=== PATIENT | female | born 1965 | race Caucasian/White ===

== ENCOUNTER 2020-03-15 14:08 | Outpatient (REF) | payer OTHER, SELFPAY ==
--- NOTE | 2020-03-15 14:15 | XR_ITS ---
EXAMINATION: XR CERVICAL SPINE CLINICAL INFORMATION: Neck pain COMPARISON: Previous exam November 2012 TECHNIQUE: 4 views of the cervical spine including swimmer's view were obtained. FINDINGS: Bone alignment is normal. No fracture or dislocation is seen. The C7 vertebral body is not well visualized. Disc spaces are normal. There is a small right cervical rib. Prevertebral soft tissues are normal. XR/XR cervical spine 2V IMPRESSION: Limited visualization of the C7 vertebral body. Small right cervical rib.
== END 2020-03-15 14:09 | disposition home or self-care (01) ==
LOC: HO.XRAY 14:08
PROVIDERS: PCP Internal Medicine; Visit Provider Internal Medicine
DX: M54.2 Cervicalgia (principal)
CPT/HCPCS: 72040

== ENCOUNTER 2020-03-28 13:00 | Outpatient (RCR) | payer OTHER, SELFPAY ==
--- NOTE | 2020-04-07 09:07 | MHC.PT.DC ---
[facility] Office [place] Office [place] Office [address] [phone] F: [phone] F: [phone] F: [phone] F: [phone] Physical Therapy Discharge Report Diagnosis: Vertigo Date of Surgery: Date of Evaluation: 03/27/20 Date of Discharge: 04/07/20 Treatments to Date: 2 Cancellations to Date: 0 No Shows to Date: 0 Discharge Status: Independent with HEP Discharge Summary: Since pt was negative for bppv at [facility], and felt no improvement despite doing CRM as a precaution I moved onto treatment of cervicogenic dizziness due to tightness in cervical rotation, retraction, and extension and provocation of lightheadedness with cervical movements. Pt tolerated tx well reporting. It feels good to stretch and move. Pt was given yellow theraband to do exercises performed today at home. Pt called and said she was independent with HEP Electronically signed by: Alix Chu PT, DPT Please sign and return to therapist. Thank you for your referral.
== END 2020-04-07 13:25 | disposition other institution (70) ==
LOC: HO.PT 13:00
PROVIDERS: Visit Provider Internal Medicine
DX: M54.2 Cervicalgia (principal); R42 Dizziness and giddiness
CPT/HCPCS: 95992; 97110; 97112; 97163

== ENCOUNTER → 2020-07-06 14:55 | Outpatient (BNVA) | payer OTHER, SELFPAY | PROVIDERS: PCP Internal Medicine; Visit Provider Internal Medicine | DX: I48.0 Paroxysmal atrial fibrillation (principal); I47.2 Ventricular tachycardia; R00.1 Bradycardia, unspecified; G47.33 Obstructive sleep apnea (adult) (pediatric); Z79.899 Other long term (current) drug therapy | CPT/HCPCS: 99212 ==

== ENCOUNTER 2020-07-13 10:08 | Outpatient (REF) | payer OTHER, SELFPAY ==
[2020-07-13 13:38] LABS: MANUAL DIFF FLAG NO
[2020-07-13 13:44] LABS: Basophils Percent Auto 0.2 % (0-2); Eosinophils Absolute Auto 0.2 X10*3/uL (0.0-0.4); Eosinophils Percent Auto 2.3 % (0-4); Hematocrit 34.6 % (37-47); Imm Gran Abs Auto 0.02 X10*3/uL (0.00-0.03); Imm Gran Pct Auto 0.2 % (0.0-0.4); Lymphocytes Absolute Auto 1.6 X10*3/uL (1.2-4.9); Lymphocytes Percent Auto 19.1 % (20-40); Mean Corpuscular HGB Conc 28.9 g/dl (31.0-35.0); Mean Corpuscular Hemoglobin 21.3 pg (27.0-33.0); Mean Corpuscular Volume 73.8 fL (80-98); Mean Platelet Volume 10.8 fL (9.4-12.3); Monocytes Absolute Auto 0.6 X10*3/uL (0.1-1.2); Monocytes Percent Auto 6.5 % (2-11); Neutrophils Absolute Auto 6.1 X10*3/uL (2.0-8.3); Neutrophils Percent Auto 71.7 % (45-73); Platelet Count 367 X10*3/uL (160-400); Red Blood Count 4.69 X10*6/uL (4.20-5.50); Red Cell Distribution Width 19.4 % (11.0-16.0); White Blood Count 8.6 X10*3/uL (4.8-10.8)
[2020-07-13 13:44] LABS: Immature Retic Fraction 30.6 % (3.0-15.9); Retic HGB Equivalent 24.5 pg (30.0-35.0); Reticulocyte Percent 1.9 % (0.5-1.8); Reticulocytes Absolute 0.088 X10*6/uL (0.026-0.095)
[2020-07-13 14:02] LABS: Glucose Urine UA NEG (NEG); Leukocyte Esterase Urine NEG (NEG); Nitrite Urine NEG (NEG); PH 6.5 (5.0-8.0); Urine Blood NEG (NEG); Urine Ketones NEG (NEG); Urine Protein NEG (NEG-TRACE)
[2020-07-13 14:04] LABS: Appearance Urine HAZY; Color Urine YELLOW
[2020-07-13 14:27] LABS: Iron 48 mcg/dL (30-160); Percent Iron Saturation 11 % (15-50); Total Iron Binding Capacity 421 mcg/dL (228-428); Unsaturated Iron Binding 373 ug/dL
[2020-07-13 14:28] LABS: Alanine Aminotransferase 19 U/L (0-31); Albumin Level 4.1 g/dL (3.5-5.0); Alkaline Phosphatase 101 U/L (39-117); Anion Gap 13 (12-20); Aspartate Amino Transferase 14 U/L (5-31); Bilirubin Total 0.6 mg/dL (0.0-1.0); Blood Urea Nitrogen 15 mg/dL (9-16); Carbon Dioxide 26 mmol/L (22-29); Chloride 104 mmol/L (96-108); Cholesterol 198 mg/dL; Estimated Glomerular Filt Rate > 60; Glucose Random 108 mg/dL (60-115); HDL Cholesterol 49 mg/dL; LDL Cholesterol Calculated 118 mg/dl; Potassium 4.7 mmol/L (3.3-5.1); Sodium 138 mmol/L (135-145); Triglycerides 155 mg/dL
[2020-07-13 14:40] LABS: Free T4 (Free Thyroxine) 0.94 ng/dL (0.71-1.85); Thyroid Stimulating Hormone 1.22 uIU/mL (0.32-4.0)
[2020-07-13 14:41] LABS: Ferritin 6 ng/mL (10-250); Vitamin D 25-OH Total 31.3 ng/mL (>30)
[2020-07-13 14:56] LABS: Bacteria Urine 1+ /LPF; RBC Urine 0-2 /HPF (0); Squamous Epithelial Cell Urine 3+ /LPF; WBC Urine 0-2 /HPF (0-4)
[2020-07-13 15:07] LABS: Folate 6.8 ng/mL (> or = 4.0); Vitamin B12 495 pg/mL (200-900)
[2020-07-13 15:12] LABS: T4 Thyroxine 7.7 ug/dL (4.5-12.0)
== END 2020-07-13 10:09 | disposition home or self-care (01) ==
LOC: HO.10HDL 10:08
PROVIDERS: Visit Provider Internal Medicine
DX: Z00.00 Encounter for general adult medical examination without abnormal findings (principal); I10 Essential (primary) hypertension; F32.9 Major depressive disorder, single episode, unspecified; R42 Dizziness and giddiness; E66.01 Morbid (severe) obesity due to excess calories; Z68.41 Body mass index [BMI] 40.0-44.9, adult; F41.9 Anxiety disorder, unspecified; E78.00 Pure hypercholesterolemia, unspecified; G47.33 Obstructive sleep apnea (adult) (pediatric); M51.36 Other intervertebral disc degeneration, lumbar region; K21.9 Gastro-esophageal reflux disease without esophagitis; I48.91 Unspecified atrial fibrillation
CPT/HCPCS: 36415; 80053; 80061; 81001; 82306; 82607; 82728; 82746; 83540; 84436; 84439; 84443; 85025; 85045

== ENCOUNTER → 2020-08-15 13:30 | Outpatient (BNVA) | payer OTHER, SELFPAY | PROVIDERS: PCP Internal Medicine; Visit Provider Physician Assistant | DX: E66.01 Morbid (severe) obesity due to excess calories (principal); I48.0 Paroxysmal atrial fibrillation; G47.33 Obstructive sleep apnea (adult) (pediatric); K21.9 Gastro-esophageal reflux disease without esophagitis | CPT/HCPCS: 99202 ==

== ENCOUNTER → 2020-08-30 08:09 | Outpatient (BNVA) | payer OTHER, SELFPAY | PROVIDERS: PCP Internal Medicine; Visit Provider Physician Assistant ==

== ENCOUNTER → 2020-09-26 08:11 | Outpatient (BNVA) | payer OTHER, SELFPAY | PROVIDERS: PCP Internal Medicine; Visit Provider Dietitian, Registered | DX: E66.01 Morbid (severe) obesity due to excess calories (principal); Z68.41 Body mass index [BMI] 40.0-44.9, adult | CPT/HCPCS: 97802 ==

== ENCOUNTER 2020-10-10 12:08 | Outpatient (REF) | payer OTHER, SELFPAY ==
[2020-10-10 13:54] LABS: MANUAL DIFF FLAG NO
[2020-10-10 14:17] LABS: Basophils Percent Auto 0.5 % (0-2); Eosinophils Absolute Auto 0.2 X10*3/uL (0.0-0.4); Eosinophils Percent Auto 2.3 % (0-4); Hematocrit 40.5 % (37-47); Hemoglobin 12.7 g/dl (12.0-16.0); Imm Gran Abs Auto 0.02 X10*3/uL (0.00-0.03); Imm Gran Pct Auto 0.3 % (0.0-0.4); Immature Retic Fraction 11.1 % (3.0-15.9); Lymphocytes Absolute Auto 1.9 X10*3/uL (1.2-4.9); Lymphocytes Percent Auto 28.4 % (20-40); Mean Corpuscular HGB Conc 31.4 g/dl (31.0-35.0); Mean Corpuscular Hemoglobin 25.1 pg (27.0-33.0); Mean Platelet Volume 10.7 fL (9.4-12.3); Monocytes Absolute Auto 0.5 X10*3/uL (0.1-1.2); Monocytes Percent Auto 7.2 % (2-11); Neutrophils Percent Auto 61.3 % (45-73); Platelet Count 284 X10*3/uL (160-400); Red Blood Count 5.06 X10*6/uL (4.20-5.50); Red Cell Distribution Width 21.2 % (11.0-16.0); Retic HGB Equivalent 31.7 pg (30.0-35.0); Reticulocyte Percent 1.2 % (0.5-1.8); Reticulocytes Absolute 0.061 X10*6/uL (0.026-0.095); White Blood Count 6.6 X10*3/uL (4.8-10.8)
[2020-10-10 14:25] LABS: Estimated Average Glucose 134 mg/dL; Hemoglobin A1c % 6.3 %
[2020-10-10 14:33] LABS: Alanine Aminotransferase 21 U/L (0-31); Albumin Level 4.4 g/dL (3.5-5.0); Alkaline Phosphatase 103 U/L (39-117); Anion Gap 14 (12-20); Aspartate Amino Transferase 16 U/L (5-31); Bilirubin Total 0.5 mg/dL (0.0-1.0); Blood Urea Nitrogen 20 mg/dL (9-16); Calcium 9.9 mg/dL (8.4-10.2); Carbon Dioxide 27 mmol/L (22-29); Chloride 107 mmol/L (96-108); Estimated Glomerular Filt Rate > 60; Glucose Random 90 mg/dL (60-115); Iron 66 mcg/dL (30-160); Percent Iron Saturation 19 % (15-50); Potassium 4.5 mmol/L (3.3-5.1); Sodium 143 mmol/L (135-145); Total Iron Binding Capacity 356 mcg/dL (228-428); Total Protein 7.2 g/dL (6.5-8.0); Unsaturated Iron Binding 290 ug/dL
[2020-10-10 14:43] LABS: Ferritin 44 ng/mL (10-250)
[2020-10-10 14:53] LABS: Folate 9.2 ng/mL (> or = 4.0); Vitamin B12 588 pg/mL (200-900)
== END 2020-10-10 12:09 | disposition home or self-care (01) ==
LOC: HO.10HDL 12:08
PROVIDERS: Visit Provider Internal Medicine
DX: D50.9 Iron deficiency anemia, unspecified (principal); I48.0 Paroxysmal atrial fibrillation; R73.02 Impaired glucose tolerance (oral)
CPT/HCPCS: 36415; 80053; 82607; 82728; 82746; 83036; 83540; 85025; 85045

== ENCOUNTER → 2020-10-25 08:13 | Outpatient (BNVA) | payer OTHER, SELFPAY | PROVIDERS: PCP Internal Medicine; Visit Provider Physician Assistant ==

== ENCOUNTER → 2020-11-24 07:47 | Outpatient (BNVA) | payer OTHER, SELFPAY | PROVIDERS: PCP Internal Medicine; Visit Provider Physician Assistant ==

== ENCOUNTER 2020-12-25 13:26 | Outpatient (REF) | payer OTHER, SELFPAY ==
--- NOTE | ~2020-12-25 | MM_ITS ---
EXAMINATION: MM SCREENING DIGITAL BREAST TOMOSYNTHESIS, BILATERAL CLINICAL INFORMATION: Screening. Asymptomatic. The lifetime risk of breast cancer based on the Tyrer-Cuzick Model is 6%. COMPARISON: Mammography: 12/20/2019, 12/14/2018, 12/09/2016, 11/17/2015; ultrasound left breast 06/21/2019 TECHNIQUE: Digital breast tomosynthesis is performed in both the craniocaudal and mediolateral oblique views along with computer-aided detection (CAD). Synthesized 2D images are generated from the tomosynthesis. Additional right CC x2 and additional left CC views are provided. FINDINGS: There are scattered areas of fibroglandular density (ACR BI-RADS breast composition Category b). There are small scattered parenchymal asymmetries similar to prior studies. There is no developing density. Minor nodularity left breast is similar to prior studies. There is no developing density. No architectural abnormality. No abnormal calcifications. The axilla and skin contours are unremarkable. MM/MM tomosynthesis screening BI IMPRESSION: No significant changes from prior exams. ASSESSMENT: BI-RADS 2: Benign RECOMMENDATION: Routine annual mammography screening. This patient's information was entered into a reminder system with a target due date for their next mammogram.
== END 2020-12-25 13:27 | disposition home or self-care (01) ==
LOC: HO.MAMMO 13:26
PROVIDERS: Visit Provider Internal Medicine
DX: Z12.31 Encounter for screening mammogram for malignant neoplasm of breast (principal)
CPT/HCPCS: 77063; 77067

== ENCOUNTER → 2021-01-03 08:09 | Outpatient (BNVA) | payer OTHER, SELFPAY | PROVIDERS: PCP Internal Medicine; Visit Provider Physician Assistant ==

== ENCOUNTER 2022-01-04 14:16 | Outpatient (REF) | payer OTHER, SELFPAY ==
--- NOTE | ~2022-01-04 | MM_ITS ---
EXAMINATION: MM SCREENING DIGITAL BREAST TOMOSYNTHESIS, BILATERAL CLINICAL INFORMATION: Screening. Asymptomatic. The lifetime risk of breast cancer based on the Tyrer-Cuzick Model is 7%. COMPARISON: Mammography: 12/25/2020, 12/20/2019, 12/14/2018 TECHNIQUE: Digital breast tomosynthesis is performed in both the craniocaudal and mediolateral oblique views along with computer-aided detection (CAD). Synthesized 2D images are generated from the tomosynthesis. Additional right cleavage view is provided. FINDINGS: There are scattered areas of fibroglandular density (ACR BI-RADS breast composition Category b). There are no significant masses, abnormal calcifications, or other abnormalities. Parenchymal pattern is similar to prior studies. There is no developing density or architectural abnormality. Fibronodular densities central and outer left breast are decreased from prior exams. The axilla and skin contours are unremarkable. No significant changes. MM/MM tomosynthesis screening BI IMPRESSION: No mammographic evidence of malignancy. ASSESSMENT: BI-RADS 2: Benign RECOMMENDATION: Routine annual mammography screening. This patient's information was entered into a reminder system with a target due date for their next mammogram.
== END 2022-01-04 14:17 | disposition home or self-care (01) ==
LOC: HO.MAMMO 14:16
PROVIDERS: PCP Internal Medicine; Visit Provider Internal Medicine
DX: Z12.31 Encounter for screening mammogram for malignant neoplasm of breast (principal)
CPT/HCPCS: 77063; 77067

== ENCOUNTER → 2022-02-27 13:10 | Outpatient (BNVA) | payer OTHER, SELFPAY | PROVIDERS: PCP Internal Medicine; Visit Provider Internal Medicine | DX: I48.0 Paroxysmal atrial fibrillation (principal); I47.20 Ventricular tachycardia, unspecified; R00.1 Bradycardia, unspecified; E66.01 Morbid (severe) obesity due to excess calories; G47.33 Obstructive sleep apnea (adult) (pediatric); Z68.42 Body mass index [BMI] 45.0-49.9, adult | CPT/HCPCS: 93005; 99212 ==

== ENCOUNTER 2022-05-22 13:56 | Outpatient (REF) | payer OTHER, SELFPAY ==
--- NOTE | ~2022-05-22 | XR_ITS ---
EXAMINATION: XR KNEE AP STANDING, BILATERAL XR KNEE, RIGHT CLINICAL INFORMATION: Pain in right knee. COMPARISON: None TECHNIQUE: AP bilateral knee standing. Right knee 2 views. FINDINGS: AP BILATERAL KNEE: There is loss of medial compartment joint space with periarticular spurring. The lateral compartment joint space is maintained. No visible acute fracture, dislocation or bony erosive changes seen. The soft tissues are normal. RIGHT KNEE: The patellofemoral compartment joint space is preserved. No visible acute fracture or dislocation seen. No bony erosive changes. No abnormal joint effusion. XR/XR knee RT 2V IMPRESSION: Mild degenerative changes medial compartment bilateral knees on AP standing view. Mild degenerative changes patellofemoral compartment right knee. No joint effusion or loose body seen.
--- NOTE | ~2022-05-22 | XR_ITS ---
EXAMINATION: XR KNEE AP STANDING, BILATERAL XR KNEE, RIGHT CLINICAL INFORMATION: Pain in right knee. COMPARISON: None TECHNIQUE: AP bilateral knee standing. Right knee 2 views. FINDINGS: AP BILATERAL KNEE: There is loss of medial compartment joint space with periarticular spurring. The lateral compartment joint space is maintained. No visible acute fracture, dislocation or bony erosive changes seen. The soft tissues are normal. RIGHT KNEE: The patellofemoral compartment joint space is preserved. No visible acute fracture or dislocation seen. No bony erosive changes. No abnormal joint effusion. XR/XR knee standing BI IMPRESSION: Mild degenerative changes medial compartment bilateral knees on AP standing view. Mild degenerative changes patellofemoral compartment right knee. No joint effusion or loose body seen.
== END 2022-05-22 13:57 | disposition home or self-care (01) ==
LOC: HO.HOSX 13:56
PROVIDERS: Visit Provider Physician Assistant
DX: M17.11 Unilateral primary osteoarthritis, right knee (principal)
CPT/HCPCS: 20610; 73560; 73565; 99202; J1020

== ENCOUNTER 2022-09-21 20:55 | Observation (INO) | payer OTHER, SELFPAY ==
--- NOTE | 2022-09-21 | ECG_ITS ---
Test Reason : SYNCOPEE Blood Pressure : / mmHG Vent. Rate : 077 BPM Atrial Rate : 077 BPM P-R Int : 196 ms QRS Dur : 154 ms QT Int : 400 ms P-R-T Axes : 051 -63 091 degrees QTc Int : 452 ms Normal sinus rhythm Left axis deviation Left bundle branch block Abnormal ECG No previous ECGs available Referred By: Generic ED Physician Electronically Signed By:NEFTALY HORNE
--- NOTE | ~2022-09-21 | CT_ITS ---
EXAMINATION: NONCONTRAST CT HEAD CT ANGIOGRAM HEAD AND NECK CLINICAL INFORMATION: Syncope COMPARISON: 10/06/2017 10/02/2015 TECHNIQUE: Noncontrast CT examination of the head was performed initially. Test bolus sequences followed by intravenous administration 80 mL of Omnipaque 350 intravenous contrast. Helical imaging was performed in the axial plane from the mediastinum to the skull vertex. Delayed postcontrast imaging of the head was also performed. The data was processed at the 3d technologist's workstation for generation of MIP sequences. Three-dimensional volume rendered reformatted images were also generated at an offline 3-D workstation. This CT examination was performed using dose optimization techniques as appropriate, variously including the following: *Automated exposure control *Adjustment of mA and/or kV according to patient size (this includes techniques or standardized protocols for targeted exams where dose is matched to indication/reason for exam; i.e. extremities or head) *Use of iterative reconstruction technique The degree of stenosis determined by NASCET criteria. DLP: 2180 mGy-cm FINDINGS: BONES, SOFT TISSUES AND LUNG APICES: No overt abnormality is appreciated. CTA NECK: The aortic arch has a classic configuration and the major arch vessel origins are non-stenotic. The vertebral arteries are co-dominant and both vertebral origins are widely patent. Both common carotid arteries are normal in course and caliber. Both internal carotid arteries demonstrate mild atherosclerotic plaque without significant stenosis. CTA HEAD: There is normal opacification of the major intracranial vessels. No acute proximal large vessel occlusion, focal flow-limiting stenosis, or saccular intracranial aneurysm is identified. No abnormal parenchymal enhancement or regional oligemia is visualized. The right P2 is predominantly supplied by the right posterior communicating artery with hypoplastic right P1 segment i.e. forme fruste persistent circulation. HEAD (noncontrast and delayed): No intracranial mass, intercerebral edema, hemorrhage, or midline shift is evident. The ventricles and sulci are stable in size and configuration. No extra-axial collections are appreciated. No pathologic intracranial enhancement. Dural sinuses are patent. The paranasal sinuses are well-aerated and clear. 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 CT/CT angio head neck IMPRESSION: * No acute intracranial pathology. * No large vessel occlusion or hemodynamically significant stenosis within the intracranial or extracranial arterial vasculature.
[2022-09-21 21:01] VITALS: BP 173/72; PULSE 79; RESP 16; TEMP 36.5; O2SAT 94; BMI 43.6
[2022-09-21 21:24] LABS: MANUAL DIFF FLAG NO
[2022-09-21 21:31] LABS: Glucose, Whole Blood 154 mg/dL (60-115)
[2022-09-21 21:34] LABS: Basophils Absolute Auto 0.1 X10*3/uL (0.0-0.2); Basophils Percent Auto 0.5 % (0-2); Eosinophils Absolute Auto 0.2 X10*3/uL (0.0-0.4); Eosinophils Percent Auto 1.9 % (0-4); Hematocrit 35.2 % (37.0-47.0); Hemoglobin 11.4 g/dl (12.0-16.0); Imm Gran Abs Auto 0.04 X10*3/uL (0.00-0.03); Imm Gran Pct Auto 0.4 % (0.0-0.4); Lymphocytes Absolute Auto 3.2 X10*3/uL (1.2-4.9); Lymphocytes Percent Auto 29.7 % (20-40); Mean Corpuscular HGB Conc 32.4 g/dl (31.0-35.0); Mean Corpuscular Hemoglobin 27.1 pg (27.0-33.0); Mean Corpuscular Volume 83.6 fL (80.0-98.0); Mean Platelet Volume 10.1 fL (9.4-12.3); Monocytes Absolute Auto 0.7 X10*3/uL (0.1-1.2); Monocytes Percent Auto 6.9 % (2-11); Neutrophils Absolute Auto 6.5 x10*3/uL (2.0-8.3); Neutrophils Percent Auto 60.6 % (45-73); Platelet Count 334 X10*3/uL (160-400); Red Blood Count 4.21 X10*6/uL (4.20-5.50); Red Cell Distribution Width 15.2 % (11.0-16.0); White Blood Count 10.8 X10*3/uL (4.8-10.8)
--- NOTE | 2022-09-21 21:42 | ED.SYNCOPE ---
HPI - Syncope General Chief Complaint: Syncope Stated Complaint: neck pain then passed out h/o of afib Time Seen by Provider: 09/21/22 21:26 Source: patient and family ( and daughter) Mode of arrival: ambulatory History of Present Illness HPI narrative: 57-year-old female with history JESSICA, diabetes, paroxysmal atrial fibrillation, SVT currently taking an aspirin a day and Lopressor presents with syncopal episode while sitting in the car, witnessed by her . Patient had exerted herself just prior to the event as she was pulling herself up into the truck and sat down and states that she felt some fuzziness crawling up the back of her neck and into the back of her head in states that she felt like she was going to pass out she felt very flushed but denies any cool/sweatiness/nausea/tingling/shortness of breath around this event. She denies any recent medication changes, denies feeling unwell. The states that he witnessed her head fall forward and she was going to fall into the dashboard but he caught her before that happened and proceeded to rouse her by a saying her name repeatedly he denies noting any twitching or tremors that may suggest a seizure. He states that she then woke up in the decision was made to seek medical attention. BACKGROUND: Patient states that a couple of times throughout this month she has noted between 04:00 and 06:00 that she will feel as though she is having palpitations and will check her heart rate which she states is sometimes as high is 130, she states that does not last long and is not associated with chest pain. She reports that she sees her registered route associate regularly. She acknowledges that she supposed to be using a CPAP machine at night but does not like the sensation. Family provides additional information stating that she will suddenly fall asleep while sitting up at the table. Related Data Home Medications Medication Instructions Recorded Confirmed ascorbate calcium (vitamin C) 500 500 mg PO DAILY 03/13/20 04/05/22 mg tablet aspirin 81 mg tablet,delayed 81 mg PO DAILY 03/13/20 04/05/22 release (Adult Aspirin Regimen) cholecalciferol (vitamin D3) 25 25 mcg PO DAILY 03/13/20 04/05/22 mcg (1,000 unit) capsule cranberry 400 mg capsule 400 mg PO DAILY 03/13/20 04/05/22 whit root 325 mg-pyridoxine HCl cap PO 03/13/20 04/05/22 (vitamin B6) 25 mg capsule omega-3 fatty acids 1,000 mg 1,000 mg PO DAILY 03/13/20 04/05/22 capsule (Fish Oil Concentrate) simethicone 125 mg capsule (Gas 125 mg PO BID-QID PRN 03/13/20 04/05/22 Relief (simethicone)) elderberry fruit 460 mg-elderberry cap PO 08/15/20 04/05/22 flower 115 mg capsule Previous Rx's Medication Instructions Recorded diazepam 5 mg tablet 5 mg PO DAILY PRN anxiety #30 tabs 07/14/20 ibuprofen 800 mg tablet 800 mg PO Q12H #60 tabs 09/10/21 lancets 28 gauge (FreeStyle #100 ea 10/15/21 Lancets) metoprolol tartrate 25 mg tablet 25 mg PO BID #180 tabs 02/05/22 metformin 500 mg tablet 500 mg PO BID #180 tabs 03/05/22 benzonatate 200 mg capsule 200 mg PO TID PRN cough #30 caps 04/05/22 pantoprazole 40 mg tablet,delayed 40 mg PO DAILY #90 tabs 08/05/22 release Allergies Allergy/AdvReac Type Severity Reaction Status Date / Time meperidine [From DEMEROL] Allergy Intermediate MIGRAINE Verified 05/22/22 09:10 codeine [CODEINE] Allergy Unknown UNKNOWN Verified 05/22/22 09:10 Pt states she's allergic to Allergy Unknown f Uncoded 04/05/22 15:00 gl Review of Systems Review of Systems: Pertinent positives and negatives as stated in HPI [facility] Past Medical History Source: nursing notes reviewed Medical History Anemia Anxiety and depression Bradycardia COVID-19 virus infection GERD (gastroesophageal reflux disease) Hypercholesterolemia Hypertension Lumbar degenerative disc disease Neck pain NSVT (nonsustained ventricular tachycardia) Obesity Obstructive sleep apnea Paroxysmal atrial fibrillation Spinal stenosis Vertigo Surgical History History of cholecystectomy S/P arteriovenous (AV) fistula repair S/P diskectomy Family History Family History Father Lung cancer Mother Medical history unknown Sister Myocardial infarction Brother Hepatitis C Paternal Grandmother Ovarian cancer Paternal Uncle Brain cancer Sister No problems noted. Sister No problems noted. Brother No problems noted. Brother No problems noted. Brother No problems noted. Daughter No problems noted. Daughter No problems noted. 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 GENERAL: Elevated BMI, Well developed, well nourished, in no acute distress. HEAD: Normocephalic/atraumatic EYES: PERRLA, EOMI EARS: Ext canals without abnormality NOSE: Nares patent bilateral OROPHARYNX: no oral lesions noted, posterior pharynx clear NECK: Supple, no adenopathy LUNGS: Normal breath sounds. No adventitious sounds or accessory muscle use. SpO2<99> CARDIOVASCULAR: Regular rate and rhythm without noted murmurs, no JVD or lower extremity edema. ABDOMEN: Soft, non-tender, non-distended with bowel sounds. MUSCULOSKELETAL: No tenderness, deformities, or effusions noted on gross inspection. EXTREMITIES: No cyanosis, clubbing or edema. SKIN: Inspection of the skin reveals no rashes NEUROLOGIC: Alert and oriented x 4. Strength and sensation to light touch were grossly intact x 4. Medications Administered Discontinued Medications Generic Name Dose Route Start Last Admin Trade Name Freq PRN Reason Stop Dose Admin Iohexol 70 ml 09/22/22 00:40 09/22/22 00:40 Iohexol 350 Mg/Ml 100 Ml Infus..Btl IV 09/22/22 00:41 70 ml ONCE ONE Administration Medical Decision Making Medical Decision Making [facility] Narrative: 57-year-old female with history of paroxysmal atrial fibrillation presents with concerning symptoms of syncopal episode that do not appear consistent with vasovagal syncope, patient has a new left bundle-branch block when compared to prior Holter monitor strips, she is also diabetic, suffers from obstructive sleep apnea for which she does not wear CPAP. She is not on anticoagulation for the paroxysmal atrial fibrillation and her symptoms and history do not sound consistent with seizure or stroke-like symptoms. Specifically, patient is nonfocal. - Labs, EKG, coags, CT head, d-dimer Reviewed all investigations my interpretation is that patient has had a syncopal episode concerning for cardiac in etiology. I discussed case with the inpatient hospitalist who accepts admission. Differential Diagnosis Please see the discussion above Consult Healthcare Provider Management of the patient was discussed with: Hospitalist Please see the discussion above Lab Data Please see the discussion above 09/21/22 21:18 09/21/22 21:18 Labs: Lab Results 09/21/22 09/21/22 09/21/22 Range/Units 21:14 21:18 21:18 WBC 10.8 (4.8-10.8) X10*3/uL RBC 4.21 (4.20-5.50) X10*6/uL Hgb 11.4 L (12.0-16.0) g/dl Hct 35.2 L (37.0-47.0) % MCV 83.6 (80.0-98.0) fL MCH 27.1 (27.0-33.0) pg MCHC 32.4 (31.0-35.0) g/dl RDW 15.2 (11.0-16.0) % Plt Count 334 (160-400) X10*3/uL MPV 10.1 (9.4-12.3) fL Immature Gran % (Auto) 0.4 (0.0-0.4) % Neut % (Auto) 60.6 (45-73) % Lymph % (Auto) 29.7 (20-40) % Williamson % (Auto) 6.9 (2-11) % Eos % (Auto) 1.9 (0-4) % Baso % (Auto) 0.5 (0-2) % Lymph # (Auto) 3.2 (1.2-4.9) X10*3/uL Williamson # (Auto) 0.7 (0.1-1.2) X10*3/uL Eos # (Auto) 0.2 (0.0-0.4) X10*3/uL Baso # (Auto) 0.1 (0.0-0.2) X10*3/uL Abs Immat Gran (auto) 0.04 H (0.00-0.03) X10*3/uL Absolute Neuts (auto) 6.5 (2.0-8.3) x10*3/uL Absolute Nucleated RBC 0.000 (0.0-0.012) X10*3/uL Nucleated RBC % (auto) 0.0 (0.0-0.2) /100WBC PT (10.0-13.1) SEC INR (0.9-1.1) APTT (26.0-36.4) SEC D-Dimer High Sensitivty NG/ML Sodium 141 (135-145) mmol/L Potassium 3.9 (3.3-5.1) mmol/L Chloride 108 (96-108) mmol/L Carbon Dioxide 24 (22-29) mmol/L Anion Gap 13 (12-20) BUN 18 H (9-16) mg/dL Creatinine 0.90 (0.5-1.4) mg/dL Estim Creat Clear Calc 78.6 Estimated GFR > 60 POC Glucose 154 H (60-115) mg/dL Random Glucose 147 H (60-115) mg/dL Calcium 9.6 (8.4-10.2) mg/dL Total Bilirubin 0.5 (0.0-1.0) mg/dL AST 16 (5-31) U/L ALT 27 (0-31) U/L Alkaline Phosphatase 107 (39-117) U/L Troponin I High Sens (<3.5-17.0) ng/L Total Protein 7.2 (6.5-8.0) g/dL Albumin 4.1 (3.5-5.0) g/dL Urine Color Urine Appearance Urine pH (5.0-9.0) Ur Specific Entiat (1.005-1.025) Urine Protein (Neg-Trace) mg/dL Urine Glucose (UA) (Negative) mg/dL Urine Ketones (Negative) mg/dL Urine Blood (Negative) Urine Nitrite (Negative) Ur Leukocyte Esterase (Negative) Urine RBC (0-2) /HPF Urine WBC (0-5) /HPF Ur Squamous Epith Cells (0-2) /HPF Urine Bacteria (None Seen) Hyaline Casts (0-2) /LPF 09/21/22 09/21/22 09/21/22 Range/Units 21:18 21:51 22:10 WBC (4.8-10.8) X10*3/uL RBC (4.20-5.50) X10*6/uL Hgb (12.0-16.0) g/dl Hct (37.0-47.0) % MCV (80.0-98.0) fL MCH (27.0-33.0) pg MCHC (31.0-35.0) g/dl RDW (11.0-16.0) % Plt Count (160-400) X10*3/uL MPV (9.4-12.3) fL Immature Gran % (Auto) (0.0-0.4) % Neut % (Auto) (45-73) % Lymph % (Auto) (20-40) % Williamson % (Auto) (2-11) % Eos % (Auto) (0-4) % Baso % (Auto) (0-2) % Lymph # (Auto) (1.2-4.9) X10*3/uL Williamson # (Auto) (0.1-1.2) X10*3/uL Eos # (Auto) (0.0-0.4) X10*3/uL Baso # (Auto) (0.0-0.2) X10*3/uL Abs Immat Gran (auto) (0.00-0.03) X10*3/uL Absolute Neuts (auto) (2.0-8.3) x10*3/uL Absolute Nucleated RBC (0.0-0.012) X10*3/uL Nucleated RBC % (auto) (0.0-0.2) /100WBC PT 11.3 (10.0-13.1) SEC INR 1.0 (0.9-1.1) APTT 31.0 (26.0-36.4) SEC D-Dimer High Sensitivty < 150 NG/ML Sodium (135-145) mmol/L Potassium (3.3-5.1) mmol/L Chloride (96-108) mmol/L Carbon Dioxide (22-29) mmol/L Anion Gap (12-20) BUN (9-16) mg/dL Creatinine (0.5-1.4) mg/dL Estim Creat Clear Calc Estimated GFR POC Glucose (60-115) mg/dL Random Glucose (60-115) mg/dL Calcium (8.4-10.2) mg/dL Total Bilirubin (0.0-1.0) mg/dL AST (5-31) U/L ALT (0-31) U/L Alkaline Phosphatase (39-117) U/L Troponin I High Sens < 2.7 (<3.5-17.0) ng/L Total Protein (6.5-8.0) g/dL Albumin (3.5-5.0) g/dL Urine Color Yellow Urine Appearance Clear Urine pH 6.0 (5.0-9.0) Ur Specific Entiat 1.025 (1.005-1.025) Urine Protein Trace (Neg-Trace) mg/dL Urine Glucose (UA) Negative (Negative) mg/dL Urine Ketones Negative (Negative) mg/dL Urine Blood Small (1+) H (Negative) Urine Nitrite Negative (Negative) Ur Leukocyte Esterase Negative (Negative) Urine RBC >20 H (0-2) /HPF Urine WBC 0-5 (0-5) /HPF Ur Squamous Epith Cells 0-2 (0-2) /HPF Urine Bacteria None Seen (None Seen) Hyaline Casts 0-2 (0-2) /LPF 09/22/22 Range/Units 00:36 WBC (4.8-10.8) X10*3/uL RBC (4.20-5.50) X10*6/uL Hgb (12.0-16.0) g/dl Hct (37.0-47.0) % MCV (80.0-98.0) fL MCH (27.0-33.0) pg MCHC (31.0-35.0) g/dl RDW (11.0-16.0) % Plt Count (160-400) X10*3/uL MPV (9.4-12.3) fL Immature Gran % (Auto) (0.0-0.4) % Neut % (Auto) (45-73) % Lymph % (Auto) (20-40) % Williamson % (Auto) (2-11) % Eos % (Auto) (0-4) % Baso % (Auto) (0-2) % Lymph # (Auto) (1.2-4.9) X10*3/uL Williamson # (Auto) (0.1-1.2) X10*3/uL Eos # (Auto) (0.0-0.4) X10*3/uL Baso # (Auto) (0.0-0.2) X10*3/uL Abs Immat Gran (auto) (0.00-0.03) X10*3/uL Absolute Neuts (auto) (2.0-8.3) x10*3/uL Absolute Nucleated RBC (0.0-0.012) X10*3/uL Nucleated RBC % (auto) (0.0-0.2) /100WBC PT (10.0-13.1) SEC INR (0.9-1.1) APTT (26.0-36.4) SEC D-Dimer High Sensitivty NG/ML Sodium (135-145) mmol/L Potassium (3.3-5.1) mmol/L Chloride (96-108) mmol/L Carbon Dioxide (22-29) mmol/L Anion Gap (12-20) BUN (9-16) mg/dL Creatinine (0.5-1.4) mg/dL Estim Creat Clear Calc Estimated GFR POC Glucose (60-115) mg/dL Random Glucose (60-115) mg/dL Calcium (8.4-10.2) mg/dL Total Bilirubin (0.0-1.0) mg/dL AST (5-31) U/L ALT (0-31) U/L Alkaline Phosphatase (39-117) U/L Troponin I High Sens 2.8 (<3.5-17.0) ng/L Total Protein (6.5-8.0) g/dL Albumin (3.5-5.0) g/dL Urine Color Urine Appearance Urine pH (5.0-9.0) Ur Specific Entiat (1.005-1.025) Urine Protein (Neg-Trace) mg/dL Urine Glucose (UA) (Negative) mg/dL Urine Ketones (Negative) mg/dL Urine Blood (Negative) Urine Nitrite (Negative) Ur Leukocyte Esterase (Negative) Urine RBC (0-2) /HPF Urine WBC (0-5) /HPF Ur Squamous Epith Cells (0-2) /HPF Urine Bacteria (None Seen) Hyaline Casts (0-2) /LPF Independent Interpretation I performed an independent interpretation of an: EKG Interpretation: Normal sinus rhythm, HR-77, LBBB unknown onset, no STEMI, NH/QTC are within normal limits. Radiology Impression Radiologist Impression: My interpretation is in agreement with radiology's impression External Record Review External record reviewed: Prior outpatient labs Chronic Conditions Patient?s care impacted by: Diabetes and Hypertension Discharge Plan Discharge Clinical Impression: Syncope Patient Disposition: Admitted As Inpatient
[2022-09-21 21:43] LABS: Alanine Aminotransferase 27 U/L (0-31); Albumin Level 4.1 g/dL (3.5-5.0); Alkaline Phosphatase 107 U/L (39-117); Anion Gap 13 (12-20); Aspartate Amino Transferase 16 U/L (5-31); Bilirubin Total 0.5 mg/dL (0.0-1.0); Blood Urea Nitrogen 18 mg/dL (9-16); Calcium 9.6 mg/dL (8.4-10.2); Carbon Dioxide 24 mmol/L (22-29); Chloride 108 mmol/L (96-108); Creatinine Clr Calc Pharmacy 78.6; Estimated Glomerular Filt Rate > 60; Glucose Random 147 mg/dL (60-115); Potassium 3.9 mmol/L (3.3-5.1); Sodium 141 mmol/L (135-145); Total Protein 7.2 g/dL (6.5-8.0)
[2022-09-21 21:50] LABS: Troponin-I High Sensitivity < 2.7 ng/L (<3.5-17.0)
[2022-09-21 21:56] VITALS: BP 170/83; PULSE 77; PULSE 88; O2SAT 99
[2022-09-21 21:59] VITALS: BP 179/99; PULSE 83
[2022-09-21 22:00] VITALS: BP 184/95; PULSE 77
--- NOTE | 2022-09-21 22:04 | PC.NURSE ---
Assumed care of pt. pt sitting on edge o bed, daughter and sig other present. Pt endorsing syncopal episode as charted in full assessment, ith complete resolution of sx at this time. Pt also sts was prescribed CPAP but has not obtained nor used. Pt appears to have new LBBB per EKG, MD aware. Pt requested to call for assistance with ambulating for safety, walks with steady gait. IV established, labs drawn. WCTM.
[2022-09-21 22:16] VITALS: BP 156/61; PULSE 78; RESP 26; TEMP 37.1; O2SAT 96
[2022-09-21 22:19] LABS: Appearance Urine Clear; Color Urine Yellow; Glucose Urine UA Negative (Negative); Leukocyte Esterase Urine Negative (Negative); Nitrite Urine Negative (Negative); Specific Gravity - Urine 1.025 (1.005-1.025); UMIC TRIGGER UACC YES; Urine Blood Small (1+) (Negative); Urine Ketones Negative (Negative); Urine Protein Trace mg/dL (Neg-Trace)
[2022-09-21 22:21] LABS: Bacteria Urine None Seen (None Seen); Hyaline Casts Urine 0-2 /LPF (0-2); RBC Urine >20 /HPF (0-2); Squamous Epithelial Cell Urine 0-2 /HPF (0-2); WBC Urine 0-5 /HPF (0-5)
[2022-09-21 22:43] LABS: Prothrombin Time 11.3 SEC (10.0-13.1)
--- NOTE | 2022-09-21 23:03 | PC.NURSE ---
Pt remains lkying on stretcher, AxO x4, no acute distress. Pt sts had small episode of bubble in my chest just prio to RN reentering room, no noted dysrhythmias on monitor, asymptomatic at this time. ISABELLETM
[2022-09-21 23:21] LABS: D Dimer High Sensitivity < 150 NG/ML
[2022-09-22] VITALS (9 sets, daily range): BP systolic 137–185; BP diastolic 62–88; PULSE 62–73; RESP 14–20; TEMP 35.7–37.2; O2SAT 94–97
--- NOTE | 2022-09-22 | ECG_ITS ---
Test Reason : elevated troponin Blood Pressure : / mmHG Vent. Rate : 067 BPM Atrial Rate : 067 BPM P-R Int : 210 ms QRS Dur : 154 ms QT Int : 420 ms P-R-T Axes : 055 -57 087 degrees QTc Int : 443 ms Sinus rhythm with 1st degree A-V block Left axis deviation Left bundle branch block Abnormal ECG When compared with ECG of 21-SEP-2022 21:19, No significant change was found Referred By: Laura Gentile Electronically Signed By:NEFTALY HORNE
[2022-09-22] MEDS: iohexoL 350 MG/ML 100 ML INFUS..BTL 70 ML IV (00:40)
[2022-09-22 01:07] LABS: Troponin-I High Sensitivity 2.8 ng/L (<3.5-17.0)
--- NOTE | 2022-09-22 02:20 | PM.IMHP ---
History of Present Illness Date of Service: 09/22/22 Chief Complaint: Syncope This is a 57-year-old female with pertinent history of paroxysmal atrial fibrillation not on anticoagulation, mood disorder, adn-yfvsgag-bxiblhdte diabetes mellitus, JESSICA not on CPAP presents to the emergency department for evaluation of syncope. [facility] and sat back in the car. Soon after, patient passed out for about 3-4 minutes, witnessed by the . Unclear if she had palpitations prior to the episode. No chest discomfort or shortness of breath. States she was flushed but no nausea, sweating or feeling of warmth. No rhythmic jerking movement of extremities, tongue bite, urinary or bowel incontinence. No confusion after she regained consciousness. Patient states she is supposed to be on a CPAP but does not use it. About 2-3 times per week patient has a sensation of palpitations which last about 5 minutes. She denies fever, chills, chest discomfort, vomiting, diarrhea, shortness of breath, abdominal pain, changes in urinary or bowel habits In the emergency department, CTA without any acute abnormality Review of Systems Constitutional: Constitutional: Reports no additional constitutional complaints Cardiovascular: Cardiovascular: Reports no additional cardiovascular complaints and Reports syncope Respiratory: Respiratory: Reports no additional respiratory complaints Gastrointestinal: Gastrointestinal: Reports no additional gastrointestinal complaints Genitourinary: Genitourinary: Reports no additional female genitourinary complaints Neurologic: Reports [facility] Medical History Anemia Anxiety and depression Bradycardia COVID-19 virus infection GERD (gastroesophageal reflux disease) Hypercholesterolemia Hypertension Lumbar degenerative disc disease Neck pain NSVT (nonsustained ventricular tachycardia) Obesity Obstructive sleep apnea Paroxysmal atrial fibrillation Spinal stenosis Vertigo Family History Father Lung cancer Mother Medical history unknown Sister Myocardial infarction Brother Hepatitis C Paternal Grandmother Ovarian cancer Paternal Uncle Brain cancer Sister No problems noted. Sister No problems noted. Brother No problems noted. Brother No problems noted. Brother No problems noted. Daughter No problems noted. Daughter No problems noted. 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 Current occupational exposures/hazards: No Cognitive needs: No Hearing needs: No Vision needs: No Meds Allergies Allergy/AdvReac Type Severity Reaction Status Date / Time meperidine [From DEMEROL] Allergy Intermediate MIGRAINE Verified 05/22/22 09:10 codeine [CODEINE] Allergy Unknown UNKNOWN Verified 05/22/22 09:10 Pt states she's allergic to Allergy Unknown f Uncoded 04/05/22 15:00 gl Home Medications Medication Instructions Recorded Confirmed Last Taken Type ascorbate calcium (vitamin C) 500 500 mg PO DAILY 03/13/20 04/05/22 Unknown History mg tablet aspirin 81 mg tablet,delayed 81 mg PO DAILY 03/13/20 04/05/22 Unknown History release (Adult Aspirin Regimen) cholecalciferol (vitamin D3) 25 25 mcg PO DAILY 03/13/20 04/05/22 Unknown History mcg (1,000 unit) capsule cranberry 400 mg capsule 400 mg PO DAILY 03/13/20 04/05/22 Unknown History whit root 325 mg-pyridoxine HCl cap PO 03/13/20 04/05/22 Unknown History (vitamin B6) 25 mg capsule omega-3 fatty acids 1,000 mg 1,000 mg PO DAILY 03/13/20 04/05/22 Unknown History capsule (Fish Oil Concentrate) simethicone 125 mg capsule (Gas 125 mg PO BID-QID PRN 03/13/20 04/05/22 Unknown History Relief (simethicone)) elderberry fruit 460 mg-elderberry cap PO 08/15/20 04/05/22 Unknown History flower 115 mg capsule Physical Exam Vital Signs and Narrative: Vital Signs: Last Vital Signs Temp 98.5 F 09/22/22 00:39 Pulse 73 09/22/22 00:39 Resp 14 09/22/22 00:39 BP 149/65 H 09/22/22 00:39 Pulse Ox 95 09/22/22 00:39 O2 Del Method Room Air 09/22/22 00:39 BMI result Body Mass Index 43.6 Middle-aged female lying in bed in no distress Neck supple, no JVD Regular rate and rhythm, S1-S2 heard Regular breath sounds bilaterally, no wheezing or crackles appreciated Abdomen soft nontender, no guarding, no rigidity Patient is awake, alert and oriented to self, place, time and person ; no focal motor deficit Psych: Normal mood No pedal edema Results Labs 09/21/22 21:18 09/21/22 21:18 Labs: Laboratory Results - last 24 hr 09/21/22 09/21/22 09/21/22 21:14 21:18 21:18 MCV 83.6 MCH 27.1 MCHC 32.4 RDW 15.2 Plt Count 334 MPV 10.1 Immature Gran % (Auto) 0.4 Neut % (Auto) 60.6 Lymph % (Auto) 29.7 [place] % (Auto) 6.9 Eos % (Auto) 1.9 Baso % (Auto) 0.5 Lymph # (Auto) 3.2 [place] # (Auto) 0.7 Eos # (Auto) 0.2 Baso # (Auto) 0.1 Abs Immat Gran (auto) 0.04 H Absolute Neuts (auto) 6.5 Absolute Nucleated RBC 0.000 Nucleated RBC % (auto) 0.0 PT INR APTT D-Dimer High Sensitivty Anion Gap 13 Estim Creat Clear Calc 78.6 Estimated GFR > 60 POC Glucose 154 H Random Glucose 147 H Calcium 9.6 Total Bilirubin 0.5 AST 16 ALT 27 Alkaline Phosphatase 107 Troponin I High Sens Total Protein 7.2 Albumin 4.1 Urine Color Urine Appearance Urine pH Ur Specific [place] Urine Protein Urine Glucose (UA) Urine Ketones Urine Blood Urine Nitrite Ur Leukocyte Esterase Urine RBC Urine WBC Ur Squamous Epith Cells Urine Bacteria Hyaline Casts 09/21/22 09/21/22 09/21/22 21:18 21:51 22:10 MCV MCH MCHC RDW Plt Count MPV Immature Gran % (Auto) Neut % (Auto) Lymph % (Auto) [place] % (Auto) Eos % (Auto) Baso % (Auto) Lymph # (Auto) [place] # (Auto) Eos # (Auto) Baso # (Auto) Abs Immat Gran (auto) Absolute Neuts (auto) Absolute Nucleated RBC Nucleated RBC % (auto) PT 11.3 INR 1.0 APTT 31.0 D-Dimer High Sensitivty < 150 Anion Gap Estim Creat Clear Calc Estimated GFR POC Glucose Random Glucose Calcium Total Bilirubin AST ALT Alkaline Phosphatase Troponin I High Sens < 2.7 Total Protein Albumin Urine Color Yellow Urine Appearance Clear Urine pH 6.0 Ur Specific [place] 1.025 Urine Protein Trace Urine Glucose (UA) Negative Urine Ketones Negative Urine Blood Small (1+) H Urine Nitrite Negative Ur Leukocyte Esterase Negative Urine RBC >20 H Urine WBC 0-5 Ur Squamous Epith Cells 0-2 Urine Bacteria None Seen Hyaline Casts 0-2 09/22/22 00:36 MCV MCH MCHC RDW Plt Count MPV Immature Gran % (Auto) Neut % (Auto) Lymph % (Auto) [place] % (Auto) Eos % (Auto) Baso % (Auto) Lymph # (Auto) [place] # (Auto) Eos # (Auto) Baso # (Auto) Abs Immat Gran (auto) Absolute Neuts (auto) Absolute Nucleated RBC Nucleated RBC % (auto) PT INR APTT D-Dimer High Sensitivty Anion Gap Estim Creat Clear Calc Estimated GFR POC Glucose Random Glucose Calcium Total Bilirubin AST ALT Alkaline Phosphatase Troponin I High Sens 2.8 Total Protein Albumin Urine Color Urine Appearance Urine pH Ur Specific [place] Urine Protein Urine Glucose (UA) Urine Ketones Urine Blood Urine Nitrite Ur Leukocyte Esterase Urine RBC Urine WBC Ur Squamous Epith Cells Urine Bacteria Hyaline Casts Imaging Radiologist's Impressions: Impressions Head/Neck CTA 09/22/22 00:30 IMPRESSION: * No acute intracranial pathology. * No large vessel occlusion or hemodynamically significant stenosis within the intracranial or extracranial arterial vasculature. Assessment and Plan (1) Syncope: Status: Acute Plan This is a 57-year-old female with pertinent history of paroxysmal atrial fibrillation not on anticoagulation, mood disorder, ycu-kqvnvbp-gkmdzkzug diabetes mellitus, JESSICA not on CPAP presents to the emergency department for evaluation of syncope. #. Syncope. Will admit for observation with residential monitor to rule out a cardiogenic etiology. Consulting Cardiology, appreciate assistance. Obtain orthostatics #. Paroxysmal atrial fibrillation. On metoprolol. Chads Vasc score 2, not on anticoagulation #. Mood disorder. Continue home mood stabilizers #. Qbt-wvkyfvo-xpfhksesf diabetes mellitus. On metformin #. JESSICA not on CPAP #. Obesity. Counseled regarding diet and exercise Med rec pending DVT prophylaxis: Lovenox Full code Diabetic diet Time Spent With Patient Time: Total time managing care of this patient today ____ minutes. Quality Stroke Does the patient have a stroke diagnosis?: No VTE Prior VTE?: No VTE Risk Level:: Medical - moderate - high VTE Device Contraindication: Treatment Not Indicated VTE Drug Contraindication: N/A - Med Ordered
[2022-09-22] MEDS: Enoxaparin Sodium 40 MG/0.4 ML SYRINGE SUBCUT (03:23)
[2022-09-22 06:17] LABS: MANUAL DIFF FLAG NO
[2022-09-22 06:20] LABS: Basophils Percent Auto 0.5 % (0-2); Eosinophils Absolute Auto 0.2 X10*3/uL (0.0-0.4); Eosinophils Percent Auto 2.5 % (0-4); Hemoglobin 11.2 g/dl (12.0-16.0); Imm Gran Abs Auto 0.02 X10*3/uL (0.00-0.03); Imm Gran Pct Auto 0.2 % (0.0-0.4); Lymphocytes Absolute Auto 2.6 X10*3/uL (1.2-4.9); Lymphocytes Percent Auto 30.9 % (20-40); Mean Corpuscular Hemoglobin 27.1 pg (27.0-33.0); Mean Corpuscular Volume 84.7 fL (80.0-98.0); Monocytes Absolute Auto 0.6 X10*3/uL (0.1-1.2); Monocytes Percent Auto 7.5 % (2-11); Neutrophils Absolute Auto 4.8 x10*3/uL (2.0-8.3); Neutrophils Percent Auto 58.4 % (45-73); Platelet Count 314 X10*3/uL (160-400); Red Blood Count 4.13 X10*6/uL (4.20-5.50); Red Cell Distribution Width 15.3 % (11.0-16.0); White Blood Count 8.3 X10*3/uL (4.8-10.8)
[2022-09-22 06:34] LABS: Anion Gap 14 (12-20); Blood Urea Nitrogen 17 mg/dL (9-16); Calcium 9.6 mg/dL (8.4-10.2); Carbon Dioxide 24 mmol/L (22-29); Chloride 109 mmol/L (96-108); Creatinine Clr Calc Pharmacy 88.5; Estimated Glomerular Filt Rate > 60; Glucose Random 102 mg/dL (60-115); Potassium 4.3 mmol/L (3.3-5.1); Sodium 143 mmol/L (135-145)
[2022-09-22 06:39] LABS: Troponin-I High Sensitivity 3.4 ng/L (<3.5-17.0)
--- NOTE | 2022-09-22 06:54 | PC.NURSE ---
Assumed care at 0430. Patient alert and oriented x4. Pleasant, reports not having slept for about 20 hours. Has a phobia of elevators reportedly, so used the stairs to ambulate to her room, then was feeling what she described as a hot flash. She was given cool ice packs to cool down with good effect. Upon arrival, Lead II and Lead III on telemetry had ST elevation and lead avl had ST depression. She denied any chest pain. She reports being aware of her heartbeat in her chest, but denies palpitations . She felt fine except for feeling very warm. The telemetry looked different from her recent EKG and trops were negative already twice. MD notified, and new order for EKG, taken and reviewed by MD, and repeated troponins. ALso patient reports she is not diabetic, but has diabetic diet. She uses metformin for weight loss per report. She does think her A1C last year was elevated.
--- NOTE | 2022-09-22 07:25 | PM.EVENT ---
Event Note Date of Service: 09/22/22 Event Note: Pt admitted this morning, assessed personally, for syncope w/u, completed med rec, added cardiology consulation o/w A/P per H and of this morning. Time Spent With Patient Time: Total time managing care of this patient today ____ minutes.
--- NOTE | 2022-09-22 08:44 | PHA.MEDREC ---
Pharmacy Consult ? Medication Reconciliation Pharmacy has completed the medication reconciliation. Spoke with patient. Made a few changes from the confirmed medications put in earlier. She reports that her benzonatate was prescribed a while back for TID however she did not adhere to those directions and only took it as needed which she still does. She did take her AM and PM medications yesterday but not the ibuprofen or benzonatate.
--- NOTE | 2022-09-22 09:25 | MHC.CM.PN ---
[facility] DELIVERED LIVES WITH S/O IN A [facility]. 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 WOULD LIKE TO COMPLETE A HCP. + COVID VAX X3 PCP DR. JAY DP: HOME, NO SERVICES ANTICIPATED. FAMILY WILL TRANSPORT . CM WILL CONTINUE TO FOLLOW FOR DC NEEDS
[2022-09-22] MEDS: Ibuprofen 800 MG TABLET PO ×2 (09:45→20:24)
[2022-09-22] MEDS: Metoprolol Tartrate 25 MG TABLET PO ×2 (09:46→20:23)
[2022-09-22] MEDS: Simethicone 80 MG TAB.CHEW 125 MG PO ×2 (09:46→20:22)
[2022-09-22] MEDS: Loratadine 10 MG TABLET PO (09:46)
[2022-09-22] MEDS: Aspirin Enteric Coated 81 MG TABLET.DR PO (09:46)
[2022-09-22] MEDS: Cholecalciferol (Vitamin D3) 25 MCG TABLET PO (09:46)
[2022-09-22] MEDS: 0.9 % Sodium Chloride Flush 3 ML SYRINGE IVFLUSH ×3 (09:50→20:24)
--- NOTE | 2022-09-22 10:54 | P.CONCA_ITS ---
History of Present Illness History of Present Illness Date of Service: 09/22/22 Chief complaint: Syncope Narrative: This is a cardiology consultation regarding syncope. It seems that she went to [employer] and then came back and statin her truck and all of a sudden, she felt some heart sensation in her face and then had a syncope episode. No previous episodes of similar nature. Just prior to the event, she thinks she may have had atrial fibrillation like sensation but not definitive. No chest pain or shortness of breath or any other cardiac complaints. Today, she feels fine. Otherwise, she is followed up in the clinic periodically. Last appointment was in 2021. She has had 30 day monitors in the past and that had shown paroxysmal atrial fibrillation, NSVT at different times. For that reason, maintained on beta-blockers. She also has severe sleep apnea but does not have any CPAP. With regard to her weight, she is certainly obese. She states she has been on a keto diet for the last few months and lost some weight from that. Not documented to be a diabetic hypertensive but blood pressure is now on the higher side. Review of Systems Review of Systems: Yes all other systems are reviewed and are negative Constitutional: Constitutional: Reports as per HPI and Reports no additional constitutional complaints Eyes: Eyes: Reports as per HPI and Denies no additional eye complaints ENT: Denies system reviewed and no additional complaints, except as documented and Reports as per HPI Cardiovascular: Cardiovascular: Reports as per HPI, Reports no additional cardiovascular complaints, Denies acrocyanosis, Denies cool extremities, Denies chest pain, Denies leg edema, Reports lightheadedness, Denies palpitations and Denies dyspnea Respiratory: Respiratory: Reports as per HPI, Denies no additional respiratory complaints and Denies dyspnea Gastrointestinal: Gastrointestinal: Reports as per HPI and Denies no additional gastrointestinal complaints Genitourinary: Genitourinary: Reports as per HPI Musculoskeletal: Musculoskeletal: Reports no additional musculoskeletal complaints and Reports as per HPI Integumentary/Breasts: Skin/Breast: Reports system reviewed and no additional complaints, except as docu Neurologic: Reports system reviewed and no additional complaints, except as documented and Reports as per HPI Psychiatric: Psychiatric: Reports no additional psychiatric complaints and Reports as per HPI Endocrine: Endocrine: Reports no additional endocrine complaints, Reports as per HPI and Denies palpitations Hematologic/Lymphatic: Hematologic/Lymphatic: Reports no additional hematologic/lymphatic complaints and Reports as per HPI Allergic/Immunologic: Allergic/Immunologic: Reports no additional allergic/immunologic complaints and Reports as per HPI [facility] [place] Past Medical History Medical History Anemia Anxiety and depression Bradycardia COVID-19 virus infection GERD (gastroesophageal reflux disease) Hypercholesterolemia Hypertension Lumbar degenerative disc disease Neck pain NSVT (nonsustained ventricular tachycardia) Obesity Obstructive sleep apnea Paroxysmal atrial fibrillation Spinal stenosis Vertigo Family History Family History Father Lung cancer Mother Medical history unknown Sister Myocardial infarction Brother Hepatitis C Paternal Grandmother Ovarian cancer Paternal Uncle Brain cancer Sister No problems noted. Sister No problems noted. Brother No problems noted. Brother No problems noted. Brother No problems noted. Daughter No problems noted. Daughter No problems noted. 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 Current occupational exposures/hazards: No Cognitive needs: No Hearing needs: No Vision needs: No Meds Allergies Allergy/AdvReac Type Severity Reaction Status Date / Time meperidine [From DEMEROL] Allergy Intermediate MIGRAINE Verified 05/22/22 09:10 codeine [CODEINE] Allergy Unknown UNKNOWN Verified 05/22/22 09:10 Pt states she's allergic to Allergy Unknown f Uncoded 04/05/22 15:00 gl Active Medications: Current Medications Acetaminophen (Acetaminophen 325 Mg Tablet) 650 mg PO Q6H PRN PRN Reason: Pain, Mild (Pain Scale 1-3) Aspirin (Aspirin Enteric Coated 81 Mg Tablet.) 81 mg PO DAILY CHARLY Last Admin: 09/22/22 09:46 Dose: 81 mg Benzonatate (Benzonatate 100 Mg Capsule) 200 mg PO DAILY PRN PRN Reason: cough Enoxaparin Sodium (Enoxaparin Sodium 40 Mg/0.4 Ml Syringe) 40 mg SUBCUT Q24H [facility] Last Admin: 09/22/22 03:23 Dose: 40 mg Ibuprofen (Ibuprofen 800 Mg Tablet) 800 mg PO Q12H [facility] Last Admin: 09/22/22 09:45 Dose: 800 mg Loratadine (Loratadine 10 Mg Tablet) 10 mg PO DAILY [facility] Last Admin: 09/22/22 09:46 Dose: 10 mg Melatonin (Melatonin 3 Mg Tablet) 6 mg PO BEDTIME PRN PRN Reason: Insomnia Metformin HCl (Metformin Hcl 500 Mg Tablet) 500 mg PO BID [facility] Metoprolol Tartrate (Metoprolol Tartrate 25 Mg Tablet) 25 mg PO BID [facility]; Protocol Last Admin: 09/22/22 09:46 Dose: 25 mg Omeprazole (Omeprazole 20 Mg Capsule.Dr) 20 mg PO DAILY@0630 [facility] Ondansetron HCl (Ondansetron Hcl 4 Mg/2 Ml Vial) 4 mg IVPUSH Q8H PRN PRN Reason: Nausea and Vomiting Pharmacy Consult (Consult Rx Perform Med Rec) 1 each MISCELLANE ONCE PRN PRN Reason: Consult order Simethicone (Simethicone 80 Mg Tab.Chew) 125 mg PO BID [facility] Last Admin: 09/22/22 09:46 Dose: 125 mg Sodium Chloride (0.9 % Sodium Chloride Flush 3 Ml Syringe) 3 ml IVFLUSH QSHIFT [facility] Last Admin: 09/22/22 09:50 Dose: 3 ml Vitamin D (Cholecalciferol (Vitamin D3) 25 Mcg Tablet) 25 mcg PO DAILY [facility] Last Admin: 09/22/22 09:46 Dose: 25 mcg Home Medications Medication Instructions Recorded Confirmed Last Taken Type ascorbate calcium (vitamin C) 500 1,000 mg PO DAILY 03/13/20 09/22/22 09/21/22 History mg tablet aspirin 81 mg tablet,delayed 81 mg PO DAILY 03/13/20 09/22/22 09/21/22 History release (Adult Aspirin Regimen) cholecalciferol (vitamin D3) 25 25 mcg PO DAILY 03/13/20 09/22/22 09/21/22 History mcg (1,000 unit) capsule cranberry 400 mg capsule 400 mg PO DAILY 03/13/20 09/22/2223 History omega-3 fatty acids 1,000 mg 1,000 mg PO DAILY 03/13/20 09/22/22 09/21/22 History capsule (Fish Oil Concentrate) benzonatate 200 mg capsule 200 mg PO DAILY PRN cough 09/22/22 09/22/22 Unknown History whit root extract 50 mg tablet 50 mg PO DAILY 09/22/22 09/22/22 09/21/22 History ibuprofen 800 mg tablet 800 mg PO Q12H PRN Pain 09/22/22 09/22/22 Unknown History loratadine 10 mg tablet (Claritin) 10 mg PO DAILY 09/22/22 09/22/22 09/21/22 History simethicone 80 mg chewable tablet 80 mg PO BID 09/22/22 09/22/22 09/21/22 History Physical Exam Vital Signs: Vital Signs: Last Vital Signs Temp 96.2 F L 09/22/22 08:00 Pulse 67 09/22/22 08:00 Resp 20 09/22/22 08:00 BP 153/62 H 09/22/22 08:00 Pulse Ox 94 09/22/22 08:00 O2 Del Method Room Air 09/22/22 08:00 BMI result Body Mass Index 43.6 Const: General: comfortable and no acute distress Orientation/cons ciousness: patient oriented x3 HEENT: Other: Unremarkable Head: Yes normal to inspection Neck: Neck: Yes normal visual inspection Chest: Chest palpation & inspection: normal inspection of the chest Resp: Auscultation: clear to auscultation bilaterally Cardio: Palpation: normal PMI Heart sounds: S1 normal heart sound present, S2 normal heart sound present, no gallops, no murmurs and no rubs GI: Palpation (GI): Soft to palpation Back/Spine/Pelvis: Other: unremarkable Skin: General skin exam: no rashes or lesions noted Neuro: General: patient oriented x3 Extrem: General: Yes normal to inspection Psych: Mental Status: mental status grossly normal Objective Labs and Meds 09/22/22 06:08 09/22/22 06:08 Lab results: Laboratory Results - last 24 hr 09/21/22 09/21/22 09/21/22 21:14 21:18 21:18 WBC 10.8 RBC 4.21 Hgb 11.4 L Hct 35.2 L MCV 83.6 MCH 27.1 MCHC 32.4 RDW 15.2 Plt Count 334 MPV 10.1 Immature Gran % (Auto) 0.4 Neut % (Auto) 60.6 Lymph % (Auto) 29.7 [place]ven % (Auto) 6.9 Eos % (Auto) 1.9 Baso % (Auto) 0.5 Lymph # (Auto) 3.2 Craven # (Auto) 0.7 Eos # (Auto) 0.2 Baso # (Auto) 0.1 Abs Immat Gran (auto) 0.04 H Absolute Neuts (auto) 6.5 Absolute Nucleated RBC 0.000 Nucleated RBC % (auto) 0.0 PT INR APTT D-Dimer High Sensitivty Sodium 141 Potassium 3.9 Chloride 108 Carbon Dioxide 24 Anion Gap 13 BUN 18 H Creatinine 0.90 Estim Creat Clear Calc 78.6 Estimated GFR > 60 POC Glucose 154 H Random Glucose 147 H Calcium 9.6 Total Bilirubin 0.5 AST 16 ALT 27 Alkaline Phosphatase 107 Troponin I High Sens Total Protein 7.2 Albumin 4.1 Urine Color Urine Appearance Urine pH Ur Specific [place] Urine Protein Urine Glucose (UA) Urine Ketones Urine Blood Urine Nitrite Ur Leukocyte Esterase Urine RBC Urine WBC Ur Squamous Epith Cells Urine Bacteria Hyaline Casts 09/21/22 09/21/22 09/21/22 21:18 21:51 22:10 WBC RBC Hgb Hct MCV MCH MCHC RDW Plt Count MPV Immature Gran % (Auto) Neut % (Auto) Lymph % (Auto) [place] % (Auto) Eos % (Auto) Baso % (Auto) Lymph # (Auto) [place] # (Auto) Eos # (Auto) Baso # (Auto) Abs Immat Gran (auto) Absolute Neuts (auto) Absolute Nucleated RBC Nucleated RBC % (auto) PT 11.3 INR 1.0 APTT 31.0 D-Dimer High Sensitivty < 150 Sodium Potassium Chloride Carbon Dioxide Anion Gap BUN Creatinine Estim Creat Clear Calc Estimated GFR POC Glucose Random Glucose Calcium Total Bilirubin AST ALT Alkaline Phosphatase Troponin I High Sens < 2.7 Total Protein Albumin Urine Color Yellow Urine Appearance Clear Urine pH 6.0 Ur Specific [place] 1.025 Urine Protein Trace Urine Glucose (UA) Negative Urine Ketones Negative Urine Blood Small (1+) H Urine Nitrite Negative Ur Leukocyte Esterase Negative Urine RBC >20 H Urine WBC 0-5 Ur Squamous Epith Cells 0-2 Urine Bacteria None Seen Hyaline Casts 0-2 09/22/22 09/22/22 09/22/22 00:36 06:08 06:08 WBC 8.3 RBC 4.13 L Hgb 11.2 L Hct 35.0 L MCV 84.7 MCH 27.1 MCHC 32.0 RDW 15.3 Plt Count 314 MPV 10.0 Immature Gran % (Auto) 0.2 Neut % (Auto) 58.4 Lymph % (Auto) 30.9 Craven % (Auto) 7.5 Eos % (Auto) 2.5 Baso % (Auto) 0.5 Lymph # (Auto) 2.6 [place]ven # (Auto) 0.6 Eos # (Auto) 0.2 Baso # (Auto) 0.0 Abs Immat Gran (auto) 0.02 Absolute Neuts (auto) 4.8 Absolute Nucleated RBC 0.000 Nucleated RBC % (auto) 0.0 PT INR APTT D-Dimer High Sensitivty Sodium 143 Potassium 4.3 Chloride 109 H Carbon Dioxide 24 Anion Gap 14 BUN 17 H Creatinine 0.80 Estim Creat Clear Calc 88.5 Estimated GFR > 60 POC Glucose Random Glucose 102 Calcium 9.6 Total Bilirubin AST ALT Alkaline Phosphatase Troponin I High Sens 2.8 Total Protein Albumin Urine Color Urine Appearance Urine pH Ur Specific [place] Urine Protein Urine Glucose (UA) Urine Ketones Urine Blood Urine Nitrite Ur Leukocyte Esterase Urine RBC Urine WBC Ur Squamous Epith Cells Urine Bacteria Hyaline Casts 09/22/22 06:08 WBC RBC Hgb Hct MCV MCH MCHC RDW Plt Count MPV Immature Gran % (Auto) Neut % (Auto) Lymph % (Auto) [place] % (Auto) Eos % (Auto) Baso % (Auto) Lymph # (Auto) [place] # (Auto) Eos # (Auto) Baso # (Auto) Abs Immat Gran (auto) Absolute Neuts (auto) Absolute Nucleated RBC Nucleated RBC % (auto) PT INR APTT D-Dimer High Sensitivty Sodium Potassium Chloride Carbon Dioxide Anion Gap BUN Creatinine Estim Creat Clear Calc Estimated GFR POC Glucose Random Glucose Calcium Total Bilirubin AST ALT Alkaline Phosphatase Troponin I High Sens 3.4 Total Protein Albumin Urine Color Urine Appearance Urine pH Ur Specific [place] Urine Protein Urine Glucose (UA) Urine Ketones Urine Blood Urine Nitrite Ur Leukocyte Esterase Urine RBC Urine WBC Ur Squamous Epith Cells Urine Bacteria Hyaline Casts ECG Interpretation: EKG with sinus rhythm at 67/Min; borderline W[place] prolongation; left bundle-branch block pattern. The left bundle-branch block is a new finding compared to the last EKG from February. Imaging Radiologist's impression: Impressions Head/Neck CTA 09/22/22 00:30 IMPRESSION: * No acute intracranial pathology. * No large vessel occlusion or hemodynamically significant stenosis within the intracranial or extracranial arterial vasculature. Assessment and Plan (1) Syncope: Status: Acute (2) LBBB (left bundle branch block): Status: Acute (3) Paroxysmal atrial fibrillation: Status: Acute (4) Obstructive sleep apnea: Status: Acute Plan Telemetry reviewed. 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 Otherwise unremarkable. Etiology for syncope isn't clear. She has a new left bundle-branch block which is of concern. Bradyarrhythmia certainly possible. Heart block as possible. Tachyarrhythmias like atrial fibrillation can also be etiology but less likely causing syncope. Would like to monitor for another 24 hours on telemetry. Echocardiogram tomorrow. High sensitive troponins are unremarkable. She is not documented to be hypertensive diabetic in the past but slightly high blood sugars and blood pressure is on the higher side. Hence if she actually has evidence of recurrent atrial fibrillation then will need anticoagulation. In the past, episodes were brief, sporadic and she also had no risk factors and hence not put on anticoagulation. Her untreated JESSICA likely contributes to a lot of her issues but she has not been able to tolerate CPAP in the past. Plan discussed with patient. Time Spent With Patient Time: Total time managing care of this patient today ____ minutes. Procedures Date of Service Date of Service: 09/22/22
[2022-09-22] MEDS: Acetaminophen 325 MG TABLET 650 MG PO (14:08)
[2022-09-22] MEDS: diazePAM 5 MG TABLET PO (20:41)
[2022-09-23] MEDS: Enoxaparin Sodium 40 MG/0.4 ML SYRINGE SUBCUT (02:35)
[2022-09-23] MEDS: Acetaminophen 325 MG TABLET 650 MG PO (02:37)
[2022-09-23 03:43] VITALS: BP 184/78; PULSE 67; RESP 20; TEMP 36.2; O2SAT 99
[2022-09-23] MEDS: Omeprazole 20 MG CAPSULE.DR PO (06:06)
--- NOTE | 2022-09-23 07:00 | CA_ITS ---
Transthoracic Echocardiogram Patient (Last, First, Middle): Tahira Monroe M Gender: Female Date of : 1965 Age: 57 Procedure Date: 09/23/2022 Procedure Type: [place]ansthoracic [place] [facility] [place]: 154.94 cm Weight: 104.78 kg BSA: 2.01 m2 Heart Rate: bpm BP: 184 / 78 mmHg Harness Repairer: TO Referring MD: Levy Pennington MD Casino Operations Supervisor: Earl Galarza MD Symptoms: syncope, LBBB Study Quality: Technically Difficult/Contrast ECG Rhythm: Sinus Conclusions: - 1. Normal LV systolic function with mild LVH with impaired relaxation filling pattern 2. Normal cardiac valvular Doppler 3. Normal RV systolic pressure 4. Upper limits of normal ascending aortic size 5. No pericardial effusion Findings Procedure Information Contrast agent, definity, is being given per protocol without apparent complications. Left Ventricle Normal left ventricular size and systolic function. There is mildly increased left ventricular wall thickness. The visually estimated ejection fraction is between 60-65%. There is paradoxical septal motion consistent with a left bundle branch block. Spectral Doppler is indicative of an impaired relaxation filling pattern. E/E prime ratio is <8, consistent with normal filling pressures. Evidence suggests grade I (mild) diastolic dysfunction. Right Ventricle Normal right ventricular cavity size and systolic function. Atria The left atrium is likely dilated. Interatrial shunt cannot be excluded. The right atrium was not well visualized. Aortic Valve The aortic valve structure and function is likely normal. There is no aortic valve stenosis. There is no aortic valve regurgitation. Mitral Valve There is mild anterior and posterior mitral leaflet thickening. There is trace mitral valve regurgitation. There is no mitral valve stenosis. Pulmonic Valve The pulmonic valve was not well visualized. Tricuspid Valve Likely normal tricuspid valve structure and function. There is trace tricuspid valve regurgitation. The right ventricular systolic pressure is normal. The right ventricular systolic pressure is 27 mmHg. Normal right atrial pressure. There is no evidence of pulmonary hypertension. Great Vessels The pulmonary artery was not well visualized. Venous The inferior vena cava is normal in size and collapses greater than 50% with inspiration. Pericardium/Pleural There is no evidence of pericardial effusion. Prior Study Comparison No significant change compared to prior study dated: 11/12/2018. Measurements 2D Linear Measurements IVSd: 1.20 0.6-0.9/0.6-1.0 cm LVIDd: 4.56 3.9-5.3/4.2-5.9 cm LVIDd Index: 2.27 2.4-3.2/2.2-3.1 cm/m2 LVIDs: 2.41 2.0-3.6 cm LVPWd: 1.23 0.7-1.1 cm LA Diam: 3.70 2.7-3.8/3.0-4.0 cm LAIDs Index: 1.84 1.5-2.3 cm/m2 LV Mass: 252.63 67-162/88-224 g LV Mass Index: 125.69 43-95/49-115 g/m2 LVOT Diam: 2.10 3.0+(-)1.3 cm Mitral Valve MV Pk E: 0.79 MV PK A: 0.94 MV Decel Time: 312.00 E/A: 0.80 E'Lateral: 6.53 E'Medial: 6.42 E/E' Med: 12.30 E/E' Lat: 12.10 PHT: 91.00 MVA PHT: 2.42 Decel [place]: 2.53 Aortic Valve AoV Pk Brendon: 1.86 AoV Mn Brendon: 1.25 AoV VTI: 0.38 AoV Pk Grad: 14.00 Aov Mn Grad: 7.00 JEAN-PIERRE Cont.VTI: 3.01 LVOT LVOT Pk Brendon: 1.63 LVOT Mn Brendon: 1.08 LVOT VTI: 0.33 LVOT Pk Grad: 11.00 LVOT Mn Grad: 6.00 LVOT Diam: 2.10 LVOT Area: 3.46 Diastolic Function MV Pk E: 0.79 MV Pk A: 0.94 E/A: 0.80 E'Medial: 6.42 E/E' Med: 12.30 E' Laterial: 6.53 E/E' Lat: 12.10 Right Ventricle TAPSE (mm): 26.40 TVS' Brendon: 19.10 Tricuspid Valve TR Pk Brendon: 2.47 TR Pk Grad: 24.00 RA Press: 3.00 RVSP: 27.00 Great Vessels Aorta Sinus of Valsalva: 3.77 2.0-3.[address] [place]: 2.99 1.7-3.4 cm Ao Asc: 3.60 2.1-3.4 cm Updated in Other Vendor System with Status of Final Earl Galarza MD electronically signed on 09/24/2022 8:46:04 AM with status of Final
[2022-09-23 08:00] VITALS: BP 164/63; PULSE 64; RESP 20; TEMP 35.1; O2SAT 95
[2022-09-23] MEDS: Simethicone 80 MG TAB.CHEW 125 MG PO ×2 (08:38→21:02)
[2022-09-23] MEDS: Ibuprofen 800 MG TABLET PO ×2 (08:38→21:02)
[2022-09-23] MEDS: 0.9 % Sodium Chloride Flush 3 ML SYRINGE IVFLUSH ×2 (08:39→19:42)
[2022-09-23] MEDS: Cholecalciferol (Vitamin D3) 25 MCG TABLET PO (08:39)
[2022-09-23] MEDS: Loratadine 10 MG TABLET PO (08:39)
[2022-09-23] MEDS: Aspirin Enteric Coated 81 MG TABLET.DR PO (08:39)
--- NOTE | 2022-09-23 09:28 | PM.PNCARD ---
Subjective Subjective Date of Service: 09/23/22 Principal diagnosis: Syncope Interval history: patient noted to have pauses up to 4.5 seconds while she was sleeping. She has prior diagnosis of sleep apnea. However she is currently not on CPAP machine at home as she could not tolerated. This was never ordered for her. During waking hours she has no pauses. She is awaiting echocardiogram. Review of Systems Review of Systems Yes all other systems are reviewed and are negative Physical Exam Vital Signs: Last Vital Signs Temp 95.2 F L 09/23/22 08:00 Pulse 64 09/23/22 08:00 Resp 20 09/23/22 08:00 BP 164/63 H 09/23/22 08:00 Pulse Ox 95 09/23/22 08:00 O2 Del Method Room Air 09/23/22 08:00 BMI result Body Mass Index 43.6 Const General: cooperative, comfortable, alert and awake Nutritional Appearance: obese Orientation/consciousness: patient oriented x3 Neck Neck: Yes trachea midline, Yes supple and Yes no JVD Cardio Jugular venous distension: no JVD Palpation: normal PMI Rate: regular rate Rhythm: regular rhythm Heart sounds: S1 normal heart sound present, S2 normal heart sound present, no click, no gallops, no murmurs and no rubs GI Auscultation: normal bowel sounds Neuro General: patient oriented x3 and no focal motor deficits Objective Labs and Meds 09/22/22 06:08 09/22/22 06:08 Progress Note: A&P Assessment and plan (1) Syncope: Status: Acute Assessment and Plan: Patient prior history of paroxysmal atrial fibrillation came with syncope while sitting down. The episode is somewhat atypical. However she has noted significant pauses only when she is sleeping. Doing daytime when she is awake there are no pauses. This is most suggestive of obstructive sleep apnea which she carries a diagnosis of in the past. She requires a CPAP machine ordered as soon as possible. echocardiogram is pending. I do not think she is indicated for pacemaker therapy as she is not having significant pauses or bradycardia during daytime. However this is not entirely ruled out. I think she would benefit from a implantable loop recorder. Plan for tomorrow. Observe for 24 more hours for any significant bradycardia during daily time hours which may then need a pacemaker therapy. CHADSVASc score of 3. Will probably start on oral anticoagulation therapy starting tomorrow after placement of implantable loop recorder. Will continue to follow the patient Time Spent With Patient Time: Total time managing care of this patient today ____ minutes. Progress Note: Quality Stroke Does the patient have a stroke diagnosis?: No Procedures Date of Service Date of Service: 09/23/22
--- NOTE | 2022-09-23 09:37 | MHC.CM.PN ---
[facility] PT WILL BE MEDICALLY CLEARED FOR D/C HOME SELF CARE W/FAMILY FOR TRANSPORT.
--- NOTE | 2022-09-23 10:08 | P.PNIM_ITS ---
Subjective Subjective Date of Service: 09/23/22 Interval History: f/u on scyope noted to have episode of bradycardia and pauses of up to 4.5 sec while assleep Physical Exam Vital Signs: Vital Signs: Last Vital Signs Temp 95.2 F L 09/23/22 08:00 Pulse 64 09/23/22 08:00 Resp 20 09/23/22 08:00 BP 164/63 H 09/23/22 08:00 Pulse Ox 95 09/23/22 08:00 O2 Del Method Room Air 09/23/22 08:00 BMI result Body Mass Index 43.6 Const: Other: General: AO X 3, no acute distress Resp: CTA bilateral CVS: S1,S2,RRR GI: +BS, NT, no distention Skin: No rash Neuro: motor grossly intact Psych: appropriate affect Objective Data Active Medications Acetaminophen (Acetaminophen 325 Mg Tablet) 650 mg PO Q6H PRN PRN Reason: Pain, Mild (Pain Scale 1-3) Last Admin: 09/23/22 02:37 Dose: 650 mg Documented By: YONI Aspirin (Aspirin Enteric Coated 81 Mg Tablet.) 81 mg PO DAILY [facility] Last Admin: 09/23/22 08:39 Dose: 81 mg Documented By: MARIBEL Benzonatate (Benzonatate 100 Mg Capsule) 200 mg PO DAILY PRN PRN Reason: cough Enoxaparin Sodium (Enoxaparin Sodium 40 Mg/0.4 Ml Syringe) 40 mg SUBCUT Q24H [facility] Last Admin: 09/23/22 02:35 Dose: 40 mg Documented By: YONI Ibuprofen (Ibuprofen 800 Mg Tablet) 800 mg PO Q12H [facility] Last Admin: 09/23/22 08:38 Dose: 800 mg Documented By: MARIBEL Loratadine (Loratadine 10 Mg Tablet) 10 mg PO DAILY [facility] Last Admin: 09/23/22 08:39 Dose: 10 mg Documented By: MARIBEL Melatonin (Melatonin 3 Mg Tablet) 6 mg PO BEDTIME PRN PRN Reason: Insomnia Metformin HCl (Metformin Hcl 500 Mg Tablet) 500 mg PO BID [facility] Metoprolol Tartrate (Metoprolol Tartrate 25 Mg Tablet) 25 mg PO BID [facility]; Protocol Last Admin: 09/23/22 07:56 Dose: Not Given Documented By: MARIBEL Non-Admin Reason: Physician Held Med Omeprazole (Omeprazole 20 Mg Capsule.) 20 mg PO DAILY@0630 [facility] Last Admin: 09/23/22 06:06 Dose: 20 mg Documented By: YONI Ondansetron HCl (Ondansetron Hcl 4 Mg/2 Ml Vial) 4 mg IVPUSH Q8H PRN PRN Reason: Nausea and Vomiting Pharmacy Consult (Consult Rx Perform Med Rec) 1 each MISCELLANE ONCE PRN PRN Reason: Consult order Simethicone (Simethicone 80 Mg Tab.Chew) 125 mg PO BID [facility] Last Admin: 09/23/22 08:38 Dose: 125 mg Documented By: MARIBEL Sodium Chloride (0.9 % Sodium Chloride Flush 3 Ml Syringe) 3 ml IVFLUSH QSHIFT [facility] Last Admin: 09/23/22 08:39 Dose: 3 ml Documented By: MARIBEL Vitamin D (Cholecalciferol (Vitamin D3) 25 Mcg Tablet) 25 mcg PO DAILY [facility] Last Admin: 09/23/22 08:39 Dose: 25 mcg Documented By: MARIBEL Labs 09/22/22 06:08 09/22/22 06:08 Assessment and Plan (1) Syncope: Status: Acute (2) LBBB (left bundle branch block): Status: Acute Plan This is a 57-year-old female with pertinent history of paroxysmal atrial fibrillation not on anticoagulation, mood disorder, xlc-ssqrwvm-rjfwncjlh diabetes mellitus, JESSICA not on CPAP presents to the emergency department for evaluation of syncope. #.? Syncope, etillogy not clear but noted to have epsisodes of bradycardia, sinues pauses of up to 4.5 sec while sleep, for now no indication for pace maker but will have implantable loop recorder (ILR) tomorrow 09/24, echo today 09/23 #.? Paroxysmal atrial fibrillation. On metoprolol.? Chads Vasc score 2, previously not on OAC but will start Eliquis tomorrow after ILR #.? Mood disorder.? Continue home mood stabilizers #.? Hcw-vgspima-zwuoebzfo diabetes mellitus.? On metformin #.? JESSICA not on CPAP, if doesn't have it will need sleep study on outpatient basis #.? Obesity.? Counseled regarding diet and exercise DVT prophylaxis--lovenox Observation status till tomorrow Time Spent With Patient Time: Total time managing care of this patient today ____ minutes. Quality Stroke Does the patient have a stroke diagnosis?: No VTE Prior VTE?: No VTE Risk Level:: Medical - moderate - high VTE Device Contraindication: Treatment Not Indicated VTE Drug Contraindication: N/A - Med Ordered
[2022-09-23 12:00] VITALS: BP 190/79; PULSE 74; RESP 20; TEMP 36.3; O2SAT 96
[2022-09-23 16:00] VITALS: BP 176/89; PULSE 66; RESP 18; TEMP 36.8; O2SAT 95
[2022-09-23 19:42] VITALS: BP 183/87; PULSE 69; RESP 16; TEMP 36.4; O2SAT 96
[2022-09-23] MEDS: Metoprolol Tartrate 25 MG TABLET PO (21:01)
[2022-09-24] VITALS: BP 152/70; PULSE 76; RESP 16; TEMP 36.2; O2SAT 96
--- NOTE | 2022-09-24 02:43 | PC.NURSE ---
Pt having continuos pauses 3.5 sec 3.3 sec 3.8 sec 2.9 sec 3.4 sec pt sleeping. notified.
[2022-09-24 03:34] VITALS: BP 141/65; PULSE 64; RESP 16; TEMP 36.1; O2SAT 95
[2022-09-24 07:33] VITALS: BP 152/69; PULSE 62; RESP 20; TEMP 36.1; O2SAT 95
--- NOTE | 2022-09-24 10:22 | P.BOP_ITS ---
Brief Operative Note Date of Service: 09/24/22 Pre-op diagnosis: syncope Post-op diagnosis: same Procedure: placement of implantable loop recorder Implants: after obtaining full informed consent patient was in the minor surgery suite in supine position. Patient's precordial area was then prepped and draped in a sterile fashion. Patient was then given 2% lidocaine with epinephrine intr adermally and subcutaneously. A [employer] implantable loop recorder with serial number [id number] was implanted in the subcutaneous space using Seldinger technique. The wound was then closed with Steri-Strips. Pressure dressing was then applied. Surgeon: Earl Galarza MD Anesthesia: local Was an Pack Train Driver used for this Procedure?: No Estimated blood loss (mL): 2 Pathology: none sent Condition: stable Disposition: floor
--- NOTE | 2022-09-24 10:30 | PM.PNCARD ---
Subjective Subjective Date of Service: 09/24/22 Principal diagnosis: Syncope Interval history: Overnight again had pauses greater than 3 seconds while sleeping. No pauses while she is awake. Hemodynamically stable. No recurrent syncopal episode. No atrial fibrillation. Review of Systems Review of Systems Yes all other systems are reviewed and are negative Physical Exam Vital Signs: Last Vital Signs Temp 96.9 F 09/24/22 07:33 Pulse 62 09/24/22 07:33 Resp 20 09/24/22 07:33 BP 152/69 H 09/24/22 07:33 Pulse Ox 95 09/24/22 07:33 O2 Del Method Room Air 09/24/22 07:33 BMI result Body Mass Index 43.6 Const General: cooperative, comfortable, alert and awake Nutritional Appearance: obese Orientation/consciousness: patient oriented x3 Neck Neck: Yes trachea midline, Yes supple and Yes no JVD Cardio Jugular venous distension: no JVD Palpation: normal PMI Rate: regular rate Rhythm: regular rhythm Heart sounds: S1 normal heart sound present, S2 normal heart sound present, no click, no gallops, no murmurs and no rubs GI Auscultation: normal bowel sounds Neuro General: patient oriented x3 and no focal motor deficits Objective Labs and Meds 09/22/22 06:08 09/22/22 06:08 Progress Note: A&P Assessment and plan (1) Syncope: Status: Acute Assessment and Plan: Syncope of unclear origin. Echocardiogram shows normal LV systolic function. New left bundle-branch block. Will need outpatient myocardial perfusion imaging. Implantable loop recorder was placed with good recording of P-waves and QRS complexes. Noted significant pauses during sleep, suggestive of obstructive sleep apnea. Would request sleep medicine to arrange for outpatient CPAP as soon as possible and see her in outpatient follow-up. (2) Paroxysmal atrial fibrillation: Status: Acute Assessment and Plan: Paroxysmal atrial fibrillation without any obvious clinical recurrence. Will hold off on metoprolol therapy for now given her pauses. Will continue monitor her implantable loop recorder for recurrent episodes. She was started on oral anticoagulation, Eliquis 5 mg b.i.d. starting tomorrow. Will follow up in the clinic in 10 days for wound check Time Spent With Patient Time: Total time managing care of this patient today ____ minutes. Progress Note: Quality Stroke Does the patient have a stroke diagnosis?: No Procedures Date of Service Date of Service: 09/24/22
[2022-09-24] MEDS: metFORMIN HCl 500 MG TABLET PO (10:38)
[2022-09-24] MEDS: Simethicone 80 MG TAB.CHEW 125 MG PO (10:39)
[2022-09-24] MEDS: Loratadine 10 MG TABLET PO (10:39)
[2022-09-24] MEDS: Cholecalciferol (Vitamin D3) 25 MCG TABLET PO (10:39)
[2022-09-24] MEDS: Aspirin Enteric Coated 81 MG TABLET.DR PO (10:39)
[2022-09-24] MEDS: LORazepam 2 MG/ML VIAL 1 MG IVPUSH (10:40)
[2022-09-24] MEDS: 0.9 % Sodium Chloride Flush 3 ML SYRINGE IVFLUSH (10:43)
[2022-09-24 11:09] VITALS: BP 163/79; PULSE 67; RESP 20; TEMP 36.4; O2SAT 93
--- NOTE | 2022-09-24 11:28 | P.DS_ITS ---
DS: Providers Provider Date of Service: 09/24/22 Date of admission: 09/22/22 02:17 Date of discharge: 09/24/22 Primary care physician: Matias Sullivan MD Consults: 09/22/22 07:25 Consult to Cardiology Routine Consulting Provider: [facility] [place] [place] Cardiovascular Services Reason for consultation: syncope Has provider been notified: Yes Attending physician on discharge: Nissa Moreno DS: Diagnosis Discharge Diagnosis (1) Syncope: Status: Acute (2) Paroxysmal atrial fibrillation: Status: Acute DS: Summary Hospital Course Hospital Course: 57-year-old female with pertinent history of paroxysmal atrial fibrillation not on anticoagulation, mood disorder, whz-elvtnif-lgdemrfdb diabetes mellitus, JESSICA not on CPAP presents to the emergency department for evaluation of syncope.? Patient states she went to [employer] with her and sat back in the car.? Soon after, patient passed out for about 3-4 minutes, witnessed by the .? Unclear if she had palpitations prior to the episode.? No chest discomfort or shortness of breath.? States she was flushed but no nausea, sweating or feeling of warmth.? No rhythmic jerking movement of extremities, tongue bite, urinary or bowel incontinence.? No confusion after she regained consciousness.? Patient states she is supposed to be on a CPAP but does not use it.? About 2-3 times per week patient has a sensation of palpitations which last about 5 minutes.? She denies fever, chills, chest discomfort, vomiting, diarrhea, shortness of breath, abdominal pain, changes in urinary or bowel habits In the emergency department, CTA without any acute abnormality Patient was admitted for syncope: Patient has history of PAF on metoprolol- during hospital stay patient was found to have episode bradycardia and sinus pauses while sleep-seen by Cardiology: Echo was done which seems fine, patient is status post implantable loop recorder (ILR), currently no indication for pacemaker. Patient also has new LBBB: Echo seems fine, further testing will be arranged outpatient as per Cardiology. In addition patient was thought to may component of sleep apnea,cardiology may help arranging sleep medicine to arrange for outpatient CPAP as soon as possible and see her in outpatient follow-up. PAF:Paroxysmal atrial fibrillation without any obvious clinical recurrence.? Will hold off on metoprolol therapy for now given her pauses.? Will continue monitor her implantable loop recorder for recurrent episodes.? She was started on oral anticoagulation, Eliquis 5 mg b.i.d. starting tomorrow. htn : added amlodipine follow up with pcp outpatient. Above management discussed with the patient in detail length she understand and in agreement with the above plan, time spent 50 minutes and 50% time spent on counseling. Significant findings: As above. Procedures performed: None. Treatment and response: As above. Time Spent with Patient Time attestation: Total time managing care of this patient today ____ minutes. Discharge coordination time: Greater than 30 minutes Quality: Safe Use of Opioids Does Pt have an Active Cancer Diagnosis on the Problem List?: No Quality: Stroke Does the patient have a stroke diagnosis?: No Physical Exam Vital Signs: Vital Signs: Last Vital Signs Temp 97.5 F 09/24/22 11:09 Pulse 67 09/24/22 11:09 Resp 20 09/24/22 11:09 BP 163/79 H 09/24/22 11:09 Pulse Ox 93 09/24/22 11:09 O2 Del Method Room Air 09/24/22 11:09 BMI result Body Mass Index 43.6 Appearance: Alert.? Oriented X3.? not in distress.? Eyes: Pupils equal, round and reactive to light.? Sclera nonicteric.? ENT: Pharynx normal.? Moist mucous membranes. cvs: rrr, [id number] , no murmur res: clear to auscultation ,no rhonchii or wheezing abd: no rebound or guarding ,nt, bs present. ext pulses present , no cyanosis . neuro: axo3 , nonfocal. DS: Data Imaging Chest x-ray: Radiologist's impression: ITS Impressions Head/Neck CTA 09/22/22 00:30 IMPRESSION: * No acute intracranial pathology. * No large vessel occlusion or hemodynamically significant stenosis within the intracranial or extracranial arterial vasculature. Discharge Plan Discharge Anticipated Discharge Date/Time: 09/24/22 11:15 Patient Disposition: Home, Self-Care Discharge Diagnosis: paf ,syncope Referrals: Po,Matias Mishra MD [Primary Care Provider] - 1 Week Discharge Medications: New amlodipine 2.5 mg tablet 2.5 mg PO DAILY Qty: 30 0RF Eliquis 5 mg tablet 5 mg PO BID Qty: 60 0RF Continued metformin 500 mg tablet 500 mg PO BID Qty: 180 1RF pantoprazole 40 mg tablet,delayed release (DR/EC) 40 mg PO DAILY Qty: 90 2RF loratadine [Claritin] 10 mg Tablet 10 mg PO DAILY benzonatate 200 mg capsule 200 mg PO DAILY PRN (Reason: cough) simethicone 80 mg Tablet,Chewable 80 mg PO BID whit root extract 50 mg Tablet 50 mg PO DAILY aspirin [Adult Aspirin Regimen] 81 mg tablet,delayed release (DR/EC) 81 mg PO DAILY cholecalciferol (vitamin D3) 25 mcg (1,000 unit) capsule 25 mcg PO DAILY omega-3 fatty acids [Fish Oil Concentrate] 1,000 mg capsule 1,000 mg PO DAILY ascorbate calcium (vitamin C) 500 mg tablet 1,000 mg PO DAILY cranberry 400 mg capsule 400 mg PO DAILY Rx Instructions: administer with a meal (DME) lancets [FreeStyle Lancets] 28 gauge misc See Rx Instructions .ROUTE .MEDSUPPLY Qty: 100 3RF Rx Instructions: As directed check BS QD Discontinued metoprolol tartrate 25 mg tablet 25 mg PO BID Qty: 180 3RF ibuprofen 800 mg tablet 800 mg PO Q12H PRN (Reason: Pain) Discharge Orders: Discharge Order (Routine); Ordered 09/24/22 Ordered By: Nissa Moreno Diet: Advance to usual diet Activity on Discharge: As tolerated Stand Alone Forms: Patient Portal Discharge page Care Plan Goals: Patient was admitted for syncope: Patient has history of PAF on metoprolol- during hospital stay patient was found to have episode bradycardia and sinus pauses while sleep-seen by Cardiology: Echo was done which seems fine, patient is status post implantable loop recorder (ILR), currently no indication for pacemaker. Patient also has new LBBB: Echo seems fine, further testing will be arranged outpatient as per Cardiology. In addition patient was thought to may component of sleep apnea,cardiology may help arranging sleep medicine to arrange for outpatient CPAP as soon as possible and see her in outpatient follow-up. PAF:Paroxysmal atrial fibrillation without any obvious clinical recurrence.? Will hold off on metoprolol therapy for now given her pauses.? Will continue monitor her implantable loop recorder for recurrent episodes.? She was started on oral anticoagulation, Eliquis 5 mg b.i.d. starting tomorrow. htn : added amlodipine follow up with pcp outpatient. Health Concerns: as above. Plan of Treatment: as above. Assessment: as above.
[2022-09-24] MEDS: amLODIPine Besylate 2.5 MG TABLET PO (11:34)
--- NOTE | 2022-09-24 13:36 | MHC.CM.PN ---
Pt medically cleared for D/C home self care, pt family to transport.
== END 2022-09-24 15:10 | disposition home or self-care (01) ==
LOC: HO.ED 09-22 00:58 → HO.EDOVER 09-22 02:31 → HO.IMC 09-22 03:39
PROVIDERS: Internal Medicine Cardiovascular Disease; Admitting Provider Student in an Organized Health Care Education/Training Program; Emergency Provider Student in an Organized Health Care Education/Training Program; PCP Internal Medicine; Visit Provider Internal Medicine
PROC: (CPT 33285; principal; 2022-09-24 10:00)
DX: R55 Syncope and collapse (principal); I48.0 Paroxysmal atrial fibrillation; I44.7 Left bundle-branch block, unspecified; G47.33 Obstructive sleep apnea (adult) (pediatric); E11.9 Type 2 diabetes mellitus without complications; I10 Essential (primary) hypertension; E78.00 Pure hypercholesterolemia, unspecified; Z79.82 Long term (current) use of aspirin; Z79.899 Other long term (current) drug therapy; Z79.84 Long term (current) use of oral hypoglycemic drugs
CPT/HCPCS: 33285; 36415; 70496; 70498; 80048; 80053; 81001; 82947; 84484; 85025; 85379; 85610; 85730; 93005; 93306; 96372; 96374; 99222; 99285; C1764; J1650; J2060; Q9957; Q9967

== ENCOUNTER → 2022-09-24 19:30 | Outpatient (REF) | payer OTHER, SELFPAY | LOC: HO.SL 19:30 | PROVIDERS: PCP Internal Medicine; Visit Provider Internal Medicine Cardiovascular Disease | DX: G47.33 Obstructive sleep apnea (adult) (pediatric) (principal) | CPT/HCPCS: 95811 ==

== ENCOUNTER → 2022-10-01 13:54 | Outpatient (BNVA) | payer OTHER, SELFPAY | PROVIDERS: PCP Internal Medicine; Visit Provider Nurse Practitioner Family | DX: G47.33 Obstructive sleep apnea (adult) (pediatric) (principal) | CPT/HCPCS: 99202 ==

== ENCOUNTER → 2022-10-07 15:47 | Outpatient (BNVA) | payer OTHER, SELFPAY | PROVIDERS: PCP Internal Medicine; Visit Provider Nurse Practitioner Family | DX: Z51.89 Encounter for other specified aftercare (principal); R55 Syncope and collapse; I45.5 Other specified heart block; I44.7 Left bundle-branch block, unspecified; I47.20 Ventricular tachycardia, unspecified; I48.0 Paroxysmal atrial fibrillation; G47.33 Obstructive sleep apnea (adult) (pediatric); E66.01 Morbid (severe) obesity due to excess calories; Z68.41 Body mass index [BMI] 40.0-44.9, adult; Z95.818 Presence of other cardiac implants and grafts | CPT/HCPCS: 99212 ==

== ENCOUNTER → 2022-10-10 09:26 | Outpatient (REF) | payer OTHER, SELFPAY ==
--- NOTE | ~2022-10-10 | NM_ITS ---
Myocardial perfusion study Indication: Proximal and atrial fibrillation with LBBB to evaluate for myocardial ischemia Technique: The patient was brought in for a Lexiscan perfusion study on 10/10/2022. Patient performed low-level exercise and was injected 0.4 mg of Lexiscan intravenously. Within a minute of injection, 35 mCi of sestamibi was given intravenously. Images were obtained using the SPECT gamma camera interlaced with the gating device. Images were obtained in supine position. Resting perfusion study was performed on 10/11/2022. Patient was administered 35 mCi of sestamibi intravenously at rest. Images were then obtained in supine position. Images obtained with and without CT attenuation. Total DLP 174 mGy-cm. Images were processed with the software and compared side to side in short axis, horizontal long axis and vertical long axis views. Findings: The stress perfusion study showed non attenuated images show minimally reduced uptake in the apex of the LV myocardium. Attenuation corrected images show mildly reduced uptake in the apex of the LV myocardium. There is suggestion of left ventricle hypertrophy.. The gated study shows normal LV systolic function with calculated LVEF of 62%. LV cavity is normal in size. The gated study shows normal systolic wall thickening and contraction of segments. Resting study shows nontender images show minimally reduced uptake in the apex of the LV myocardium. Attenuation corrected images show moderately reduced uptake in the distal septum and apex of the LV myocardium.. Gating at rest reveals normal systolic wall motion with ejection fraction at 58%. The findings are consistent with likely normal myocardial perfusion. NM/NM marcelle perf SPECT rest & str Impression: 1. Myocardial perfusion imaging study shows [normal myocardial perfusion 2. Gated LVEF is 62% 3. Transient ischemic dilatation not present EKG is nondiagnostic for ischemia
--- NOTE | 2022-10-10 09:28 | CA_ITS ---
Acquisition Time: 2022-10-10 09:57:46 Total Exercise Time: 00:02:00 Test Indications: AFIB, SYNCOPE, Medications: Protocol: LEXISCAN Max HR: 103 BPM 62% of Pred: 165 BPM Max BP: 144/074 mmHG Max Work Load: 1.0 METS Pharmacolgoical stress test with Lexiscan injection while sitting, without anginal symptoms, without arrhythmias, with normotensive response to injection, without EKG changes. Aminophylline 75mg IVP given to reverse Lexiscan. Nuclear images pending. Test reviewed with Dr. Galarza. Referred By: Earl Galarza Overread By: MIRACLE GAYTAN
== END ==
LOC: HO.CARD 09:26
PROVIDERS: PCP Internal Medicine; Visit Provider Internal Medicine Cardiovascular Disease
DX: I44.7 Left bundle-branch block, unspecified (principal); I48.0 Paroxysmal atrial fibrillation; R55 Syncope and collapse
CPT/HCPCS: 78452; 93017; A9500; J0280; J2785

== ENCOUNTER → 2022-10-25 23:59 | Outpatient (BNV) | payer OTHER, SELFPAY ==
--- NOTE | 2022-11-06 14:37 | A.OFFVIS_ITS ---
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 Check- [employer] Allergies amlodipine Allergy (Severe, Verified 11/05/22 13:36) Anxiety meperidine [From DEMEROL] Allergy (Intermediate, Verified 11/05/22 13:36) MIGRAINE codeine [CODEINE] Allergy (Unknown, Verified 11/05/22 13:36) UNKNOWN Pt states she's allergic to gl Allergy (Unknown, Uncoded 10/17/22 08:58) f [facility] Medical History (Updated 10/17/22 @ 09:42 by Matias Sullivan MD) Anemia Anxiety and depression Bradycardia COVID-19 virus infection GERD (gastroesophageal reflux disease) Hypercholesterolemia Hypertension Impaired glucose tolerance Lumbar degenerative disc disease Neck pain NSVT (nonsustained ventricular tachycardia) Obesity Obstructive sleep apnea Paroxysmal atrial fibrillation Spinal stenosis Vertigo Surgical History History of cholecystectomy History of loop recorder S/P arteriovenous (AV) fistula repair S/P diskectomy Family History Father Lung cancer Mother Medical history unknown Sister Myocardial infarction Brother Hepatitis C Paternal Grandmother Ovarian cancer Paternal Uncle Brain cancer Sister No problems noted. Sister No problems noted. Brother No problems noted. Brother No problems noted. Brother No problems noted. Daughter No problems noted. Daughter No problems noted. 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 Several pauses noted. Generally nighttime. [id number] Cardiac Interrogation, subcut cardiac rhythm monitor Procedure code (CPT) selection complete Assessment & Plan Assessment & Plan (1) Syncope: Code(s): R55 - Syncope and collapse (2) LBBB (left bundle branch block): Code(s): I44.7 - Left bundle-branch block, unspecified Medications: Discontinued benzonatate 200 mg PO TID PRN 30 caps 0RF cough Coding Level of Care Code Procedure Only Diagnoses Syncope R55 LBBB (left bundle branch block) I44.7 CPT Codes Cardiac Device Check - Cardiac Device 16: [id number] Cardiac Interrogation, subcut cardiac rhythm monitor ([id number])
== END ==
PROVIDERS: PCP Internal Medicine; Visit Provider Internal Medicine
DX: I44.7 Left bundle-branch block, unspecified (principal); R55 Syncope and collapse
CPT/HCPCS: 93298

== ENCOUNTER → 2022-11-05 13:26 | Outpatient (BNVA) | payer OTHER, SELFPAY | PROVIDERS: PCP Internal Medicine; Visit Provider Physician Assistant ==

== ENCOUNTER 2022-11-29 08:56 | Outpatient (AMB) | payer OTHER, SELFPAY ==
--- NOTE | 2022-11-29 09:02 | MHC.OFFVISWM ---
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: No Allergies amlodipine Allergy (Severe, Verified 11/05/22 13:36) Anxiety meperidine [From DEMEROL] Allergy (Intermediate, Verified 11/05/22 13:36) MIGRAINE codeine [CODEINE] Allergy (Unknown, Verified 11/05/22 13:36) UNKNOWN Pt states she's allergic to gl Allergy (Unknown, Uncoded 10/17/22 08:58) f Medication List - Last Reconciled 11/29/22 by CHRISTOPHE Vargas apixaban (Eliquis) 5 mg PO BID ascorbate calcium (vitamin C) 1,000 mg PO DAILY cholecalciferol (vitamin D3) 25 mcg PO DAILY cranberry 400 mg PO DAILY diazepam 2 mg PO BEDTIME PRN whit root extract 50 mg PO DAILY lisinopril 10 mg PO DAILY loratadine (Claritin) 10 mg PO DAILY metformin 500 mg PO BID metoprolol tartrate 12.5 mg PO BID omega-3 fatty acids (Fish Oil Concentrate) 1,000 mg PO DAILY pantoprazole 40 mg PO DAILY simethicone 80 mg PO BID HPI HPI Comments History of Present Illness Details Pt is here to re-start the [facility] [place] Weight Management surgical weight loss program. She was in the MWL program in 2020 (July-September) with a weight loss of 12.2 pounds. She left the program in 2020 as she was frustrated and gave up on her self. Her goal is to lose weight and achieve a healthy lifestyle as well as to improve, if not resolve, obesity related medical conditions, including new JESSICA, HTN, DM. She reports first being concerned about her weight 10 years ago, highest weight to date was 257. Current weight is 242.8 pounds with a BMI of 44.4. She has tried multiple methods of weight loss including MWL program, diets, exercise without permanent results. She lives with her boyfriend. 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 She wakes at:?630 am, and goes to bed at?9 pm. Dinner is at 6 pm. Breakfast: coffee w hazelnut creamer AM snack: skip or bagel w butter or cream cheese Lunch: sandwich or leftovers PM snack: rolled up deli meat, chips Dinner: chicken, beef and veg w potato and rice After dinner: ice cream, SF jello Other snacks: as above Liquids: 32 oz water, rare soda, no juice Alcohol/marijuana/tobacco intake: none Exercise: none, could join a gym [facility] Medical History (Updated 10/17/22 @ 09:42 by Matias Sullivan MD) Anemia Anxiety and depression Bradycardia COVID-19 virus infection GERD (gastroesophageal reflux disease) Hypercholesterolemia Hypertension Impaired glucose tolerance Lumbar degenerative disc disease Neck pain NSVT (nonsustained ventricular tachycardia) Obesity Obstructive sleep apnea Paroxysmal atrial fibrillation Spinal stenosis Vertigo Surgical History (Updated 11/29/22 @ 09:27 by CHRISTOPHE Vargas) History of cholecystectomy History of loop recorder S/P arteriovenous (AV) fistula repair S/P diskectomy Family History Father Lung cancer Mother Medical history unknown Sister Myocardial infarction Brother Hepatitis C Paternal Grandmother Ovarian cancer Paternal Uncle Brain cancer Sister No problems noted. Sister No problems noted. Brother No problems noted. Brother No problems noted. Brother No problems noted. Daughter No problems noted. Daughter No problems noted. 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 Blood work, h pylori , CXR, ECG, Abd US and UGI have been ordered. She is being scheduled for RD and BH initial consultations. She will start SWL classes and watch the first three videos before her next appointment. ? Adequate sleep of 7-8 hours per night discussed, awakening at 630 am and going to bed at 9 pm. Try to get up at 630 daily even if you are not going to work to create a regular schedule. ? You have already purchased a body compositionscale and be sure to check weight weekly. The best time to do this is first thing in the morning after going to the bathroom. 1. Nutritional counseling: Be sure to careful read the number of scoops per shake Start with 3 Aldi Elevation Protein Powder shakes (Aldi), (1 scoop in 8 oz low fat unsweetened almond milk or water each) First shake at 730am-930am, Second shake at 1130am-130pm 1 protein bar (Fulfil bars at [employer], [employer], or [employer]) at 230pm-430pm. Dinner at 6pm (8 forks of protein and 8 forks of salad/vegetables). Meal to include lean meat (beef, fish, pork, turkey, chicken), cooked vegetables or a salad with olive oil and/or fruits (berries, pears, apples, kiwi). Avoid salt, breads, potatoes, rice, pasta, desserts. Another shake with 1 scoop in 8 oz unsweetened almond milk at 7pm-9pm. Try to drink 64 oz of water daily and avoid soda and juices. ?2. Each shake would be drunk slowly, like coffee in a period of 2 hours. ?3. Cut each bar in 4 pieces and eat each piece in 30 min ?to make each bar last 2 hours. ?4. I emphasized the importance of measuring accurately the food portion and measure it carefully when serving the food on the plate ?5. The meal portions include 8 full-size forks of meat and 8 full-size forks of salad. You always eat the meat portion but you can replace up to half of the forks of salad/vegetables with rice, potatoes or pasta, or a fruit ?if you like. The less you do it the better weight loss will be. ?6. One full-size fork is what can be scooped on the fork without falling aside and not what can be bit with the fork. Use regular forks like those you find in a typical restaurant. ?7.? Please send me weight measurements as soon as possible and then once a week. Always include your diet and exercise plan. Alternatively come weekly at the office for weight checks and send me the measurements. ?8. Exercise counseling: Begin by watching a stretching for beginners video. Start slowly and begin to stretch your muscles. You should do this before and after each exercise session to prevent injury. Please join [facility] gym near your home. Ask the auditing manager or one of the trainers how to use the machines if you are unfamiliar with them. Start elliptical with a resistance of 2. Increase resistance by 1 every 3 min to your most comfortable resistance with a max resistance of 8. Reduce the resistance by 1 every 3 minutes back down to 2 and repeat cycles for 300 calories. Alternatively, start treadmill with a speed of 3.0 and incline of 0, increasing incline by 1 every 3 minutes to the highest comfortable level (max 6 for now) then decrease in the same fashion. Repeat process to a goal of 300 calories. Goal of 2000 calories burned or more weekly. You may also consider use of the stationary bike. The easiest would be to chose the fat-burn or interval training program on the machine and do this until you reach the 300 calorie goal. Alternatively, you can manually adjust the resistance in a similar fashion as mentioned above, (resistance of 2-8 with a goal speed of 12 mph). Tracking calories is essential. 9. Alternatively start walking outside daily, tracking calories with a goal of 300 calories per day, daily. You can download the tala [email or web address] which can track your time, distance and calories while walking outside. You press start in the tala when you start and then stop when you are finished. 10.? It is important to communicate with me weekly by text, your weight and if you are having any problems with the plans. 11. Please get labs, EKG and chest X-Ray within 1 week. 12. Please follow the diet plan exactly, without any change. If you do not like something about the plan or you feel hungry, you need to communicate with me so I can help you revise the plan. You should not change the plan yourself. Text me at [phone] 13. Goal is to lose at least 12 pounds in the first month 14. Goal is to lose 10% of your weight before surgery, which is about 24 lbs. Ultimate weight goal: 218 lbs before surgery Patient is morbidly obese and is not considered stable at this time.?I spent a total of 70 minutes reviewing/updating records, examining the patient and counseling the patient on weight management as detailed above. Orders: Orders C Reactive Protein Today E11.65 - Type 2 diabetes mellitus with hyperglycemia, E66.01 - Morbid (severe) obesity due to excess calories, E78.00 - Pure hypercholesterolemia, unspecified, I10 - Essential (primary) hypertension Ferritin Today E11.65 - Type 2 diabetes mellitus with hyperglycemia, E66.01 - Morbid (severe) obesity due to excess calories, E78.00 - Pure hypercholesterolemia, unspecified, I10 - Essential (primary) hypertension Insulin Today E11.65 - Type 2 diabetes mellitus with hyperglycemia, E66.01 - Morbid (severe) obesity due to excess calories, E78.00 - Pure hypercholesterolemia, unspecified, I10 - Essential (primary) hypertension PTHI Today E11.65 - Type 2 diabetes mellitus with hyperglycemia, E66.01 - Morbid (severe) obesity due to excess calories, E78.00 - Pure hypercholesterolemia, unspecified, I10 - Essential (primary) hypertension TSH reflex Free T4 Today E11.65 - Type 2 diabetes mellitus with hyperglycemia, E66.01 - Morbid (severe) obesity due to excess calories, E78.00 - Pure hypercholesterolemia, unspecified, I10 - Essential (primary) hypertension Vitamin A Today E11.65 - Type 2 diabetes mellitus with hyperglycemia, E66.01 - Morbid (severe) obesity due to excess calories, E78.00 - Pure hypercholesterolemia, unspecified, I10 - Essential (primary) hypertension Vitamin B1 Today E11.65 - Type 2 diabetes mellitus with hyperglycemia, E66.01 - Morbid (severe) obesity due to excess calories, E78.00 - Pure hypercholesterolemia, unspecified, I10 - Essential (primary) hypertension Zinc Today E11.65 - Type 2 diabetes mellitus with hyperglycemia, E66.01 - Morbid (severe) obesity due to excess calories, E78.00 - Pure hypercholesterolemia, unspecified, I10 - Essential (primary) hypertension ECG 12 lead EKG Today E11.65 - Type 2 diabetes mellitus with hyperglycemia, E66.01 - Morbid (severe) obesity due to excess calories, E78.00 - Pure hypercholesterolemia, unspecified, I10 - Essential (primary) hypertension FL upper GI w air Today E11.65 - Type 2 diabetes mellitus with hyperglycemia, E66.01 - Morbid (severe) obesity due to excess calories, E78.00 - Pure hypercholesterolemia, unspecified, I10 - Essential (primary) hypertension H Pylori Breath Test Today E11.65 - Type 2 diabetes mellitus with hyperglycemia, E66.01 - Morbid (severe) obesity due to excess calories, E78.00 - Pure hypercholesterolemia, unspecified, I10 - Essential (primary) hypertension US abdomen comp w elastography Today E11.65 - Type 2 diabetes mellitus with hyperglycemia, E66.01 - Morbid (severe) obesity due to excess calories, E78.00 - Pure hypercholesterolemia, unspecified, I10 - Essential (primary) hypertension XR chest 2V Today E11.65 - Type 2 diabetes mellitus with hyperglycemia, E66.01 - Morbid (severe) obesity due to excess calories, E78.00 - Pure hypercholesterolemia, unspecified, I10 - Essential (primary) hypertension Referrals Behavioral Health Referral E11.65 - Type 2 diabetes mellitus with hyperglycemia, E66.01 - Morbid (severe) obesity due to excess calories, E78.00 - Pure hypercholesterolemia, unspecified, I10 - Essential (primary) hypertension Nutrition/Dietitian Referral E11.65 - Type 2 diabetes mellitus with hyperglycemia, E66.01 - Morbid (severe) obesity due to excess calories, E78.00 - Pure hypercholesterolemia, unspecified, I10 - Essential (primary) hypertension Medications: Discontinued benzonatate 200 mg PO TID PRN 30 caps 0RF cough Coding Level of Care Code Est Pt Level 5 (24610) Diagnoses Morbid obesity E66.01 Time Spent (min) 70
[2022-11-29 09:10] VITALS: BP 134/63; PULSE 71; TEMP 36.4; O2SAT 95; BMI 44.4
== END 2022-11-29 10:07 | disposition home or self-care (01) ==
PROVIDERS: PCP Internal Medicine; Visit Provider Physician Assistant Surgical
DX: E66.01 Morbid (severe) obesity due to excess calories (principal); Z68.41 Body mass index [BMI] 40.0-44.9, adult
CPT/HCPCS: 99215

== ENCOUNTER → 2022-11-29 08:56 | Outpatient (BNVA) | payer OTHER, SELFPAY | PROVIDERS: PCP Internal Medicine; Visit Provider Physician Assistant Surgical | DX: E66.01 Morbid (severe) obesity due to excess calories (principal); Z68.41 Body mass index [BMI] 40.0-44.9, adult; E11.65 Type 2 diabetes mellitus with hyperglycemia | CPT/HCPCS: 99212 ==

== ENCOUNTER → 2022-11-29 23:59 | Outpatient (BNV) | payer OTHER, SELFPAY ==
--- NOTE | 2022-12-01 14:43 | MHC.OFFVIS ---
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 Check- [employer] Allergies amlodipine Allergy (Severe, Verified 11/05/22 13:36) Anxiety meperidine [From DEMEROL] Allergy (Intermediate, Verified 11/05/22 13:36) MIGRAINE codeine [CODEINE] Allergy (Unknown, Verified 11/05/22 13:36) UNKNOWN Pt states she's allergic to gl Allergy (Unknown, Uncoded 10/17/22 08:58) f [facility] Medical History (Updated 10/17/22 @ 09:42 by Matias Sullivan MD) Anemia Anxiety and depression Bradycardia COVID-19 virus infection GERD (gastroesophageal reflux disease) Hypercholesterolemia Hypertension Impaired glucose tolerance Lumbar degenerative disc disease Neck pain NSVT (nonsustained ventricular tachycardia) Obesity Obstructive sleep apnea Paroxysmal atrial fibrillation Spinal stenosis Vertigo Surgical History (Updated 11/29/22 @ 09:27 by CHRISTOPHE Vargas) History of cholecystectomy History of loop recorder S/P arteriovenous (AV) fistula repair S/P diskectomy Family History Father Lung cancer Mother Medical history unknown Sister Myocardial infarction Brother Hepatitis C Paternal Grandmother Ovarian cancer Paternal Uncle Brain cancer Sister No problems noted. Sister No problems noted. Brother No problems noted. Brother No problems noted. Brother No problems noted. Daughter No problems noted. Daughter No problems noted. 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 No atrial fibrilllation during lifetime. Pauses noted, but no strips in the summary report. [id number] Cardiac Interrogation, subcut cardiac rhythm monitor Procedure code (CPT) selection complete Assessment & Plan Assessment & Plan Medications: Discontinued benzonatate 200 mg PO TID PRN 30 caps 0RF cough Coding Level of Care Code Procedure Only Diagnoses CPT Codes Cardiac Device Check - Cardiac Device 16: [id number] Cardiac Interrogation, subcut cardiac rhythm monitor ([id number])
== END ==
PROVIDERS: PCP Internal Medicine; Visit Provider Internal Medicine
DX: I48.0 Paroxysmal atrial fibrillation (principal)
CPT/HCPCS: 93298

== ENCOUNTER → 2022-12-16 15:00 | Outpatient (BNVA) | payer OTHER, SELFPAY | PROVIDERS: PCP Internal Medicine; Referring Provider Physician Assistant Surgical; Visit Provider Dietitian, Registered | DX: E66.01 Morbid (severe) obesity due to excess calories (principal); Z90.49 Acquired absence of other specified parts of digestive tract; Z71.3 Dietary counseling and surveillance | CPT/HCPCS: 97802 ==

== ENCOUNTER 2022-12-17 10:21 | Outpatient (REF) | payer OTHER, SELFPAY ==
--- NOTE | ~2022-12-17 | XR_ITS ---
EXAMINATION: XR CHEST CLINICAL INFORMATION: Morbid obesity COMPARISON: 07/23/2018 TECHNIQUE: 2 views of the chest were obtained. FINDINGS: Lungs are clear cardiomediastinal silhouette is normal. No evidence of pleural effusion. There is a loop recorder seen on the left. XR/XR chest 2V IMPRESSION: No active cardiopulmonary disease
--- NOTE | 2022-12-17 10:30 | ECG_ITS ---
Test Reason : LBBB Blood Pressure : / mmHG Vent. Rate : 069 BPM Atrial Rate : 069 BPM P-R Int : 182 ms QRS Dur : 084 ms QT Int : 370 ms P-R-T Axes : 058 024 004 degrees QTc Int : 396 ms Normal sinus rhythm Normal ECG When compared with ECG of 22-SEP-2022 05:35, Left bundle branch block is no longer Present Referred By: Zan Talley Electronically Signed By:FRANKY NICK
[2022-12-17 11:21] LABS: C Reactive Protein 1.84 mg/dL (< or = 0.50)
[2022-12-17 11:37] LABS: Ferritin 51 ng/mL (10-250); Insulin 16 uU/mL (2-29); TSH reflex Free T4 0.71 uIU/mL (0.32-4.0)
[2022-12-19 10:48] LABS: Calcium (PTHI) 10.3 mg/dL (8.6-10.4); PTHI 28 pg/mL (16-77)
[2022-12-20 17:33] LABS: Zinc 96 mcg/dL (60-130)
[2022-12-20 18:48] LABS: Vitamin A 45 mcg/dL (38-98)
[2022-12-23 11:52] LABS: Vitamin B1 <6 nmol/L (8-30)
== END 2022-12-17 10:22 | disposition home or self-care (01) ==
LOC: HO.LAB 10:21
PROVIDERS: Absent Provider Nurse Practitioner Family; PCP Internal Medicine; Referring Provider Internal Medicine; Visit Provider Physician Assistant Surgical
DX: E11.65 Type 2 diabetes mellitus with hyperglycemia (principal); E66.01 Morbid (severe) obesity due to excess calories; E78.00 Pure hypercholesterolemia, unspecified; I10 Essential (primary) hypertension
CPT/HCPCS: 36415; 71046; 82728; 83525; 83970; 84425; 84443; 84590; 84630; 86140; 93005

== ENCOUNTER 2022-12-27 10:31 | Outpatient (REF) | payer OTHER, SELFPAY ==
[2022-12-27 11:32] LABS: MANUAL DIFF FLAG NO
[2022-12-27 12:19] LABS: Basophils Percent Auto 0.4 % (0-2); Eosinophils Absolute Auto 0.1 X10*3/uL (0.0-0.4); Eosinophils Percent Auto 1.9 % (0-4); Hematocrit 38.7 % (37.0-47.0); Hemoglobin 12.4 g/dl (12.0-16.0); Imm Gran Abs Auto 0.02 X10*3/uL (0.00-0.03); Imm Gran Pct Auto 0.3 % (0.0-0.4); Immature Retic Fraction 12.2 % (3.0-15.9); Lymphocytes Percent Auto 27.2 % (20-40); Mean Corpuscular Hemoglobin 25.7 pg (27.0-33.0); Mean Corpuscular Volume 80.3 fL (80.0-98.0); Mean Platelet Volume 10.4 fL (9.4-12.3); Monocytes Absolute Auto 0.6 X10*3/uL (0.1-1.2); Monocytes Percent Auto 7.8 % (2-11); Neutrophils Absolute Auto 4.6 x10*3/uL (2.0-8.3); Neutrophils Percent Auto 62.4 % (45-73); Platelet Count 280 X10*3/uL (160-400); Red Blood Count 4.82 X10*6/uL (4.20-5.50); Red Cell Distribution Width 17.2 % (11.0-16.0); Retic HGB Equivalent 30.7 pg (30.0-35.0); White Blood Count 7.3 X10*3/uL (4.8-10.8)
[2022-12-27 13:07] LABS: Alanine Aminotransferase 32 U/L (0-31); Albumin Level 4.3 g/dL (3.5-5.0); Alkaline Phosphatase 106 U/L (39-117); Anion Gap 16 (12-20); Aspartate Amino Transferase 23 U/L (5-31); Bilirubin Total 0.6 mg/dL (0.0-1.0); Blood Urea Nitrogen 13 mg/dL (9-16); Calcium 10.1 mg/dL (8.4-10.2); Carbon Dioxide 23 mmol/L (22-29); Chloride 105 mmol/L (96-108); Cholesterol 210 mg/dL (<200); Estimated Glomerular Filt Rate > 60; Glucose Random 93 mg/dL (60-115); HDL Cholesterol 43 mg/dL (>40); Iron 59 mcg/dL (30-160); LDL Cholesterol Calculated 136 mg/dL (<100); Percent Iron Saturation 20 % (15-50); Potassium 4.2 mmol/L (3.3-5.1); Sodium 140 mmol/L (135-145); Total Iron Binding Capacity 296 mcg/dL (228-428); Total Protein 7.5 g/dL (6.5-8.0); Triglycerides 156 mg/dL (<150); Unsaturated Iron Binding 237 ug/dL
[2022-12-27 13:24] LABS: Ferritin 39 ng/mL (10-250)
[2022-12-27 13:37] LABS: Vitamin B12 757 pg/mL (200-900)
[2022-12-27 14:03] LABS: Creatinine Urine 158.83 mg/dL; Microalbum/Creatinine Ratio Ur 26.4 ug/mg cr (<30)
[2022-12-27 14:05] LABS: Estimated Average Glucose 128 mg/dL; Hemoglobin A1c % 6.1 % (<6.0)
[2022-12-30 10:54] LABS: H Pylori Breath Test Negative (Negative)
== END 2022-12-27 10:32 | disposition home or self-care (01) ==
LOC: HO.LAB 10:31
PROVIDERS: Nurse Practitioner Family; PCP Internal Medicine; Visit Provider Physician Assistant Surgical
DX: E11.65 Type 2 diabetes mellitus with hyperglycemia (principal); E78.00 Pure hypercholesterolemia, unspecified; I10 Essential (primary) hypertension; E66.01 Morbid (severe) obesity due to excess calories
CPT/HCPCS: 36415; 80053; 80061; 82043; 82306; 82570; 82607; 82728; 82746; 83013; 83036; 83540; 85025; 85045; 99211; 99212

== ENCOUNTER 2022-12-27 10:31 | Outpatient (AMB) | payer OTHER, SELFPAY ==
--- NOTE | 2022-12-27 10:35 | MHC.OFFVISWM ---
Intake VS Expanded 12/27/22 10:40 Height 5 ft 1 in Weight 228 lb 9.6 oz BMI 43.2 BP 130/60 Blood Pressure Location Lt brachial Blood Pressure Position Sitting Pulse 76 Temp 97.6 F Body Fat 102.2 Body Fat Percentage 44.8 Free Fat Mass 126.2 Muscle Mass 119.8 Visceral Mass 14.0 Water Mass 89.6 Intake Visit Reasons: (OV) F/U SWL + H.Pylori Intake Note: Patient follow up follow up SWL + H Pylori test. Home Service Technician Required: No Accompanied by: Self / Same As Patient Allergies amlodipine Allergy (Severe, Verified 12/27/22 10:58) Anxiety meperidine [From DEMEROL] Allergy (Intermediate, Verified 12/27/22 10:58) MIGRAINE codeine [CODEINE] Allergy (Unknown, Verified 12/27/22 10:58) UNKNOWN Pt states she's allergic to gl Allergy (Unknown, Uncoded 10/17/22 08:58) f Medication List - Last Reconciled 12/27/22 by CHRISTOPHE Vargas apixaban (Eliquis) 5 mg PO BID ascorbate calcium (vitamin C) 1,000 mg PO DAILY cholecalciferol (vitamin D3) 25 mcg PO DAILY cranberry 400 mg PO DAILY diazepam 2 mg PO BEDTIME PRN whit root extract 50 mg PO DAILY lisinopril 10 mg PO DAILY loratadine (Claritin) 10 mg PO DAILY metformin 500 mg PO BID metoprolol tartrate 12.5 mg PO BID omega-3 fatty acids (Fish Oil Concentrate) 1,000 mg PO DAILY pantoprazole 40 mg PO DAILY simethicone 80 mg PO BID thiamine HCl (vitamin B1) 100 mg PO DAILY 90 days HPI HPI Comments History of Present Illness Details The patient is a pleasant 57 year old female who returns to the clinic for pre-operative surgical weight loss management. They were last seen in the office on 11/29/22, recorded weight at that time was 242.8 pounds, with a BMI of 44.4. Today's weight is 228.6 pounds and BMI is 41.8. There has been a weight loss of 14.2 pounds since initiating the surgical weight loss program on 11/29/22 with a total body weight loss of 5.8 %. Pre op work up completed as follows: SWL classes:? 08/03 appts: 12/26/22, cancelled due to provider being sick. ? ? RD appts: f/u 01/20/23 Labs: 12/17/22, low B1 H. pylori: 12/27/22 CXR: 12/17/22-nad EK12/17/22-LBBB no longer present, sees [facility] cardiology 01/14/23 ABD U/S: 01/14/23 UGI: 01/14/23 The patient reports she is doing well but changed to celebrate rebuild although this has caused some GI intolerance and she would like to try Premier protein. Reports feeling better but not as much energy as she had thought. Current meal plan includes: 3 celebrate rebuild Protein Powder shakes (Aldi), (1 scoop in 8 oz low fat unsweetened almond milk or water 2nd and third and 2 scoops in first) First shake at 730am-930am, Second shake at? 1130am-130pm 1 protein bar (Fulfil bars) at 230pm-430pm. Dinner at 6pm (8 forks of protein and 8 forks of salad/vegetables). Another shake with 1 scoop in 8 oz unsweetened almond milk at 7pm-9pm. Drinking 64 oz of water Current exercise plan includes: home exercises youtube videos. Has paper for [facility] Medical History Anemia Anxiety and depression Bradycardia COVID-19 virus infection GERD (gastroesophageal reflux disease) Hypercholesterolemia Hypertension Impaired glucose tolerance Lumbar degenerative disc disease Neck pain NSVT (nonsustained ventricular tachycardia) Obesity Obstructive sleep apnea Paroxysmal atrial fibrillation Spinal stenosis Vertigo Surgical History History of cholecystectomy History of loop recorder S/P arteriovenous (AV) fistula repair S/P diskectomy Family History Father Lung cancer Mother Medical history unknown Sister Myocardial infarction Brother Hepatitis C Paternal Grandmother Ovarian cancer Paternal Uncle Brain cancer Sister No problems noted. Sister No problems noted. Brother No problems noted. Brother No problems noted. Brother No problems noted. Daughter No problems noted. Daughter No problems noted. 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 Current occupational exposures/hazards: No Cognitive needs: No Hearing needs: No Vision needs: Yes (Glasses) Physical Exam Const General: healthy appearing and no acute distress Resp Effort & Inspection: normal respiratory effort Auscultation: clear to auscultation bilaterally Cardio Rate: regular rate Rhythm: regular rhythm GI Auscultation: normal bowel sounds Extrem General: Yes normal to inspection Assessment & Plan Assessment & Plan (1) Morbid obesity: Code(s): E66.01 - Morbid (severe) obesity due to excess calories Plan: change meal plan to : 3 celebrate rebuild Protein Powder shakes (Aldi), (1 scoop in 8 oz low fat unsweetened almond milk or water 2nd and third and 1.5 scoops in first) First shake at 730am-930am, Second shake at? 1130am-130pm 1 protein bar (Fulfil bars) at 230pm-430pm. Dinner at 6pm (8 forks of protein and 8 forks of salad/vegetables). Another shake with 1 scoop in 8 oz unsweetened almond milk at 7pm-9pm. Join [facility] F/U cardiology and get risk stratification H Pylori today rtc 1 month re-schedule appt reminded of upcoming appts Medications: Discontinued benzonatate 200 mg PO TID PRN 30 caps 0RF cough Coding Level of Care Code Est Pt Level 3 (98270) Diagnoses Morbid obesity E66.01
[2022-12-27 10:40] VITALS: BP 130/60; PULSE 76; TEMP 36.4; BMI 43.2
== END 2022-12-27 11:11 | disposition home or self-care (01) ==
PROVIDERS: PCP Internal Medicine; Visit Provider Physician Assistant Surgical
DX: E66.01 Morbid (severe) obesity due to excess calories (principal); Z68.41 Body mass index [BMI] 40.0-44.9, adult
CPT/HCPCS: 99213

== ENCOUNTER → 2022-12-30 23:59 | Outpatient (BNV) | payer OTHER, SELFPAY ==
--- NOTE | 2023-01-05 17:17 | MHC.OFFVIS ---
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 Check- [employer] Allergies amlodipine Allergy (Severe, Verified 12/31/22 11:06) Anxiety meperidine [From DEMEROL] Allergy (Intermediate, Verified 12/31/22 11:06) MIGRAINE codeine [CODEINE] Allergy (Unknown, Verified 12/31/22 11:06) UNKNOWN Pt states she's allergic to gl Allergy (Unknown, Uncoded 12/31/22 11:06) f [facility] Medical History (Updated 12/31/22 @ 14:58 by Sky Hardwick CNP) COVID-19 virus infection Anemia Impaired glucose tolerance Bradycardia NSVT (nonsustained ventricular tachycardia) Neck pain Vertigo Paroxysmal atrial fibrillation Spinal stenosis Lumbar degenerative disc disease Anxiety and depression Hypertension Obesity Obstructive sleep apnea GERD (gastroesophageal reflux disease) Hypercholesterolemia Surgical History History of loop recorder S/P arteriovenous (AV) fistula repair History of cholecystectomy S/P diskectomy Family History Father Lung cancer Mother Medical history unknown Sister Myocardial infarction Brother Hepatitis C Paternal Grandmother Ovarian cancer Paternal Uncle Brain cancer Sister No problems noted. Sister No problems noted. Brother No problems noted. Brother No problems noted. Brother No problems noted. Daughter No problems noted. Daughter No problems noted. 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 Bradycardia/pauses noted. No strips scanned in this report. Patient activity about 4 hours/day. [id number] Cardiac Interrogation, subcut cardiac rhythm monitor Procedure code (CPT) selection complete Assessment & Plan Assessment & Plan (1) Paroxysmal atrial fibrillation: Code(s): I48.0 - Paroxysmal atrial fibrillation (2) NSVT (nonsustained ventricular tachycardia): Code(s): I47.2 - Ventricular tachycardia Coding Level of Care Code Procedure Only Diagnoses Paroxysmal atrial fibrillation I48.0 NSVT (nonsustained ventricular tachycardia) I47.2 CPT Codes Cardiac Device Check - Cardiac Device 16: [id number] Cardiac Interrogation, subcut cardiac rhythm monitor ([id number])
== END ==
PROVIDERS: PCP Internal Medicine; Visit Provider Internal Medicine
DX: I48.0 Paroxysmal atrial fibrillation (principal); I47.20 Ventricular tachycardia, unspecified
CPT/HCPCS: 93298

== ENCOUNTER 2022-12-31 10:59 | Outpatient (AMB) | payer OTHER, SELFPAY ==
--- NOTE | 2022-12-31 11:00 | MHC.OFFVIS ---
Intake Vital Signs 12/31/22 11:01 Height 5 ft 1 in Weight 228 lb BMI 43.1 BP 130/84 Blood Pressure Location Rt brachial Position Sitting Pulse 66 Pulse Source Pulse Oximeter Pulse Oximetry (%) 95 Oxygen Delivery Method Room Air Intake Visit Reasons: 3 mnts f/u appt for sleep - Confirmed Intake Note: Patient presents for 3 month follow up sleep. I'm still waking up tired and fatigue, I sleep through the night Allergies amlodipine Allergy (Severe, Verified 01/14/23 14:38) Anxiety meperidine [From DEMEROL] Allergy (Intermediate, Verified 01/14/23 14:38) MIGRAINE codeine [CODEINE] Allergy (Unknown, Verified 01/14/23 14:38) UNKNOWN Pt states she's allergic to gl Allergy (Unknown, Uncoded 12/31/22 11:06) f HPI HPI Comments History of Present Illness Details 57 y/o female patient presents for follow up of sleep study. Pt had split night sleep study. The baseline portion of the sleep study result was significant for severe degree of sleep apnea. The AHI was 61/hr, REM AHI was 125/hr and oxygen walter was 74%. She trialed on CPAP [id number] and the breathing stabilized on CPAP [id number]. The CPAP compliance and therapy response (12/01/22-12/30/22) reviewed. The usage days 93% and the average usage hours 6 hrs and 30 min. The AHI was 8.5/hr. Pt reports that her mask is too small and wants to try bigger mask. Pt reports she sleeps well but still wakes up little tired. She was told that her vitamin B level was low and started B1 supplement. She is on wt management program now. [facility] Medical History COVID-19 virus infection Anemia Impaired glucose tolerance Bradycardia NSVT (nonsustained ventricular tachycardia) Neck pain Vertigo Paroxysmal atrial fibrillation Spinal stenosis Lumbar degenerative disc disease Anxiety and depression Hypertension Obesity Obstructive sleep apnea GERD (gastroesophageal reflux disease) Hypercholesterolemia Surgical History History of loop recorder S/P arteriovenous (AV) fistula repair History of cholecystectomy S/P diskectomy Family History Father Lung cancer Mother Medical history unknown Sister Myocardial infarction Brother Hepatitis C Paternal Grandmother Ovarian cancer Paternal Uncle Brain cancer Sister No problems noted. Sister No problems noted. Brother No problems noted. Brother No problems noted. Brother No problems noted. Daughter No problems noted. Daughter No problems noted. 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 Current occupational exposures/hazards: No Cognitive needs: No Hearing needs: No Vision needs: Yes (Glasses) Review of Systems Const All systems reviewed & are unremarkable except as noted in HPI and below ENT Reports Normal hearing present Neuro Reports Normal hearing present Physical Exam Vital Signs: Last Vital Signs Pulse 66 12/31/22 11:01 BP 130/84 12/31/22 11:01 Pulse Ox 95 12/31/22 11:01 Oxygen Delivery Method Room Air 12/31/22 11:01 BMI result Body Mass Index 43.1 Const General: cooperative Nutritional Appearance: obese Orientation/consciousness: patient oriented x3 Neck Neck: Yes full ROM and Yes supple Resp Effort & Inspection: normal respiratory effort and able to speak in complete sentences Neuro General: patient oriented x3 Cranial nerves: Yes Bilaterally intact EOM present, Yes Normal facial strength present, Yes Midline tongue present, Yes Symmetric palate elevation present, Yes Normal hearing present, Yes Ability to bilaterally rotate head present and Yes Ability to bilaterally elevate shoulders present Cognition (Neuro): normal cognition Psych Appearance: grossly normal Mental Status: mental status grossly normal Speech and movement: Normal speech and movement present Affect: normal affect Attitude: cooperative Assessment & Plan Assessment & Plan (1) Obstructive sleep apnea: Comment: On CPAP at [id number] Code(s): G47.33 - Obstructive sleep apnea (adult) (pediatric) Plan Continue to use CPAP at [id number] as patient experiences good clinical effects. Stressed compliance, use CPAP nightly and more than 4 hrs. New CPAP mask prescription and [facility] home care information given to patient. Continue to follow up with wt management, and increase daily exercise. Coding Level of Care Code Est Pt Level 3 (89361) Diagnoses Obstructive sleep apnea G47.33
[2022-12-31 11:01] VITALS: BP 130/84; PULSE 66; O2SAT 95; BMI 43.1
== END 2022-12-31 11:37 | disposition home or self-care (01) ==
LOC: HO.HSMC 10:59
PROVIDERS: PCP Internal Medicine; Visit Provider Nurse Practitioner Family
DX: G47.33 Obstructive sleep apnea (adult) (pediatric) (principal)
CPT/HCPCS: 99213

== ENCOUNTER → 2022-12-31 10:59 | Outpatient (BNVA) | payer OTHER, SELFPAY | PROVIDERS: PCP Internal Medicine; Visit Provider Nurse Practitioner Family | DX: G47.33 Obstructive sleep apnea (adult) (pediatric) (principal); Z99.89 Dependence on other enabling machines and devices | CPT/HCPCS: 99212 ==

== ENCOUNTER 2023-01-09 09:15 | Outpatient (REF) | payer OTHER, SELFPAY ==
--- NOTE | ~2023-01-09 | MM_ITS ---
EXAMINATION: MM SCREENING DIGITAL BREAST TOMOSYNTHESIS, BILATERAL CLINICAL INFORMATION: Screening. Asymptomatic. COMPARISON: Mammography: This study is compared with prior exams dating back to 2017. TECHNIQUE: Digital breast tomosynthesis is performed in both the craniocaudal and mediolateral oblique views along with computer-aided detection (CAD). Synthesized 2D images are generated from the tomosynthesis. FINDINGS: The breasts are almost entirely fatty (ACR BI-RADS breast composition Category a). There are no significant masses, abnormal calcifications, or other abnormalities. There is a cardiac recorder in the medial aspect of the left breast. MM/MM tomosynthesis screening BI IMPRESSION: No mammographic evidence of malignancy. ASSESSMENT: BI-RADS BI-RADS 1 - Negative RECOMMENDATION: Routine annual mammography screening. 1 year F/U This examination should not preclude the clinical evaluation of a suspicious palpable abnormality. This patient's information was entered into a reminder system with a target due date for their next mammogram.
== END 2023-01-09 09:16 | disposition home or self-care (01) ==
LOC: HO.MAMMO 09:15
PROVIDERS: PCP Internal Medicine; Visit Provider Internal Medicine
DX: Z12.31 Encounter for screening mammogram for malignant neoplasm of breast (principal)
CPT/HCPCS: 77063; 77067

== ENCOUNTER → 2023-01-09 09:15 | Outpatient (BNV) | payer OTHER, SELFPAY | PROVIDERS: PCP Internal Medicine; Visit Provider Radiology Diagnostic Radiology | DX: Z12.31 Encounter for screening mammogram for malignant neoplasm of breast (principal) | CPT/HCPCS: 77063; 77067 ==

== ENCOUNTER 2023-01-14 09:56 | Outpatient (REF) | payer OTHER, SELFPAY ==
--- NOTE | ~2023-01-14 | FL_ITS ---
EXAMINATION: XR FLUOROSCOPY UPPER GI WITH AIR CLINICAL INFORMATION: Preoperative bariatric surgery. Patient also complaining of mild GERD. COMPARISON: 07/22/2013. TECHNIQUE: Fluoroscopic air contrast upper GI examination was performed utilizing standard techniques with thin and thick barium and effervescent granules. Numerous spot images were obtained. FINDINGS: Hypopharyngeal structures appear normal without evidence of mass or diverticulum. There was no significant cricopharyngeal achalasia. Dual and single contrast images of the esophagus demonstrate normal caliber, contour, and mucosal pattern. No evidence of stricture, mass, or ulcerations identified. Esophageal peristalsis was somewhat disordered. Small sliding (type I) hiatus hernia present. Mild spontaneous gastroesophageal reflux was seen during the course of the examination to the level of the aortic arch. Dual contrast and single contrast images of the stomach demonstrated normal contour. There was evidence of diffuse gastric fold thickening, most likely representing gastritis. Contrast freely passed into the gastric antrum and duodenal bulb without delay. Single and air-contrast images of the duodenal bulb demonstrate no abnormality. The duodenal sweep has a normal appearance, course, and mucosal fold appearance. The imaged proximal jejunum has a normal fold pattern and caliber. Cholecystectomy clips incidentally noted, as well as a cardiac loop recorder. FLUOROSCOPY TIME: 4 minutes 17 seconds Number of Spot Images: 15 spot images obtained, as well as 4 image capture cine loops. DOSE AREA PRODUCT: [id number] uGy-m2 (microgray-meter squared) FL/FL upper GI w air IMPRESSION: 1. Esophagus is normal aside from a small type I sliding hiatus hernia, and mild spontaneous gastroesophageal reflux to the level of the aortic arch. Mild to moderate presbyesophagus. 2. Diffuse fold thickening of the gastric fundus, and body, as well as likely the antrum, suggesting gastritis. 3. Normal-appearing duodenal bulb, sweep, and proximal jejunum.
--- NOTE | ~2023-01-14 | US_ITS ---
EXAMINATION: US COMPLETE ABDOMEN WITH LIVER ELASTOGRAPHY CLINICAL INFORMATION: Obesity COMPARISON: Previous ultrasound June 2007 TECHNIQUE: Real-time imaging of the abdominal viscera. Noninvasive ultrasound liver fibrosis assessment is performed using Rosita ElastPQ point quantification shear wave elastography (2D-SWE) with a C5-2 MHz transducer. Multiple elastography samples are obtained. FINDINGS: PANCREAS: The visualized pancreatic head and body are normal in appearance. The remainder of the pancreas is obscured from visualization by the overlying bowel gas. ABDOMINAL AORTA: The proximal abdominal aorta is normal in caliber. The mid and distal abdominal aorta are not well visualized due to bowel gas. INFERIOR VENA CAVA: Visualized portions are normal. LIVER: Liver echotexture is slightly increased. Liver contour is normal.. No focal lesion or intrahepatic biliary duct dilatation. The right lobe measures 18. 5 cm in length. The left lobe measures 11 cm in length. Portal flow is normal/ Shear wave liver elastography median stiffness is 1.5 m/s (reference: normal median stiffness is 1.3 m/s or less). IQR/median stiffness to assess sampling precision is 0.16 (reference: good quality data set is IQR/median stiffness of 0.15 or less). GALLBLADDER: Surgically removed COMMON BILE DUCT: Normal in caliber measuring 0.5 cm in diameter. RIGHT KIDNEY: Normal. No hydronephrosis. No renal calculi or focal parenchymal lesions. The kidney measures 10 cm in maximum dimension. LEFT KIDNEY: Normal. No hydronephrosis. No renal calculi or focal parenchymal lesions. The kidney measures 11 cm in maximum dimension. SPLEEN: Normal. The spleen measures 7.5 cm in maximum dimension. FREE FLUID: None. US/US abdomen comp w elastography IMPRESSION: 1. Impression: Slightly enlarged echogenic liver probably representing fatty infiltration. Limited visualization of the pancreas and mid and distal abdominal aorta. 2. Liver elastography: Adequate liver sampling. In the absence of other known clinical signs, rules out compensated advanced chronic liver disease. REFERENCE: Society of Radiologists in Ultrasound Liver Stiffness Thresholds (2020): LIVER STIFFNESS THRESHOLDS: *Liver Stiffness equal or less than 1.3 m/s: High probability of being normal. *Liver Stiffness less than 1.7 m/s: In the absence of other known clinical signs, rules out compensated advanced chronic liver disease. *Liver Stiffness 1.7-2.1 m/s: Suggestive of compensated advanced chronic liver disease but need further test for confirmation. *Liver Stiffness over 2.1 m/s: Rules in compensated advanced chronic liver disease. *Liver Stiffness over 2.4 m/s: Suggestive of clinically significant portal hypertension. QUALITY OF DATA SET: *IQR/Median value equal or less than 0.15 implies a quality data set. *IQR/Median value over 0.15 implies a poor quality data set. SIGNIFICANT CHANGE FROM PRIOR EXAM: Significant change if liver stiffness measurement is 10% or greater from prior exam. OTHER CONSIDERATIONS: The stage of liver fibrosis may be overestimated in the setting of acute hepatitis, liver inflammation, elevated liver function tests, hepatic vascular congestion, obstructive cholestasis, non-fasting state, and infiltrative diseases such as amyloidosis and lymphoma. In some patients with NAFLD, the liver stiffness thresholds for compensated advanced chronic liver disease may be lower. In causes other than viral hepatitis and NAFLD, liver stiffness thresholds are not well established.
== END 2023-01-14 09:57 | disposition home or self-care (01) ==
LOC: HO.US 09:56
PROVIDERS: PCP Internal Medicine; Visit Provider Physician Assistant Surgical
DX: E66.01 Morbid (severe) obesity due to excess calories (principal); I10 Essential (primary) hypertension; E78.00 Pure hypercholesterolemia, unspecified; E11.65 Type 2 diabetes mellitus with hyperglycemia; R55 Syncope and collapse; G47.33 Obstructive sleep apnea (adult) (pediatric); I45.5 Other specified heart block; I44.7 Left bundle-branch block, unspecified; I47.20 Ventricular tachycardia, unspecified
CPT/HCPCS: 74246; 76705; 76981; 99212

== ENCOUNTER → 2023-01-14 09:59 | Outpatient (BNV) | payer OTHER, SELFPAY | PROVIDERS: PCP Internal Medicine; Visit Provider Radiology Diagnostic Radiology | DX: K21.9 Gastro-esophageal reflux disease without esophagitis (principal); K44.9 Diaphragmatic hernia without obstruction or gangrene; Z95.818 Presence of other cardiac implants and grafts; Z96.89 Presence of other specified functional implants | CPT/HCPCS: 74246 ==

== ENCOUNTER 2023-01-14 14:29 | Outpatient (AMB) | payer OTHER, SELFPAY ==
--- NOTE | 2023-01-14 14:31 | A.OFFVIS_ITS ---
Intake Vital Signs 01/14/23 14:32 Height 5 ft 1 in Weight 233 lb 11.04 oz BMI 44.2 BP 132/80 Blood Pressure Location Lt brachial Position Sitting Pulse 69 Pulse Source Pulse Oximeter Intake Visit Reasons: 3 month follow-up Intake Note: 3 month f/u light headed and s/b Marketing Strategy Analyst Required: No Poultry Hatchery Man: Poultry Hatchery Man Present Allergies amlodipine Allergy (Severe, Verified 01/14/23 14:38) Anxiety meperidine [From DEMEROL] Allergy (Intermediate, Verified 01/14/23 14:38) MIGRAINE codeine [CODEINE] Allergy (Unknown, Verified 01/14/23 14:38) UNKNOWN Pt states she's allergic to gl Allergy (Unknown, Uncoded 12/31/22 11:06) f Medication List - Last Reconciled 01/14/23 by RONEY Cruz apixaban (Eliquis) 5 mg PO BID ascorbate calcium (vitamin C) 1,000 mg PO DAILY cholecalciferol (vitamin D3) 25 mcg PO DAILY cranberry 400 mg PO DAILY diazepam 2 mg PO BEDTIME PRN whit root extract 50 mg PO DAILY lisinopril 10 mg PO DAILY loratadine (Claritin) 10 mg PO DAILY metformin 500 mg PO BID metoprolol tartrate 12.5 mg PO BID omega-3 fatty acids (Fish Oil Concentrate) 1,000 mg PO DAILY pantoprazole 40 mg PO DAILY simethicone 80 mg PO BID thiamine HCl (vitamin B1) 100 mg PO DAILY 90 days HPI 3 month follow-up HPI Details Tahira is a 57-year-old female with past medical history of morbid obesity, obstructive sleep apnea, currently untreated, paroxysmal AFib, an SVT, sinus bradycardia who was recently admitted to [facility] for a syncopal event. She was noted to have nighttime pauses and had an ILR placed. She has since started on CPAP mask and her nighttime pauses have lessened. Today she reports that overall she has been feeling well. She will notice of brief lightheadedness at times if she bends over. No presyncope, syncope, falls. No chest discomfort at rest or with activity. She does have some mild shortness of breath with activity which is not new. She is wearing her CPAP mask each night and still trying to get used to it. She does not notice a sig nificant change in how she feels in the daytime as of yet. She has begun the process through [place] [facility] [place]. She is interested in losing about 80 lb. She is fearful to start exercise as she does not like the feeling of shortness of breath or pounding heart. She is taking her meds as directed. No bleeding issues reported with Domi. [facility] Medical History COVID-19 virus infection Anemia Impaired glucose tolerance Bradycardia NSVT (nonsustained ventricular tachycardia) Neck pain Vertigo Paroxysmal atrial fibrillation Spinal stenosis Lumbar degenerative disc disease Anxiety and depression Hypertension Obesity Obstructive sleep apnea GERD (gastroesophageal reflux disease) Hypercholesterolemia Surgical History History of loop recorder S/P arteriovenous (AV) fistula repair History of cholecystectomy S/P diskectomy Family History Father Lung cancer Mother Medical history unknown Sister Myocardial infarction Brother Hepatitis C Paternal Grandmother Ovarian cancer Paternal Uncle Brain cancer Sister No problems noted. Sister No problems noted. Brother No problems noted. Brother No problems noted. Brother No problems noted. Daughter No problems noted. Daughter No problems noted. 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 Current occupational exposures/hazards: No Cognitive needs: No Hearing needs: No Vision needs: Yes (Glasses) Review of Systems Const All systems reviewed & are unremarkable except as noted in HPI and below ENT Reports dizziness Card Denies chest pain, Denies chest pain at rest, Denies chest pain with activity, Denies rapid heart rate, Denies pedal edema, Denies edema, Denies leg edema, Denies lightheadedness, Denies palpitations, Denies dyspnea, Reports dyspnea on exertion and Denies orthopnea Resp Denies cough, Denies dyspnea and Reports dyspnea on exertion GI Denies hematochezia and Denies change in stool character Musc Denies abnormal gait, Denies limited range of motion, Denies muscle cramps, Denies muscle weakness, Denies numbness, Denies radiating pain into limb, Denies stiffness and Denies tingling Neuro Denies abnormal gait, Reports dizziness, Denies numbness and Denies tingling Endo Denies palpitations Physical Exam Vital Signs: Last Vital Signs Pulse 69 01/14/23 14:32 BP 132/80 01/14/23 14:32 BMI result Body Mass Index 44.2 Const General: cooperative, healthy appearing, comfortable and no acute distress Orientation/consciousness: patient oriented x3 Neck Neck: Yes normal visual inspection Resp Effort & Inspection: normal respiratory effort Auscultation: clear to auscultation bilaterally, no crackles, no rales, no rhonchi and no wheezes Cardio Jugular venous distension: no JVD Rate: regular rate Rhythm: regular rhythm Heart sounds: S1 normal heart sound present, S2 normal heart sound present, no murmurs and no rubs Neuro General: patient oriented x3 Extrem General: Yes normal to inspection Psych Appearance: grossly normal Mental Status: mental status grossly normal Speech and movement: Normal speech and movement present Assessment & Plan Assessment & Plan (1) Syncope: Code(s): R55 - Syncope and collapse Qualifiers: Syncope type: unspecified Qualified Code(s): R55 - Syncope and collapse Plan: Syncopal event prior [place] [facility] [place]. She described a flushed feeling and then loss of consciousness. [place] well upon awakening. [facility] [place] without significant findings for the syncope however there were nighttime pauses noted. She has a known history of untreated sleep apnea. She had an ILR placed to monitor for arrhythmia. Since her hospital discharge she has continued to have flushing feelings that she is now describing as hot flashes. She says she did not get these until recently. Intermittent lightheaded episodes especially with bending forward, however no full presyncope or syncope. Numerous cardiac pauses ranging between 3 and 5 seconds have been noted on her ILR however only during sleep hours. No daytime pauses recorded. She remains on low-dose metoprolol. She is now using CPAP and her nighttime cardiac pauses have greatly lessened. Will continue to watch ILR reports and to see if symptomatic cardiac rhythms are further identified. Ongoing Treatment of her sleep apnea will be essential going forward. Reviewed good hydration, using caution when going sitting to standing. Sit if she becomes lightheaded. Press her ILR alert if she has symptoms. Cardiology follow-up in 6 months, sooner if needed (2) Obstructive sleep apnea: Comment: On CPAP at [id number] Code(s): G47.33 - Obstructive sleep apnea (adult) (pediatric) Plan: Known history of obstructive sleep apnea in intolerant to CPAP mask in the past. During 08/20[place] [facility] [place] noted to have nighttime pauses. ILR has recorded numerous sleep time pauses ranging 3-5 seconds. There is 1 recording that states 10 seconds however am not able to see the rhythm strip with that alert at present time. She did have a sleep study which showed severe sleep apnea. She has since started on CPAP mask and reports compliance. I do see a reduction in her cardiac pauses since that time. She is following with Sleep Medicine. (3) Sinus pause: Code(s): I45.5 - Other specified heart block (4) LBBB (left bundle branch block): Code(s): I44.7 - Left bundle-branch block, unspecified (5) NSVT (nonsustained ventricular tachycardia): Code(s): I47.2 - Ventricular tachycardia Plan: Restarted low-dose metoprolol (6) Hypertension: Code(s): I10 - Essential (primary) hypertension Qualifiers: Hypertension type: essential hypertension Qualified Code(s): I10 - Essential (primary) hypertension Plan: Well controlled at present time. Coding Level of Care Code Est Pt Level 4 (16498) Diagnoses Syncope, unspecified syncope type R55 Syncope type: unspecified Obstructive sleep apnea G47.33 Sinus pause I45.5 LBBB (left bundle branch block) I44.7 NSVT (nonsustained ventricular tachycardia) I47.2 Essential hypertension I10 Hypertension type: essential hypertension Time Spent (min) 28
[2023-01-14 14:32] VITALS: BP 132/80; PULSE 69; BMI 44.2
== END 2023-01-14 15:08 | disposition home or self-care (01) ==
PROVIDERS: PCP Internal Medicine; Visit Provider Nurse Practitioner Family
DX: R55 Syncope and collapse (principal); G47.33 Obstructive sleep apnea (adult) (pediatric); I45.5 Other specified heart block; I44.7 Left bundle-branch block, unspecified; I47.20 Ventricular tachycardia, unspecified; I10 Essential (primary) hypertension
CPT/HCPCS: 99214

== ENCOUNTER → 2023-01-30 23:59 | Outpatient (BNV) | payer OTHER, SELFPAY ==
--- NOTE | 2023-02-01 18:47 | MHC.OFFVIS ---
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 Check- [employer] Allergies amlodipine Allergy (Severe, Verified 01/31/23 08:28) Anxiety meperidine [From DEMEROL] Allergy (Intermediate, Verified 01/31/23 08:28) MIGRAINE codeine [CODEINE] Allergy (Unknown, Verified 01/31/23 08:28) UNKNOWN Pt states she's allergic to gl Allergy (Unknown, Uncoded 01/31/23 08:28) f [facility] Medical History COVID-19 virus infection Anemia Impaired glucose tolerance Bradycardia NSVT (nonsustained ventricular tachycardia) Neck pain Vertigo Paroxysmal atrial fibrillation Spinal stenosis Lumbar degenerative disc disease Anxiety and depression Hypertension Obesity Obstructive sleep apnea GERD (gastroesophageal reflux disease) Hypercholesterolemia Surgical History History of loop recorder S/P arteriovenous (AV) fistula repair History of cholecystectomy S/P diskectomy Family History Father Lung cancer Mother Medical history unknown Sister Myocardial infarction Brother Hepatitis C Paternal Grandmother Ovarian cancer Paternal Uncle Brain cancer Sister No problems noted. Sister No problems noted. Brother No problems noted. Brother No problems noted. Brother No problems noted. Daughter No problems noted. Daughter No problems noted. 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 No atrial fibrilllation during lifetime. Night time pauses noted. [id number] Cardiac Interrogation, subcut cardiac rhythm monitor Procedure code (CPT) selection complete Assessment & Plan Assessment & Plan (1) Syncope: Code(s): R55 - Syncope and collapse Qualifiers: Syncope type: unspecified Qualified Code(s): R55 - Syncope and collapse Coding Level of Care Code Procedure Only Diagnoses Syncope, unspecified syncope type R55 Syncope type: unspecified CPT Codes Cardiac Device Check - Cardiac Device 16: [id number] Cardiac Interrogation, subcut cardiac rhythm monitor ([id number])
== END ==
PROVIDERS: PCP Internal Medicine; Visit Provider Internal Medicine
DX: R55 Syncope and collapse (principal)
CPT/HCPCS: 93298

== ENCOUNTER 2023-01-31 08:21 | Outpatient (AMB) | payer OTHER, SELFPAY ==
[2023-01-31 08:27] VITALS: BP 132/82; PULSE 65; O2SAT 97; BMI 44.2
--- NOTE | 2023-01-31 08:27 | MHC.PC.OV ---
Vital Signs 01/31/23 08:27 Height 5 ft 1 in Weight 234 lb BMI 44.2 BP 132/82 Blood Pressure Location Lt brachial Position Sitting Pulse 65 Pulse Source Pulse Oximeter Pulse Oximetry (%) 97 Oxygen Delivery Method Room Air Intake Visit Reasons: F/Up JESSICA, A fib Allergies amlodipine Allergy (Severe, Verified 01/31/23 08:28) Anxiety meperidine [From DEMEROL] Allergy (Intermediate, Verified 01/31/23 08:28) MIGRAINE codeine [CODEINE] Allergy (Unknown, Verified 01/31/23 08:28) UNKNOWN Pt states she's allergic to gl Allergy (Unknown, Uncoded 01/31/23 08:28) f Tobacco use date assessed: 09/27/22 Dental Screening Dental Screen Date: 01/31/23 Did you have a dental visit in the last 12 months?: Yes Did you have a dental problem in the last 6 months where you did not have access to dental care?: No Was dental information given to patient?: Patient has dentist HPI F/Up JESSICA, A fib HPI Details 57-year-old morbidly obese female with atrial fibrillation, controlled diabetes mellitus, obstructive sleep apnea, hypertension, hypercholesterolemia GERD and generalized anxiety disorder last seen for physical exam September 2022. Patient is up-to-date with mammogram. Review of the notes has seen Cardiology patient presently has the loop recorder did see some pauses but could not confirm and cardiology is monitoring. Patient has been trying to use the sleep CPAP for the apnea. Patient had the upper GI series small sliding hiatal hernia continues reflux noted gastritis ultrasound of liver showing fatty liver. has been doing the CPAP Q day 4 hours- - still tired . r [facility] Medical History COVID-19 virus infection Anemia Impaired glucose tolerance Bradycardia NSVT (nonsustained ventricular tachycardia) Neck pain Vertigo Paroxysmal atrial fibrillation Spinal stenosis Lumbar degenerative disc disease Anxiety and depression Hypertension Obesity Obstructive sleep apnea GERD (gastroesophageal reflux disease) Hypercholesterolemia Surgical History History of loop recorder S/P arteriovenous (AV) fistula repair History of cholecystectomy S/P diskectomy Family History Father Lung cancer Mother Medical history unknown Sister Myocardial infarction Brother Hepatitis C Paternal Grandmother Ovarian cancer Paternal Uncle Brain cancer Sister No problems noted. Sister No problems noted. Brother No problems noted. Brother No problems noted. Brother No problems noted. Daughter No problems noted. Daughter No problems noted. 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 1. Little interest or pleasure in doing things: not at all 2. Feeling down, depressed, or hopeless: not at all 3. Trouble falling or staying asleep, or sleeping too much: not at all 4. Feeling tired or having little energy: not at all 5. Poor appetite or overeating: not at all 6. Feeling bad about yourself - or that you are a failure or have let yourself or your family down: not at all 7. Trouble concentrating on things, such as reading the newspaper or watching television: not at all 8. Moving or speaking so slowly that other people could have noticed. Or the opposite - being so fidgety or restless that you have been moving around a lot more than usual: not at all 9. Thoughts that you would be better off or of hurting yourself in some way: not at all Total score: 0 Depression Screening Interpretation: Negative Depression Screening Done: Yes Source: Developed by Drs. Chepe Leon, Bharati Palacio, Juan Anderson and colleagues, with an educational briana from [employer]. Thrive Questionnaire Date Thrive assessed: 09/27/22 AUDIT C Alcohol Use Questionnaire (AUDIT-C) 1. How often do you have a drink containing alcohol?: Monthly or less 2. How many drinks containing alcohol do you have on a typical day when you are drinking?: 1 or 2 Total Score: 1 JORGE ALBERTO-7 AMB Questionnaire JORGE ALBERTO-7 Date JORGE ALBERTO - 7 assessed: 09/27/22 Source: Developed by Drs. Chepe Leon, Bharati Palacio, Juan Anderson and colleagues, with an educational briana from [employer]. Physical exam (Primary Care) Vital Signs: Last Vital Signs Pulse 65 01/31/23 08:27 BP 132/82 01/31/23 08:27 Pulse Ox 97 01/31/23 08:27 Oxygen Delivery Method Room Air 01/31/23 08:27 BMI result Body Mass Index 44.2 Tobacco/Smoking Status: Tobacco use Status Tobacco use date assessed 09/27/22 01/31/23 08:29 Patient Tobacco Use Status Never used Tobacco 01/31/23 08:29 e-Cigarette/Vaping Use Never Used 01/31/23 08:29 PHQ-9: PHQ-9 Score PHQ-9: Total score 0 01/31/23 08:29 Depression Screening Interpretation: Negative Thrive Assessment: Date of Thrive Assessment Date Thrive assessed 09/27/22 01/31/23 08:29 Const General: alert; No acute distress Eyes Conjunctivae: conjunctivae normal Resp Auscultation: clear to auscultation bilaterally Cardio Rate: regular rate Rhythm: regular rhythm GI Inspection: Yes normal to inspection Extrem General: Yes normal to inspection and No edema Office Procedures Flu Questionnaire Does the patient have a severe egg allergy?: No Does the patient have severe life threatening allergies?: No Does the patient have a fever or illness today?: No Has the patient ever had Guillain-Boston Syndrome?: No Has the patient ever had any past reaction to a flu shot?: No Immunizations flu vacc [id number] 6mos up(PF) 60 mcg(15 mcgx4)/0.5 mL IM syringe Performing Provider: Matias Sullivan MD [place] Documented (not given) by: Cathleen Chatterjee CMA on 01/31/23 08:37 Reason Not Given: Patient Refused Assessment and Plan Assessment & Plan (1) Type 2 diabetes mellitus with hyperglycemia: Comment: [facility] Code(s): E11.65 - Type 2 diabetes mellitus with hyperglycemia Plan: Decrease the amount of carbohydrate intake, pasta, bread, rice and potatoes are all sugar and that is aside from all the sweet stuff, remember that fruits are good but they are Sweet also. Hemoglobin A1c goal of less than 6.5. Patient on metformin 500 mg twice a day controlled (2) Generalized anxiety disorder: Code(s): F41.1 - Generalized anxiety disorder Plan: Continue with diazepam as needed (3) Morbid obesity: Code(s): E66.01 - Morbid (severe) obesity due to excess calories Plan: Diet and exercise going to the weight management (4) Obstructive sleep apnea: Comment: On CPAP at [id number] Code(s): G47.33 - Obstructive sleep apnea (adult) (pediatric) Plan: Patient is followed up by Neurology and has the CPAP patient is trying.. Using CPAP > 4 hours a night (5) Paroxysmal atrial fibrillation: Code(s): I48.0 - Paroxysmal atrial fibrillation Plan: Atrial fibrillation to continue with anticoagulation patient follows up with Cardiology (6) GERD (gastroesophageal reflux disease): Code(s): K21.9 - Gastro-esophageal reflux disease without esophagitis Qualifiers: Esophagitis presence: without esophagitis Qualified Code(s): K21.9 - Gastro-esophageal reflux disease without esophagitis Plan: Avoid the foods that causes that usually spicy foods, tomato products, juices, coffee, soda and foods that your sensitive to. After eating do not lie down, allow 3-4 hours before in lie down. And keep the head of bed above 30 degrees to avoid the acid from going up. (7) Hypertension: Code(s): I10 - Essential (primary) hypertension Qualifiers: Hypertension type: essential hypertension Qualified Code(s): I10 - Essential (primary) hypertension Plan: Continue with blood pressure medication. Decrease salt intake and exercise on lisinopril 10 mg once a day metoprolol 12.5 mg twice a day (8) Hypercholesterolemia: Code(s): E78.00 - Pure hypercholesterolemia, unspecified Plan: Avoid fried foods, chicken skin, eggs, butter margarine, pastries and meat. Be it pork or beef they have a lot of cholesterol LDL goal of less than 100 and presently not on cholesterol medication (9) Syncope: Code(s): R55 - Syncope and collapse Qualifiers: Syncope type: unspecified Qualified Code(s): R55 - Syncope and collapse Plan: Patient has the loop recorder followed up by Cardiology. Orders: Orders Comprehensive Met. Panel 3 Months E78.00 - Pure hypercholesterolemia, unspecified Influenza [id number] Immunization Today Z23 - Encounter for immunization Lipid Panel 3 Months E78.00 - Pure hypercholesterolemia, unspecified Medications: New simvastatin 5 mg PO BEDTIME 30 tabs 4RF E78.00 - Pure hypercholesterolemia, unspecified Coding Level of Care Code Est Pt Level 4 (96355) Diagnoses Type 2 diabetes mellitus with hyperglycemia E11.65 Generalized anxiety disorder F41.1 Morbid obesity E66.01 Obstructive sleep apnea G47.33 Paroxysmal atrial fibrillation I48.0 Gastroesophageal reflux disease without esophagitis K21.9 Esophagitis presence: without esophagitis Essential hypertension I10 Hypertension type: essential hypertension Hypercholesterolemia E78.00 Syncope, unspecified syncope type R55 Syncope type: unspecified
== END 2023-01-31 09:14 | disposition home or self-care (01) ==
PROVIDERS: PCP Internal Medicine; Visit Provider Internal Medicine
DX: E11.65 Type 2 diabetes mellitus with hyperglycemia (principal); I48.0 Paroxysmal atrial fibrillation; E66.01 Morbid (severe) obesity due to excess calories; Z68.41 Body mass index [BMI] 40.0-44.9, adult
CPT/HCPCS: 99214

== ENCOUNTER → 2023-02-24 10:21 | Outpatient (BNVA) | payer OTHER, SELFPAY | PROVIDERS: PCP Internal Medicine; Visit Provider Counselor Mental Health ==

== ENCOUNTER → 2023-02-24 10:25 | Outpatient (BNV) | payer OTHER, SELFPAY ==
--- NOTE | 2023-02-24 10:25 | A.OFFWM_ITS ---
Intake Intake Visit Reasons: Amb Documentation Allergies amlodipine Allergy (Severe, Verified 01/31/23 08:28) Anxiety meperidine [From DEMEROL] Allergy (Intermediate, Verified 01/31/23 08:28) MIGRAINE codeine [CODEINE] Allergy (Unknown, Verified 01/31/23 08:28) UNKNOWN Pt states she's allergic to gl Allergy (Unknown, Uncoded 01/31/23 08:28) f [facility] Medical History COVID-19 virus infection Anemia Impaired glucose tolerance Bradycardia NSVT (nonsustained ventricular tachycardia) Neck pain Vertigo Paroxysmal atrial fibrillation Spinal stenosis Lumbar degenerative disc disease Anxiety and depression Hypertension Obesity Obstructive sleep apnea GERD (gastroesophageal reflux disease) Hypercholesterolemia Surgical History History of loop recorder S/P arteriovenous (AV) fistula repair History of cholecystectomy S/P diskectomy Family History Father Lung cancer Mother Medical history unknown Sister Myocardial infarction Brother Hepatitis C Paternal Grandmother Ovarian cancer Paternal Uncle Brain cancer Sister No problems noted. Sister No problems noted. Brother No problems noted. Brother No problems noted. Brother No problems noted. Daughter No problems noted. Daughter No problems noted. 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 Pt was very emotional during session as she's going trough medical issues triggering anxiety, She's also not following the meal plan and has been dealing with grief after losing her nephew about a month ago. Today we completed part of the assessment and patient was provided with psychoeducation about current challenges, such as cycle of anxiety and ABC analysis was done to have an overview of current symptom presentation. Patient described she os dealing with anxiety and panic-like Sx, her PCP has prescribed her Diazepam 2mg. Pt will be seen by me again to finish assessment at will be provided with support at finding a therapist but in the meantime we will continue meeting on a monthly basis to support her with Symptom management. Pt not cleared today. Presenting Concerns Referral Source P Provider. Reason for referral Completion of behavioral health assessment as part of process for weight-loss surgery. Precipitating Event Obesity, medical offices. Living Situation Current Living Situation Own At risk of losing current housing? No Satisfied with current living situation? Yes Comments Pt lives with her boyfriend. Food/Weight/Diet Expectations of change Pt wants to be healthy. She considers going down to 140Lbs is a good number. History/Relationship with food Pt reports she deals with urges to eat even if full already. She likes pasta, grinders, pizza. History/Relationship with weight Heaviest she's been in Always was 140-160Lbs. After age of 32 started gaining weight slowly History/Relationship with dieting Tried keto, weight watchers, metabolism diet, diet pils. Binge Eating Do you frequently eat large amounts of food in short periods of time, not feeling physically hungry? No Do you feel out of control when you eat a large amount of food in a short period of time? Yes Do you eat large amounts of food rapidly and typically alone? No Social History Family history and relationship Pt was , he 25 years ago. He has been in a relationship for 23 years. She has 2 daughters and 4 grandaughters. 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 No Meaningful activities Family activities. Service Service? No Mental Health and Addiction Treatment Current/Past substance abuse? No Current/Past addictive behavior concerns? No Psychiatric history Hx of depression back in 1999. She has a hx of fear to people drawing after losing . Was in IOP back in 1999. Never in outpatient level. PCP is prescribing her with Diazepan for new sx of anxiety. Denies any past or current SI/SA. Medical and Physical Health Summary Additional Medical History not covered in history None Sexual History concerns None reported. Physical exam in the last year? Yes Pain Screening Current pain? No Pain in the last few months? Yes Comments Hip pain. Medications Is the patient compliant with medications? Yes Does the patient have Curtis Guardian in place? Not applicable Does the patient use complimentary health approaches? No Trauma/Abuse History History of trauma? Yes Other Past (Losing her ) Questionnaires PHQ-9 Over the last 2 weeks, how often have you been bothered by any of the following problems? 1. Little interest or pleasure in doing things: several days 2. Feeling down, depressed, or hopeless: several days 3. Trouble falling or staying asleep, or sleeping too much: more than half the days 4. Feeling tired or having little energy: nearly every day 5. Poor appetite or overeating: more than half the days 6. Feeling bad about yourself - or that you are a failure or have let yourself or your family down: not at all 7. Trouble concentrating on things, such as reading the newspaper or watching television: not at all 8. Moving or speaking so slowly that other people could have noticed. Or the opposite - being so fidgety or restless that you have been moving around a lot more than usual: more than half the days ( very anxious ) 9. Thoughts that you would be better off or of hurting yourself in some way: not at all Total score: 11 Depression Screening Interpretation: Positive Depression Screening Done: Yes 05208 - PHQ-9 Billing: Yes Source: Developed by Drs. Chepe Leon, Bharati Palacio, Juan Anderson and colleagues, with an educational briana from [employer]. Binge Eating Scale Group 1 A. I don't feel self-conscious about my wt. or body size when I'm with others. B. I feel concerned about how I look to others, but it normally does not make me fell disappointed with myself C. I do get self-conscious about my appearance and wt. which makes me feel disappointed in myself. D. I feel very self-conscious about my wt. and frequently I feel intense shame and disgust for myself. I try to avoid social contacts because of my self- consciousness. Response Group 1: B Group 2 A. I don't have any difficulty eating slowly in the proper manner. B. Although I seem to gobble down foods, I don't end up feeling stuffed because of eating to much. C. At times, I tend to eat quickly and then, I feel uncomfortably full afterwards. D. I have the habit of bolting down my food, without really chewing it. When this happens I usually feel uncomfortably stuffed because I've eaten to much. Response Group 2: A Group 3 A. I feel capable to control my eating urges when I want to. B. I feel like I have failed to control my eating more than the average person. C. I feel utterly helpless when it comes to feeling in control of my eating urges. D. Because I feel so helpless about controlling my eating I have become very desperate about trying to get control. Response Group 3: A Group 4 A. I don't have the habit of eating when I'm bored. B. I sometimes eat when I'm bored, but often I'm able to get busy and get my mind off food. C. I have a regular habit of eating when I'm bored, but occasionally, I can use some other activity to get my mind off eating. D. I have a strong habit of eating when I'm bored. Nothing seems to help me breath the habit. Response Group 4: B Group 5 A. I'm usually physically hungry when I eat something. B. Occasionally, I eat something on impulse even though I really am not hungry. C. I have the regular habit of eating foods, that I might not really enjoy, to satisfy a hungry feeling even though physically, I don't need the food. D. Although I'm not physically hungry, I get a hungry feeling in my mouth that only seems to be satisfied when I eat a food, like sandwich, that fills my mouth. Sometimes, when I eat the food to satisfy my mouth hunger, I then spit the food out so I won't gain weight. Response Group 5: B Group 6 A. I don't feel any guilt or self-hate after I overeat. B. After I overeat, occasionally I feel guilt or self-hate. C. Almost all the time I experience strong guilt or self-hate after I overeat. Response Group 6: B Group 7 A. I don't lose total control of my eating when dieting even after periods when I overeat. B. Sometimes when I eat a forbidden food on a diet, I feel like I blew it and eat even more. C. Frequently, I have the habit of saying to myself, I've blown it now, why not go all the way, when I overeat on a diet. When that happens I eat more. D. I have a regular habit of starting a strict diets for myself but I break the diets by going on an eating binge. My life seems to be either a feast or famine. Response Group 7: A Group 8 A. I rarely eat so much food that I feel uncomfortably stuffed afterwards. B. Usually about once a month, I each such a quantity of food, I end up feeling very stuffed. C. I have regular periods during the month when I eat large amounts of food, either at mealtime or at snacks. D. I eat so much food that I regularly feel quite uncomfortable after eating and sometimes a bit nauseous. Response Group 8: A Group 9 A. My level of calorie intake does not go up very high or go down very low on a regular basis. B. Sometimes after I overeat, I will try to reduce my caloric intake to almost nothing to compensate for the excess calories I've eaten. C. I have a regular habit of overeating during the night. It seems that my routine is not to be hungry in the morning but overeat in the evening. D. In my adult years, I have had week-long periods where I practically starve myself. This follows periods when I overeat. It seems I live a life of either feast or famine. Response Group 9: A Group 10 A. I usually am able to stop eating when I want to. I know when enough is enough. B. Every so often, I experience a compulsion to eat which I can't seem to control. C. Frequently, I experience strong urges to eat which I seem unable to control, but at other times I can control my eating urges. D. I feel incapable of controlling urges to eat. I have a fear of not being able to stop eating voluntarily. Response Group 10: A Group 11 A. I don't have any problem stopping eating when I feel full. B. I usually can stop eating when I feel full but occasionally overeat leaving me feeling uncomfortably stuffed. C. I have a problem stopping eating once I start and usually I feel uncomfortably stuffed after I eat a meal. D. Because I have a problem not being able to stop eating when I want, I sometimes have to induce vomiting to relieve my stuffed feeling. Response Group 11: A Group 12 A. I seem to eat just as much when I'm with others, Family social gatherings as when I'm by myself. B. Sometimes, when I'm with other persons, I don't eat as much as I want to eat because I'm self-conscious about my eating. C. Frequently, I eat only a small amount of food when others are present, because I'm very embarrassed about my eating. D. I feel so ashamed about overeating that I pick times to overeat when I know no one will see me. I feel like a closet eater. Response Group 12: B Group 13 A. I eat three meals a day with only an occasional between meal snack. B. I eat 3 meals a day, but I also normally snack between meals. C. When I am snacking heavily, I get in the habit of skipping regular meals. D. There are regular periods when I seem to be continually eating, with no planned meals. Response Group 13: B Group 14 A. I don't think much about trying to control unwanted eating urges. B. At least some of the time, I feel my thoughts are pre-occupied with trying to control my eating urges. C. I feel that frequently I spend much time thinking about how much I ate or about trying not to eat anymore. D. It seems to me that most of my waking hours are pre-occupied by thoughts about eating or not eating. I feel like I'm constantly struggling not to eat. Response Group 14: A Group 15 A. I don't think about food a great deal. B. I have strong craving for food but they last only for brief periods of time. C. I have days when I can't seem to think about anything else but food. D. Most of my days seem to be pre-occupied with thoughts about food. I feel like I live to eat. Response Group 15: A Group 16 A. I usually know whether or not I'm physically hungry. I take the right portion of food to satisfy me. B. Occasionally, I feel uncertain about knowing whether or not I'm physically hungry. A these times it's hard to know how much food I should take to satisfy me. C. Even though I might know how many calories I should eat, I don't have any idea what is a normal amount of food for me. Response Group 16: A Binge Eating Score: 6 Score less than 17 Minimal Risk Score between 18-26 Moderate Risk Score between 27-46 High Risk Assessment & Plan Assessment & Plan (1) Adjustment disorder with anxiety: Code(s): F43.22 - Adjustment disorder with anxiety (2) Major depression, recurrent: Code(s): F33.9 - Major depressive disorder, recurrent, unspecified Plan PT not cleared today. We have to meet again to finish assessment and she also needs support with current MH challenges impacting functioning. PHQ-9 will be repeated due to high scores. Next tala: 03/17/23 at - Telehealth. Telehealth Telehealth Location of provider rendering services: other Patient Identification confirmed using: Name, : Yes Telehealth method: voice only Patient verbally consented to treatment: Yes Patient verbally consented to billing insurance company: Yes Patient informed of any privacy concerns related to visit: No Minutes spent on Phone/Video with Pt.: 60 Coding Level of Care Code New Pt Tele Psy Diag Eval ([id number]) Patient Type New Diagnoses Adjustment disorder with anxiety F43.22 Major depression, recurrent F33.9 Time Spent (min) 60 Comment
== END ==
PROVIDERS: PCP Internal Medicine; Visit Provider Counselor Mental Health
DX: F43.22 Adjustment disorder with anxiety (principal); F33.9 Major depressive disorder, recurrent, unspecified
CPT/HCPCS: 90791

== ENCOUNTER → 2023-03-02 23:59 | Outpatient (BNV) | payer OTHER, SELFPAY ==
--- NOTE | 2023-03-03 14:29 | A.OFFVIS_ITS ---
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 Check- [employer] Allergies amlodipine Allergy (Severe, Verified 01/31/23 08:28) Anxiety meperidine [From DEMEROL] Allergy (Intermediate, Verified 01/31/23 08:28) MIGRAINE codeine [CODEINE] Allergy (Unknown, Verified 01/31/23 08:28) UNKNOWN Pt states she's allergic to gl Allergy (Unknown, Uncoded 01/31/23 08:28) f [facility] Medical History COVID-19 virus infection Anemia Impaired glucose tolerance Bradycardia NSVT (nonsustained ventricular tachycardia) Neck pain Vertigo Paroxysmal atrial fibrillation Spinal stenosis Lumbar degenerative disc disease Anxiety and depression Hypertension Obesity Obstructive sleep apnea GERD (gastroesophageal reflux disease) Hypercholesterolemia Surgical History History of loop recorder S/P arteriovenous (AV) fistula repair History of cholecystectomy S/P diskectomy Family History Father Lung cancer Mother Medical history unknown Sister Myocardial infarction Brother Hepatitis C Paternal Grandmother Ovarian cancer Paternal Uncle Brain cancer Sister No problems noted. Sister No problems noted. Brother No problems noted. Brother No problems noted. Brother No problems noted. Daughter No problems noted. Daughter No problems noted. 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 Patient activity about 4hrs/day. [id number] Cardiac Interrogation, subcut cardiac rhythm monitor Procedure code (CPT) selection complete Assessment & Plan Assessment & Plan (1) Syncope: Code(s): R55 - Syncope and collapse Qualifiers: Syncope type: unspecified Qualified Code(s): R55 - Syncope and collapse Coding Level of Care Code Procedure Only Diagnoses Syncope, unspecified syncope type R55 Syncope type: unspecified CPT Codes Cardiac Device Check - Cardiac Device 16: [id number] Cardiac Interrogation, subcut cardiac rhythm monitor ([id number])
== END ==
PROVIDERS: PCP Internal Medicine; Visit Provider Internal Medicine
DX: R55 Syncope and collapse (principal); Z85.818 Personal history of malignant neoplasm of other sites of lip, oral cavity, and pharynx
CPT/HCPCS: 93298

== ENCOUNTER → 2023-04-02 23:59 | Outpatient (BNV) | payer OTHER, SELFPAY ==
--- NOTE | 2023-04-06 18:34 | A.OFFVIS_ITS ---
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 Check- [employer] Allergies amlodipine Allergy (Severe, Verified 01/31/23 08:28) Anxiety meperidine [From DEMEROL] Allergy (Intermediate, Verified 01/31/23 08:28) MIGRAINE codeine [CODEINE] Allergy (Unknown, Verified 01/31/23 08:28) UNKNOWN Pt states she's allergic to gl Allergy (Unknown, Uncoded 01/31/23 08:28) f [facility] Medical History COVID-19 virus infection Anemia Impaired glucose tolerance Bradycardia NSVT (nonsustained ventricular tachycardia) Neck pain Vertigo Paroxysmal atrial fibrillation Spinal stenosis Lumbar degenerative disc disease Anxiety and depression Hypertension Obesity Obstructive sleep apnea GERD (gastroesophageal reflux disease) Hypercholesterolemia Surgical History History of loop recorder S/P arteriovenous (AV) fistula repair History of cholecystectomy S/P diskectomy Family History Father Lung cancer Mother Medical history unknown Sister Myocardial infarction Brother Hepatitis C Paternal Grandmother Ovarian cancer Paternal Uncle Brain cancer Sister No problems noted. Sister No problems noted. Brother No problems noted. Brother No problems noted. Brother No problems noted. Daughter No problems noted. Daughter No problems noted. 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 Pause - 4sec at 06:38hrs. [id number] Cardiac Interrogation, subcut cardiac rhythm monitor Procedure code (CPT) selection complete Assessment & Plan Assessment & Plan (1) Sinus pause: Code(s): I45.5 - Other specified heart block (2) LBBB (left bundle branch block): Code(s): I44.7 - Left bundle-branch block, unspecified Plan x Coding Level of Care Code Procedure Only Diagnoses Sinus pause I45.5 LBBB (left bundle branch block) I44.7 CPT Codes Cardiac Device Check - Cardiac Device 16: [id number] Cardiac Interrogation, subcut cardiac rhythm monitor ([id number])
== END ==
PROVIDERS: PCP Internal Medicine; Visit Provider Internal Medicine
DX: I45.5 Other specified heart block (principal)
CPT/HCPCS: 93298

== ENCOUNTER 2023-04-22 12:16 | Outpatient (AMB) | payer OTHER, SELFPAY ==
[2023-04-22 14:28] VITALS: BP 122/76; PULSE 87; TEMP 36.6; O2SAT 97
--- NOTE | 2023-04-22 14:28 | MHC.OFFWIV ---
Intake Vital Signs 04/22/23 14:28 Height 5 ft 1 in BP 122/76 Blood Pressure Location Rt brachial Position Sitting Pulse 87 Pulse Source Pulse Oximeter Temp 97.8 F Temp Source Temporal Artery Scan Pulse Oximetry (%) 97 Oxygen Delivery Method Room Air Intake Visit Reasons: EP numb Lft hand pulled muscle Intake Note: pt is here for c.o numbness on left hand possible pulled muscle Patient Tobacco Use Status: Never used Tobacco Allergies amlodipine Allergy (Severe, Verified 04/22/23 15:03) Anxiety meperidine [From DEMEROL] Allergy (Intermediate, Verified 04/22/23 15:03) MIGRAINE codeine [CODEINE] Allergy (Unknown, Verified 04/22/23 15:03) UNKNOWN Pt states she's allergic to gl Allergy (Unknown, Uncoded 04/22/23 15:03) f Medication List - Last Reconciled 04/22/23 by Miguel Urban MD apixaban (Eliquis) 5 mg PO BID ascorbate calcium (vitamin C) 1,000 mg PO DAILY cholecalciferol (vitamin D3) 25 mcg PO DAILY cranberry 400 mg PO DAILY diazepam 2 mg PO BEDTIME PRN whit root extract 50 mg PO DAILY lisinopril 10 mg PO DAILY loratadine (Claritin) 10 mg PO DAILY metformin 500 mg PO BID metoprolol tartrate 12.5 mg PO BID omega-3 fatty acids (Fish Oil Concentrate) 1,000 mg PO DAILY pantoprazole 40 mg PO DAILY simethicone 80 mg PO BID simvastatin 5 mg PO BEDTIME thiamine HCl (vitamin B1) 100 mg PO DAILY 90 days Do you need a note to return to daycare/school/sports/work: Yes HPI EP numb Lft hand pulled muscle HPI Details 58-year-old female presents to the office for a sick visit. Patient woke up this morning with pain in the left arm and shoulder. She wears a CPAP and believes she has been sleeping on the left side. Constant pain, worse on lifting the arm over the shoulder level. Minimal numbness in the hands. [facility] Medical History COVID-19 virus infection Anemia Impaired glucose tolerance Bradycardia NSVT (nonsustained ventricular tachycardia) Neck pain Vertigo Paroxysmal atrial fibrillation Spinal stenosis Lumbar degenerative disc disease Anxiety and depression Hypertension Obesity Obstructive sleep apnea GERD (gastroesophageal reflux disease) Hypercholesterolemia Surgical History History of loop recorder S/P arteriovenous (AV) fistula repair History of cholecystectomy S/P diskectomy Family History Father Lung cancer Mother Medical history unknown Sister Myocardial infarction Brother Hepatitis C Paternal Grandmother Ovarian cancer Paternal Uncle Brain cancer Sister No problems noted. Sister No problems noted. Brother No problems noted. Brother No problems noted. Brother No problems noted. Daughter No problems noted. Daughter No problems noted. 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 Full adduction. Full internal and external rotation. Assessment & Plan Assessment & Plan (1) Sprain of left shoulder: Code(s): S43.402A - Unspecified sprain of left shoulder joint, initial encounter Plan: Anti-inflammatory called in. If symptoms do not improve to follow-up here. Coding Level of Care Code Est Pt Level 3 (74214) Diagnoses Sprain of left shoulder S43.402A
== END 2023-04-22 15:12 | disposition home or self-care (01) ==
PROVIDERS: PCP Internal Medicine; Visit Provider Internal Medicine
DX: S43.402A Unspecified sprain of left shoulder joint, initial encounter (principal)
CPT/HCPCS: 99213

== ENCOUNTER 2023-04-24 10:45 | Outpatient (AMB) | payer OTHER, SELFPAY ==
--- NOTE | 2023-04-24 10:47 | A.OFFPC_ITS ---
Vital Signs 04/24/23 10:48 Height 5 ft 1 in Weight 241 lb 0.4 oz BMI 45.5 BP 130/68 Blood Pressure Location Lt brachial Position Sitting Pulse 69 Pulse Source Pulse Oximeter Pulse Oximetry (%) 93 Oxygen Delivery Method Room Air Intake Visit Reasons: pain under left arm,breast Intake Note: pt states left arm pain and shoulder pain X3days Roping Tender Required: No Allergies amlodipine Allergy (Severe, Verified 04/24/23 10:51) Anxiety meperidine [From DEMEROL] Allergy (Intermediate, Verified 04/24/23 10:51) MIGRAINE codeine [CODEINE] Allergy (Unknown, Verified 04/24/23 10:51) UNKNOWN Pt states she's allergic to gl Allergy (Unknown, Uncoded 04/24/23 10:51) f Tobacco use date assessed: 04/24/23 Dental Screening Dental Screen Date: 04/24/23 HPI pain under left arm,breast HPI Details 58-year-old morbidly obese female with d iabetes mellitus paroxysmal atrial fibrillation obstructive sleep apnea GERD hypertension hypercholesterolemia and generalized anxiety disorder last seen in January 2023. Mammograms up-to-date Cologuard is up-to-date. Review of the notes March seen in the Urgent [facility] workup in the morning with left arm and shoulder pain patient does have CPAP for obstructive sleep apnea anti-inflammatories given. complains of L axillary pain =radiating to the L shoulder and numbness of the hand and breathing deep causing pain. deny fall or trauma- new work [facility] Medical History COVID-19 virus infection Anemia Impaired glucose tolerance Bradycardia NSVT (nonsustained ventricular tachycardia) Neck pain Vertigo Paroxysmal atrial fibrillation Spinal stenosis Lumbar degenerative disc disease Anxiety and depression Hypertension Obesity Obstructive sleep apnea GERD (gastroesophageal reflux disease) Hypercholesterolemia Surgical History History of loop recorder S/P arteriovenous (AV) fistula repair History of cholecystectomy S/P diskectomy Family History Father Lung cancer Mother Medical history unknown Sister Myocardial infarction Brother Hepatitis C Paternal Grandmother Ovarian cancer Paternal Uncle Brain cancer Sister No problems noted. Sister No problems noted. Brother No problems noted. Brother No problems noted. Brother No problems noted. Daughter No problems noted. Daughter No problems noted. 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 How often do you have a drink containing alcohol?: Monthly or less 2. How many drinks containing alcohol do you have on a typical day when you are drinking?: 1 or 2 Total Score: 1 JORGE ALBERTO-7 AMB Questionnaire JORGE ALBERTO-7 Date JORGE ALBERTO - 7 assessed: 09/27/22 Source: Developed by Drs. Chepe Leon, Bharati Palacio, Juan Anderson and colleagues, with an educational briana from [employer]. Physical exam (Primary Care) Vital Signs: Last Vital Signs Pulse 69 04/24/23 10:48 BP 130/68 04/24/23 10:48 Pulse Ox 93 04/24/23 10:48 Oxygen Delivery Method Room Air 04/24/23 10:48 BMI result Body Mass Index 45.5 Tobacco/Smoking Status: Tobacco use Status Tobacco use date assessed 04/24/23 04/24/23 10:53 Patient Tobacco Use Status Never used Tobacco 04/24/23 10:53 e-Cigarette/Vaping Use Never Used 04/24/23 10:53 Thrive Assessment: Date of Thrive Assessment Date Thrive assessed 09/27/22 04/24/23 10:53 Const General: alert; No acute distress Eyes Conjunctivae: conjunctivae normal Resp Auscultation: clear to auscultation bilaterally Cardio Rate: regular rate Rhythm: regular rhythm GI Inspection: Yes normal to inspection Extrem General: Yes normal to inspection and No edema Assessment and Plan Assessment & Plan (1) Type 2 diabetes mellitus with hyperglycemia: Comment: HStreaming Code(s): E11.65 - Type 2 diabetes mellitus with hyperglycemia Plan: Decrease the amount of carbohydrate intake, pasta, bread, rice and potatoes are all sugar and that is aside from all the sweet stuff, remember that fruits are good but they are Sweet also. Hemoglobin A1c goal of less than 6.5 patient on metformin 500 mg twice a day (2) Obstructive sleep apnea: Comment: On CPAP at [id number] Code(s): G47.33 - Obstructive sleep apnea (adult) (pediatric) Plan: Continue with the CPAP more than 4 hours a night and benefits from this (3) Paroxysmal atrial fibrillation: Code(s): I48.0 - Paroxysmal atrial fibrillation Plan: Patient on anticoagulation with Eliquis twice a year blood work. December last blood work. (4) Hypercholesterolemia: Code(s): E78.00 - Pure hypercholesterolemia, unspecified Plan: Avoid fried foods, chicken skin, eggs, butter margarine, pastries and meat. Be it pork or beef they have a lot of cholesterol LDL goal of less than 100 and triglyceride of less than 150 patient on simvastatin 5 mg once a day (5) Shoulder pain, left: Code(s): M25.512 - Pain in left shoulder Plan: phsical therapy advised (6) Numbness of left hand: Code(s): R20.0 - Anesthesia of skin Plan: conservative approach of wrist brace. of numbness persist - do nerve conduction Orders: Orders SARS-CoV2/FLU/RSV Today R05.9 - Cough, unspecified PT Evaluation and Treatment Today M25.512 - Pain in left shoulder XR chest 2V Today M25.512 - Pain in left shoulder Coding Level of Care Code Est Pt Level 4 (46324) Diagnoses Type 2 diabetes mellitus with hyperglycemia E11.65 Obstructive sleep apnea G47.33 Paroxysmal atrial fibrillation I48.0 Hypercholesterolemia E78.00 Shoulder pain, left M25.512 Numbness of left hand R20.0
[2023-04-24 10:48] VITALS: BP 130/68; PULSE 69; O2SAT 93; BMI 45.5
== END 2023-04-24 11:23 | disposition home or self-care (01) ==
PROVIDERS: PCP Internal Medicine; Visit Provider Internal Medicine
DX: E11.65 Type 2 diabetes mellitus with hyperglycemia (principal); I48.0 Paroxysmal atrial fibrillation; G47.33 Obstructive sleep apnea (adult) (pediatric); E78.00 Pure hypercholesterolemia, unspecified; M25.512 Pain in left shoulder; R20.0 Anesthesia of skin; I10 Essential (primary) hypertension
CPT/HCPCS: 99214

== ENCOUNTER 2023-04-24 11:28 | Outpatient (REF) | payer OTHER, SELFPAY ==
[2023-04-24 12:32] LABS: Influenza A PCR NEGATIVE (Negative); Influenza B PCR NEGATIVE (Negative); Resp Syncy Virus RNA Qual PCR NEGATIVE (Negative); SARS COV2 PCR INHOUSE NEGATIVE (Negative)
== END 2023-04-24 11:29 | disposition home or self-care (01) ==
LOC: HO.XRAY 11:28
PROVIDERS: PCP Internal Medicine; Visit Provider Internal Medicine
DX: Z11.52 Encounter for screening for COVID-19 (principal); M25.512 Pain in left shoulder; R05.9 Cough, unspecified
CPT/HCPCS: 0241U; 71046

== ENCOUNTER → 2023-05-03 23:59 | Outpatient (BNV) | payer OTHER, SELFPAY ==
--- NOTE | 2023-05-07 19:17 | MHC.OFFVIS ---
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 Check- [employer] Allergies amlodipine Allergy (Severe, Verified 05/06/23 09:36) Anxiety meperidine [From DEMEROL] Allergy (Intermediate, Verified 05/06/23 09:36) MIGRAINE codeine [CODEINE] Allergy (Unknown, Verified 05/06/23 09:36) UNKNOWN Pt states she's allergic to gl Allergy (Unknown, Uncoded 05/06/23 09:36) f [facility] Medical History COVID-19 virus infection Anemia Impaired glucose tolerance Bradycardia NSVT (nonsustained ventricular tachycardia) Neck pain Vertigo Paroxysmal atrial fibrillation Spinal stenosis Lumbar degenerative disc disease Anxiety and depression Hypertension Obesity Obstructive sleep apnea GERD (gastroesophageal reflux disease) Hypercholesterolemia Surgical History History of loop recorder S/P arteriovenous (AV) fistula repair History of cholecystectomy S/P diskectomy Family History Father Lung cancer Mother Medical history unknown Sister Myocardial infarction Brother Hepatitis C Paternal Grandmother Ovarian cancer Paternal Uncle Brain cancer Sister No problems noted. Sister No problems noted. Brother No problems noted. Brother No problems noted. Brother No problems noted. Daughter No problems noted. Daughter No problems noted. 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 4 sec pause in morning. [id number] Cardiac Interrogation, subcut cardiac rhythm monitor Procedure code (CPT) selection complete Assessment & Plan Assessment & Plan (1) Syncope: Code(s): R55 - Syncope and collapse Qualifiers: Syncope type: unspecified Qualified Code(s): R55 - Syncope and collapse Plan x Coding Level of Care Code Procedure Only Diagnoses Syncope, unspecified syncope type R55 Syncope type: unspecified CPT Codes Cardiac Device Check - Cardiac Device 16: [id number] Cardiac Interrogation, subcut cardiac rhythm monitor ([id number])
== END ==
PROVIDERS: PCP Internal Medicine; Visit Provider Internal Medicine
DX: I48.0 Paroxysmal atrial fibrillation (principal); Z95.818 Presence of other cardiac implants and grafts
CPT/HCPCS: 93298

== ENCOUNTER 2023-05-05 16:41 | Outpatient (AMB) | payer OTHER, SELFPAY ==
[2023-05-05 16:47] VITALS: BP 130/68; PULSE 72; O2SAT 99; BMI 45.2
--- NOTE | 2023-05-05 16:47 | MHC.PC.OV ---
Vital Signs 05/05/23 16:47 Height 5 ft 1 in Weight 239 lb BMI 45.2 BP 130/68 Blood Pressure Location Lt brachial Position Sitting Pulse 72 Pulse Source Pulse Oximeter Pulse Oximetry (%) 99 Oxygen Delivery Method Room Air Intake Visit Reasons: cholesterol, DM Honey Blender Required: No Allergies amlodipine Allergy (Severe, Verified 05/05/23 16:49) Anxiety meperidine [From DEMEROL] Allergy (Intermediate, Verified 05/05/23 16:49) MIGRAINE codeine [CODEINE] Allergy (Unknown, Verified 05/05/23 16:49) UNKNOWN Pt states she's allergic to gl Allergy (Unknown, Uncoded 05/05/23 16:49) f Medication List - Last Reconciled 05/05/23 by Matias Sullivan MD apixaban (Eliquis) 5 mg PO BID ascorbate calcium (vitamin C) 1,000 mg PO DAILY cholecalciferol (vitamin D3) 25 mcg PO DAILY cranberry 400 mg PO DAILY diazepam 5 mg PO BEDTIME PRN whit root extract 50 mg PO DAILY lisinopril 10 mg PO DAILY loratadine (Claritin) 10 mg PO DAILY meloxicam 15 mg PO DAILY metformin 500 mg PO BID metoprolol tartrate 12.5 mg PO BID omega-3 fatty acids (Fish Oil Concentrate) 1,000 mg PO DAILY pantoprazole 40 mg PO DAILY simethicone 80 mg PO BID simvastatin 5 mg PO BEDTIME thiamine HCl (vitamin B1) 100 mg PO DAILY 90 days Tobacco use date assessed: 05/05/23 HPI cholesterol, DM HPI Details 58-year-old morbidly obese female with diabetes mellitus obstructive sleep apnea paroxysmal atrial fibrillation on anticoagulation hypercholesterolemia coming in for follow-up. Last seen in March 2023 had left shoulder pain and left hand numbness. Patient is up-to-date with mammogram and Cologuard [facility] Medical History COVID-19 virus infection Anemia Impaired glucose tolerance Bradycardia NSVT (nonsustained ventricular tachycardia) Neck pain Vertigo Paroxysmal atrial fibrillation Spinal stenosis Lumbar degenerative disc disease Anxiety and depression Hypertension Obesity Obstructive sleep apnea GERD (gastroesophageal reflux disease) Hypercholesterolemia Surgical History History of loop recorder S/P arteriovenous (AV) fistula repair History of cholecystectomy S/P diskectomy Family History Father Lung cancer Mother Medical history unknown Sister Myocardial infarction Brother Hepatitis C Paternal Grandmother Ovarian cancer Paternal Uncle Brain cancer Sister No problems noted. Sister No problems noted. Brother No problems noted. Brother No problems noted. Brother No problems noted. Daughter No problems noted. Daughter No problems noted. 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 1. Little interest or pleasure in doing things: several days 2. Feeling down, depressed, or hopeless: several days 3. Trouble falling or staying asleep, or sleeping too much: more than half the days 4. Feeling tired or having little energy: nearly every day 5. Poor appetite or overeating: more than half the days 6. Feeling bad about yourself - or that you are a failure or have let yourself or your family down: not at all 7. Trouble concentrating on things, such as reading the newspaper or watching television: not at all 8. Moving or speaking so slowly that other people could have noticed. Or the opposite - being so fidgety or restless that you have been moving around a lot more than usual: more than half the days ( very anxious ) 9. Thoughts that you would be better off or of hurting yourself in some way: not at all Total score: 11 Depression Screening Interpretation: Positive Depression Screening Done: Yes 01491 - PHQ-9 Billing: Yes Source: Developed by Drs. Chepe Leon, Bharati B.Juan Sahu and colleagues, with an educational briana from [employer]. Thrive Questionnaire Date Thrive assessed: 09/27/22 AUDIT C Alcohol Use Questionnaire (AUDIT-C) 1. How often do you have a drink containing alcohol?: Monthly or less 2. How many drinks containing alcohol do you have on a typical day when you are drinking?: 1 or 2 Total Score: 1 JORGE ALBERTO-7 AMB Questionnaire JORGE ALBERTO-7 Date JORGE ALBERTO - 7 assessed: 05/05/23 Source: Developed by Drs. Chepe Leon, Juan Cartwright and colleagues, with an educational briana from [employer]. Physical exam (Primary Care) Vital Signs: Last Vital Signs Pulse 72 05/05/23 16:47 BP 130/68 05/05/23 16:47 Pulse Ox 99 05/05/23 16:47 Oxygen Delivery Method Room Air 05/05/23 16:47 BMI result Body Mass Index 45.2 Tobacco/Smoking Status: Tobacco use Status Tobacco use date assessed 05/05/23 05/05/23 16:50 Patient Tobacco Use Status Never used Tobacco 05/05/23 16:50 e-Cigarette/Vaping Use Never Used 05/05/23 16:50 PHQ-9: PHQ-9 Score PHQ-9: Total score 11 05/05/23 16:59 Depression Screening Interpretation: Positive Thrive Assessment: Date of Thrive Assessment Date Thrive assessed 09/27/22 05/05/23 16:50 Const General: alert; No acute distress Eyes Conjunctivae: conjunctivae normal Resp Auscultation: clear to auscultation bilaterally Cardio Rate: regular rate Rhythm: regular rhythm GI Inspection: Yes normal to inspection Extrem General: Yes normal to inspection and No edema Results AMB Hemoglobin A1c AMB Hemoglobin A1c 6.6 % Last Edit by ROSIE Brian on 05/05/23 16:59 Results Reviewed Results Reviewed: Laboratory Last Values Hgb A1c (Clinic) 6.6 % (4.0-6.0) H 05/05/23 16:50 Assessment and Plan Assessment & Plan (1) Shoulder pain, left: Code(s): M25.512 - Pain in left shoulder Plan: Resolving without any physical therapy as patient states physical therapy has not called (2) Numbness of left hand: Code(s): R20.0 - Anesthesia of skin Plan: Resolving (3) Type 2 diabetes mellitus with hyperglycemia: Comment: amparoshelton lesa Code(s): E11.65 - Type 2 diabetes mellitus with hyperglycemia Plan: Decrease the amount of carbohydrate intake, pasta, bread, rice and potatoes are all sugar and that is aside from all the sweet stuff, remember that fruits are good but they are Sweet also. Hemoglobin A1c goal of less than 6.5 patient is presently on metformin 500 mg twice a day will start on Mounjaro (4) Morbid obesity: Code(s): E66.01 - Morbid (severe) obesity due to excess calories Plan: Diet and exercise (5) Obstructive sleep apnea: Comment: On CPAP at [id number] Code(s): G47.33 - Obstructive sleep apnea (adult) (pediatric) Plan: Continue to use the CPAP more than 4 hours a night and benefits from this but will be seeing Neuro tomorrow (6) Paroxysmal atrial fibrillation: Code(s): I48.0 - Paroxysmal atrial fibrillation Plan: Patient on anticoagulation with Eliquis twice a day year blood work/renal function (7) GERD (gastroesophageal reflux disease): Code(s): K21.9 - Gastro-esophageal reflux disease without esophagitis Qualifiers: Esophagitis presence: without esophagitis Qualified Code(s): K21.9 - Gastro-esophageal reflux disease without esophagitis Plan: Avoid the foods that causes that usually spicy foods, tomato products, juices, coffee, soda and foods that your sensitive to. After eating do not lie down, allow 3-4 hours before in lie down. And keep the head of bed above 30 degrees to avoid the acid from going up. (8) Hypertension: Code(s): I10 - Essential (primary) hypertension Qualifiers: Hypertension type: essential hypertension Qualified Code(s): I10 - Essential (primary) hypertension Plan: Continue with blood pressure medication. Decrease salt intake and exercise patient is on lisinopril 10 mg once a day (9) Hypercholesterolemia: Code(s): E78.00 - Pure hypercholesterolemia, unspecified Plan: Avoid fried foods, chicken skin, eggs, butter margarine, pastries and meat. Be it pork or beef they have a lot of cholesterol LDL goal of less than 100 and triglyceride of less than 150 on simvastatin 5 mg once a day reminded about blood work (10) Generalized anxiety disorder: Code(s): F41.1 - Generalized anxiety disorder Plan: increase diazepam to 5 mg PRN. decline counselling. Will start on Lexapro (11) Palpitations: Code(s): R00.2 - Palpitations Plan: work up under Psychiatric Social Worker loop recorder negative. Orders: Orders AMB Hemoglobin A1c Today E11.65 - Type 2 diabetes mellitus with hyperglycemia Medications: New escitalopram oxalate (Lexapro) 5 mg PO DAILY 30 tabs 3RF F41.1 - Generalized anxiety disorder tirzepatide (Mounjaro) 2.5 mg (0.5 mL) subcut QWEEK 2 mL 0RF 4 weeks E11.65 - Type 2 diabetes mellitus with hyperglycemia Changed From diazepam 2 mg PO BEDTIME PRN 20 tabs 0RF sleep F41.1 - Generalized anxiety disorder To diazepam 5 mg PO BEDTIME PRN 10 tabs 0RF sleep F41.1 - Generalized anxiety disorder Coding Level of Care Code Est Pt Level 4 (47118) Diagnoses Shoulder pain, left M25.512 Numbness of left hand R20.0 Type 2 diabetes mellitus with hyperglycemia E11.65 Morbid obesity E66.01 Obstructive sleep apnea G47.33 Paroxysmal atrial fibrillation I48.0 Gastroesophageal reflux disease without esophagitis K21.9 Esophagitis presence: without esophagitis Essential hypertension I10 Hypertension type: essential hypertension Hypercholesterolemia E78.00 Generalized anxiety disorder F41.1 Palpitations R00.2
== END 2023-05-05 17:24 | disposition home or self-care (01) ==
PROVIDERS: PCP Internal Medicine; Visit Provider Internal Medicine
DX: E11.65 Type 2 diabetes mellitus with hyperglycemia (principal); E66.01 Morbid (severe) obesity due to excess calories; I48.0 Paroxysmal atrial fibrillation; Z68.42 Body mass index [BMI] 45.0-49.9, adult; M25.512 Pain in left shoulder; R20.0 Anesthesia of skin; G47.33 Obstructive sleep apnea (adult) (pediatric); K21.9 Gastro-esophageal reflux disease without esophagitis; I10 Essential (primary) hypertension; E78.00 Pure hypercholesterolemia, unspecified; F41.1 Generalized anxiety disorder; R00.2 Palpitations
CPT/HCPCS: 83036; 99214

== ENCOUNTER 2023-05-06 09:30 | Outpatient (AMB) | payer OTHER, SELFPAY ==
--- NOTE | 2023-05-06 09:34 | MHC.OFFVIS ---
Intake Vital Signs 05/06/23 09:36 Height 5 ft 1 in Weight 239 lb BMI 45.2 BP 144/98 H Blood Pressure Location Rt brachial Position Sitting Pulse 82 Pulse Source Pulse Oximeter Pulse Oximetry (%) 98 Oxygen Delivery Method Room Air Intake Visit Reasons: 4 mnts f/u for sleep-Ashley to conf busy tone Intake Note: Patient presents for 4 month follow up. Allergies amlodipine Allergy (Severe, Verified 05/06/23 09:36) Anxiety meperidine [From DEMEROL] Allergy (Intermediate, Verified 05/06/23 09:36) MIGRAINE codeine [CODEINE] Allergy (Unknown, Verified 05/06/23 09:36) UNKNOWN Pt states she's allergic to gl Allergy (Unknown, Uncoded 05/06/23 09:36) f HPI HPI Comments History of Present Illness Details 57 y/o female patient presents for follow up of JESSICA on CPAP. Pt had split night sleep study. The baseline portion of the sleep study result was significant for severe degree of sleep apnea. The AHI was 61/hr, REM AHI was 125/hr and oxygen walter was 74%. She trialed on CPAP [id number] and the breathing stabilized on CPAP [id number]. The CPAP compliance and therapy response (02/05/23-05/05/22) reviewed. The usage days 99% and the average usage hours 6 hrs and 50 min. The AHI was 7.6/hr. Pt reports she sleeps well 6-7 hrs, but still feel not refreshed, can be tired in the afternoon. She reports that she was prescribed Wegovy for wt loss, but not start yet. Pt reports that her mask is too small and wants to try bigger mask. Pt reports she sleeps well but still wakes up little tired. [facility] Medical History COVID-19 virus infection Anemia Impaired glucose tolerance Bradycardia NSVT (nonsustained ventricular tachycardia) Neck pain Vertigo Paroxysmal atrial fibrillation Spinal stenosis Lumbar degenerative disc disease Anxiety and depression Hypertension Obesity Obstructive sleep apnea GERD (gastroesophageal reflux disease) Hypercholesterolemia Surgical History History of loop recorder S/P arteriovenous (AV) fistula repair History of cholecystectomy S/P diskectomy Family History Father Lung cancer Mother Medical history unknown Sister Myocardial infarction Brother Hepatitis C Paternal Grandmother Ovarian cancer Paternal Uncle Brain cancer Sister No problems noted. Sister No problems noted. Brother No problems noted. Brother No problems noted. Brother No problems noted. Daughter No problems noted. Daughter No problems noted. 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 Current occupational exposures/hazards: No Cognitive needs: No Hearing needs: No Vision needs: Yes (Glasses) Review of Systems Const All systems reviewed & are unremarkable except as noted in HPI and below ENT Reports Normal hearing present Neuro Reports Normal hearing present Physical Exam Vital Signs: Last Vital Signs Pulse 82 05/06/23 09:36 BP 144/98 H 05/06/23 09:36 Pulse Ox 98 05/06/23 09:36 Oxygen Delivery Method Room Air 05/06/23 09:36 BMI result Body Mass Index 45.2 Const General: cooperative Nutritional Appearance: obese Orientation/consciousness: patient oriented x3 Neck Neck: Yes full ROM and Yes supple Resp Effort & Inspection: normal respiratory effort and able to speak in complete sentences Neuro General: patient oriented x3 Cranial nerves: Yes Bilaterally intact EOM present, Yes Normal facial strength present, Yes Midline tongue present, Yes Symmetric palate elevation present, Yes Normal hearing present, Yes Ability to bilaterally rotate head present and Yes Ability to bilaterally elevate shoulders present Cognition (Neuro): normal cognition Psych Appearance: grossly normal Mental Status: mental status grossly normal Speech and movement: Normal speech and movement present Affect: normal affect Attitude: cooperative Assessment & Plan Assessment & Plan (1) Obstructive sleep apnea: Comment: On CPAP at [id number] Code(s): G47.33 - Obstructive sleep apnea (adult) (pediatric) Plan Increase the CPAP pressure at [id number]. Stressed compliance, use CPAP nightly and more than 4 hrs. Continue to follow up with wt management, and increase daily exercise. Coding Level of Care Code Est Pt Level 3 (85609) Diagnoses Obstructive sleep apnea G47.33
[2023-05-06 09:36] VITALS: BP 144/98; PULSE 82; O2SAT 98; BMI 45.2
== END 2023-05-06 10:03 | disposition home or self-care (01) ==
PROVIDERS: PCP Internal Medicine; Visit Provider Nurse Practitioner Family
DX: G47.33 Obstructive sleep apnea (adult) (pediatric) (principal)
CPT/HCPCS: 99213

== ENCOUNTER → 2023-05-06 09:30 | Outpatient (BNVA) | payer OTHER, SELFPAY | PROVIDERS: PCP Internal Medicine; Visit Provider Nurse Practitioner Family | DX: G47.33 Obstructive sleep apnea (adult) (pediatric) (principal) | CPT/HCPCS: 99212 ==

== ENCOUNTER → 2023-06-03 23:59 | Outpatient (BNV) | payer OTHER, SELFPAY ==
--- NOTE | 2023-06-08 14:33 | A.OFFVIS_ITS ---
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 Check- [employer] Allergies amlodipine Allergy (Severe, Verified 05/06/23 09:36) Anxiety meperidine [From DEMEROL] Allergy (Intermediate, Verified 05/06/23 09:36) MIGRAINE codeine [CODEINE] Allergy (Unknown, Verified 05/06/23 09:36) UNKNOWN Pt states she's allergic to gl Allergy (Unknown, Uncoded 05/06/23 09:36) f [facility] Medical History COVID-19 virus infection Anemia Impaired glucose tolerance Bradycardia NSVT (nonsustained ventricular tachycardia) Neck pain Vertigo Paroxysmal atrial fibrillation Spinal stenosis Lumbar degenerative disc disease Anxiety and depression Hypertension Obesity Obstructive sleep apnea GERD (gastroesophageal reflux disease) Hypercholesterolemia Surgical History History of loop recorder S/P arteriovenous (AV) fistula repair History of cholecystectomy S/P diskectomy Family History Father Lung cancer Mother Medical history unknown Sister Myocardial infarction Brother Hepatitis C Paternal Grandmother Ovarian cancer Paternal Uncle Brain cancer Sister No problems noted. Sister No problems noted. Brother No problems noted. Brother No problems noted. Brother No problems noted. Daughter No problems noted. Daughter No problems noted. Maternal Grandmother Myocardial infarction Social History Household Members: Significant Other Housing: House Do you presently have visiting nurse or other home services: No Alcohol intake: current Alcohol intake frequency: holidays/special occasions only Patient Tobacco Use Status: Never used Tobacco e-Cigarette/Vaping Use: Never Used Second Hand Smoke Exposure: No Substance Use Type: Caffiene service: No Current occupational status: employed Current occupation: [employer], left handed Current occupational exposures/hazards: No Cognitive needs: No Hearing needs: No Vision needs: Yes (Glasses) Office Procedures Cardiac Device Check Cardiac Device Check Details: Date of service 06/03/2023; in the current monitoring period, there is no evidence of atrial fibrillation. One pause noted, duration about 4 seconds at 07:36 hours. [id number] Cardiac Interrogation, subcut cardiac rhythm monitor Procedure code (CPT) selection complete Assessment & Plan Assessment & Plan (1) Syncope: Code(s): R55 - Syncope and collapse Qualifiers: Syncope type: unspecified Qualified Code(s): R55 - Syncope and collapse Plan x Coding Level of Care Code Procedure Only Diagnoses Syncope, unspecified syncope type R55 Syncope type: unspecified CPT Codes Cardiac Device Check - Cardiac Device 16: [id number] Cardiac Interrogation, subcut cardiac rhythm monitor ([id number])
== END ==
PROVIDERS: PCP Internal Medicine; Visit Provider Internal Medicine
DX: R55 Syncope and collapse (principal); Z95.818 Presence of other cardiac implants and grafts
CPT/HCPCS: 93298

== ENCOUNTER → 2023-07-04 23:59 | Outpatient (BNV) | payer OTHER, SELFPAY ==
--- NOTE | 2023-07-09 14:52 | MHC.OFFVIS ---
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 Check- [employer] Allergies amlodipine Allergy (Severe, Verified 05/06/23 09:36) Anxiety meperidine [From DEMEROL] Allergy (Intermediate, Verified 05/06/23 09:36) MIGRAINE codeine [CODEINE] Allergy (Unknown, Verified 05/06/23 09:36) UNKNOWN Pt states she's allergic to gl Allergy (Unknown, Uncoded 05/06/23 09:36) f [facility] Medical History COVID-19 virus infection Anemia Impaired glucose tolerance Bradycardia NSVT (nonsustained ventricular tachycardia) Neck pain Vertigo Paroxysmal atrial fibrillation Spinal stenosis Lumbar degenerative disc disease Anxiety and depression Hypertension Obesity Obstructive sleep apnea GERD (gastroesophageal reflux disease) Hypercholesterolemia Surgical History History of loop recorder S/P arteriovenous (AV) fistula repair History of cholecystectomy S/P diskectomy Family History Father Lung cancer Mother Medical history unknown Sister Myocardial infarction Brother Hepatitis C Paternal Grandmother Ovarian cancer Paternal Uncle Brain cancer Sister No problems noted. Sister No problems noted. Brother No problems noted. Brother No problems noted. Brother No problems noted. Daughter No problems noted. Daughter No problems noted. 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 [id number] Cardiac Interrogation, subcut cardiac rhythm monitor Procedure code (CPT) selection complete Assessment & Plan Assessment & Plan (1) NSVT (nonsustained ventricular tachycardia): Code(s): I47.2 - Ventricular tachycardia (2) Paroxysmal atrial fibrillation: Code(s): I48.0 - Paroxysmal atrial fibrillation (3) Bradycardia: Code(s): R00.1 - Bradycardia, unspecified Plan x Coding Level of Care Code Procedure Only Diagnoses NSVT (nonsustained ventricular tachycardia) I47.2 Paroxysmal atrial fibrillation I48.0 Bradycardia R00.1 CPT Codes Cardiac Device Check - Cardiac Device 16: [id number] Cardiac Interrogation, subcut cardiac rhythm monitor ([id number])
== END ==
PROVIDERS: PCP Internal Medicine; Visit Provider Internal Medicine
DX: I48.0 Paroxysmal atrial fibrillation (principal)
CPT/HCPCS: 93298

== ENCOUNTER 2023-07-16 06:48 | Emergency (ER) | payer OTHER, SELFPAY ==
[2023-07-16 07:13] VITALS: BP 147/81; PULSE 97; RESP 18; TEMP 36.6; O2SAT 97; BMI 45.1
--- NOTE | 2023-07-16 07:16 | ECG_ITS ---
Test Reason : hx of afib Blood Pressure : / mmHG Vent. Rate : 129 BPM Atrial Rate : 000 BPM P-R Int : 000 ms QRS Dur : 140 ms QT Int : 298 ms P-R-T Axes : 000 -64 102 degrees QTc Int : 436 ms Atrial fibrillation with rapid ventricular response Left axis deviation Left bundle branch block Abnormal ECG When compared with ECG of 17-DEC-2022 10:29, Atrial fibrillation has replaced Sinus rhythm Vent. rate has increased BY 60 BPM Left bundle branch block is now Present Referred By: Generic ED Physician Electronically Signed By:NEFTALY HORNE
[2023-07-16 07:45] LABS: MANUAL DIFF FLAG NO
[2023-07-16 07:47] LABS: Basophils Percent Auto 0.5 % (0-2); Eosinophils Absolute Auto 0.1 X10*3/uL (0.0-0.4); Eosinophils Percent Auto 1.5 % (0-4); Hematocrit 40.6 % (37.0-47.0); Hemoglobin 13.1 g/dl (12.0-16.0); Imm Gran Abs Auto 0.03 X10*3/uL (0.00-0.03); Imm Gran Pct Auto 0.4 % (0.0-0.4); Lymphocytes Absolute Auto 1.8 X10*3/uL (1.2-4.9); Lymphocytes Percent Auto 21.9 % (20-40); Mean Corpuscular HGB Conc 32.3 g/dl (31.0-35.0); Mean Corpuscular Hemoglobin 26.4 pg (27.0-33.0); Mean Corpuscular Volume 81.7 fL (80.0-98.0); Mean Platelet Volume 9.7 fL (9.4-12.3); Monocytes Absolute Auto 0.5 X10*3/uL (0.1-1.2); Monocytes Percent Auto 6.7 % (2-11); Neutrophils Absolute Auto 5.6 x10*3/uL (2.0-8.3); Platelet Count 305 X10*3/uL (160-400); Red Blood Count 4.97 X10*6/uL (4.20-5.50); White Blood Count 8.1 X10*3/uL (4.8-10.8)
[2023-07-16 08:01] LABS: Anion Gap 15 (12-20)
[2023-07-16 08:02] LABS: Blood Urea Nitrogen 16 mg/dL (9-16); Calcium 10.1 mg/dL (8.4-10.2); Carbon Dioxide 23 mmol/L (22-29); Chloride 108 mmol/L (96-108); Creatinine Clr Calc Pharmacy 105.9; Estimated Glomerular Filt Rate > 60; Glucose Random 112 mg/dL (60-115); Magnesium 1.8 mg/dL (1.6-2.6); Potassium 4.3 mmol/L (3.3-5.1); Sodium 142 mmol/L (135-145)
[2023-07-16 08:05] LABS: Troponin-I High Sensitivity 3.6 ng/L (<3.5-17.0)
--- NOTE | 2023-07-16 08:08 | ECG_ITS ---
Test Reason : NSR Blood Pressure : / mmHG Vent. Rate : 078 BPM Atrial Rate : 078 BPM P-R Int : 204 ms QRS Dur : 144 ms QT Int : 390 ms P-R-T Axes : 064 -59 078 degrees QTc Int : 444 ms Normal sinus rhythm Left axis deviation Left bundle branch block Abnormal ECG When compared with ECG of 16-JUL-2023 07:25, Sinus rhythm has replaced Atrial fibrillation Vent. rate has decreased BY 51 BPM Referred By: Sheyla Jiménez Electronically Signed By:NEFTALY HORNE
--- NOTE | 2023-07-16 08:12 | ED_ITS ---
HPI - Arrhythmia/Palpitations General Chief Complaint: Arrhythmia/Palpitations Stated Complaint: SoB Time Seen by Provider: 07/16/23 07:46 Source: patient, family and old records reviewed Mode of arrival: ambulatory Limitations: no limitations History of Present Illness HPI narrative: 58 yo female PMH of PAF on metoprolol 12.5mg BID and eliquis, LBBB, recent syncope and had a sinus pause now with loop recorder, DM, anxiety, NSVT, HTN, HLD compliant with medications normal day yesterday woke up at 5am today in rapid afib and felt dyspnea. No pain. Noted symptoms with ambulation. MD complaint: rapid heart beat, heart racing , irregular heart beat and atrial fibrillation Onset (ago): hour(s) (5am today) Duration: constant Severity: moderate Context: occurred during rest and occurred during exertion Arrhythmia history: atrial fibrillation Associated symptoms: shortness of breath Related Data Home Medications Medication Instructions Recorded Confirmed ascorbate calcium (vitamin C) 500 1,000 mg PO DAILY 03/13/20 05/05/23 mg tablet cholecalciferol (vitamin D3) 25 25 mcg PO DAILY 03/13/20 05/05/23 mcg (1,000 unit) capsule cranberry 400 mg capsule 400 mg PO DAILY 03/13/20 05/05/23 omega-3 fatty acids 1,000 mg 1,000 mg PO DAILY 03/13/20 05/05/23 capsule (Fish Oil Concentrate) whit root extract 50 mg tablet 50 mg PO DAILY 09/22/22 05/05/23 loratadine 10 mg tablet (Claritin) 10 mg PO DAILY 09/22/22 05/05/23 simethicone 80 mg chewable tablet 80 mg PO BID 09/22/22 05/05/23 metoprolol tartrate 25 mg tablet 12.5 mg PO BID 10/17/22 05/05/23 Previous Rx's Medication Instructions Recorded lisinopril 10 mg tablet 10 mg PO DAILY #90 tabs 12/16/22 thiamine HCl (vitamin B1) 100 mg 100 mg PO DAILY 90 days #90 tabs 12/23/22 tablet metformin 500 mg tablet 500 mg PO BID #180 tabs 04/07/23 pantoprazole 40 mg tablet,delayed 40 mg PO DAILY #90 tabs 04/07/23 release meloxicam 15 mg tablet 15 mg PO DAILY #14 tabs 04/22/23 diazepam 5 mg tablet 5 mg PO BEDTIME PRN sleep #10 tabs 05/05/23 escitalopram oxalate 5 mg tablet 5 mg PO DAILY #30 tabs 05/05/23 (Lexapro) tirzepatide 2.5 mg/0.5 mL 2.5 mg (0.5 mL) subcut QWEEK 4 05/05/23 subcutaneous pen injector weeks #2 mL (Mounjaro) apixaban 5 mg tablet (Eliquis) 5 mg PO BID 90 days #180 tabs 05/06/23 simvastatin 5 mg tablet 5 mg PO BEDTIME #90 tabs 06/26/23 Allergies Allergy/AdvReac Type Severity Reaction Status Date / Time amlodipine Allergy Severe Anxiety Verified 07/16/23 07:13 meperidine [From DEMEROL] Allergy Intermediate MIGRAINE Verified 07/16/23 07:13 codeine [CODEINE] Allergy Unknown UNKNOWN Verified 07/16/23 07:13 Review of Systems 2 Review of Systems: Constitutional : No Fever, No Chills ENT/Mouth : No sore throat, No Rhinorrhea, No Swallowing Difficulty Eyes: No Eye Pain, No Swelling, No Redness Cardiovascular : No Chest Pain, positive SOB, No Orthopnea, no Edema, pos palpitations Respiratory : No Cough, No Sputum, No Wheezing, positive dyspnea Gastrointestinal : No Nausea, No Vomiting, No Diarrhea, No abdominal Pain, No Hematochezia, No Melena Genitourinary : No Dysuria, No Urinary Frequency, No Hematuria Musculoskeletal : No joint pain, No Myalgias Skin : No Skin Lesions, No rash Neuro : No Weakness, No Numbness, No Dizziness, No Headache Psych : No Anxiety/Panic, No Depression All other systems reviewed and are negative [facility] Past Medical History Attestation statement: The following information was validated with the patient. Source: old records reviewed Medical History COVID-19 virus infection Anemia Impaired glucose tolerance Bradycardia NSVT (nonsustained ventricular tachycardia) Neck pain Vertigo Paroxysmal atrial fibrillation Spinal stenosis Lumbar degenerative disc disease Anxiety and depression Hypertension Obesity Obstructive sleep apnea GERD (gastroesophageal reflux disease) Hypercholesterolemia Surgical History History of loop recorder S/P arteriovenous (AV) fistula repair History of cholecystectomy S/P diskectomy Family History Family History Father Lung cancer Mother Medical history unknown Sister Myocardial infarction Brother Hepatitis C Paternal Grandmother Ovarian cancer Paternal Uncle Brain cancer Sister No problems noted. Sister No problems noted. Brother No problems noted. Brother No problems noted. Brother No problems noted. Daughter No problems noted. Daughter No problems noted. 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 Oriented X3. No acute distress. Eyes: Pupils equal, round and reactive to light. ENT: Pharynx normal. Neck: Normal inspection. Neck supple. CVS: Normal heart rate and rhythm. Pulses normal. Respiratory: No respiratory distress. Breath sounds normal. Abdomen: Soft and nontender. Skin: Skin warm and dry. Normal skin color. Normal skin turgor. Extremities: No lower extremity edema. No calf ttp Neuro: Oriented X 3. No motor deficit. No sensory deficit. Course Course Course Narrative: 750AM in NSR repeat EKG ordered broke on her own will ambulate and reassess if she goes into afib Medical Decision Making Medical Decision Making MDM Narrative: 52 yo female with PMH of HLD, MS, ETOH abuse and cirrhosis here with c/o being in afib and shortness of breath at this time will obtain labs, lytes and CXR. She is compliant with medications no new changes. She is not toxic appearing has no CP, compliant with eliquis. Will rate control and reassess. She is on such low dose bblocker due to sinus pauses. Will need to follow up with her project construction assistant manager Differential Diagnosis Differential Diagnoses: The differential diagnosis associated with the presentation includes rapif afib, CHF Admission/Observation Consideration of admission/observation: Escalation of care including admission/observation considered converted to NSR no symptoms after ambulation can follow up with her project construction assistant manager Lab Data MDM Lab Attestation statement: I reviewed the patient's lab results. 07/16/23 07:37 07/16/23 07:37 Labs: Lab Results 07/16/23 Range/Units 07:37 WBC 8.1 (4.8-10.8) X10*3/uL RBC 4.97 (4.20-5.50) X10*6/uL Hgb 13.1 (12.0-16.0) g/dl Hct 40.6 (37.0-47.0) % MCV 81.7 (80.0-98.0) fL MCH 26.4 L (27.0-33.0) pg MCHC 32.3 (31.0-35.0) g/dl RDW 16.0 (11.0-16.0) % Plt Count 305 (160-400) X10*3/uL MPV 9.7 (9.4-12.3) fL Immature Gran % (Auto) 0.4 (0.0-0.4) % Neut % (Auto) 69.0 (45-73) % Lymph % (Auto) 21.9 (20-40) % Long % (Auto) 6.7 (2-11) % Eos % (Auto) 1.5 (0-4) % Baso % (Auto) 0.5 (0-2) % Lymph # (Auto) 1.8 (1.2-4.9) X10*3/uL Long # (Auto) 0.5 (0.1-1.2) X10*3/uL Eos # (Auto) 0.1 (0.0-0.4) X10*3/uL Baso # (Auto) 0.0 (0.0-0.2) X10*3/uL Abs Immat Gran (auto) 0.03 (0.00-0.03) X10*3/uL Absolute Neuts (auto) 5.6 (2.0-8.3) x10*3/uL Absolute Nucleated RBC 0.000 (0.0-0.012) X10*3/uL Nucleated RBC % (auto) 0.0 (0.0-0.2) /100WBC Sodium 142 (135-145) mmol/L Potassium 4.3 (3.3-5.1) mmol/L Chloride 108 (96-108) mmol/L Carbon Dioxide 23 (22-29) mmol/L Anion Gap 15 (12-20) BUN 16 (9-16) mg/dL Creatinine 0.70 (0.5-1.4) mg/dL Estim Creat Clear Calc 105.9 Estimated GFR > 60 Random Glucose 112 (60-115) mg/dL Calcium 10.1 (8.4-10.2) mg/dL Magnesium 1.8 (1.6-2.6) mg/dL Troponin I High Sens 3.6 (<3.5-17.0) ng/L B-Natriuretic Peptide 22 (<100) pg/mL Influenza Type A (PCR) NEGATIVE (Negative) Influenza Type B (PCR) NEGATIVE (Negative) RSV RNA Qual (PCR) NEGATIVE (Negative) SARS-CoV-2 RNA (RT-PCR) NEGATIVE (Negative) Independent Interpretation I performed an independent interpretation of an: EKG and Plain X-Ray (normal ) Interpretation: Rate: 129 Rhythm: afib Lawler: left LBBB ST T wave : no KYM, inverted t waves I and aVL qTC:436 prior studies: new onset rapid afib but prior LBBB The study has been interpreted contemporaneously by me. EKG#2 Rate: 78 Rhythm: NSR Lawler: left Normal P waves. Normal ELADIO. LBBB ST T wave : no KYM, inverted t waves I and aVL qTC: 444 prior studies: no acute ischemia The study has been interpreted contemporaneously by me. . Radiology Impression Discussion of test interpretation with radiology: I have reviewed the radiologist's reading. Independent Historian Clinical information obtained from an independent historian. History obtained from or confirmed by: Spouse External Record Review External record reviewed: Inpatient record and Office record Discharge Plan Discharge Clinical Impression: Paroxysmal atrial fibrillation Patient Disposition: Home, Self-Care Instructions: Tyfib (Atrial Fibrillation) (ED) Additional Instructions: labs reassuring at this time, converted to normal rhythm please talk to your project construction assistant manager about recurrence. return for any worsening of symptoms Prescriptions: No Action lisinopril 10 mg tablet 10 mg PO DAILY Qty: 90 3RF thiamine HCl (vitamin B1) 100 mg tablet 100 mg PO DAILY 90 Days Qty: 90 0RF pantoprazole 40 mg tablet,delayed release (DR/EC) 40 mg PO DAILY Qty: 90 2RF metformin 500 mg tablet 500 mg PO BID Qty: 180 1RF Eliquis 5 mg tablet 5 mg PO BID 90 Days Qty: 180 3RF simvastatin 5 mg tablet 5 mg PO BEDTIME Qty: 90 1RF loratadine [Claritin] 10 mg Tablet 10 mg PO DAILY simethicone 80 mg Tablet,Chewable 80 mg PO BID whit root extract 50 mg Tablet 50 mg PO DAILY cholecalciferol (vitamin D3) 25 mcg (1,000 unit) capsule 25 mcg PO DAILY omega-3 fatty acids [Fish Oil Concentrate] 1,000 mg capsule 1,000 mg PO DAILY ascorbate calcium (vitamin C) 500 mg tablet 1,000 mg PO DAILY cranberry 400 mg capsule 400 mg PO DAILY Rx Instructions: administer with a meal meloxicam 15 mg tablet 15 mg PO DAILY Qty: 14 0RF diazepam 5 mg tablet 5 mg PO BEDTIME PRN (Reason: sleep) Qty: 10 0RF escitalopram oxalate [Lexapro] 5 mg tablet 5 mg PO DAILY Qty: 30 3RF Mounjaro 2.5 mg/0.5 mL pen injector 2.5 mg subcut QWEEK 28 Days Qty: 2 0RF metoprolol tartrate 25 mg tablet 12.5 mg PO BID Stand Alone Forms: Work/School Release Interventions: ED Discharge Assessment Last Done: 07/16/23 09:23 Discharge Date/Time: 07/16/23 09:24
[2023-07-16 08:15] VITALS: PULSE 85; RESP 18
[2023-07-16 08:16] LABS: B Type Natriuretic Peptide 22 pg/mL (<100)
[2023-07-16 08:17] VITALS: BP 124/59; PULSE 85; RESP 18
--- NOTE | 2023-07-16 08:24 | PC.NURSE ---
20 g placed in right hand, patient converted out of afib on own
[2023-07-16 08:37] LABS: Influenza A PCR NEGATIVE (Negative); Influenza B PCR NEGATIVE (Negative); Resp Syncy Virus RNA Qual PCR NEGATIVE (Negative); SARS COV2 PCR INHOUSE NEGATIVE (Negative)
[2023-07-16 09:23] VITALS: BP 126/78; PULSE 80; RESP 18; TEMP 36.7; O2SAT 98
== END 2023-07-16 09:24 | disposition home or self-care (01) ==
PROVIDERS: Emergency Provider Emergency Medicine; PCP Internal Medicine
DX: I48.0 Paroxysmal atrial fibrillation (principal); I10 Essential (primary) hypertension; Z11.52 Encounter for screening for COVID-19; Z20.828 Contact with and (suspected) exposure to other viral communicable diseases
CPT/HCPCS: 0241U; 36415; 80048; 83735; 83880; 84484; 85025; 93005; 99284; 99285

== ENCOUNTER → 2023-07-16 07:16 | Outpatient (BNV) | payer OTHER, SELFPAY | PROVIDERS: Emergency Provider Emergency Medicine; PCP Internal Medicine; Visit Provider Internal Medicine | DX: I48.91 Unspecified atrial fibrillation (principal); I44.7 Left bundle-branch block, unspecified | CPT/HCPCS: 93010 ==

== ENCOUNTER 2023-07-21 10:36 | Outpatient (AMB) | payer OTHER, SELFPAY ==
--- NOTE | 2023-07-21 10:38 | MHC.OFFVIS ---
Intake Vital Signs 07/21/23 10:39 Height 5 ft 2 in Weight 244 lb 11.41 oz BMI 44.8 BP 124/66 Blood Pressure Location Lt brachial Position Sitting Pulse 79 Intake Visit Reasons: 6 mth fu Intake Note: 6 month follow up Safety Investigator/Cause Analyst Required: No Accompanied by: Spouse Allergies amlodipine Allergy (Severe, Verified 07/21/23 10:40) Anxiety meperidine [From DEMEROL] Allergy (Intermediate, Verified 07/21/23 10:40) MIGRAINE codeine [CODEINE] Allergy (Unknown, Verified 07/21/23 10:40) UNKNOWN Medication List - Last Reconciled 07/21/23 by Levy Pennington MD apixaban (Eliquis) 5 mg PO BID 90 days ascorbate calcium (vitamin C) 1,000 mg PO DAILY cholecalciferol (vitamin D3) 25 mcg PO DAILY cranberry 400 mg PO DAILY diazepam 5 mg PO BEDTIME PRN escitalopram oxalate (Lexapro) 5 mg PO DAILY whit root extract 50 mg PO DAILY lisinopril 10 mg PO DAILY loratadine (Claritin) 10 mg PO DAILY metformin 500 mg PO BID metoprolol tartrate 12.5 mg PO BID omega-3 fatty acids (Fish Oil Concentrate) 1,000 mg PO DAILY pantoprazole 40 mg PO DAILY simethicone 80 mg PO BID simvastatin 5 mg PO BEDTIME HPI HPI Comments History of Present Illness Details Tahira returns for follow-up. She was recently in the emergency room for palpitations and found to have atrial fibrillation rapid rate. Last for about 4 hours or so and then she went back into sinus rhythm. She remains on a small dose of beta-rosa baseline for a remote history of transient atrial fibrillation/NSVT. However, she also had significant pauses on implantable loop recorder and hence she has not on a higher dose. Patient has been using her CPAP mask recently and after that, these pauses have improved significantly. Otherwise, no new cardiac symptoms apart from the palpitations. COUNT INCLUDES THE [facility] Medical History COVID-19 virus infection Anemia Impaired glucose tolerance Bradycardia NSVT (nonsustained ventricular tachycardia) Neck pain Vertigo Paroxysmal atrial fibrillation Spinal stenosis Lumbar degenerative disc disease Anxiety and depression Hypertension Obesity Obstructive sleep apnea GERD (gastroesophageal reflux disease) Hypercholesterolemia Surgical History History of loop recorder S/P arteriovenous (AV) fistula repair History of cholecystectomy S/P diskectomy Family History Father Lung cancer Mother Medical history unknown Sister Myocardial infarction Brother Hepatitis C Paternal Grandmother Ovarian cancer Paternal Uncle Brain cancer Sister No problems noted. Sister No problems noted. Brother No problems noted. Brother No problems noted. Brother No problems noted. Daughter No problems noted. Daughter No problems noted. 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 Current occupational exposures/hazards: No Cognitive needs: No Hearing needs: No Vision needs: Yes (Glasses) Review of Systems Const Denies weakness ENT Denies dizziness Card Denies chest pain, Denies chest pain with activity, Denies syncope, Denies rapid heart rate, Denies pedal edema, Denies edema, Denies leg edema, Denies lightheadedness, Denies palpitations, Denies dyspnea on exertion and Denies orthopnea Resp Denies cough and Denies dyspnea on exertion GI Denies hematochezia and Denies change in stool character Musc Denies abnormal gait, Denies muscle cramps, Denies muscle weakness, Denies numbness, Denies radiating pain into limb and Denies tingling Neuro Denies abnormal gait, Denies dizziness, Denies syncope, Denies numbness, Denies tingling and Denies weakness Endo Denies palpitations Physical Exam Vital Signs: Last Vital Signs Pulse 79 07/21/23 10:39 BP 124/66 07/21/23 10:39 BMI result Body Mass Index 44.8 Const General: comfortable and no acute distress Orientation/consciousness: patient oriented x3 HEENT Other: Unremarkable Head: Yes normal to inspection Neck Neck: Yes normal visual inspection Chest Chest palpation & inspection: normal inspection of the chest Resp Auscultation: clear to auscultation bilaterally Cardio Palpation: normal PMI Heart sounds: S1 normal heart sound present, S2 normal heart sound present, no gallops, no murmurs and no rubs GI Palpation (GI): Soft to palpation Back/Spine/Pelvis Other: unremarkable Skin General skin exam: no rashes or lesions noted Neuro General: patient oriented x3 Extrem General: Yes normal to inspection Psych Mental Status: mental status grossly normal Assessment & Plan Assessment & Plan (1) Paroxysmal atrial fibrillation: Code(s): I48.0 - Paroxysmal atrial fibrillation (2) LBBB (left bundle branch block): Code(s): I44.7 - Left bundle-branch block, unspecified (3) Sinus pause: Code(s): I45.5 - Other specified heart block (4) Obstructive sleep apnea: Comment: On CPAP at [id number] Code(s): G47.33 - Obstructive sleep apnea (adult) (pediatric) Plan Recent EKG shows atrial fibrillation rapid rate at 129/Min with left bundle-branch block pattern. In the repeat EKG, sinus rhythm with left bundle-branch block pattern. Echocardiogram from last year with LVEF of 60-65%. No significant valvular findings. She used to have a lot of nocturnal pauses related to JESSICA but they have improved recently after CPAP use. Hence we can go up on the beta-rosa dosing to metoprolol 25 mg b.i.d.. We will continue to monitor with the implantable loop recorder. There is any clear evidence of tachy/Ronny, then need to entertain permanent pacemaker. We discussed about this today. May remain on anticoagulation without major changes. Follow-up in 3 months. Discussed with significant other. Medications: New metoprolol tartrate 25 mg PO BID 90 days 180 tabs 3RF Coding Level of Care Code Est Pt Level 4 (70550) Diagnoses Paroxysmal atrial fibrillation I48.0 LBBB (left bundle branch block) I44.7 Sinus pause I45.5 Obstructive sleep apnea G47.33
[2023-07-21 10:39] VITALS: BP 124/66; PULSE 79; BMI 44.8
== END 2023-07-21 10:56 | disposition home or self-care (01) ==
PROVIDERS: PCP Internal Medicine; Visit Provider Internal Medicine
DX: I48.0 Paroxysmal atrial fibrillation (principal); I44.7 Left bundle-branch block, unspecified; I45.5 Other specified heart block; G47.33 Obstructive sleep apnea (adult) (pediatric)
CPT/HCPCS: 99214

== ENCOUNTER → 2023-07-21 10:36 | Outpatient (BNVA) | payer OTHER, SELFPAY | PROVIDERS: PCP Internal Medicine; Visit Provider Internal Medicine | DX: I48.0 Paroxysmal atrial fibrillation (principal); I44.7 Left bundle-branch block, unspecified; I45.5 Other specified heart block; G47.33 Obstructive sleep apnea (adult) (pediatric) | CPT/HCPCS: 99212 ==

== ENCOUNTER 2023-09-29 16:14 | Inpatient (IN) | payer OTHER, SELFPAY ==
--- NOTE | ~2023-09-29 | CT_ITS ---
EXAMINATION: CT HEAD WITHOUT CONTRAST CLINICAL INFORMATION: Headache COMPARISON: 09/22/2022 TECHNIQUE: Contiguous axial imaging was performed from the skull base to vertex without intravenous administration of contrast. This CT examination was performed using dose optimization techniques as appropriate, variously including the following: *Automated exposure control *Adjustment of mA and/or kV according to patient size (this includes techniques or standardized protocols for targeted exams where dose is matched to indication/reason for exam; i.e. extremities or head) *Use of iterative reconstruction technique DLP: 695 mGy-cm FINDINGS: There is no evidence of acute intracranial hemorrhage or territorial infarction. No abnormal mass-effect or midline shift is seen. Curtis to white matter differentiation is well preserved. No extra-axial fluid collections are identified. The ventricles are normal in size. There is no abnormal attenuation within the brain parenchyma. The osseous structures and soft tissues are normal. The mastoid air cells and visualized portions of the paranasal sinuses are well-aerated. CT/CT head/brain wo IV con IMPRESSION: No acute intracranial pathology.
--- NOTE | 2023-09-29 16:18 | ECG_ITS ---
Test Reason : CP Blood Pressure : / mmHG Vent. Rate : 051 BPM Atrial Rate : 051 BPM P-R Int : 178 ms QRS Dur : 088 ms QT Int : 416 ms P-R-T Axes : 064 015 -32 degrees QTc Int : 383 ms Sinus bradycardia with Premature ventricular complexes ST & T wave abnormality, consider inferior ischemia ST & T wave abnormality, consider anterolateral ischemia Abnormal ECG When compared with ECG of 16-JUL-2023 08:46, Vent. rate has decreased BY 27 BPM Left bundle branch block is no longer Present T wave changes noted s/o T-wave memory Referred By: Barrington Lucero Electronically Signed By:LOU BILLY MD
[2023-09-29 16:31] VITALS: BP 142/78; PULSE 48; RESP 16; TEMP 36.6; O2SAT 98; BMI 46.9
[2023-09-29 18:09] LABS: MANUAL DIFF FLAG NO
[2023-09-29 18:17] LABS: INTERNATIONAL NORM RATIO 1.2 (0.9-1.1); Prothrombin Time 14.8 SEC (11.1-13.3)
[2023-09-29 18:19] LABS: Partial Thromboplastin Time 37.5 SEC (26.0-36.8)
[2023-09-29 18:24] LABS: Basophils Percent Auto 0.5 % (0-2); Eosinophils Absolute Auto 0.1 X10*3/uL (0.0-0.4); Eosinophils Percent Auto 1.5 % (0-4); Hematocrit 35.1 % (37.0-47.0); Hemoglobin 11.6 g/dl (12.0-16.0); Imm Gran Abs Auto 0.03 X10*3/uL (0.00-0.03); Imm Gran Pct Auto 0.3 % (0.0-0.4); Lymphocytes Absolute Auto 2.9 X10*3/uL (1.2-4.9); Lymphocytes Percent Auto 33.1 % (20-40); Mean Corpuscular Hemoglobin 27.6 pg (27.0-33.0); Mean Corpuscular Volume 83.4 fL (80.0-98.0); Monocytes Absolute Auto 0.6 X10*3/uL (0.1-1.2); Monocytes Percent Auto 7.2 % (2-11); Neutrophils Percent Auto 57.4 % (45-73); Platelet Count 256 X10*3/uL (160-400); Red Blood Count 4.21 X10*6/uL (4.20-5.50); Red Cell Distribution Width 16.5 % (11.0-16.0); White Blood Count 8.7 X10*3/uL (4.8-10.8)
[2023-09-29 18:26] LABS: Alanine Aminotransferase 51 U/L (0-31); Albumin Level 4.2 g/dL (3.5-5.0); Alkaline Phosphatase 113 U/L (39-117); Anion Gap 14 (12-20); Aspartate Amino Transferase 29 U/L (5-31); Bilirubin Total 0.5 mg/dL (0.0-1.0); Blood Urea Nitrogen 15 mg/dL (9-16); Calcium 9.7 mg/dL (8.4-10.2); Carbon Dioxide 25 mmol/L (22-29); Chloride 108 mmol/L (96-108); Estimated Glomerular Filt Rate > 60; Glucose Random 131 mg/dL (60-115); Lipase 23 U/L (8-78); Magnesium 1.7 mg/dL (1.6-2.6); Potassium 3.8 mmol/L (3.3-5.1); Sodium 143 mmol/L (135-145); Total Protein 7.2 g/dL (6.5-8.0)
[2023-09-29 18:37] LABS: Troponin-I High Sensitivity < 2.7 ng/L (<3.5-17.0)
[2023-09-30] VITALS (14 sets, daily range): BP systolic 128–198; BP diastolic 30–80; PULSE 37–60; RESP 13–20; TEMP 36.1–37.1; O2SAT 95–98; BMI 48.2
--- NOTE | 2023-09-30 01:21 | ECG_ITS ---
Test Reason : LOW HEART RATE Blood Pressure : / mmHG Vent. Rate : 074 BPM Atrial Rate : 074 BPM P-R Int : 148 ms QRS Dur : 076 ms QT Int : 414 ms P-R-T Axes : 050 032 -35 degrees QTc Int : 459 ms AGE AND GENDER SPECIFIC ECG ANALYSIS Sinus rhythm with frequent , and consecutive Premature ventricular complexes Abnormal ECG When compared with ECG of 29-SEP-2023 16:17, PVCs are with more frequency Referred By: Generic ED Physician Electronically Signed By:LOU BILLY MD
--- NOTE | 2023-09-30 01:33 | ECG_ITS ---
Test Reason : LOW HEART RATE Blood Pressure : / mmHG Vent. Rate : 045 BPM Atrial Rate : 045 BPM P-R Int : 182 ms QRS Dur : 076 ms QT Int : 448 ms P-R-T Axes : 061 061 -30 degrees QTc Int : 387 ms Sinus bradycardia Low voltage QRS ST & T wave abnormality, consider inferior ischemia ST & T wave abnormality, consider anterolateral ischemia Abnormal ECG When compared with ECG of 30-SEP-2023 01:24, Premature ventricular complexes are no longer Present Referred By: Juliana Leonardo Electronically Signed By:LOU BILLY MD
[2023-09-30] MEDS: Morphine Sulfate 2 MG/ML CARTRIDGE 1 MG IVPUSH (01:45)
[2023-09-30] MEDS: glucagon HCL 1 MG VIAL IVPUSH (01:45)
--- NOTE | 2023-09-30 01:45 | PC.NURSE ---
This jingle writer assumed care of this Pt at 0100. Pt A&Ox3, reports 6 days of flutter feeling in chest. Pt reports 10/10 sharp head pain. Pt reports taking anxiety medication thinking it was anxiety related with no relief. Pt reports feeling slightly SOB. HR noted to be in the mid 40s. Pt reports hx of a-fib. Pt hypertensive, manual BPs obtained. IV line placed, blood work collected and sent to lab. Pt medicated per JUN. Pt placed on bedpan.
[2023-09-30] MEDS: LORazepam 2 MG/ML VIAL 1 MG IVPUSH ×2 (01:55→02:36)
[2023-09-30 02:02] LABS: B Type Natriuretic Peptide 56 pg/mL (<100)
--- NOTE | 2023-09-30 02:16 | ED.ARRPALP ---
HPI - Arrhythmia/Palpitations General Chief Complaint: Arrhythmia/Palpitations Stated Complaint: afib sob Time Seen by Provider: 09/30/23 01:34 Source: patient and family Mode of arrival: ambulatory Limitations: no limitations History of Present Illness ED Provider: Dr. Juliana Leonardo HPI narrative: Patient comes to the emergency room complaining of 6 days of chest fluttering, fatigue, shortness of breath. Patient takes Eliquis and metoprolol for AFib. Patient denies chest pain. Patient complaining of headache and feeling very anxious. Related Data Home Medications ?Medication ?Instructions ?Recorded ?Confirmed ascorbate calcium (vitamin C) 500 1,000 mg PO DAILY 03/13/20 07/21/23 mg tablet cholecalciferol (vitamin D3) 25 25 mcg PO DAILY 03/13/20 07/21/23 mcg (1,000 unit) capsule cranberry 400 mg capsule 400 mg PO DAILY 03/13/20 07/21/23 omega-3 fatty acids 1,000 mg 1,000 mg PO DAILY 03/13/20 07/21/23 capsule (Fish Oil Concentrate) whit root extract 50 mg tablet 50 mg PO DAILY 09/22/22 07/21/23 loratadine 10 mg tablet (Claritin) 10 mg PO DAILY 09/22/22 07/21/23 simethicone 80 mg chewable tablet 80 mg PO BID 09/22/22 07/21/23 Previous Rx's ?Medication ?Instructions ?Recorded lisinopril 10 mg tablet 10 mg PO DAILY #90 tabs 12/16/22 metformin 500 mg tablet 500 mg PO BID #180 tabs 04/07/23 pantoprazole 40 mg tablet,delayed 40 mg PO DAILY #90 tabs 04/07/23 release diazepam 5 mg tablet 5 mg PO BEDTIME PRN sleep #10 tabs 05/05/23 escitalopram oxalate 5 mg tablet 5 mg PO DAILY #30 tabs 05/05/23 (Lexapro) apixaban 5 mg tablet (Eliquis) 5 mg PO BID 90 days #180 tabs 05/06/23 simvastatin 5 mg tablet 5 mg PO BEDTIME #90 tabs 06/26/23 metoprolol tartrate 25 mg tablet 25 mg PO BID 90 days #180 tabs 07/21/23 Allergies Allergy/AdvReac Type Severity Reaction Status Date / Time amlodipine Allergy Severe Anxiety Verified 09/29/23 16:33 meperidine [From DEMEROL] Allergy Intermediate MIGRAINE Verified 09/29/23 16:33 codeine [CODEINE] Allergy Unknown UNKNOWN Verified 09/29/23 16:33 Review of Systems Review of Systems: Constitutional : No Weight loss, No Fever, No Chills, No Night Sweats, No Fatigue, No Malaise ENT/Mouth : No Hearing loss, No Ear Pain, No Nasal Congestion, No Sinus Pain, No Hoarseness, No sore throat, No Rhinorrhea, No Swallowing Difficulty Eyes: No Eye Pain, No Swelling, No Redness, No Foreign Body, No Discharge, No Vision Changes Cardiovascular : Complaining of palpitations, orthopnea and fluttering sensation. Denies chest pain Respiratory : No Cough, No Sputum, No Wheezing, No Smoke Exposure, No Dyspnea Gastrointestinal : No Nausea, No Vomiting, No Diarrhea, No Constipation, No abdominal Pain, No Hematochezia, No Melena Genitourinary : no irregular bleeding, No Dysuria, No Urinary Frequency, No Hematuria, No Urinary Incontinence, No Urgency, No Flank Pain, No Urinary Flow Changes, No Hesitancy Musculoskeletal : No joint pain, No Myalgias, No Joint Swelling Skin : No Skin Lesions, No rash Neuro : No Weakness, No Numbness, No Paresthesias, No Loss of Consciousness, No Dizziness, No Headache Psych : No Anxiety/Panic, No Depression, No SI/HI/AH/VH, No Social Issues, Heme/Lymph: No Bruising, No Bleeding,No Lymphadenopathy Endocrine : No Polyuria, No Polydipsia, No Temperature Intolerance [facility] Past Medical History Medical History COVID-19 virus infection Anemia Impaired glucose tolerance Bradycardia NSVT (nonsustained ventricular tachycardia) Neck pain Vertigo Paroxysmal atrial fibrillation Spinal stenosis Lumbar degenerative disc disease Anxiety and depression Hypertension Obesity Obstructive sleep apnea GERD (gastroesophageal reflux disease) Hypercholesterolemia Surgical History History of loop recorder S/P arteriovenous (AV) fistula repair History of cholecystectomy S/P diskectomy Family History Family History Father Lung cancer Mother Medical history unknown Sister Myocardial infarction Brother Hepatitis C Paternal Grandmother Ovarian cancer Paternal Uncle Brain cancer Sister No problems noted. Sister No problems noted. Brother No problems noted. Brother No problems noted. Brother No problems noted. Daughter No problems noted. Daughter No problems noted. Maternal Grandmother Myocardial infarction Social History Social History Household Members: Significant Other Housing: House Do you presently have visiting nurse or other home services: No Alcohol intake: never Patient Tobacco Use Status: Never used Tobacco Smoked in Last 30 Days: No e-Cigarette/Vaping Use: Never Used Second Hand Smoke Exposure: No Use of substances other than those prescribed or required for medical reasons: No Substance Use Type: Caffiene Advance Directives: No Advance Directives Information Provided: No Do you have a plan to hurt others: No Plan Patient : No (menopausal) service: No Current occupational status: employed 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 Oriented X3. Very anxious Eyes: Pupils equal, round and reactive to light. ENT: Pharynx normal. Neck: Normal inspection. Neck supple. No lymph nodes noted. No crepitus CVS: Bradycardic, heart rate between 30 and 50, occasionally shoots up to 70 and returns to 30, blood pressure in the 190s systolic Respiratory: No respiratory distress. Breath sounds normal. No Wheezing. No rales Abdomen: Soft and nontender. No rigidity. No distention. Skin: Skin warm and dry. Normal skin color. Normal skin turgor. Extremities: No lower extremity edema. No Lacerations. No Rash Neuro: Oriented X 3. No motor deficit. No sensory deficit. Moving all extremities. No slurred speech. CN 2 through 12 grossly intact Psych: Cooperative, anxious Course Course Course Narrative: Patient complaining of headache and anxiety, given IV morphine -patient very anxious, I was informed by the patient's nurse that within 30 seconds of pushing the morphine, patient complaining that her headache has not resolved, it was explained to the patient that the medication needs more than 30 seconds to start working. -discussed with the patient that within a reasonable amount of time, if her headache is not improving, she will receive a different medication. Medications Administered Discontinued Medications Generic Name Dose Route Start Last Admin Trade Name Carl PRN Reason Stop Dose Admin Glucagon 1 mg 09/30/23 01:30 09/30/23 01:45 Glucagon Hcl 1 Mg Vial IVPUSH 09/30/23 01:31 1 mg ONCE ONE Administration Lorazepam 1 mg 09/30/23 01:30 09/30/23 01:55 Lorazepam 2 Mg/Ml Vial IVPUSH 09/30/23 01:31 1 mg ONCE ONE Administration Lorazepam 1 mg 09/30/23 02:31 09/30/23 02:36 Lorazepam 2 Mg/Ml Vial IVPUSH 09/30/23 02:32 1 mg ONCE ONE Administration Morphine Sulfate 1 mg 09/30/23 01:30 09/30/23 01:45 Morphine Sulfate 2 Mg/Ml Cartridge IVPUSH 09/30/23 01:31 1 mg ONCE ONE Administration Protocol Ondansetron HCl 4 mg 09/30/23 02:18 09/30/23 02:36 Ondansetron Hcl 4 Mg/2 Ml Vial IVPUSH 09/30/23 02:19 4 mg ONCE ONE Administration Sumatriptan Succinate 50 mg 09/30/23 02:26 09/30/23 02:46 Sumatriptan Succinate 50 Mg Tablet PO 09/30/23 02:27 50 mg ONCE ONE Administration Medical Decision Making Medical Decision Making [facility] Narrative: -patient's heart rate goes between 30-50, occasionally shoots up to 70 but immediately returns back to the low 30s, occasionally high 20s. -for precautions, patient is on pacer pads and crash cart at bedside -patient received a dose of morphine and Ativan -head CT pending, patient complaining of sudden onset headache, patient on blood thinners -my interpretation of head CT, no obvious intracranial bleed. -I discussed the patient with Dr. Pennington, we will obtain an echocardiogram in the morning, patient to be admitted Differential Diagnosis Differential Diagnoses: The differential diagnosis associated with the presentation includes (Tachy-minerva syndrome, low heart rate a fibrillation, metoprolol overdose) Admission/Observation Consideration of admission/observation: Escalation of care including admission/observation considered Consult Healthcare Provider Management of the patient was discussed with: Hospitalist and Drainman Lab Data MDM Lab Attestation statement: I reviewed the patient's lab results. 09/29/23 18:04 09/29/23 18:04 Labs: Lab Results 09/29/23 09/30/23 Range/Units 18:04 01:38 WBC 8.7 (4.8-10.8) X10*3/uL RBC 4.21 (4.20-5.50) X10*6/uL Hgb 11.6 L (12.0-16.0) g/dl Hct 35.1 L (37.0-47.0) % MCV 83.4 (80.0-98.0) fL MCH 27.6 (27.0-33.0) pg MCHC 33.0 (31.0-35.0) g/dl RDW 16.5 H (11.0-16.0) % Plt Count 256 (160-400) X10*3/uL MPV 10.0 (9.4-12.3) fL Immature Gran % (Auto) 0.3 (0.0-0.4) % Neut % (Auto) 57.4 (45-73) % Lymph % (Auto) 33.1 (20-40) % [place] % (Auto) 7.2 (2-11) % Eos % (Auto) 1.5 (0-4) % Baso % (Auto) 0.5 (0-2) % Lymph # (Auto) 2.9 (1.2-4.9) X10*3/uL [place] # (Auto) 0.6 (0.1-1.2) X10*3/uL Eos # (Auto) 0.1 (0.0-0.4) X10*3/uL Baso # (Auto) 0.0 (0.0-0.2) X10*3/uL Abs Immat Gran (auto) 0.03 (0.00-0.03) X10*3/uL Absolute Neuts (auto) 5.0 (2.0-8.3) x10*3/uL Absolute Nucleated RBC 0.000 (0.0-0.012) X10*3/uL Nucleated RBC % (auto) 0.0 (0.0-0.2) /100WBC PT 14.8 H (11.1-13.3) SEC INR 1.2 H (0.9-1.1) APTT 37.5 H (26.0-36.8) SEC Sodium 143 (135-145) mmol/L Potassium 3.8 (3.3-5.1) mmol/L Chloride 108 (96-108) mmol/L Carbon Dioxide 25 (22-29) mmol/L Anion Gap 14 (12-20) BUN 15 (9-16) mg/dL Creatinine 0.85 (0.5-1.4) mg/dL Estim Creat Clear Calc 86.0 Estimated GFR > 60 Random Glucose 131 H (60-115) mg/dL Calcium 9.7 (8.4-10.2) mg/dL Magnesium 1.7 (1.6-2.6) mg/dL Total Bilirubin 0.5 (0.0-1.0) mg/dL AST 29 (5-31) U/L ALT 51 H (0-31) U/L Alkaline Phosphatase 113 (39-117) U/L Troponin I High Sens < 2.7 4.0 (<3.5-17.0) ng/L B-Natriuretic Peptide 56 (<100) pg/mL Total Protein 7.2 (6.5-8.0) g/dL Albumin 4.2 (3.5-5.0) g/dL Lipase 23 (8-78) U/L Independent Interpretation I performed an independent interpretation of an: CT Scan Independent Historian Clinical information obtained from an independent historian. History obtained from or confirmed by: Spouse External Record Review External record reviewed: Outpatient record (Cardiology) Chronic Conditions Patient?s care impacted by: Other (Bradycardia, anxiety) Critical Care Time Critical Care Time Critical Care Time: Yes Total Critical Care Time: 75 Attestation: Please follow-up with your primary care physician tomorrow. If you have any worsening or new symptoms, please return to the emergency room or call 911 Discharge Plan Discharge Clinical Impression: Symptomatic bradycardia, Headache Patient Disposition: Admitted As Inpatient
[2023-09-30] MEDS: ondansetron HCL 4 MG/2 ML VIAL IVPUSH (02:36)
--- NOTE | 2023-09-30 02:37 | P.HPHOSP_ITS ---
History of Present Illness Date of Service: 09/30/23 Chief Complaint: Palpitations This is a 58-year-old female with pertinent history of paroxysmal atrial fibrillation on Eliquis, JESSICA on CPAP, hypertension, mood disorder, mixed hyperlipidemia, gastroesophageal reflux disease, [id number] diabetes mellitus who presents to the emergency department for evaluation of palpitations. Patient states she has been having palpitations for the last 6 days. Also feels short of breath during such episodes. No chest discomfort. Patient has had significant pauses on implantable loop recorder and is followed by Dr. Pennington. Patient is on beta-rosa and was told that in case of take he/per ID, she would need a pacemaker. 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 No fever, chills, nausea, vomiting, abdominal pain, changes in urinary or bowel habits. In the emergency department, patient's heart rate was found to be in the 40s Review of Systems 2 Constitutional: Constitutional: Reports no additional constitutional complaints Cardiovascular: Cardiovascular: Reports palpitations and Reports dyspnea Respiratory: Respiratory: Reports no additional respiratory complaints and Reports dyspnea Gastrointestinal: Gastrointestinal: Reports no additional gastrointestinal complaints Endocrine: Endocrine: Reports palpitations [facility] Medical History COVID-19 virus infection Anemia Impaired glucose tolerance Bradycardia NSVT (nonsustained ventricular tachycardia) Neck pain Vertigo Paroxysmal atrial fibrillation Spinal stenosis Lumbar degenerative disc disease Anxiety and depression Hypertension Obesity Obstructive sleep apnea GERD (gastroesophageal reflux disease) Hypercholesterolemia Family History Father Lung cancer Mother Medical history unknown Sister Myocardial infarction Brother Hepatitis C Paternal Grandmother Ovarian cancer Paternal Uncle Brain cancer Sister No problems noted. Sister No problems noted. Brother No problems noted. Brother No problems noted. Brother No problems noted. Daughter No problems noted. Daughter No problems noted. Maternal Grandmother Myocardial infarction Surgical History History of loop recorder S/P arteriovenous (AV) fistula repair History of cholecystectomy S/P diskectomy Social History Household Members: Significant Other Housing: House Do you presently have visiting nurse or other home services: No Alcohol intake: never Patient Tobacco Use Status: Never used Tobacco Smoked in Last 30 Days: No e-Cigarette/Vaping Use: Never Used Second Hand Smoke Exposure: No Use of substances other than those prescribed or required for medical reasons: No Substance Use Type: Caffiene Advance Directives: No Advance Directives Information Provided: No Do you have a plan to hurt others: No Plan Patient : No (menopausal) service: No Current occupational status: employed 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, 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 Current occupational exposures/hazards: No Cognitive needs: No Hearing needs: No Vision needs: Yes (Glasses) Meds Allergies Allergy/AdvReac Type Severity Reaction Status Date / Time amlodipine Allergy Severe Anxiety Verified 09/29/23 16:33 meperidine [From DEMEROL] Allergy Intermediate MIGRAINE Verified 09/29/23 16:33 codeine [CODEINE] Allergy Unknown UNKNOWN Verified 09/29/23 16:33 Home Medications ?Medication ?Instructions ?Recorded ?Confirmed ?Last Taken ?Type ascorbate calcium (vitamin C) 500 1,000 mg PO DAILY 03/13/20 07/21/23 09/21/22 History mg tablet cholecalciferol (vitamin D3) 25 25 mcg PO DAILY 03/13/20 07/21/23 09/21/22 History mcg (1,000 unit) capsule cranberry 400 mg capsule 400 mg PO DAILY 03/13/20 07/21/23 09/21/22 History omega-3 fatty acids 1,000 mg 1,000 mg PO DAILY 03/13/20 07/21/23 09/21/22 History capsule (Fish Oil Concentrate) whit root extract 50 mg tablet 50 mg PO DAILY 09/22/22 07/21/23 09/21/22 History loratadine 10 mg tablet (Claritin) 10 mg PO DAILY 09/22/22 07/21/23 09/21/22 History simethicone 80 mg chewable tablet 80 mg PO BID 09/22/22 07/21/23 09/21/22 History Physical Exam 2 Vital Signs and Narrative: Vital Signs: Last Vital Signs Temp 98 F 09/29/23 16:31 Pulse 48 L 09/29/23 16:31 Resp 16 09/29/23 16:31 BP 198/80 H 09/30/23 01:56 Pulse Ox 98 09/29/23 16:31 O2 Del Method Room Air 09/30/23 01:55 BMI result Body Mass Index 46.9 Middle-aged female lying in bed in no distress Neck supple, no JVD Slow irregular rate, S1-S2 heard Regular breath sounds bilaterally, no wheezing or crackles appreciated Abdomen soft nontender, no guarding, no rigidity Patient is awake, alert and oriented to self, place, time and person ; no focal motor deficit Psych: Normal mood No pedal edema Results Labs 09/29/23 18:04 09/29/23 18:04 Labs: Laboratory Results - last 24 hr 09/29/23 09/30/23 18:04 01:38 MCV 83.4 MCH 27.6 MCHC 33.0 RDW 16.5 H Plt Count 256 MPV 10.0 Immature Gran % (Auto) 0.3 Neut % (Auto) 57.4 Lymph % (Auto) 33.1 [place] % (Auto) 7.2 Eos % (Auto) 1.5 Baso % (Auto) 0.5 Lymph # (Auto) 2.9 [place] # (Auto) 0.6 Eos # (Auto) 0.1 Baso # (Auto) 0.0 Abs Immat Gran (auto) 0.03 Absolute Neuts (auto) 5.0 Absolute Nucleated RBC 0.000 Nucleated RBC % (auto) 0.0 PT 14.8 H INR 1.2 H APTT 37.5 H Anion Gap 14 Estim Creat Clear Calc 86.0 Estimated GFR > 60 Random Glucose 131 H Calcium 9.7 Magnesium 1.7 Total Bilirubin 0.5 AST 29 ALT 51 H Alkaline Phosphatase 113 Troponin I High Sens < 2.7 4.0 B-Natriuretic Peptide 56 Total Protein 7.2 Albumin 4.2 Lipase 23 Assessment and Plan (1) Symptomatic bradycardia: Status: Acute Plan This is a 58-year-old female with pertinent history of paroxysmal atrial fibrillation on Eliquis, JESSICA on CPAP, hypertension, mood disorder, mixed hyperlipidemia, gastroesophageal reflux disease, [id number]-voydxuemk diabetes mellitus who presents to the emergency department for evaluation of palpitations. #. Symptomatic bradycardia in a patient with paroxysmal AFib: Will admit patient with cardiac monitoring. Pacer pads at bedside. Hold beta-rosa. Consulting Cardiology and obtaining echo. May need pacemaker. #. Hypertension: Continue antihypertensives #. JESSICA: On CPAP at bedtime #. Mixed hyperlipidemia: On statin #. Gastroesophageal reflux disease: On PPI #. [id number] diabetes mellitus: Initiating Accu-Cheks with sliding scale insulin #. Mood disorder: Continue home mood stabilizers #. Obesity: Counseled regarding diet and exercise Med rec pending DVT prophylaxis: Domi Full code Admit as inpatient and will require two night minimum hospital stay for evaluation and treatment of symptomatic bradycardia (as above), which is not possible in a lesser acute setting. Specialist consult pending Quality Stroke Does the patient have a stroke diagnosis?: No VTE Prior VTE?: No VTE Risk Level:: Medical - moderate - high VTE Device Contraindication: Treatment Not Indicated VTE Drug Contraindication: N/A - Med Ordered
[2023-09-30] MEDS: SUMAtriptan succinate 50 MG TABLET PO (02:46)
--- NOTE | 2023-09-30 06:03 | PC.NURSE ---
Pt reports effectiveness to PO med given for headache. Pt ambulated to BR with steady gait.
[2023-09-30 06:21] LABS: Hematocrit 37.4 % (37.0-47.0); Hemoglobin 12.2 g/dl (12.0-16.0); Mean Corpuscular HGB Conc 32.6 g/dl (31.0-35.0); Mean Corpuscular Hemoglobin 27.3 pg (27.0-33.0); Mean Corpuscular Volume 83.7 fL (80.0-98.0); Mean Platelet Volume 10.8 fL (9.4-12.3); Platelet Count 269 X10*3/uL (160-400); Red Blood Count 4.47 X10*6/uL (4.20-5.50); Red Cell Distribution Width 16.5 % (11.0-16.0); White Blood Count 12.3 X10*3/uL (4.8-10.8)
[2023-09-30 06:22] LABS: Anion Gap 15 (12-20); Blood Urea Nitrogen 15 mg/dL (9-16); Calcium 9.8 mg/dL (8.4-10.2); Carbon Dioxide 22 mmol/L (22-29); Chloride 108 mmol/L (96-108); Creatinine Clr Calc Pharmacy 98.8; Estimated Glomerular Filt Rate > 60; Glucose Random 159 mg/dL (60-115); Potassium 4.1 mmol/L (3.3-5.1); Sodium 141 mmol/L (135-145)
[2023-09-30] MEDS: Acetaminophen 325 MG TABLET 650 MG PO ×2 (06:25→12:59)
--- NOTE | 2023-09-30 06:27 | PC.NURSE ---
Pt requesting to sit in chair. Pt requesting Tylenol for REAL. Pt medicated per JUN.
--- NOTE | 2023-09-30 07:00 | CA_ITS ---
Transthoracic Echocardiogram Patient (Last, First, Middle): Tahira Monroe M Gender: Female Date of : 1965 Age: 58 Procedure Date: 09/30/2023 Procedure Type: Transthoracic Echocardiogram Location: ER Height: 154.94 cm Weight: 112.49 kg BSA: 2.07 m2 Heart Rate: bpm BP: 156 / 43 mmHg [place] Operator: Referring MD: Juliana Leonardo MD Wireless Cellular Technician: Earl Galarza MD Symptoms: bradycardia Study Quality: Adequate ECG Rhythm: Sinus with extra beats Conclusions: - 1. Normal LV ejection fraction 55-60% with mild LVH with elevated filling pressures 2. Mildly dilated left atrium 3. Normal cardiac valvular Dopplers 4. Normal RV systolic pressure Findings Left Ventricle Normal left ventricular size and systolic function. There is mildly increased left ventricular wall thickness. The visually estimated ejection fraction is between 55-60%. Spectral Doppler is indicative of an impaired relaxation filling pattern. Elevated filling pressures. E/E prime ratio is >15, consistent with elevated filling pressures. Right Ventricle The right ventricle was not well visualized. Atria The left atrium is mildly dilated. There is lipomatous hypertrophy of the interatrial septum. Interatrial shunt cannot be excluded. The right atrium was not well visualized. Aortic Valve The aortic valve was not well visualized. There is no aortic valve stenosis. There is no aortic valve regurgitation. Mitral Valve Likely normal mitral valve structure and function. There is mild anterior and posterior mitral leaflet thickening. There is mild mitral valve regurgitation. There is no mitral valve stenosis. Pulmonic Valve The pulmonic valve was not well visualized. Tricuspid Valve The tricuspid valve was not well visualized. There is trace tricuspid valve regurgitation. The right ventricular systolic pressure is 17 mmHg. Normal right atrial pressure. There is no evidence of pulmonary hypertension. Great Vessels The aorta was not well visualized. The pulmonary artery was not well visualized. Venous The inferior vena cava is normal in size and collapses greater than 50% with inspiration. Pericardium/Pleural The pericardium was not well visualized. Prior Study Comparison No significant change compared to prior study. Measurements 2D Linear Measurements IVSd: 1.39 0.6-0.9/0.6-1.0 cm LVIDd: 4.75 3.9-5.3/4.2-5.9 cm LVIDs: 3.09 2.0-3.6 cm LVPWd: 1.29 0.7-1.1 cm LA Diam: 3.30 2.7-3.8/3.0-4.0 cm LVOT Diam: 2.10 3.0+(-)1.3 cm 2D Systolic Function EF 4C: 59.40 >55% EF 2C: 61.90 >55% Mitral Valve MV Pk E: 1.14 MV PK A: 1.11 E/A: 1.00 E'Lateral: 8.40 E'Medial: 6.60 E/E' Med: 17.00 E/E' Lat: 13.00 Decel Tensas: 154.00 Aortic Valve AoV Pk Brendon: 1.70 AoV Pk Grad: 8.00 Aov Mn Grad: 4.00 JEAN-PIERRE: 2.90 LVOT LVOT Pk Brendon: 1.05 LVOT VTI: 0.40 LVOT Pk Grad: 4.00 LVOT Mn Grad: 2.00 LVOT Diam: 2.10 Diastolic Function MV Pk E: 1.14 MV Pk A: 1.11 E/A: 1.00 E'Medial: 6.60 E/E' Med: 17.00 E' Laterial: 8.40 E/E' Lat: 13.00 Right Ventricle TAPSE (mm): 26.00 TVS' Brendon: 15.00 Tricuspid Valve TR Pk Brendon: 1.80 TR Pk Grad: 14.00 RA Press: 3.00 RVSP: 17.00 Updated in Other Vendor System with Status of Final Earl Galarza MD electronically signed on 09/30/2023 5:17:19 PM with status of Final
[2023-09-30 07:21] LABS: Glucose, Whole Blood 99 mg/dL (60-115)
--- NOTE | 2023-09-30 09:16 | PC.NURSE ---
this RN resumed care of pt at 0700. a&ox4. sinus minerva on the senior security analyst - HR fluctuates in the 40s. pt slightly hypertensive. pt presents to ED w/ intermittent fluttering in chest and sob x 6 days. pt follows w/ dr. tate. hx afib. denies sx in chest at this time. states previous medication administration for REAL was slightly effective. rating REAL a 5/10 at this time. no sob/wob noted. respirations even/unlabored. pt speaking w/ hospitalist and cloth neutralizer at this time. pt pending bed assignment. call gu placed within reach.
--- NOTE | 2023-09-30 11:25 | PHA.MEDREC ---
Pharmacy Consult ? Medication Reconciliation Pharmacy has completed the medication reconciliation.
--- NOTE | 2023-09-30 11:25 | PC.NURSE ---
pt c/o 09/04 REAL - requesting medication aside from tylenol as she states previous medication administration was not effective. admitting provider notified/aware.
--- NOTE | 2023-09-30 11:35 | P.CONCA_ITS ---
History of Present Illness History of Present Illness Date of Service: 09/30/23 Consult reason: other (Bradycardia, palpitations) Chief complaint: Palpitations Narrative: I was consulted to see Tahira in cardiology consultation today for bradycardia as well as symptoms of palpitation high blood pressure. Patient is 58-year-old female with prior history of morbid obesity, sleep apnea, left bundle-branch block, diabetes, paroxysmal atrial fibrillation, frequent PVCs and nonsustained VT on beta-rosa therapy. She has implantable loop recorder and on that she was noted to have frequent episodes of pauses mostly during sleep hours over the last many months. Since then her CPAP was readjusted and with that her frequency of sinus pauses as noted on remote monitoring had gone down. She would seen Dr. Pennington in June at which time given her symptoms of palpitations her metoprolol was increased from 12.5 mg b.i.d. to 25 mg b.i.d.. Since then the whole period of August she has been noticing increasing symptoms of palpitation not feeling well and feeling very tired. With the last he is days she was having frequent episodes of palpitation yesterday she called our office and try to send urgent transmission. One of the transmissions I reviewed showed basically sinus rhythm. She had no significant pauses. However she came to the emergency room because she has not feeling well, no lightheadedness or syncope. She was having headache and she came to the Emergency was noted to have sinus bradycardia with PVCs with heart rate in the 40s. She said 1 point time they noticed her heart rate to go into the 30s. She continues to have frequent PVCs with symptoms of fluttering in her chest. Her metoprolol has been withheld since yesterday, however she took the dose last night. She is noted to be significantly hypertensive. Blood pressure is not improved. Her headache is present but improved and feels a dull ache. She denies any chest pain or shortness of breath. However she is extremely anxious. No recent heart failure symptoms. Review of Systems 2 Constitutional: Constitutional: Denies body ache(s), Denies chills, Reports fatigue and Denies fever(s) Eyes: Eyes: Reports no additional eye complaints ENT: Reports system reviewed and no additional complaints, except as documented Cardiovascular: Cardiovascular: Reports no additional cardiovascular complaints Respiratory: Respiratory: Reports no additional respiratory complaints Gastrointestinal: Gastrointestinal: Reports no additional gastrointestinal complaints Genitourinary: Genitourinary: Reports no additional female genitourinary complaints Musculoskeletal: Musculoskeletal: Reports no additional musculoskeletal complaints Neurologic: Reports system reviewed and no additional complaints, except as documented Psychiatric: Psychiatric: Reports no additional psychiatric complaints Endocrine: Endocrine: Reports fatigue PMFSH Past Medical History Medical History COVID-19 virus infection Anemia Impaired glucose tolerance Bradycardia NSVT (nonsustained ventricular tachycardia) Neck pain Vertigo Paroxysmal atrial fibrillation Spinal stenosis Lumbar degenerative disc disease Anxiety and depression Hypertension Obesity Obstructive sleep apnea GERD (gastroesophageal reflux disease) Hypercholesterolemia Family History Family History Father Lung cancer Mother Medical history unknown Sister Myocardial infarction Brother Hepatitis C Paternal Grandmother Ovarian cancer Paternal Uncle Brain cancer Sister No problems noted. Sister No problems noted. Brother No problems noted. Brother No problems noted. Brother No problems noted. Daughter No problems noted. Daughter No problems noted. 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.Gram.) 15 gm PO Q15M PRN; Protocol PRN Reason: per Hypoglycemia Standing Ord. Dextrose (D10) 250 mls @ 750 mls/hr IV Q15M PRN; Protocol PRN Reason: per Hypoglycemia Standing Ord. Insulin Human Lispro (Insulin Lispro 100 Unit/Ml 3 Ml Vial) 0 unit SUBCUT QIDACHS [facility]; Protocol Last Admin: 09/30/23 07:38 Dose: Not Given Lisinopril (Lisinopril 10 Mg Tablet) 10 mg PO DAILY [facility]; Protocol Melatonin (Melatonin 3 Mg Tablet) 6 mg PO BEDTIME PRN PRN Reason: Insomnia Metformin HCl (Metformin Hcl 500 Mg Tablet) 500 mg PO BID [facility] Non-Formulary Medication (Diazepam) 5 mg PO BEDTIME PRN PRN Reason: sleep Ondansetron HCl (Ondansetron Hcl 4 Mg/2 Ml Vial) 4 mg IVPUSH Q8H PRN PRN Reason: Nausea and Vomiting Simethicone (Simethicone 80 Mg Tab.Chew) 80 mg PO BEDTIME [facility] Sodium Chloride (0.9 % Sodium Chloride Flush 3 Ml Syringe) 3 ml IVFLUSH QSHIFT [facility] Last Admin: 09/30/23 08:02 Dose: Not Given Home Medications ?Medication ?Instructions ?Recorded ?Confirmed ?Last Taken ?Type ascorbate calcium (vitamin C) 500 1,000 mg PO DAILY 03/13/20 09/30/23 09/29/23 History mg tablet cholecalciferol (vitamin D3) 25 25 mcg PO DAILY 03/13/20 09/30/23 09/29/23 History mcg (1,000 unit) capsule cranberry 400 mg capsule 400 mg PO DAILY 03/13/20 09/30/23 09/29/23 History whit root extract 50 mg tablet 50 mg PO DAILY 09/22/22 09/30/23 09/29/23 History simethicone 80 mg chewable tablet 80 mg PO BEDTIME 09/22/22 09/30/23 09/29/23 History omega 9-gak-ntg-fish oil 300 1 cap PO DAILY 09/30/23 09/30/23 09/29/23 History mg-1,000 mg capsule,delayed release (Fish Oil) pantoprazole 40 mg tablet,delayed 40 mg PO DAILY@0630 09/30/23 09/30/23 09/29/23 History release Physical Exam 2 Vital Signs: Vital Signs: Last Vital Signs Temp 98.2 F 09/30/23 09:09 Pulse 48 L 09/30/23 09:09 Resp 16 09/30/23 09:09 BP 155/50 H 09/30/23 09:09 Pulse Ox 95 09/30/23 09:09 O2 Del Method Room Air 09/30/23 09:09 BMI result Body Mass Index 46.9 Const: General: cooperative, comfortable, no acute distress, alert, awake and anxious Nutritional Appearance: obese morbidly obese O rientation/consciousness: patient oriented x3 Limitations: no limitations HEENT: Head: Yes normocephalic and Yes atraumatic Neck: Neck: Yes trachea midline, Yes supple and Yes no JVD Resp: Effort & Inspection: normal respiratory effort Auscultation: clear to auscultation bilaterally Cardio: Jugular venous distension: no JVD Palpation: normal PMI Rate: b radycardic Rhythm: abnormal rhythm with ectopic beats Heart sounds: S1 normal heart sound present, S2 normal heart sound present, no click, no gallops, no murmurs and no rubs GI: Inspection: Yes Abdominal panniculus present and Yes obesity A uscultation: normal bowel sounds Skin: General skin exam: no rashes or lesions noted Neuro: General: patient oriented x3 and no focal motor deficits Extrem: General: Yes no clubbing, cyanosis or edema Psych: Affect: Anxious affect present Objective Labs and Meds 09/30/23 04:54 09/30/23 04:54 Lab results: Laboratory Results - last 24 hr 09/29/23 09/30/23 09/30/23 18:04 01:38 04:54 WBC 8.7 12.3 H RBC 4.21 4.47 Hgb 11.6 L 12.2 Hct 35.1 L 37.4 MCV 83.4 83.7 MCH 27.6 27.3 MCHC 33.0 32.6 RDW 16.5 H 16.5 H Plt Count 256 269 MPV 10.0 10.8 Immature Gran % (Auto) 0.3 Neut % (Auto) 57.4 Lymph % (Auto) 33.1 [place] % (Auto) 7.2 Eos % (Auto) 1.5 Baso % (Auto) 0.5 Lymph # (Auto) 2.9 [place] # (Auto) 0.6 Eos # (Auto) 0.1 Baso # (Auto) 0.0 Abs Immat Gran (auto) 0.03 Absolute Neuts (auto) 5.0 Absolute Nucleated RBC 0.000 0.000 Nucleated RBC % (auto) 0.0 0.0 PT 14.8 H INR 1.2 H APTT 37.5 H Sodium 143 141 Potassium 3.8 4.1 Chloride 108 108 Carbon Dioxide 25 22 Anion Gap 14 15 BUN 15 15 Creatinine 0.85 0.74 Estim Creat Clear Calc 86.0 98.8 Estimated GFR > 60 > 60 POC Glucose Random Glucose 131 H 159 H Calcium 9.7 9.8 Magnesium 1.7 Total Bilirubin 0.5 AST 29 ALT 51 H Alkaline Phosphatase 113 Troponin I High Sens < 2.7 4.0 B-Natriuretic Peptide 56 Total Protein 7.2 Albumin 4.2 Lipase 23 09/30/23 07:14 WBC RBC Hgb Hct MCV MCH MCHC RDW Plt Count MPV Immature Gran % (Auto) Neut % (Auto) Lymph % (Auto) [place] % (Auto) Eos % (Auto) Baso % (Auto) Lymph # (Auto) [place] # (Auto) Eos # (Auto) Baso # (Auto) Abs Immat Gran (auto) Absolute Neuts (auto) Absolute Nucleated RBC Nucleated RBC % (auto) PT INR APTT Sodium Potassium Chloride Carbon Dioxide Anion Gap BUN Creatinine Estim Creat Clear Calc Estimated GFR POC Glucose 99 Random Glucose Calcium Magnesium Total Bilirubin AST ALT Alkaline Phosphatase Troponin I High Sens B-Natriuretic Peptide Total Protein Albumin Lipase EKG shows marked sinus bradycardia with occasional PVCs and some EKG with no left bundle-branch block with deep T-wave inversion multiple leads most likely T-wave memory Imaging Radiologist's impression: Impressions Head CT 09/30/23 03:00 IMPRESSION: No acute intracranial pathology. Assessment and Plan (1) Sinus bradycardia: Status: Acute Patient with sinus bradycardia with prior history of sinus pauses mostly during nighttime improved with CPAP therapy and having sinus bradycardia again despite CPAP therapy. She also noted to be significantly hypertensive and having frequent PVCs. She has prior history of nonsustained VT as well as paroxysmal atrial fibrillation that have been controlled with metoprolol therapy. She continues to have frequent PACs on monitor and is symptomatic with it. However at this point time will continue to hold metoprolol therapy. Discussed case with EPS and would like to watch her off metoprolol therapy. If she develops significant tachyarrhythmias that requires rate lowering medication, may need pacemaker therapy. Will keep her NPO past midnight. Can use valsartan for blood pressure control. Continue CPAP therapy overnight. Her abnormal EKG without any significant cardiac biomarker elevation is most suggestive of T-wave memory from her baseline left bundle-branch block which is now not apparent at slower heart rate. Echocardiogram has been requested. Will continue to follow with you Procedures Date of Service Date of Service: 09/30/23
--- NOTE | 2023-09-30 11:48 | MHC.CM.PN ---
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 HCP will be completed here and added to chart. transport home at DC by family. PCP is Dr. Sullivan. DCP: home, self care, CM to follow and assist with DC plans.
[2023-09-30 12:01] LABS: Glucose, Whole Blood 81 mg/dL (60-115)
[2023-09-30] MEDS: Ascorbic Acid 500 MG TABLET 1000 MG PO (12:59)
[2023-09-30] MEDS: Cholecalciferol (Vitamin D3) 25 MCG TABLET PO (12:59)
[2023-09-30] MEDS: lisinopriL 10 MG TABLET PO (12:59)
--- NOTE | 2023-09-30 14:44 | PM.EVENT ---
Event Note Date of Service: 09/30/23 Event Note: Seen and examined. This is a 58-year-old female with pertinent history of paroxysmal atrial fibrillation on Eliquis, JESSICA on CPAP, hypertension, mood disorder, mixed hyperlipidemia, gastroesophageal reflux disease, ikx-[id number] diabetes mellitus who presents to the emergency department for evaluation of palpitations. Symptomatic bradycardia in a patient with paroxysmal AFib, no sinus pause and hemodynamically stable. -hold BB Hypertension: Continue Lisinopril hold BB JESSICA: On CPAP at bedtime Mixed hyperlipidemia: On statin Gastroesophageal reflux disease: On PPI Gta-zbvjzmi-[id number] diabetes mellitus: Initiating Accu-Cheks with sliding scale insulin Mood disorder: Continue home mood stabilizers Obesity: Counseled regarding diet and exercise AFIB, hold BB, hold eliquis and start Lovenox DVT prophylaxis: lovenox A Time Spent With Patient Time: Total time managing care of this patient today ____ minutes.
--- NOTE | 2023-09-30 15:33 | PC.NURSE ---
admission worksheet complete. transport notified/aware.
[2023-09-30 17:15] LABS: Glucose, Whole Blood 88 mg/dL (60-115)
[2023-09-30] MEDS: 0.9 % Sodium Chloride Flush 3 ML SYRINGE IVFLUSH (17:19)
[2023-09-30] MEDS: LORazepam 0.5 MG TABLET PO (17:19)
[2023-09-30] MEDS: Enoxaparin Sodium 120 MG/0.8 ML SYRINGE 110 MG SUBCUT (17:19)
[2023-09-30 19:19] LABS: Magnesium 1.8 mg/dL (1.6-2.6)
[2023-09-30 20:55] LABS: Glucose, Whole Blood 129 mg/dL (60-115)
[2023-09-30] MEDS: Atorvastatin Calcium 10 MG TABLET 5 MG PO (20:55)
[2023-09-30] MEDS: Ibuprofen 600 MG TABLET PO (20:59)
[2023-09-30] MEDS: Simethicone 80 MG TAB.CHEW PO (20:59)
[2023-09-30] MEDS: Melatonin 3 MG TABLET 6 MG PO (21:18)
[2023-10-01 03:39] VITALS: BP 118/52; PULSE 46; RESP 19; TEMP 36.1; O2SAT 95
[2023-10-01 07:31] VITALS: BP 120/70; PULSE 55; RESP 19; TEMP 36.9; O2SAT 96
[2023-10-01 07:56] LABS: Glucose, Whole Blood 116 mg/dL (60-115)
[2023-10-01 08:15] VITALS: BP 120/70
[2023-10-01] MEDS: lisinopriL 10 MG TABLET PO (08:15)
--- NOTE | 2023-10-01 09:13 | PM.PNCARD ---
Subjective Subjective Date of Service: 10/01/23 Principal diagnosis: Sinus bradycardia, av block, PVCs Interval history: Overnight during sleep hours patient noted to have 2 is to 1 av block with normal QRS complex consistent with most likely AV viki level block. Patient has not had any significant pauses. Since stopping metoprolol the heart rate is improved and this morning is in the 75 range. Blood pressure is controlled. She seems less anxious. No chest pain. Review of Systems Constitutional: Reports headache(s) Eyes: Reports no additional eye complaints Reports headache(s) Cardiovascular: Denies chest pain, Denies lightheadedness, Denies Loss of Consciousness, Denies dyspnea and Reports other Respiratory: Reports no additional respiratory complaints and Denies dyspnea Gastrointestinal: Reports no additional gastrointestinal complaints Reports system reviewed and no additional complaints, except as documented and Reports headache(s) Physical Exam Vital Signs: Last Vital Signs Temp 98.5 F 10/01/23 07:31 Pulse 55 10/01/23 07:31 Resp 19 10/01/23 07:31 BP 120/70 10/01/23 08:15 Pulse Ox 96 10/01/23 07:31 O2 Del Method Room Air 10/01/23 07:31 BMI result Body Mass Index 48.2 Const General: cooperative, comfortable, no acute distress, alert and Physically active Nutritional Appearance: obese morbidly obese Orientation/consciousness: patient oriented x3 Neck Neck: Yes trachea midline, Yes supple and Yes no JVD Resp Effort & Inspection: normal respiratory effort Auscultation: clear to auscultation bilaterally Cardio Jugular venous distension: no JVD Palpation: normal PMI Rate: regular rate Rhythm: regular rhythm Heart sounds: S1 normal heart sound present, S2 normal heart sound present, no click, no gallops and no murmurs GI Inspection: Yes Abdominal panniculus present and Yes obesity Auscultation: normal bowel sounds Skin General skin exam: no rashes or lesions noted Neuro General: patient oriented x3 and no focal motor deficits Extrem General: Yes no clubbing, cyanosis or edema Objective Labs and Meds 09/30/23 04:54 09/30/23 04:54 Lab results: Laboratory Results - last 24 hr 09/30/23 09/30/23 09/30/23 04:54 11:54 17:12 POC Glucose 81 88 Magnesium 1.8 09/30/23 10/01/23 20:51 07:49 POC Glucose 129 H 116 H Magnesium Progress Note: A&P Assessment and plan (1) Sinus bradycardia: Status: Acute Assessment and Plan: F sinus bradycardia exacerbated by metoprolol therapy suggestive underlying sinoatrial viki dysfunction although the heart rate is improved after stopping metoprolol. Would avoid pacemaker therapy at this point time. Discussed with EPS. Given her other cardiac arrhythmias will refer her to EPS for further evaluation for alternate treatment strategies such as ablation. Continue CPAP therapy. She has second-degree AV block related to untreated sleep apnea. Follow-up with sleep specialty to consider CPAP titration study to assess for adequate pressure. Continue monitor with implantable loop recorder remotely as well as in the office. Will follow up in the office in 4 weeks. Echo done yesterday for abnormal EKG shows no significant wall motion abnormality preserved LV ejection fraction. (2) Hypertension: Status: Acute Assessment and Plan: Hypertension which is well controlled. Continue lisinopril therapy. Advised to monitor blood pressure at home and maintain a log. Adequate CPAP therapy needs to be pursued. Will sign of the case. Patient may be discharged home today Time Spent With Patient Time: Total time managing care of this patient today ____ minutes. Progress Note: Quality Stroke Does the patient have a stroke diagnosis?: No Procedures Date of Service Date of Service: 10/01/23
[2023-10-01 11:28] LABS: Glucose, Whole Blood 218 mg/dL (60-115)
[2023-10-01 11:34] VITALS: BP 140/67; PULSE 44; RESP 19; O2SAT 93
--- NOTE | 2023-10-01 12:22 | PM.DS ---
DS: Providers Provider Date of Service: 10/01/23 Date of admission: 09/30/23 02:36 Primary care physician: Matias Sullivan MD Consults: 09/30/23 02:36 Consult to Cardiology Routine Consulting Provider: [facility] Reason for consultation: symptomatic bradycardia Has provider been notified: Yes DS: Diagnosis Discharge Diagnosis (1) Sinus bradycardia: Status: Acute (2) Hypertension: Status: Acute DS: Summary Hospital Course Hospital Course: admission hpi Chief Complaint: Palpitations This is a 58-year-old female with pertinent history of paroxysmal atrial fibrillation on Eliquis, JESSICA on CPAP, hypertension, mood disorder, mixed hyperlipidemia, gastroesophageal reflux disease, fnm-jfrrsxb-ptpabsrbw diabetes mellitus who presents to the emergency department for evaluation of palpitations. Patient states she has been having palpitations for the last 6 days. Also feels short of breath during such episodes. No chest discomfort. Patient has had significant pauses on implantable loop recorder and is followed by Dr. Pennington. Patient is on beta-rosa and was told that in case of take he/per ID, she would need a pacemaker. Patient states she tried to call her blindstitch lapel padder's office before coming to the ER. No fever, chills, nausea, vomiting, abdominal pain, changes in urinary or bowel habits. In the emergency department, patient's heart rate was found to be in the 40s hospital course: She presented with palpitation and found to have bradycardia while on metoprolol. Upon evaluation the blindstitch lapel padder, it was advised to stop metoprolol and reasess. She is note Overnight during sleep, she experienced 2 to 1 av block with normal QRS complex consistent with most likely AV viki level block. There has not been any significant pauses. Since stopping metoprolol over 24 hours, her HR continues to be in 40s and at time claiming to be having fluttering sensation and shortness of breath at times. She will be transfered to [facility] for EP study and possible pace maker. Holding Eliquis in the interim. Time Attestation Discharge Coordination Time (in mins): 40 Quality: Safe Use of Opioids Does Pt have an Active Cancer Diagnosis on the Problem List?: No Quality: Stroke Does the patient have a stroke diagnosis?: No Physical Exam Vital Signs: Vital Signs: Last Vital Signs Temp 98.5 F 10/01/23 07:31 Pulse 44 L 10/01/23 11:34 Resp 19 10/01/23 11:34 BP 140/67 H 10/01/23 11:34 Pulse Ox 93 10/01/23 11:34 O2 Del Method Room Air 10/01/23 11:34 BMI result Body Mass Index 48.2 DS: Data Data Completed and Pending Labs on day of discharge: Laboratory Results - last 24 hr 09/30/23 09/30/23 09/30/23 04:54 17:12 20:51 POC Glucose 88 129 H Magnesium 1.8 10/01/23 10/01/23 07:49 11:10 POC Glucose 116 H 218 H Magnesium Discharge Plan Discharge Anticipated Discharge Date/Time: 10/01/23 12:48 Patient Disposition: Home, Self-Care Discharge Diagnosis: Bradycardia Referrals: Po,Matias Mishra MD [Primary Care Provider] - 1 Week Discharge Medications: Continued lisinopril 10 mg tablet 10 mg PO DAILY Qty: 90 3RF metformin 500 mg tablet 500 mg PO BID Qty: 180 1RF Eliquis 5 mg tablet 5 mg PO BID 90 Days Qty: 180 3RF simvastatin 5 mg tablet 5 mg PO BEDTIME Qty: 90 1RF pantoprazole 40 mg tablet,delayed release (DR/EC) 40 mg PO DAILY@0630 omega 8-bxb-bse-fish oil [Fish Oil] 300-1,000 mg Capsule,Delayed Release(Dr/Ec) 1 cap PO DAILY simethicone 80 mg Tablet,Chewable 80 mg PO BEDTIME whit root extract 50 mg Tablet 50 mg PO DAILY cholecalciferol (vitamin D3) 25 mcg (1,000 unit) capsule 25 mcg PO DAILY ascorbate calcium (vitamin C) 500 mg tablet 1,000 mg PO DAILY cranberry 400 mg capsule 400 mg PO DAILY Rx Instructions: administer with a meal diazepam 5 mg tablet 5 mg PO BEDTIME PRN (Reason: sleep) Qty: 10 0RF Discontinued metoprolol tartrate 25 mg tablet 25 mg PO BID 90 Days Qty: 180 3RF Discharge Orders: Discharge Order (Routine); Ordered 10/01/23 Ordered By: Alen Coronado Diet: Diabetic diet Activity on Discharge: As tolerated Stand Alone Forms: Patient Portal Discharge page Print Language: American Care Plan Goals: Full work up for bradycardia and ultimately determine if will need a pacemaker Health Concerns: Bradycardia Plan of Treatment: Stop taking Metoprolol Use CPAP as directed Follow up with your regular doctor in a week follow up with the cardioloogy clinic Assessment: see above
--- NOTE | 2023-10-01 13:42 | MHC.CM.PN ---
Pt. has been medically cleared for DC, she will go home via family to transport, DCP: home, self care.
--- NOTE | 2023-10-01 15:30 | P.PNIM_ITS ---
Subjective Subjective Date of Service: 10/01/23 Interval History: Persistent bradycardia HR in 40s, BP ok Physical Exam 2 Vital Signs: Vital Signs: Last Vital Signs Temp 98.5 F 10/01/23 07:31 Pulse 44 L 10/01/23 11:34 Resp 19 10/01/23 11:34 BP 140/67 H 10/01/23 11:34 Pulse Ox 93 10/01/23 11:34 O2 Del Method Room Air 10/01/23 11:34 BMI result Body Mass Index 48.2 General: AO X 3, no acute distress Resp: CTA bilateral CVS: S1,S2,RRR GI: +BS, NT, no distention Skin: No rash Neuro: motor grossly intact Psych: appropriate affect Objective Data Active Medications Acetaminophen (Acetaminophen 325 Mg Tablet) 650 mg PO Q6H PRN PRN Reason: Pain, Mild (Pain Scale 1-3) Last Admin: 09/30/23 12:59 Dose: 650 mg Documented By: [place] Acetaminophen/Butalbital/Caffeine (Butalb/Acetamin/Caff 50/325/40 Tablet) 1 tab PO Q4H PRN PRN Reason: Headache Ascorbic Acid (Ascorbic Acid 500 Mg Tablet) 1,000 mg PO DAILY [facility] Last Admin: 10/01/23 08:05 Dose: Not Given Documented By: MARIBEL Non-Admin Reason: NPO Atorvastatin Calcium (Atorvastatin Calcium 10 Mg Tablet) 5 mg PO BEDTIME [facility] Last Admin: 09/30/23 20:55 Dose: 5 mg Documented By: ALENA Diazepam (Diazepam 5 Mg Tablet) 5 mg PO BEDTIME PRN PRN Reason: sleep Glucose (Glucose Gel 15 Gm Gel..Gram.) 15 gm PO Q15M PRN; Protocol PRN Reason: per Hypoglycemia Standing Ord. Dextrose (D10) 250 mls @ 750 mls/hr IV Q15M PRN; Protocol PRN Reason: per Hypoglycemia Standing Ord. Insulin Human Lispro (Insulin Lispro 100 Unit/Ml 3 Ml Vial) 0 unit SUBCUT QIDACHS [facility]; Protocol Last Admin: 10/01/23 11:37 Dose: Not Given Documented By: MARIBEL Non-Admin Reason: No Insulin Coverage Lisinopril (Lisinopril 10 Mg Tablet) 10 mg PO DAILY [facility]; Protocol Last Admin: 10/01/23 08:15 Dose: 10 mg Documented By: MARIBEL Melatonin (Melatonin 3 Mg Tablet) 6 mg PO BEDTIME PRN PRN Reason: Insomnia Last Admin: 09/30/23 21:18 Dose: 6 mg Documented By: ALENA Metformin HCl (Metformin Hcl 500 Mg Tablet) 500 mg PO BID [facility] Last Admin: 10/01/23 08:05 Dose: Not Given Documented By: MARIBEL Non-Admin Reason: pt getting pacemaker potentially today Omeprazole (Omeprazole 20 Mg Capsule.Dr) 20 mg PO DAILY@0630 [facility] Last Admin: 10/01/23 06:38 Dose: Not Given Documented By: ALENA Non-Admin Reason: NPO Ondansetron HCl (Ondansetron Hcl 4 Mg/2 Ml Vial) 4 mg IVPUSH Q8H PRN PRN Reason: Nausea and Vomiting Simethicone (Simethicone 80 Mg Tab.Chew) 80 mg PO BEDTIME [facility] Last Admin: 09/30/23 20:59 Dose: 80 mg Documented By: ALENA Sodium Chloride (0.9 % Sodium Chloride Flush 3 Ml Syringe) 3 ml IVFLUSH QSHIFT [facility] Last Admin: 10/01/23 08:19 Dose: Not Given Documented By: MARIBEL Non-Admin Reason: Previously Administered Vitamin D (Cholecalciferol (Vitamin D3) 25 Mcg Tablet) 25 mcg PO DAILY [facility] Last Admin: 10/01/23 08:05 Dose: Not Given Documented By: MARIBEL Non-Admin Reason: NPO Labs 09/30/23 04:54 09/30/23 04:54 Labs: Laboratory Results - last 24 hr 09/30/23 09/30/23 09/30/23 04:54 17:12 20:51 POC Glucose 88 129 H Magnesium 1.8 10/01/23 10/01/23 07:49 11:10 POC Glucose 116 H 218 H Magnesium Assessment and Plan (1) Syncope: Status: Acute (2) LBBB (left bundle branch block): Status: Acute Plan This is a 57-year-old female with pertinent history of paroxysmal atrial fibrillation not on anticoagulation, mood disorder, oos-cvseoff-sentyohmd diabetes mellitus, JESSICA not on CPAP presents to the emergency department for evaluation of syncope. Bradycardia HR still in 40s, no pauses, 1:2 AVB while asleep -continue holding metoprolol and monitoring, -NPO after midnight Paroxysmal atrial fibrillation. continue holding metoprolol, continue holding eliquis Mood disorder.? Continue home mood stabilizers Cmk-nbxwsmr-pdhwnnbbw diabetes mellitus.? On metformin JESSICA , CPAP Obesity.? weight loss advised DVT prophylaxis--lovenox Observation status till tomorrow Quality Stroke Does the patient have a stroke diagnosis?: No VTE Prior VTE?: No VTE Risk Level:: Medical - moderate - high VTE Device Contraindication: Treatment Not Indicated VTE Drug Contraindication: N/A - Med Ordered
[2023-10-01 15:32] VITALS: BP 140/58; PULSE 45; RESP 20; TEMP 36.6; O2SAT 95
[2023-10-01 16:07] LABS: Glucose, Whole Blood 102 mg/dL (60-115)
--- NOTE | 2023-10-01 16:13 | ECG_ITS ---
Test Reason : [facility] Blood Pressure : / mmHG Vent. Rate : 062 BPM Atrial Rate : 062 BPM P-R Int : 174 ms QRS Dur : 146 ms QT Int : 442 ms P-R-T Axes : 069 070 -32 degrees QTc Int : 448 ms Sinus rhythm with LBBB aberrancy with second degrre AV block. Right bundle branch block Cannot rule out Inferior infarct (cited on or before 01-OCT-2023) T wave abnormality, consider lateral ischemia Abnormal ECG When compared to the previous EKG of 2:1 AV block is not present. Referred By: Juliana Leonardo Electronically Signed By:LOU BILLY MD
== END 2023-10-01 19:19 | disposition short-term general hospital (02) | DRG 201 ==
LOC: HO.ED 09-30 02:33 → HO.EDOVER 09-30 02:40 → HO.IMC 09-30 14:59
PROVIDERS: Physician Assistant; Admitting Provider Student in an Organized Health Care Education/Training Program; Emergency Provider Emergency Medicine; PCP Internal Medicine; Visit Provider Internal Medicine
DX: R00.1 Bradycardia, unspecified (principal); E11.9 Type 2 diabetes mellitus without complications; I48.0 Paroxysmal atrial fibrillation; E78.2 Mixed hyperlipidemia; I10 Essential (primary) hypertension; I44.1 Atrioventricular block, second degree; T44.7X5A Adverse effect of beta-adrenoreceptor antagonists, initial encounter; K21.9 Gastro-esophageal reflux disease without esophagitis; E66.9 Obesity, unspecified; Z68.42 Body mass index [BMI] 45.0-49.9, adult; Z71.3 Dietary counseling and surveillance; G47.33 Obstructive sleep apnea (adult) (pediatric); F39 Unspecified mood [affective] disorder; Z79.01 Long term (current) use of anticoagulants; Z79.84 Long term (current) use of oral hypoglycemic drugs; Z79.899 Other long term (current) drug therapy
CPT/HCPCS: 36415; 70450; 80048; 80053; 82947; 83690; 83735; 83880; 84484; 85025; 85027; 85610; 85730; 93005; 93306; 94660; 99285; J1610; J1650; J2060; J2270; J2405; Q9957

== ENCOUNTER → 2023-09-29 16:18 | Outpatient (BNV) | payer OTHER, SELFPAY | PROVIDERS: Admitting Provider Student in an Organized Health Care Education/Training Program; Emergency Provider Emergency Medicine; PCP Internal Medicine; Visit Provider Internal Medicine Cardiovascular Disease | DX: R94.31 Abnormal electrocardiogram [ECG] [EKG] (principal) | CPT/HCPCS: 93010 ==

== ENCOUNTER 2023-09-30 02:36 | Outpatient (BNV) | payer OTHER, SELFPAY | END 2023-10-01 16:13 | PROVIDERS: Admitting Provider Student in an Organized Health Care Education/Training Program; Emergency Provider Emergency Medicine; PCP Internal Medicine; Visit Provider Internal Medicine Cardiovascular Disease | DX: R94.31 Abnormal electrocardiogram [ECG] [EKG] (principal) | CPT/HCPCS: 93010 ==

== ENCOUNTER → 2023-09-30 02:36 | Outpatient (BNV) | payer OTHER, SELFPAY | PROVIDERS: Admitting Provider Student in an Organized Health Care Education/Training Program; Emergency Provider Emergency Medicine; PCP Internal Medicine; Visit Provider Student in an Organized Health Care Education/Training Program | DX: I44.7 Left bundle-branch block, unspecified (principal); R00.1 Bradycardia, unspecified; I10 Essential (primary) hypertension | CPT/HCPCS: 99222; 99239; 99499 ==

== ENCOUNTER → 2023-09-30 02:36 | Outpatient (BNV) | payer OTHER, SELFPAY | PROVIDERS: Admitting Provider Student in an Organized Health Care Education/Training Program; Emergency Provider Emergency Medicine; PCP Internal Medicine; Visit Provider Internal Medicine Cardiovascular Disease | DX: R00.1 Bradycardia, unspecified (principal); I10 Essential (primary) hypertension | CPT/HCPCS: 93010; 93306; 99222; 99233 ==

== ENCOUNTER 2023-10-09 15:29 | Outpatient (AMB) | payer OTHER, SELFPAY ==
[2023-10-09 15:48] VITALS: BP 120/60; PULSE 65; O2SAT 95; BMI 45.7
--- NOTE | 2023-10-09 15:48 | MHC.PC.OV ---
Vital Signs 10/09/23 15:48 Height 5 ft 1 in Weight 242 lb BMI 45.7 BP 120/60 Blood Pressure Location Lt radial Position Sitting Pulse 65 Pulse Source Pulse Oximeter Pulse Oximetry (%) 95 Oxygen Delivery Method Room Air Intake Visit Reasons: HDF Meat Carrier Required: No Allergies amlodipine Allergy (Severe, Verified 10/09/23 15:48) Anxiety meperidine [From DEMEROL] Allergy (Intermediate, Verified 10/09/23 15:48) MIGRAINE codeine [CODEINE] Allergy (Unknown, Verified 10/09/23 15:48) UNKNOWN Tobacco use date assessed: 10/09/23 Dental Screening Dental Screen Date: 04/24/23 HPI HDF HPI Details 58-year-old morbidly obese female with diabetes mellitus obstructive sleep apnea atrial fibrillation GERD hypertension hypercholesterolemia generalized anxiety disorder last seen in April having left shoulder pain. Review of the notes in September 30 patient was in the hospital for bradycardia had palpitations noted to have significant pauses on the loop recorder patient was advised to stop metoprolol noted 2-1 block 24 hours after stopping metoprolol continued to have bradycardia at 40s and having shortness of breath patient was transferred to [facility]. PAtient had Mobitz type 2 second heart block and was placed on pacemaker [facility] Medical History COVID-19 virus infection Anemia Impaired glucose tolerance Bradycardia NSVT (nonsustained ventricular tachycardia) Neck pain Vertigo Paroxysmal atrial fibrillation Spinal stenosis Lumbar degenerative disc disease Anxiety and depression Hypertension Obesity Obstructive sleep apnea GERD (gastroesophageal reflux disease) Hypercholesterolemia Surgical History History of loop recorder S/P arteriovenous (AV) fistula repair History of cholecystectomy S/P diskectomy Family History Father Lung cancer Mother Medical history unknown Sister Myocardial infarction Brother Hepatitis C Paternal Grandmother Ovarian cancer Paternal Uncle Brain cancer Sister No problems noted. Sister No problems noted. Brother No problems noted. Brother No problems noted. Brother No problems noted. Daughter No problems noted. Daughter No problems noted. 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 How often do you have a drink containing alcohol?: Monthly or less 2. How many drinks containing alcohol do you have on a typical day when you are drinking?: 1 or 2 3. How often do you have six or more drinks on one occasion?: Never Total Score: 1 JORGE ALBERTO-7 AMB Questionnaire JORGE ALBERTO-7 Date JORGE ALBERTO - 7 assessed: 05/05/23 Source: Developed by Drs. Chepe Leon, Bharati Palacio, Juan Anderson and colleagues, with an educational briana from [employer]. Physical exam (Primary Care) Vital Signs: Last Vital Signs Pulse 65 10/09/23 15:48 BP 120/60 10/09/23 15:48 Pulse Ox 95 10/09/23 15:48 Oxygen Delivery Method Room Air 10/09/23 15:48 BMI result Body Mass Index 45.7 Tobacco/Smoking Status: Tobacco use Status Tobacco use date assessed 10/09/23 10/09/23 15:51 Patient Tobacco Use Status Never used Tobacco 10/09/23 15:51 e-Cigarette/Vaping Use Never Used 10/09/23 15:51 Thrive Assessment: Date of Thrive Assessment Date Thrive assessed 10/09/23 10/09/23 15:51 Const General: alert; No acute distress Eyes Conjunctivae: conjunctivae normal Resp Auscultation: clear to auscultation bilaterally Cardio Rate: regular rate Rhythm: regular rhythm GI Inspection: Yes normal to inspection Extrem General: Yes normal to inspection and No edema Assessment and Plan Assessment & Plan (1) Palpitations: Code(s): R00.2 - Palpitations Plan: Noted admission hospital showing bradycardia- placed on pacemaker (2) Type 2 diabetes mellitus with hyperglycemia: Comment: [employer] Code(s): E11.65 - Type 2 diabetes mellitus with hyperglycemia Plan: Decrease the amount of carbohydrate intake, pasta, bread, rice and potatoes are all sugar and that is aside from all the sweet stuff, remember that fruits are good but they are Sweet also. On metformin 500 mg twice a day AIC 6.7 (3) Morbid obesity: Code(s): E66.01 - Morbid (severe) obesity due to excess calories Plan: Diet and exercise (4) Obstructive sleep apnea: Comment: On CPAP at [id number] Code(s): G47.33 - Obstructive sleep apnea (adult) (pediatric) Plan: Continue to use the CPAP more than 4 hours a night and benefits from this (5) GERD (gastroesophageal reflux disease): Code(s): K21.9 - Gastro-esophageal reflux disease without esophagitis Qualifiers: Esophagitis presence: without esophagitis Qualified Code(s): K21.9 - Gastro-esophageal reflux disease without esophagitis Plan: Avoid the foods that causes that usually spicy foods, tomato products, juices, coffee, soda and foods that your sensitive to. After eating do not lie down, allow 3-4 hours before in lie down. And keep the head of bed above 30 degrees to avoid the acid from going up. (6) Paroxysmal atrial fibrillation: Code(s): I48.0 - Paroxysmal atrial fibrillation Plan: Patient on anticoagulation with Eliquis (7) Hypercholesterolemia: Code(s): E78.00 - Pure hypercholesterolemia, unspecified Plan: Avoid fried foods, chicken skin, eggs, butter margarine, pastries and meat. Be it pork or beef they have a lot of cholesterol on simvastatin 5 mg at bedtime December was the last blood work patient needs to be have a repeat. (8) Generalized anxiety disorder: Code(s): F41.1 - Generalized anxiety disorder Plan: On diazepam as needed (9) Mobitz (type) II atrioventricular block: Code(s): I44.1 - Atrioventricular block, second degree Plan: pacemaker in. Orders: Orders Lipid Panel 3 Months E78.00 - Pure hypercholesterolemia, unspecified Comprehensive Met. Panel 3 Months E78.00 - Pure hypercholesterolemia, unspecified Medications: Changed From simvastatin 5 mg PO BEDTIME 90 tabs 1RF E78.00 - Pure hypercholesterolemia, unspecified To simvastatin 10 mg PO BEDTIME 90 days 90 tabs 1RF E78.00 - Pure hypercholesterolemia, unspecified Coding Level of Care Code Est Pt Level 4 (49683) Complex EM visit Add On G2211 Diagnoses Palpitations R00.2 Type 2 diabetes mellitus with hyperglycemia E11.65 Morbid obesity E66.01 Obstructive sleep apnea G47.33 Gastroesophageal reflux disease without esophagitis K21.9 Esophagitis presence: without esophagitis Paroxysmal atrial fibrillation I48.0 Hypercholesterolemia E78.00 Generalized anxiety disorder F41.1 Mobitz (type) II atrioventricular block I44.1
== END 2023-10-09 16:20 | disposition home or self-care (01) ==
PROVIDERS: PCP Internal Medicine; Visit Provider Internal Medicine
DX: R00.2 Palpitations (principal); E11.65 Type 2 diabetes mellitus with hyperglycemia; E66.01 Morbid (severe) obesity due to excess calories; Z68.42 Body mass index [BMI] 45.0-49.9, adult; I48.0 Paroxysmal atrial fibrillation; G47.33 Obstructive sleep apnea (adult) (pediatric); K21.9 Gastro-esophageal reflux disease without esophagitis; E78.00 Pure hypercholesterolemia, unspecified; F41.1 Generalized anxiety disorder; I44.1 Atrioventricular block, second degree
CPT/HCPCS: 99214; G2211

== ENCOUNTER 2023-10-31 08:48 | Outpatient (AMB) | payer OTHER, SELFPAY ==
--- NOTE | 2023-10-31 08:50 | A.OFFPC_ITS ---
Vital Signs 10/31/23 08:51 Height 5 ft 1 in Weight 245 lb 0.5 oz BMI 46.3 BP 142/90 H Blood Pressure Location Lt brachial Position Sitting Pulse 69 Pulse Source Pulse Oximeter Pulse Oximetry (%) 96 Oxygen Delivery Method Room Air Intake Visit Reasons: [facility] 09/01 pacemaker Intake Note: Patient is here for hospital discharge follow up. Patient was discharged from [facility] on Fruit Shipper Required: No Allergies amlodipine Allergy (Severe, Verified 10/09/23 15:48) Anxiety meperidine [From DEMEROL] Allergy (Intermediate, Verified 10/09/23 15:48) MIGRAINE codeine [CODEINE] Allergy (Unknown, Verified 10/09/23 15:48) UNKNOWN Tobacco use date assessed: 10/09/23 Dental Screening Dental Screen Date: 10/31/23 HPI [facility] 09/01 pacemaker HPI Details 58-year-old morbidly obese female with c ontrolled diabetes mellitus paroxysmal atrial fibrillation hypercholesterolemia GERD obstructive sleep apnea with Mobitz type 2 AV block with a pacemaker in coming in for follow-up. Last seen in 10/16/2023. Patient's Cologuard is up-to-date 11/14/2022 mammogram is up-to-date. Review of the notes did receive hospital notes from October 01 2023 for the symptomatic bradycardia. [facility] Medical History (Updated 10/31/23 @ 09:32 by Matias Sullivan MD) Tinea pedis Colon cancer screening Palpitations Sinus bradycardia COVID-19 virus infection Anemia Impaired glucose tolerance Bradycardia NSVT (nonsustained ventricular tachycardia) Neck pain Vertigo Paroxysmal atrial fibrillation Spinal stenosis Lumbar degenerative disc disease Anxiety and depression Hypertension Obesity Obstructive sleep apnea GERD (gastroesophageal reflux disease) Hypercholesterolemia Surgical History History of loop recorder S/P arteriovenous (AV) fistula repair History of cholecystectomy S/P diskectomy Family History Father Lung cancer Mother Medical history unknown Sister Myocardial infarction Brother Hepatitis C Paternal Grandmother Ovarian cancer Paternal Uncle Brain cancer Sister No problems noted. Sister No problems noted. Brother No problems noted. Brother No problems noted. Brother No problems noted. Daughter No problems noted. Daughter No problems noted. 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 How often do you have a drink containing alcohol?: Monthly or less 2. How many drinks containing alcohol do you have on a typical day when you are drinking?: 1 or 2 3. How often do you have six or more drinks on one occasion?: Never Total Score: 1 JORGE ALBERTO-7 AMB Questionnaire JORGE ALBERTO-7 Date JORGE ALBERTO - 7 assessed: 05/05/23 Source: Developed by Drs. Chepe Leon, Bharati Palacio, Juan Anderson and colleagues, with an educational briana from [employer]. Physical exam (Primary Care) Vital Signs: Last Vital Signs Pulse 69 10/31/23 08:51 BP 142/90 H 10/31/23 08:51 Pulse Ox 96 10/31/23 08:51 Oxygen Delivery Method Room Air 10/31/23 08:51 BMI result Body Mass Index 46.3 Tobacco/Smoking Status: Tobacco use Status Tobacco use date assessed 10/09/23 10/31/23 08:52 Patient Tobacco Use Status Never used Tobacco 10/31/23 08:52 e-Cigarette/Vaping Use Never Used 10/31/23 08:52 Thrive Assessment: Date of Thrive Assessment Date Thrive assessed 10/09/23 10/31/23 08:52 Const General: alert; No acute distress Eyes Conjunctivae: conjunctivae normal Resp Auscultation: clear to auscultation bilaterally Cardio Rate: regular rate Rhythm: regular rhythm GI Inspection: Yes normal to inspection Extrem General: Yes normal to inspection and No edema Results AMB Hemoglobin A1c AMB Hemoglobin A1c 6.1 % Last Edit by ROSIE Brian on 10/31/23 09:07 Results Reviewed Results Reviewed: Laboratory Last Values Hgb A1c (Clinic) 6.1 % (4.0-6.0) H 10/31/23 08:57 Assessment and Plan Assessment & Plan (1) Mobitz (type) II atrioventricular block: Code(s): I44.1 - Atrioventricular block, second degree Plan: Patient had the pacemaker placed 10/16/2023 (2) Type 2 diabetes mellitus with hyperglycemia: Comment: [employer] Code(s): E11.65 - Type 2 diabetes mellitus with hyperglycemia Plan: Decrease the amount of carbohydrate intake, pasta, bread, rice and potatoes are all sugar and that is aside from all the sweet stuff, remember that fruits are good but they are Sweet also. On metformin 500 mg twice a day hemoglobin A1c goal of less than 6.5. (3) Obstructive sleep apnea: Comment: On CPAP at [id number] Code(s): G47.33 - Obstructive sleep apnea (adult) (pediatric) Plan: Continue to use the CPAP more than 4 hours a night and benefits from this (4) GERD (gastroesophageal reflux disease): Code(s): K21.9 - Gastro-esophageal reflux disease without esophagitis Qualifiers: Esophagitis presence: without esophagitis Qualified Code(s): K21.9 - Gastro-esophageal reflux disease without esophagitis Plan: Avoid the foods that causes that usually spicy foods, tomato products, juices, coffee, soda and foods that your sensitive to. After eating do not lie down, allow 3-4 hours before in lie down. And keep the head of bed above 30 degrees to avoid the acid from going up. (5) Paroxysmal atrial fibrillation: Code(s): I48.0 - Paroxysmal atrial fibrillation Plan: Continue with anticoagulation with Eliquis twice a day year blood work requested (6) Hypercholesterolemia: Code(s): E78.00 - Pure hypercholesterolemia, unspecified Plan: Avoid fried foods, chicken skin, eggs, butter margarine, pastries and meat. Be it pork or beef they have a lot of cholesterol on simvastatin 10 mg once a day Orders: Orders Free T4 (Free Thyroxine) Today I48.0 - Paroxysmal atrial fibrillation Thyroid Stimulating Hormone Today I48.0 - Paroxysmal atrial fibrillation Vitamin B12 and Folate Today I48.0 - Paroxysmal atrial fibrillation UA CC w/rflx Micro + Cult Today I48.0 - Paroxysmal atrial fibrillation, R30.0 - Dysuria AMB Hemoglobin A1c Today E11.65 - Type 2 diabetes mellitus with hyperglycemia Complete Blood Count Auto Diff Today I48.0 - Paroxysmal atrial fibrillation Lipid Panel Today E78.00 - Pure hypercholesterolemia, unspecified, I48.0 - Paroxysmal atrial fibrillation Vitamin D 25-OH Total Today I48.0 - Paroxysmal atrial fibrillation B Type Natriuretic Peptide Today I48.0 - Paroxysmal atrial fibrillation Magnesium Today I48.0 - Paroxysmal atrial fibrillation Coding Level of Care Code Est Pt Level 4 (85755) Diagnoses Mobitz (type) II atrioventricular block I44.1 Type 2 diabetes mellitus with hyperglycemia E11.65 Obstructive sleep apnea G47.33 Gastroesophageal reflux disease without esophagitis K21.9 Esophagitis presence: without esophagitis Paroxysmal atrial fibrillation I48.0 Hypercholesterolemia E78.00
[2023-10-31 08:51] VITALS: BP 142/90; PULSE 69; O2SAT 96; BMI 46.3
== END 2023-10-31 10:06 | disposition home or self-care (01) ==
PROVIDERS: PCP Internal Medicine; Visit Provider Internal Medicine
DX: E11.65 Type 2 diabetes mellitus with hyperglycemia (principal); I48.0 Paroxysmal atrial fibrillation; I44.1 Atrioventricular block, second degree; G47.33 Obstructive sleep apnea (adult) (pediatric); K21.9 Gastro-esophageal reflux disease without esophagitis; E78.00 Pure hypercholesterolemia, unspecified
CPT/HCPCS: 83036; 99214

== ENCOUNTER → 2023-11-03 23:59 | Outpatient (BNV) | payer OTHER, SELFPAY ==
--- NOTE | 2023-11-16 09:36 | MHC.OFFVIS ---
Intake Visit Reasons: Remote ICD Check- Medtronic Allergies amlodipine Allergy (Severe, Verified 10/09/23 15:48) Anxiety meperidine [From DEMEROL] Allergy (Intermediate, Verified 10/09/23 15:48) MIGRAINE codeine [CODEINE] Allergy (Unknown, Verified 10/09/23 15:48) UNKNOWN [facility] Medical History (Updated 10/31/23 @ 09:32 by Matias Sullivan MD) Tinea pedis Colon cancer screening Palpitations Sinus bradycardia COVID-19 virus infection Anemia Impaired glucose tolerance Bradycardia NSVT (nonsustained ventricular tachycardia) Neck pain Vertigo Paroxysmal atrial fibrillation Spinal stenosis Lumbar degenerative disc disease Anxiety and depression Hypertension Obesity Obstructive sleep apnea GERD (gastroesophageal reflux disease) Hypercholesterolemia Surgical History History of loop recorder S/P arteriovenous (AV) fistula repair History of cholecystectomy S/P diskectomy Family History Father Lung cancer Mother Medical history unknown Sister Myocardial infarction Brother Hepatitis C Paternal Grandmother Ovarian cancer Paternal Uncle Brain cancer Sister No problems noted. Sister No problems noted. Brother No problems noted. Brother No problems noted. Brother No problems noted. Daughter No problems noted. Daughter No problems noted. 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 Overall normal device function. [id number] Cardiac Device Interrogation, pacemaker Procedure code (CPT) selection complete Assessment & Plan Assessment & Plan (1) Mobitz (type) II atrioventricular block: Code(s): I44.1 - Atrioventricular block, second degree Category: Medical (2) LBBB (left bundle branch block): Code(s): I44.7 - Left bundle-branch block, unspecified Category: Medical Plan x Coding Level of Care Code Procedure Only Diagnoses Mobitz (type) II atrioventricular block I44.1 LBBB (left bundle branch block) I44.7 CPT Codes Cardiac Device Check - Cardiac Device 12: [id number] Cardiac Device Interrogation, pacemaker ([id number])
== END ==
PROVIDERS: PCP Internal Medicine; Visit Provider Internal Medicine
DX: I44.1 Atrioventricular block, second degree (principal); I44.7 Left bundle-branch block, unspecified; Z95.0 Presence of cardiac pacemaker
CPT/HCPCS: 93294

== ENCOUNTER 2023-11-11 09:11 | Outpatient (REF) | payer OTHER, SELFPAY ==
[2023-11-11 10:18] LABS: MANUAL DIFF FLAG NO
[2023-11-11 10:20] LABS: Appearance Urine Clear; Color Urine Yellow; Glucose Urine UA Negative (Negative); Leukocyte Esterase Urine Negative (Negative); Nitrite Urine Negative (Negative); Specific Gravity - Urine 1.015 (1.005-1.025); UMIC TRIGGER UACC YES; Urine Blood Trace (Negative); Urine Ketones Negative (Negative); Urine Protein Negative (Neg-Trace)
[2023-11-11 10:26] LABS: Bacteria Urine None Seen (None Seen); Hyaline Casts Urine 0-2 /LPF (0-2); WBC Urine 0-5 /HPF (0-5)
[2023-11-11 10:30] LABS: Basophils Absolute Auto 0.1 X10*3/uL (0.0-0.2); Basophils Percent Auto 0.6 % (0-2); Eosinophils Absolute Auto 0.2 X10*3/uL (0.0-0.4); Hematocrit 39.2 % (37.0-47.0); Hemoglobin 12.6 g/dl (12.0-16.0); Imm Gran Abs Auto 0.03 X10*3/uL (0.00-0.03); Imm Gran Pct Auto 0.4 % (0.0-0.4); Lymphocytes Absolute Auto 2.1 X10*3/uL (1.2-4.9); Lymphocytes Percent Auto 25.1 % (20-40); Mean Corpuscular HGB Conc 32.1 g/dl (31.0-35.0); Mean Corpuscular Hemoglobin 27.2 pg (27.0-33.0); Mean Corpuscular Volume 84.7 fL (80.0-98.0); Mean Platelet Volume 10.2 fL (9.4-12.3); Monocytes Absolute Auto 0.6 X10*3/uL (0.1-1.2); Monocytes Percent Auto 6.9 % (2-11); Neutrophils Absolute Auto 5.4 x10*3/uL (2.0-8.3); Platelet Count 271 X10*3/uL (160-400); Red Blood Count 4.63 X10*6/uL (4.20-5.50); Red Cell Distribution Width 15.9 % (11.0-16.0); White Blood Count 8.4 X10*3/uL (4.8-10.8)
[2023-11-11 10:47] LABS: Alanine Aminotransferase 48 U/L (0-31); Albumin Level 4.4 g/dL (3.5-5.0); Alkaline Phosphatase 113 U/L (39-117); Anion Gap 15 (12-20); Aspartate Amino Transferase 29 U/L (5-31); Bilirubin Total 0.5 mg/dL (0.0-1.0); Blood Urea Nitrogen 16 mg/dL (9-16); Carbon Dioxide 26 mmol/L (22-29); Chloride 106 mmol/L (96-108); Cholesterol 198 mg/dL (<200); Estimated Glomerular Filt Rate > 60; Glucose Random 104 mg/dL (60-115); HDL Cholesterol 48 mg/dL (>40); LDL Cholesterol Calculated 104 mg/dL (<100); Magnesium 1.9 mg/dL (1.6-2.6); Potassium 4.6 mmol/L (3.3-5.1); Sodium 142 mmol/L (135-145); Total Protein 7.6 g/dL (6.5-8.0); Triglycerides 230 mg/dL (<150)
[2023-11-11 10:55] LABS: B Type Natriuretic Peptide 26 pg/mL (<100)
[2023-11-11 11:06] LABS: Free T4 (Free Thyroxine) 1.03 ng/dL (0.71-1.85); Thyroid Stimulating Hormone 0.91 uIU/mL (0.32-4.0); Vitamin D 25-OH Total 55.8 ng/mL (>30)
[2023-11-11 11:22] LABS: Folate 6.7 ng/mL (> or = 4.0); Vitamin B12 482 pg/mL (200-900)
== END 2023-11-11 09:12 | disposition home or self-care (01) ==
LOC: HO.10HDL 09:11
PROVIDERS: Visit Provider Internal Medicine
DX: E78.00 Pure hypercholesterolemia, unspecified (principal); I48.0 Paroxysmal atrial fibrillation
CPT/HCPCS: 36415; 80053; 80061; 81001; 82306; 82607; 82746; 83735; 83880; 84439; 84443; 85025

== ENCOUNTER 2024-01-05 14:56 | Outpatient (AMB) | payer OTHER, SELFPAY ==
[2024-01-05 15:22] VITALS: BP 128/78; PULSE 68; BMI 46.3
--- NOTE | 2024-01-05 15:22 | A.OFFVIS_ITS ---
Vital Signs 01/05/24 15:22 Height 5 ft 1 in Weight 245 lb BMI 46.3 BP 128/78 Blood Pressure Location Lt brachial Position Sitting Pulse 68 Pulse Source Pulse Oximeter Intake Visit Reasons: follow up w device ck per HS Allergies amlodipine Allergy (Severe, Verified 10/09/23 15:48) Anxiety meperidine [From DEMEROL] Allergy (Intermediate, Verified 10/09/23 15:48) MIGRAINE codeine [CODEINE] Allergy (Unknown, Verified 10/09/23 15:48) UNKNOWN Medication List - Last Reconciled 01/05/24 by Levy Pennington MD apixaban (Eliquis) 5 mg PO BID 90 days ascorbate calcium (vitamin C) 1,000 mg PO DAILY cholecalciferol (vitamin D3) 25 mcg PO DAILY diazepam 5 mg PO BEDTIME PRN whit root extract 50 mg PO DAILY lisinopril 10 mg PO DAILY metformin 500 mg PO BID metoprolol tartrate 25 mg PO BID nystatin 1 appl topical DAILY 30 days omega [id number]-fish oil 300-1,000 mg (Fish Oil) 1 cap PO DAILY pantoprazole 40 mg PO DAILY@0630 [shower chair no back and arms As directed] simvastatin 10 mg PO BEDTIME 90 days HPI Comments Details: Tahira returns for follow-up for various issues. To recall, she has a history of transient atrial fibrillation/NSVT many years ago. Due to history of syncope, she had implantable loop recorder which showed a lot of nighttime pauses and she was monitored. She was maintained on a very small dose of beta-blockers. Then there was another hospitalization when it seems that she has had 2-1 heart block at that point, she was transferred to [facility] underwent permanent pacemaker. Overall, she states she is feeling good. No specific concerns. Mild itching at the pacemaker site but otherwise okay. [facility] Medical History (Updated 10/31/23 @ 09:32 by Matias Sullivan MD) Tinea pedis Colon cancer screening Palpitations Sinus bradycardia COVID-19 virus infection Anemia Impaired glucose tolerance Bradycardia NSVT (nonsustained ventricular tachycardia) Neck pain Vertigo Paroxysmal atrial fibrillation Spinal stenosis Lumbar degenerative disc disease Anxiety and depression Hypertension Obesity Obstructive sleep apnea GERD (gastroesophageal reflux disease) Hypercholesterolemia Surgical History History of loop recorder S/P arteriovenous (AV) fistula repair History of cholecystectomy S/P diskectomy Family History Father Lung cancer Mother Medical history unknown Sister Myocardial infarction Brother Hepatitis C Paternal Grandmother Ovarian cancer Paternal Uncle Brain cancer Sister No problems noted. Sister No problems noted. Brother No problems noted. Brother No problems noted. Brother No problems noted. Daughter No problems noted. Daughter No problems noted. 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 Current occupational exposures/hazards: No Cognitive needs: No Hearing needs: No Vision needs: Yes (Glasses) Review of Systems Const Denies weakness ENT Denies dizziness Card Denies chest pain, Denies chest pain with activity, Denies syncope, Denies rapid heart rate, Denies pedal edema, Denies edema, Denies leg edema, Denies lightheadedness, Denies palpitations, Denies dyspnea, Denies dyspnea on exertion and Denies orthopnea Resp Denies cough, Denies dyspnea and Denies dyspnea on exertion GI Denies hematochezia and Denies change in stool character Musc Denies abnormal gait, Denies muscle cramps, Denies muscle weakness, Denies numbness, Denies radiating pain into limb and Denies tingling Neuro Denies abnormal gait, Denies dizziness, Denies syncope, Denies numbness, Denies tingling and Denies weakness Endo Denies palpitations Physical Exam Vital Signs: Last Vital Signs Pulse 68 01/05/24 15:22 BP 128/78 01/05/24 15:22 BMI result Body Mass Index 46.3 Const General: comfortable and no acute distress Orientation/consciousness: patient oriented x3 HEENT Other: Unremarkable Head: Yes normal to inspection Neck Neck: Yes normal visual inspection Chest Chest palpation & inspection: normal inspection of the chest Resp Auscultation: clear to auscultation bilaterally Cardio Palpation: normal PMI Heart sounds: S1 normal heart sound present, S2 normal heart sound present, no gallops, no murmurs and no rubs GI Palpation (GI): Soft to palpation Back/Spine/Pelvis Other: unremarkable Skin General skin exam: no rashes or lesions noted Neuro General: patient oriented x3 Extrem General: Yes normal to inspection Psych Mental Status: mental status grossly normal Office Procedures Cardiac Device Check Cardiac Device Check Details: Pacemaker interrogated today. Dual-chamber device, programmed AAI-DDD mode. Battery status 9.9 years. Normal lead parameters. No arrhythmias. Atrial pacing 21.6%. Ventricular pacing 54.6%. Overall, normal device function. [id number] Cardiac Device Check, pacemaker dual lead Procedure code (CPT) selection complete Assessment & Plan Assessment & Plan (1) Paroxysmal atrial fibrillation: Code(s): I48.0 - Paroxysmal atrial fibrillation Category: Medical (2) Sinus pause: Code(s): I45.5 - Other specified heart block Category: Medical (3) LBBB (left bundle branch block): Code(s): I44.7 - Left bundle-branch block, unspecified Category: Medical (4) Mobitz (type) II atrioventricular block: Code(s): I44.1 - Atrioventricular block, second degree Category: Medical (5) Obstructive sleep apnea: Comment: On CPAP at [id number] Code(s): G47.33 - Obstructive sleep apnea (adult) (pediatric) Category: Medical (6) Morbid obesity: Code(s): E66.01 - Morbid (severe) obesity due to excess calories Category: Medical Plan Essentially, morbid obesity, obstructive sleep apnea, paroxysmal atrial fibrillation with conduction system disease, now status post pacemaker implantation and ILR explantation. Normally functioning pacemaker on evaluation. Last echocardiogram with LVEF of 55-60%, mildly dilated left atrium but otherwise unremarkable. With regard to the atrial fibrillation history, she remains on beta-blockers and Eliquis. May continue that. Otherwise, continue CPAP. If she can lose weight as much able, that will certainly help her cardiometabolic profile. Follow-up in 6 months. Coding Level of Care Code Est Pt Level 4 (40540) Diagnoses Paroxysmal atrial fibrillation I48.0 Sinus pause I45.5 LBBB (left bundle branch block) I44.7 Mobitz (type) II atrioventricular block I44.1 Obstructive sleep apnea G47.33 Morbid obesity E66.01 CPT Codes Cardiac Device Check - Cardiac Device 2: [id number] Cardiac Device Check, pacemaker dual lead ([id number])
== END 2024-01-05 15:48 | disposition home or self-care (01) ==
PROVIDERS: PCP Internal Medicine; Visit Provider Internal Medicine
DX: I48.0 Paroxysmal atrial fibrillation (principal); I45.5 Other specified heart block; I44.7 Left bundle-branch block, unspecified; I44.1 Atrioventricular block, second degree; G47.33 Obstructive sleep apnea (adult) (pediatric); E66.01 Morbid (severe) obesity due to excess calories
CPT/HCPCS: 93280; 99214

== ENCOUNTER → 2024-01-05 14:56 | Outpatient (BNVA) | payer OTHER, SELFPAY | PROVIDERS: PCP Internal Medicine; Visit Provider Internal Medicine | DX: Z45.018 Encounter for adjustment and management of other part of cardiac pacemaker (principal); I48.0 Paroxysmal atrial fibrillation; I45.5 Other specified heart block; I44.7 Left bundle-branch block, unspecified; I44.1 Atrioventricular block, second degree; G47.33 Obstructive sleep apnea (adult) (pediatric); E66.01 Morbid (severe) obesity due to excess calories; Z68.42 Body mass index [BMI] 45.0-49.9, adult | CPT/HCPCS: 93280; 99212 ==

== ENCOUNTER 2024-01-26 14:25 | Outpatient (REF) | payer OTHER, SELFPAY ==
--- NOTE | ~2024-01-26 | XR_ITS ---
EXAMINATION: XR HIP, RIGHT CLINICAL INFORMATION: M25.551 - Pain in right hip COMPARISON: 09/09/2016. TECHNIQUE: Two views of the right hip. FINDINGS: Study is limited by patient habitus. Normal bone mineralization. No fracture, dislocation, or suspicious bone lesion. Normal alignment of the hip joints. Normal joint spaces. No significant hip joint arthritic changes noted. Mild arthritic changes noted in the SI joints and lower lumbar spine. Soft tissues demonstrate popcorn type calcifications in the pelvis consistent with degenerated fibroids of the uterus. XR/XR hip RT min 2V IMPRESSION: 1. Normal radiographs bilateral hips. 2. 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 Electronically signed by: All Masters MD 04/04/2024 03:22 PM GM FITZPATRICK
== END 2024-01-26 14:26 | disposition home or self-care (01) ==
LOC: HO.HOSX 14:25
PROVIDERS: Visit Provider Physician Assistant
DX: M25.551 Pain in right hip (principal); M70.61 Trochanteric bursitis, right hip; M70.62 Trochanteric bursitis, left hip
CPT/HCPCS: 73502; 99212

== ENCOUNTER 2024-01-26 14:51 | Outpatient (AMB) | payer OTHER, SELFPAY ==
--- NOTE | 2024-01-26 15:02 | MHC.OFFVIS ---
Intake Visit Reasons: New Prob - B/L hip pain Intake Note: Tahira is a 58 year old female who presents today for a evaluation of her bilateral hip pain. Patient reports off and on pain for a couple years. She states her pain comes when she is outside walking. Her pain is worse on the right hip than the left. Patient has tried and failed 3 + months of Tylenol. She mentions that her hip feels tight when she is walking. Her pain stays around the glutes and radiates up to her lower back. Allergies amlodipine Allergy (Severe, Verified 01/26/24 15:07) Anxiety meperidine [From DEMEROL] Allergy (Intermediate, Verified 01/26/24 15:07) MIGRAINE codeine [CODEINE] Allergy (Unknown, Verified 01/26/24 15:07) UNKNOWN HPI HPI New Prob - B/L hip pain: Details: 58-year-old female who presents to the office today for an evaluation of bilateral hip pain for about 2 years. She states she has intermittent pain around the glute and lower back areas of her bilateral hips that is worse on her right hip. She reports her pain comes with walking outside and she also experiences tightness with ambulation. She denies any pain with sitting. She has tried 3+ months of Tylenol without relief. [facility] Medical History (Updated 01/26/24 @ 15:20 by Orquidea Olsen PA-C) Tinea pedis Colon cancer screening Palpitations Sinus bradycardia COVID-19 virus infection Anemia Impaired glucose tolerance Bradycardia NSVT (nonsustained ventricular tachycardia) Neck pain Vertigo Paroxysmal atrial fibrillation Spinal stenosis Lumbar degenerative disc disease Anxiety and depression Hypertension Obesity Obstructive sleep apnea GERD (gastroesophageal reflux disease) Hypercholesterolemia Surgical History History of loop recorder S/P arteriovenous (AV) fistula repair History of cholecystectomy S/P diskectomy Family History Father Lung cancer Mother Medical history unknown Sister Myocardial infarction Brother Hepatitis C Paternal Grandmother Ovarian cancer Paternal Uncle Brain cancer Sister No problems noted. Sister No problems noted. Brother No problems noted. Brother No problems noted. Brother No problems noted. Daughter No problems noted. Daughter No problems noted. 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 No pain with ROM of the hip. Pain along the greater trochanter. No pain with hip flexion or abduction. Negative tenderness along the SI joint, Negative SLR. NVI. Results Reviewed Results Reviewed: Xrays were obtained in the office today and personally reviewed by me of the right hip show moderate oa Assessment & Plan Assessment & Plan (1) Greater trochanteric bursitis of both hips: Code(s): M70.61 - Trochanteric bursitis, right hip; M70.62 - Trochanteric bursitis, left hip Category: Medical Plan We discussed options which include PT, NSAIDs and injections. The patient will defer on the injection today and proceed with PT and NSAIDs. If symptoms persist, she will contact me for an injection, otherwise, PRN. Orders: Orders XR hip RT min 2V Today M25.551 - Pain in right hip PT Evaluation and Treatment Today M70.61 - Trochanteric bursitis, right hip, M70.62 - Trochanteric bursitis, left hip Medications: New celecoxib (Celebrex) 200 mg PO BID 60 caps 3RF 30 days Patient Instructions: Scribed for Orquidea Olsen PA-C, by Stan Dumont medical communication specialist, on 01/26/2024 at 3:00 PM EST.? I, Orquidea Olsen PA-C, have personally reviewed and agree with the information entered by the scribe. Coding Level of Care Code New Pt Level 3 (58343) Complex EM visit Add On G2211 Diagnoses Greater trochanteric bursitis of both hips M70.61; M70.62
== END 2024-01-26 15:31 | disposition home or self-care (01) ==
PROVIDERS: PCP Internal Medicine; Visit Provider Physician Assistant
DX: M70.61 Trochanteric bursitis, right hip (principal); M70.62 Trochanteric bursitis, left hip
CPT/HCPCS: 99213; G2211

== ENCOUNTER → 2024-01-26 14:53 | Outpatient (BNV) | payer OTHER, SELFPAY | PROVIDERS: Visit Provider Radiology Diagnostic Radiology | DX: M25.551 Pain in right hip (principal) | CPT/HCPCS: 73502 ==

== ENCOUNTER → 2024-02-02 23:59 | Outpatient (BNV) | payer OTHER, SELFPAY ==
--- NOTE | 2024-02-03 15:18 | A.OFFVIS_ITS ---
Intake Visit Reasons: Remote Device Check- Medtronic Allergies amlodipine Allergy (Severe, Verified 01/26/24 15:07) Anxiety meperidine [From DEMEROL] Allergy (Intermediate, Verified 01/26/24 15:07) MIGRAINE codeine [CODEINE] Allergy (Unknown, Verified 01/26/24 15:07) UNKNOWN [facility] Medical History (Updated 02/03/24 @ 15:20 by Levy Pennington MD) Tinea pedis Colon cancer screening Palpitations Sinus bradycardia COVID-19 virus infection Anemia Impaired glucose tolerance Bradycardia NSVT (nonsustained ventricular tachycardia) Neck pain Vertigo Paroxysmal atrial fibrillation Spinal stenosis Lumbar degenerative disc disease Anxiety and depression Hypertension Obesity Obstructive sleep apnea GERD (gastroesophageal reflux disease) Hypercholesterolemia Surgical History History of loop recorder S/P arteriovenous (AV) fistula repair History of cholecystectomy S/P diskectomy Family History Father Lung cancer Mother Medical history unknown Sister Myocardial infarction Brother Hepatitis C Paternal Grandmother Ovarian cancer Paternal Uncle Brain cancer Sister No problems noted. Sister No problems noted. Brother No problems noted. Brother No problems noted. Brother No problems noted. Daughter No problems noted. Daughter No problems noted. 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 Overall normal device function. [id number] Cardiac Device Interrogation, pacemaker Procedure code (CPT) selection complete Assessment & Plan Assessment & Plan (1) Pacemaker: Code(s): Z95.0 - Presence of cardiac pacemaker Category: Medical (2) Paroxysmal atrial fibrillation: Code(s): I48.0 - Paroxysmal atrial fibrillation Category: Medical (3) Bradycardia: Code(s): R00.1 - Bradycardia, unspecified Category: Medical Plan x Coding Level of Care Code Procedure Only Diagnoses Pacemaker Z95.0 Paroxysmal atrial fibrillation I48.0 Bradycardia R00.1 CPT Codes Cardiac Device Check - Cardiac Device 12: [id number] Cardiac Device Interrogation, pacemaker ([id number])
== END ==
PROVIDERS: PCP Internal Medicine; Visit Provider Internal Medicine
DX: I48.0 Paroxysmal atrial fibrillation (principal); Z95.0 Presence of cardiac pacemaker
CPT/HCPCS: 93294

== ENCOUNTER 2024-03-04 13:46 | Outpatient (AMB) | payer OTHER, SELFPAY ==
[2024-03-04 13:48] VITALS: BP 130/76; PULSE 69; O2SAT 95; BMI 44.8
--- NOTE | 2024-03-04 13:48 | MHC.PC.OV ---
Vital Signs 03/04/24 13:48 Height 5 ft 1 in Weight 237 lb 0.2 oz BMI 44.8 BP 130/76 Blood Pressure Location Lt brachial Position Sitting Pulse 69 Pulse Source Pulse Oximeter Pulse Oximetry (%) 95 Oxygen Delivery Method Room Air Intake Visit Reasons: PE Intake Note: Patient is here today for a physical. 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 Allergies amlodipine Allergy (Severe, Verified 03/04/24 13:49) Anxiety meperidine [From DEMEROL] Allergy (Intermediate, Verified 03/04/24 13:49) MIGRAINE codeine [CODEINE] Allergy (Unknown, Verified 03/04/24 13:49) UNKNOWN Medication List - Last Reconciled 03/04/24 by Matias Sullivan MD apixaban (Eliquis) 5 mg PO BID 90 days ascorbate calcium (vitamin C) 1,000 mg PO DAILY cholecalciferol (vitamin D3) 25 mcg PO DAILY diazepam 5 mg PO BEDTIME PRN lisinopril 10 mg PO DAILY metformin 500 mg PO BID metoprolol tartrate 25 mg PO BID nystatin 1 appl topical DAILY 30 days omega 7-zyk-tcl-fish oil 300-1,000 mg (Fish Oil) 1 cap PO DAILY pantoprazole 40 mg PO DAILY@0630 [shower chair no back and arms As directed] simvastatin 10 mg PO BEDTIME 90 days Tobacco use date assessed: 03/04/24 Dental Screening Dental Screen Date: 03/04/24 Did you have a dental visit in the last 12 months?: Yes Did you have a dental problem in the last 6 months where you did not have access to dental care?: No Was dental information given to patient?: Patient has dentist HPI PE HPI Details 59-year-old morbidly obese female with diabetes mellitus controlled obstructive sleep apnea GERD atrial fibrillation hypercholesterolemia and a Mobitz type 2 av block with a pacemaker coming in for physical exam last seen in 11/15/2023. Patient's mammogram is due Enma is up-to-date.. Review of the notes him bilateral hip pain seen by ortho in January 25 diagnosis of trochanteric bursitis and advised physical therapy deferred injections.. Patient had a follow-up with cardiology January 04 and has had device checking periodically. Last echocardiogram 55-60% ejection fraction mildly dilated left atrium. On anticoagulation and beta blockers for the atrial fibrillation obstructive sleep apnea continue with CPAP. PENDING SALE TO [facility] Medical History (Updated 03/04/24 @ 14:51 by Matias Sullivan MD) Tinea pedis Colon cancer screening Palpitations Sinus bradycardia COVID-19 virus infection Anemia Impaired glucose tolerance Bradycardia NSVT (nonsustained ventricular tachycardia) Neck pain Vertigo Paroxysmal atrial fibrillation Spinal stenosis Lumbar degenerative disc disease Anxiety and depression Hypertension Obesity Obstructive sleep apnea GERD (gastroesophageal reflux disease) Hypercholesterolemia Surgical History History of loop recorder S/P arteriovenous (AV) fistula repair History of cholecystectomy S/P diskectomy Family History Father Lung cancer Mother Medical history unknown Sister Myocardial infarction Brother Hepatitis C Paternal Grandmother Ovarian cancer Paternal Uncle Brain cancer Sister No problems noted. Sister No problems noted. Brother No problems noted. Brother No problems noted. Brother No problems noted. Daughter No problems noted. Daughter No problems noted. 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 1. Little interest or pleasure in doing things: not at all 2. Feeling down, depressed, or hopeless: not at all 3. Trouble falling or staying asleep, or sleeping too much: not at all 4. Feeling tired or having little energy: not at all 5. Poor appetite or overeating: not at all 6. Feeling bad about yourself - or that you are a failure or have let yourself or your family down: not at all 7. Trouble concentrating on things, such as reading the newspaper or watching television: not at all 8. Moving or speaking so slowly that other people could have noticed. Or the opposite - being so fidgety or restless that you have been moving around a lot more than usual: not at all 9. Thoughts that you would be better off or of hurting yourself in some way: not at all Total score: 0 Depression Screening Interpretation: Negative Depression Screening Done: Yes 62132 - PHQ-9 Billing: Yes Source: Developed by Drs. Chepe Leon, Bharati Palacio, Juan Anderson and colleagues, with an educational briana from [employer]. Thrive Questionnaire Date Thrive assessed: 02/26/24 I am a: Patient What is your living situation today?: I have a steady place to live Within the past 12 months, did the food you bought not last and you didn't have the money to get more?: I choose not to answer this question Within the past 12 months, did you worry whether your food would run out before you got money to buy more?: I choose not to answer this question Do you have trouble paying for medicines?: I choose not to answer this question Do you have trouble getting transportation to medical appointments?: I choose not to answer this question Do you have trouble paying your heating and electricity bill?: I choose not to answer this question Do you have trouble taking care of your child, family member or friend?: I choose not to answer this question Do you have trouble with day-to-day activities such as bathing, preparing meals, shopping, managing finances, etc.?: I choose not to answer this question Are you currently unemployed and looking for a job?: No Are you interested in more education?: I choose not to answer this question Please select the resources that you would like help with: None Currently or been in a relationship where the following occur: I choose not to answer THRIVE Score: 0 AUDIT C Alcohol Use Questionnaire (AUDIT-C) 1. How often do you have a drink containing alcohol?: Never 2. How many drinks containing alcohol do you have on a typical day when you are drinking?: 1 or 2 3. How often do you have six or more drinks on one occasion?: Never Total Score: 0 JORGE ALBERTO-7 AMB Questionnaire JORGE ALBERTO-7 Date JORGE ALBERTO - 7 assessed: 03/04/24 Feeling nervous, anxious, or on edge: 0 = Not at all Not being able to stop or control worryin = Not at all Worrying too much about different things: 0 = Not at all Trouble relaxin = Not at all Being so restless that it is hard to sit still: 0 = Not at all Becoming easily annoyed or irritable: 0 = Not at all Feeling afraid as if something awful might happen: 0 = Not at all Total JORGE ALBERTO-7 score (0-4 normal; 5-9 mild; 10-14 moderate; 15-21 severe): 0 Source: Developed by Drs. Chepe Leon, Bharati Palacio, Juan Anderson and colleagues, with an educational briana from [employer]. Review of Systems Const Denies poor appetite and Denies weakness Eyes Denies no additional complaints ENT Reports Normal hearing present, Denies dizziness, Denies nasal congestion, Denies tinnitus and Denies sore throat Card Denies chest pain, Denies syncope, Denies rapid heart rate and Denies dyspnea Resp Denies cough and Denies dyspnea GI Denies change in stool character, Reports constipation, Denies diarrhea, Denies nausea and Denies vomiting Denies urinary frequency, Denies difficulty voiding and Denies dysuria Neuro Reports Normal hearing present, Denies confusion, Denies dizziness, Denies syncope and Denies weakness Psych Denies confusion Physical exam (Primary Care) Vital Signs: Last Vital Signs Pulse 69 03/04/24 13:48 BP 130/76 03/04/24 13:48 Pulse Ox 95 03/04/24 13:48 Oxygen Delivery Method Room Air 03/04/24 13:48 BMI result Body Mass Index 44.8 Tobacco/Smoking Status: Tobacco use Status Tobacco use date assessed 03/04/24 03/04/24 13:56 Patient Tobacco Use Status Never used Tobacco 03/04/24 13:49 e-Cigarette/Vaping Use Never Used 03/04/24 13:49 PHQ-9: PHQ-9 Score PHQ-9: Total score 0 03/04/24 14:44 Depression Screening Interpretation: Negative Thrive Assessment: Date of Thrive Assessment Date Thrive assessed 02/26/24 03/04/24 13:49 Currently or been in a relationship where the following occur: I choose not to answer Const General: No confusion Orientation/consciousness: No confusion HENMT Head: Yes normocephalic Ears: external ears normal and TM's normal bilaterally Face and sinus: Yes normal facial exam Mouth: moist mucous membranes Throat: Yes tonsils normal Eyes Conjunctivae: conjunctivae normal Pupils: Equal, round and reactive pupils present and Pupil accommodation reflex normal Direct Ophthalmoscopy: normal light reflex Neck Neck: No lymphadenopathy Thyroid: Thyroid normal Chest Chest palpation & inspection: normal inspection of the chest Resp Effort & Inspection: normal respiratory effort and no audible wheezes Auscultation: clear to auscultation bilaterally, no crackles, no wheezes and lung sounds not diminished Cardio Rate: regular rate Rhythm: regular rhythm Peripheral pulses: radial pulses present and dorsalis pedis present GI Other: guaiac negative Palpation (GI): no masses Auscultation: normal bowel sounds and normoactive bowel sounds Skin General skin exam: no rashes or lesions noted Rashes: no rashes Neuro General: No confusion Cranial nerves: Yes Equal, round and reactive pupils present and Yes Normal hearing present Cognition (Neuro): normal cognition Gait exam (Neuro): Normal gait present Motor exam (neuro): 5/5 motor strength present throughout Deep tendon reflexes (DTR's): Right brachioradialis reflex intensity grade: 2+, Left brachioradialis reflex intensity grade: 2+, Right patellar reflex intensity grade: 2+ and Left patellar reflex intensity grade: 2+ Extrem General: No edema Results AMB Hemoglobin A1c AMB Hemoglobin A1c 6.1 % Last Edit by ROSIE Brian on 03/04/24 14:01 AMB Urinalysis, Automated UA Leukoctes 0 Felipe/uL Last Edit by ROSIE Brian on 03/04/24 14:46 UA Nitrite Negative Last Edit by ROSIE Brian on 03/04/24 14:46 UA Urobilinogen 0.2 mg/dL Last Edit by ROSIE Brian on 03/04/24 14:46 UA Protein 30 mg/dL Last Edit by ROSIE Brian on 03/04/24 14:46 UA pH 6.0 Last Edit by ROSIE Brian on 03/04/24 14:46 UA Blood 1 Patrice/uL Last Edit by ROSIE Brian on 03/04/24 14:46 UA Specific [place] 1.030 Last Edit by ROSIE Brian on 03/04/24 14:46 UA Ketone Negative Last Edit by ROSIE Brian on 03/04/24 14:46 UA Bilirubin 0 mg/dL Last Edit by ROSIE Brian on 03/04/24 14:46 UA Glucose 0 mg/dL Last Edit by ROSIE Brian on 03/04/24 14:46 Results Reviewed Results Reviewed: Laboratory Last Values Hgb A1c (Clinic) 6.1 % (4.0-6.0) H 03/04/24 14:00 Urine pH (Auto) 6.0 03/04/24 14:44 Specific [place] (Auto) 1.030 03/04/24 14:44 Urine Protein (Auto) 30 mg/dL 03/04/24 14:44 Glucose (UA)(Auto) 0 mg/dL 03/04/24 14:44 Urine Ketones (Auto) Negative 03/04/24 14:44 Urine Blood (Auto) 1 Patrice/uL 03/04/24 14:44 Urine Nitrite (Auto) Negative 03/04/24 14:44 Urine Bilirubin (Auto) 0 mg/dL 03/04/24 14:44 Urine Urobilinogen (Auto) 0.2 mg/dL 03/04/24 14:44 Leukocyte Esterase (Auto) 0 Felipe/uL 03/04/24 14:44 Coding Level of Care Code Est Pt Prev Care 40-64y(58421) Diagnoses Annual physical exam Z00.00 Type 2 diabetes mellitus with hyperglycemia, without long-term current use of insulin E11.65 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 use Hypercholesterolemia E78.00 Paroxysmal atrial fibrillation I48.0 Gastroesophageal reflux disease without esophagitis K21.9 Esophagitis presence: without esophagitis Obstructive sleep apnea G47.33 Morbid obesity E66.01 Generalized anxiety disorder F41.1 Mobitz (type) II atrioventricular block I44.1 Greater trochanteric bursitis of both hips M70.61; M70.62 Additional Codes PHQ-9 - 90123 - PHQ-9 Billing: Yes ([id number]) Assessment & Plan Assessment & Plan (1) Annual physical exam: Code(s): Z00.00 - Encounter for general adult medical examination without abnormal findings Category: Medical Plan: Patient is advised to eat healthy, keep well hydrated, keep active and have adequate sleep. 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 Hemoglobin A1c goal of less than 6.5. Patient is on metformin 500 mg twice a day (3) Hypercholesterolemia: Code(s): E78.00 - Pure hypercholesterolemia, unspecified Category: Medical Plan: Avoid fried foods, chicken skin, eggs, butter margarine, pastries and meat. Be it pork or beef they have a lot of cholesterol LDL goal of less than 100 and triglyceride of less than 150 on simvastatin 10 mg at bedtime (4) Paroxysmal atrial fibrillation: Code(s): I48.0 - Paroxysmal atrial fibrillation Category: Medical Plan: Continue to follow up with Cardiology on anticoagulation with Eliquis twice a day year of blood work and on metoprolol 25 mg twice a day (5) GERD (gastroesophageal reflux disease): Code(s): K21.9 - Gastro-esophageal reflux disease without esophagitis Category: Medical Qualifiers: Esophagitis presence: without esophagitis Qualified Code(s): K21.9 - Gastro-esophageal reflux disease without esophagitis Plan: Avoid the foods that causes that usually spicy foods, tomato products, juices, coffee, soda and foods that your sensitive to. After eating do not lie down, allow 3-4 hours before in lie down. And keep the head of bed above 30 degrees to avoid the acid from going up. (6) Obstructive sleep apnea: Comment: On CPAP at 45bzA2C Code(s): G47.33 - Obstructive sleep apnea (adult) (pediatric) Category: Medical Plan: Continue to use the CPAP more than 4 hours a night and benefits from this. (7) Morbid obesity: Code(s): E66.01 - Morbid (severe) obesity due to excess calories Category: Medical Plan: Diet and exercise (8) Generalized anxiety disorder: Code(s): F41.1 - Generalized anxiety disorder Category: Medical Plan: Continue with therapy. (9) Mobitz (type) II atrioventricular block: Code(s): I44.1 - Atrioventricular block, second degree Category: Medical Plan: Patient has a pacemaker and follows up with Cardiology with device check. (10) Greater trochanteric bursitis of both hips: Code(s): M70.61 - Trochanteric bursitis, right hip; M70.62 - Trochanteric bursitis, left hip Category: Medical Plan: Patient has seen Orthopedics and discussed about physical therapy Orders: Orders Hemoglobin A1c 3 Months E11.65 - Type 2 diabetes mellitus with hyperglycemia Complete Blood Count Auto Diff 3 Months E11.65 - Type 2 diabetes mellitus with hyperglycemia AMB Urinalysis Automated Today E11.65 - Type 2 diabetes mellitus with hyperglycemia, Z13.9 - Encounter for screening, unspecified XR KUB Today R31.9 - Hematuria, unspecified AMB Hemoglobin A1c Today E11.65 - Type 2 diabetes mellitus with hyperglycemia Comprehensive Met. Panel 3 Months E11.65 - Type 2 diabetes mellitus with hyperglycemia Thyroid Stimulating Hormone 3 Months E11.65 - Type 2 diabetes mellitus with hyperglycemia Lipid Panel 3 Months E11.65 - Type 2 diabetes mellitus with hyperglycemia, E78.00 - Pure hypercholesterolemia, unspecified Free T4 (Free Thyroxine) 3 Months E11.65 - Type 2 diabetes mellitus with hyperglycemia Medications: New losartan 25 mg PO DAILY 30 tabs 4RF E11.65 - Type 2 diabetes mellitus with hyperglycemia Discontinued lisinopril Discontinued Reason: Change Referral Type 10 mg PO DAILY 90 tabs 3RF
== END 2024-03-04 14:46 | disposition home or self-care (01) ==
LOC: HO.HMCH 13:47
PROVIDERS: PCP Internal Medicine; Visit Provider Internal Medicine
DX: Z00.00 Encounter for general adult medical examination without abnormal findings (principal); E11.65 Type 2 diabetes mellitus with hyperglycemia; E66.01 Morbid (severe) obesity due to excess calories; Z68.41 Body mass index [BMI] 40.0-44.9, adult; I48.0 Paroxysmal atrial fibrillation; E78.00 Pure hypercholesterolemia, unspecified; G47.33 Obstructive sleep apnea (adult) (pediatric); K21.9 Gastro-esophageal reflux disease without esophagitis; F41.1 Generalized anxiety disorder; I44.1 Atrioventricular block, second degree; M70.61 Trochanteric bursitis, right hip; M70.62 Trochanteric bursitis, left hip

== ENCOUNTER → 2024-03-04 13:46 | Outpatient (BNVA) | payer OTHER, SELFPAY | PROVIDERS: PCP Internal Medicine; Visit Provider Internal Medicine | DX: Z00.00 Encounter for general adult medical examination without abnormal findings (principal); E11.65 Type 2 diabetes mellitus with hyperglycemia; E78.00 Pure hypercholesterolemia, unspecified; I48.0 Paroxysmal atrial fibrillation; K21.9 Gastro-esophageal reflux disease without esophagitis; G47.33 Obstructive sleep apnea (adult) (pediatric); F41.1 Generalized anxiety disorder; I44.1 Atrioventricular block, second degree; E66.01 Morbid (severe) obesity due to excess calories; Z68.42 Body mass index [BMI] 45.0-49.9, adult; Z71.3 Dietary counseling and surveillance; M70.61 Trochanteric bursitis, right hip; M70.62 Trochanteric bursitis, left hip | CPT/HCPCS: 81003; 83036; 96127; 99396 ==

== ENCOUNTER 2024-03-08 09:00 | Outpatient (RCR) | payer OTHER, SELFPAY ==
--- NOTE | 2024-02-19 15:03 | MHC.PT.EP ---
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 SHE HAS AN IMPLANTED PACEMAKER SINCE SEPTEMBER 2023 AND SHE IS ON ELIQUIS FOR ATRIAL FIB. OBJECTIVE FINDINGS: LIMITED TRUNK AND HIP AROM/ DECR LEs FLEXIB; DECR POSTURAL AWARENESS AND ALTERED BODY MECH, (-) MOTOR DEFICITS, DECR CORE STAB, AND FLUCTUATING LBP . FUNCTIONALLY, THE Pt IS LIMITED W PROLONGED SITTING, WALKING, EXERCISING - SHE CURRENTLY HAS DECR HER EXERCISE LEVEL DUE TO HER PAIN. SHE IS A GOOD PT CANDIDATE AND WOULD BENEFIT FROM PT TO ADDRESS THE ABOVE FINDINGS AND ASSIST THE Pt WITH PAIN MGMT, ALLOWING RETURN TO REG ADLs/ FITNESS. Frequency and Duration: The patient will be seen 2x WK x 5 WKS Short Term Goals: *DECR LBP TO 2-3/10 *INITIATE HEP FOR HIP / LEs FLEXIB AND LUMBOPELVIC STAB *Pt INDEP SELF CORRECT POSTURE AND BODY MECH W ADLs/ WORK TASKS *INITIATE HEP Account Executive Sales Representative Goals: *Pt INDEP HEP AND SELF SX MGMT TECHN *Pt RESUME FITNESS / REG ADLs EVIDENT W IMPROVED OSWESTRY SCORE ( AT EVAL 59/80) Treatment Plan: Modalities to reduce pain, spasms and effusion. Manual therapy to restore motion and function. Therapeutic exercise to improve strength and flexibility. Neuromuscular re-education for posture and balance. Therapeutic activities to return to functional activities of daily living. Electronically signed by: HIMANSHU VALENCIA,PT Please sign and return to therapist. Thank you for your referral.
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
== END 2024-04-08 14:19 | disposition home or self-care (01) ==
LOC: HO.PT 09:00
PROVIDERS: PCP Internal Medicine; Visit Provider Physician Assistant
DX: M70.61 Trochanteric bursitis, right hip (principal); M70.62 Trochanteric bursitis, left hip
CPT/HCPCS: 97035; 97110; 97140; 97162

== ENCOUNTER 2024-04-06 08:14 | Outpatient (REF) | payer OTHER, SELFPAY | END 2024-04-06 08:15 | disposition home or self-care (01) | LOC: HO.MAMMO 08:14 | PROVIDERS: PCP Internal Medicine; Visit Provider Internal Medicine | DX: Z12.31 Encounter for screening mammogram for malignant neoplasm of breast (principal) | CPT/HCPCS: 77063; 77067 ==

== ENCOUNTER → 2024-04-06 08:15 | Outpatient (BNV) | payer OTHER, SELFPAY | PROVIDERS: PCP Internal Medicine; Visit Provider Internal Medicine | DX: Z12.31 Encounter for screening mammogram for malignant neoplasm of breast (principal) | CPT/HCPCS: 77063; 77067 ==

== ENCOUNTER → 2024-05-02 23:59 | Outpatient (BNV) | payer OTHER, SELFPAY ==
--- NOTE | 2024-05-09 14:59 | MHC.OFFVIS ---
Intake Visit Reasons: Remote Device Check- [employer] Allergies amlodipine Allergy (Severe, Verified 05/06/24 15:52) Anxiety meperidine [From DEMEROL] Allergy (Intermediate, Verified 05/06/24 15:52) MIGRAINE codeine [CODEINE] Allergy (Unknown, Verified 05/06/24 15:52) UNKNOWN COUNT INCLUDES THE [facility] Medical History Hx of cardiac pacemaker Tinea pedis Colon cancer screening Palpitations Sinus bradycardia COVID-19 virus infection Anemia Impaired glucose tolerance Bradycardia NSVT (nonsustained ventricular tachycardia) Neck pain Vertigo Paroxysmal atrial fibrillation Spinal stenosis Lumbar degenerative disc disease Anxiety and depression Hypertension Obesity Obstructive sleep apnea GERD (gastroesophageal reflux disease) Hypercholesterolemia Surgical History History of loop recorder S/P arteriovenous (AV) fistula repair History of cholecystectomy S/P diskectomy Family History Father Lung cancer Mother Medical history unknown Sister Myocardial infarction Brother Hepatitis C Paternal Grandmother Ovarian cancer Paternal Uncle Brain cancer Sister No problems noted. Sister No problems noted. Brother No problems noted. Brother No problems noted. Brother No problems noted. Daughter No problems noted. Daughter No problems noted. 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 Overall normal device function. [id number] Cardiac Device Interrogation, pacemaker Procedure code (CPT) selection complete Assessment & Plan Assessment & Plan (1) Pacemaker: Code(s): Z95.0 - Presence of cardiac pacemaker Category: Medical (2) Bradycardia: Code(s): R00.1 - Bradycardia, unspecified Category: Medical Plan x Coding Level of Care Code Procedure Only Diagnoses Pacemaker Z95.0 Bradycardia R00.1 CPT Codes Cardiac Device Check - Cardiac Device 12: [id number] Cardiac Device Interrogation, pacemaker ([id number])
== END ==
PROVIDERS: PCP Internal Medicine; Visit Provider Internal Medicine
DX: R00.1 Bradycardia, unspecified (principal); Z95.0 Presence of cardiac pacemaker
CPT/HCPCS: 93294

== ENCOUNTER 2024-05-06 15:33 | Outpatient (AMB) | payer OTHER, SELFPAY ==
--- NOTE | 2024-05-06 15:51 | A.OFFVIS_ITS ---
Intake Visit Reasons: 1yr follow up Intake Note: Patient presents for follow up. Allergies amlodipine Allergy (Severe, Verified 05/06/24 15:52) Anxiety meperidine [From DEMEROL] Allergy (Intermediate, Verified 05/06/24 15:52) MIGRAINE codeine [CODEINE] Allergy (Unknown, Verified 05/06/24 15:52) UNKNOWN HPI Comments Details: 57 y/o female patient presents for follow up of JESSICA on CPAP. Pacemaker September 2023. Followed by cardiology. Pt had split night sleep study she was titrated. The baseline portion of the sleep study result was significant for severe degree of sleep apnea. The AHI was 61/hr, REM AHI was 125/hr and oxygen walter was 74%. She was trialed on CPAP [id number] and the breathing stabilized on CPAP [id number]. The CPAP compliance and therapy response (04/04/24-05/05/24) reviewed. The usage days 99% and the average usage 7 hrs and 53 min. The AHI was 2.25, Pressures are 11, has minimal leaks. Pt reports she sleeps well 6-7 hrs, but feels refreshed in the mornings. She is working with a operational risk consultant to lose weight, she walks daily 15 min. Denies headaches. She continues to move her legs to get comfortable at night, has muscle spasms. She reports that she was prescribed Wegovy for weight loss, but not certain if she wants to start it. GERD is controlled with meds. She reports that her mask is uncomfortable, however she is trying various masks. She reports she sleeps well has aches and soreness due to tossing and turning all night. Denies any other issues. [facility] Medical History Hx of cardiac pacemaker Tinea pedis Colon cancer screening Palpitations Sinus bradycardia COVID-19 virus infection Anemia Impaired glucose tolerance Bradycardia NSVT (nonsustained ventricular tachycardia) Neck pain Vertigo Paroxysmal atrial fibrillation Spinal stenosis Lumbar degenerative disc disease Anxiety and depression Hypertension Obesity Obstructive sleep apnea GERD (gastroesophageal reflux disease) Hypercholesterolemia Surgical History History of loop recorder S/P arteriovenous (AV) fistula repair History of cholecystectomy S/P diskectomy Family History Father Lung cancer Mother Medical history unknown Sister Myocardial infarction Brother Hepatitis C Paternal Grandmother Ovarian cancer Paternal Uncle Brain cancer Sister No problems noted. Sister No problems noted. Brother No problems noted. Brother No problems noted. Brother No problems noted. Daughter No problems noted. Daughter No problems noted. 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 Current occupational exposures/hazards: No Cognitive needs: No Hearing needs: No Vision needs: Yes (Glasses) Review of Systems Const All systems reviewed & are unremarkable except as noted in HPI and below ENT Reports Normal hearing present Neuro Reports Normal hearing present Physical Exam Const General: cooperative, comfortable and no acute distress Nutritional Appearance: obese (BMI is 45) centrally obese Orientation/consciousness: patient oriented x3 HEENT Face and sinus: Yes face symmetric Eyes Pupils: Equal, round and reactive pupils present Resp Effort & Inspection: normal respiratory effort and able to speak in complete sentences Neuro General: patient oriented x3 and moves all extremities Cranial nerves: Yes CN's II-XII intact bilaterally, Yes Facial sensation intact/muscles of mastication intact, Yes Equal, round and reactive pupils present, Yes Normal accommodation reflex present, Yes Bilaterally intact EOM present, Yes Nystagmus not present, Yes Normal facial strength present, Yes Midline tongue present, Yes Symmetric palate elevation present, Yes Normal hearing present, Yes Ability to bilaterally rotate head present and Yes Ability to bilaterally elevate shoulders present Cognition (Neuro): normal cognition Gait exam (Neuro): Normal gait present Motor exam (neuro): 5/5 motor strength present throughout and Normal motor muscle tone present throughout Deep tendon reflexes (DTR's): Right triceps reflex intensity grade: 2+, Left triceps reflex intensity grade: 2+, Rt Biceps (C5, C6): 2+, Left biceps reflex intensity grade: 2+, Right brachioradialis reflex intensity grade: 2+, Left brachioradialis reflex intensity grade: 2+, Right patellar reflex intensity grade: 2+, Left patellar reflex intensity grade: 2+, Right ankle reflex intensity grade: 2+ and Left ankle reflex intensity grade: 2+ Psych Appearance: grossly normal Mental Status: mental status grossly normal Speech and movement: Normal speech and movement present Affect: normal affect Thought process: Normal thought process present Results Reviewed Results Reviewed: Cardiology notes Labs The CPAP compliance and therapy response (04/04/24-05/05/24) reviewed. The usage days 99% and the average usage 7 hrs and 53 min. The AHI was 2.25, Pressures are 11, has minimal leaks Assessment & Plan Assessment & Plan (1) Obstructive sleep apnea: Comment: On CPAP at [id number] Code(s): G47.33 - Obstructive sleep apnea (adult) (pediatric) Category: Medical Plan JESSICA - Continue using CPAP as patient experiences good clinical effects. Continue using CPAP daily, as patient has a pacemaker and CV risks. Clean mask, change filters and equipment as needed. BMI is elevated Daily brisk walking, exercise and meal prepping is a good approach to monitor caloric intake vs. expenditure. F/U in 6 months, you may call or message us on the portal if you have any concerns. Coding Level of Care Code Est Pt Level 4 (75744) Diagnoses Obstructive sleep apnea G47.33 Time Spent (min) 35
--- OUTSIDE RECORDS SUMMARY | 2024-05-06 16:55 | XMS_ITS ---
Author Name [facility] Organization Unknown History of Medication Use Medication Directions Dispensed Refills Start Date End Date [facility] metFORMIN (GLUCOPHAGE) 500 mg tablet Take 1 tablet (500 mg total) by mouth 2 (two) times a day. 03/20/2024 04/27/9999 active OMEGA-3 FATTY ACIDS ORAL [place]-3 Fatty Acids (FISH OIL) 1200 MG Cap Take by mouth. 03/20/2024 04/27/9999 active nystatin (MYCOSTATIN) 100,000 unit/gram powder Apply topically 3 (three) times a day. 03/20/2024 04/27/9999 active apixaban (Eliquis) 5 mg tablet Take 1 tablet (5 mg total) by mouth 2 (two) times a day. 03/20/2024 04/27/9999 active simvastatin (ZOCOR) 5 mg tablet Take 1 tablet (5 mg total) by mouth at bedtime. 03/20/2024 04/27/9999 active solifenacin (VESICARE) 5 mg tablet Take 1 tablet (5 mg total) by mouth 1 (one) time each day. Swallow tablet whole; do not crush, chew, or split. 03/20/2024 04/27/9999 active metoprolol tartrate (LOPRESSOR) 50 mg tablet Take 1 tablet (50 mg total) by mouth 2 (two) times a day. 03/20/2024 04/27/9999 active ibuprofen (ADVIL,MOTRIN) 800 mg tablet Take 1 tablet (800 mg total) by mouth every 6 (six) hours if needed for mild pain or moderate pain. 03/20/2024 04/27/9999 active ascorbic acid (VITAMIN C) 1,000 mg CR tablet Take by mouth. 03/20/2024 04/27/9999 active pantoprazole (PROTONIX) 40 mg EC tablet Take 1 tablet (40 mg total) by mouth 1 (one) time each day. 03/20/2024 04/27/9999 active cholecalciferol (VITAMIN D-3) 50 mcg (2,000 unit) tablet Take by mouth. 03/20/2024 04/27/9999 a ctive estradioL (ESTRACE) 0.01 % (0.1 mg/gram) vaginal cream Insert 0.5 g into the vagina 1 (one) time each day. Please place 0.5g (a pea-sized amount) on your finger and place inside the vagina for 2 weeks at night, and then twice a week at night 03/20/2024 04/27/9999 active diazePAM (VALIUM) 5 mg tablet Take 1 tablet (5 mg total) by mouth every 8 (eight) hours if needed. 03/20/2024 04/27/9999 active Problems Problem Status Onset Date Problem Type Date of Resoluti on Source Postmenopausal bleeding active 2022-08-26 ProblemAct [facility] Urinary frequency active 2022-08-26 ProblemAct [facility] JESSICA (obstructive sleep apnea) active 2019-01-01 ProblemAct [facility] Atrial fibrillation active 2017-08-11 ProblemAct [facility] Irregular menses active 2020-03-09 ProblemAct C [facility] Low back pain active 2024-02-04 ProblemAct [facility] Urinary incontinence active 2021-07-19 ProblemAct [facility] Obesity active 2021-07-19 ProblemAct [facility] Menorrhagia with regular cycle active 2019-02-11 ProblemAct [facility] Fibroids active 2017-07-18 ProblemAct [facility] Cyst of left ovary active 2016-07-23 ProblemAct [facility] Depression active 2024-02-04 ProblemAct [facility]
== END 2024-05-06 16:27 | disposition home or self-care (01) ==
PROVIDERS: PCP Internal Medicine; Visit Provider Physician Assistant Medical
DX: G47.33 Obstructive sleep apnea (adult) (pediatric) (principal)
CPT/HCPCS: 99214

== ENCOUNTER → 2024-05-06 15:33 | Outpatient (BNVA) | payer OTHER, SELFPAY | PROVIDERS: PCP Internal Medicine; Visit Provider Physician Assistant Medical | DX: G47.33 Obstructive sleep apnea (adult) (pediatric) (principal) | CPT/HCPCS: 99212 ==

== ENCOUNTER 2024-06-22 06:24 | Outpatient (REF) | payer OTHER, SELFPAY ==
--- OUTSIDE RECORDS SUMMARY | 2024-06-22 06:26 | XMS_ITS | Clinical Summary ---
Author Organization [facility] [address] [place] [address] [place] [phone] Phone Care Team Providers Care Java Enterprise Architect Name Role Phone Matias Sullivan MD Primary Care Provider [phone] Allergies Active Allergy Reactions Criticality Noted Date Comments Amlodipine 02/12/2023 Codeine 07/15/2012 Meperidine Hcl 07/15/2012 Sulfa (Sulfonamide Antibiotics) 06/27 Medications apixaban (Eliquis) 5 mg tablet Take 1 tablet (5 mg total) by mouth 2 (two) times a day. 3 Active metFORMIN (GLUCOPHAGE) 500 mg tablet Take 1 tablet (500 mg total) by mouth 2 (two) times a day. 3 Active simvastatin (ZOCOR) 5 mg tablet Take 1 tablet (5 mg total) by mouth at bedtime. 3 Active ibuprofen (ADVIL,MOTRIN) 800 mg tablet Take 1 tablet (800 mg total) by mouth every 6 (six) hours if needed for mild pain or moderate pain. 1 Active ascorbic acid (VITAMIN C) 1,000 mg CR tablet Take by mouth. Active cholecalciferol (VITAMIN D-3) 50 mcg (2,000 unit) tablet Take by mouth. Active OMEGA-3 FATTY ACIDS ORAL [place]-3 Fatty Acids (FISH OIL) 1200 MG Cap Take by mouth. Active pantoprazole (PROTONIX) 40 mg EC tablet Take 1 tablet (40 mg total) by mouth 1 (one) time each day. Active metoprolol tartrate (LOPRESSOR) 50 mg tablet Take 1 tablet (50 mg total) by mouth 2 (two) times a day. Active diazePAM (VALIUM) 5 mg tablet Take 1 tablet (5 mg total) by mouth every 8 (eight) hours if needed. Active nystatin (MYCOSTATIN) 100,000 unit/gram powder Apply topically 3 (three) times a day. 15 g 4 03/04/20 25 Active estradioL (ESTRACE) 0.01 % (0.1 mg/gram) vaginal cream Insert 0.5 g into the vagina 1 (one) time each day. Please place 0.5g (a pea-sized amount) on your finger and place inside the vagina for 2 weeks at night, and then twice a week at night 42.5 g 3 4 Active solifenacin (VESICARE) 5 mg tabletIndications :bladder hyperactivity Take 1 tablet (5 mg total) by mouth 1 (one) time each day. Swallow tablet whole; do not crush, chew, or split. 30 tablet 2 4 06/14/19 25 Active Problems Problem Noted Date Diagnosed Date Depression 02/04/2024 Low back pain 02/04/2024 Postmenopausal bleeding 08/26/2022 Overview (02/04/2024): Last Assessment & Plan: I discussed the common causes of postmenopausal bleeding including trauma, atrophy, and endometrial polyps, as well as less common but more concerning causes including endometrial hyperplasia and endometrial carcinoma. We reviewed US from 07/2021 demonstrating 8mm EMS and recommendation for EMB today given prolonged postmenopausal bleeding and thickened endometrial stripe. Repeat pelvic US ordered to evaluate any change in EMS, uterine fibroids or ovarian cyst. EMB performed, tolerated well by patient. We discussed postprocedure cramping and light bleeding. Advised to avoid anything in the vagina for 1 day. Advised to call with increasing pain, heavy bleeding, or fever. Pt will be informed of results when available. Assessment & Plan (03/02/2024 3:59 PM EST): Given thickened endometrium in the setting of likely PMB, I recommended EMB to ensure no precancer or cancer. She was in agreement. See procedure note. Will obtain FSH and estradiol to better assess menopausal status. Urinary frequency 08/26/2022 Overview (02/04/2024): Last Assessment & Plan: UA negative Obesity 07/19/2021 Overview (02/04/2024): Last Assessment & Plan: Discussed weight loss strategies. Encouraged patient to restart weight watchers. Discussed importance of exercise and healthy diet. Urinary incontinence 07/19/2021 Overview (02/04/2024): Last Assessment & Plan: Referral to urogynecology placed. Irregular menses 03/09/2020 Overview (02/04/2024): Last Assessment & Plan: Discussed that this is likely menopausal transition. Labs ordered today Menorrhagia with regular cycle 02/11/2019 JESSICA (obstructive sleep apnea) 01/01/2019 Overview (02/04/2024): Last Assessment & Plan: Discussed with patient that sleep apnea can lead to daytime sleepiness and have adverse effects on many aspects of her health. Encouraged to follow-up with PCP. Atrial fibrillation 08/11/2017 Fibroids 07/18/2017 Overview (02/04/2024): Last Assessment & Plan: Patient inquired about hysterectomy, however also expressed significant fear regarding the procedure. I discussed with the patient that fibroids are nearly always benign and that hysterectomy is typically performed for AUB or bulk symptoms. Patient is likely starting the menopausal transition as she has recently had irregular menses and would like to continue with expectant management at this time. I encouraged the patient to schedule the pelvic ultrasound that was previously ordered to reassess the size of the fibroids. In addition a CT scan performed May 2019 demonstrated a possible endometrial polyp vs. Fibroid - I discussed with the patient that if the ultrasound suggests endometrial polyp the recommendation would be resection via hysteroscopy. The patient expressed understanding and all questions were answered. Cyst of left ovary 07/23/2016 Overview (02/04/2024): Last Assessment & Plan: Pt plans to schedule follow-up ultrasound Assessment & Plan (03/02/2024 3:59 PM EST): Will schedule follow up US in 3 months and discuss results then. Resolved Problems Problem Noted Date Diagnosed Date Resolved Date Right ovarian cyst 07/19/2021 4 Overview (02/04/2024): Last Assessment & Plan: Follow-up ultrasound ordered again. Patient encouraged to schedule and complete testing. Surgical History Surgery Date Site/Laterality Comments BACK SURGERY 2003 PROCEDURE: HISTORICAL BACK SURGERY CHOLECYSTECTOMY 2005 PROCEDURE: HISTORICAL CHOLECYSTECTOMY OTHER SURGICAL HISTORY 2001 PROCEDURE: ---- OTHER ----; COMMENT: anal fistula excision Medical History Medical History Date Comments Depression DX:Depression Low back pain DX:Low back pain Generalized headaches DX:General ized headaches; COMMENT: no migraines, Atrial fibrillation (CMS/HCC) 08/11/2017 DX :Atrial fibrillation (HCC) JESSICA (obstructive sleep apnea) 01/01/2019 DX :JESSICA (obstructive sleep apnea) Family History Medical History Relation Name Comments Lung cancer Father COPD Mother 2015 a ge 84yo Ovarian cancer Paternal Grandmother uncer tain age at dx Brain cancer Uncle paternal side Breast cancer Neg Hx Colon cancer Neg Hx Prostate cancer Neg Hx Relation Name Status Comments Father Mother Paternal Grandmother Uncle Alive Social History Tobacco Use Types Packs/Day Years Used Date Smoking Tobacco: Never Smokeless Tobacco: Never Alcohol Use Standard Drinks/Week Comments No 0 (1 standard drink = 0.6 oz pur e alcohol) Comments No Sex and Gender Information Value Date Recorded Sex Assigned at Not on file Legal Sex Female 9:13 AM EST Gender Identity Not on file Sexual Orientation Not on file Obstetrics History Para Term AB IAB SAB Ectopic Multiple Livin g Live Births 2 2 2 0 0 0 0 0 0 2 2 Date Outcome GA Total Labor Labor/2nd/3rd Weight Sex Type Anes PTL Louann A1 A5 Name Clin Term Vag-S pont Living Term Vag-S pont Living Last Filed Vital Signs Vital Sign Reading Time Taken Comments Blood Pressure 117/59 03/16/2024 9:07 AM EST Pulse 68 03/16/2024 9:07 AM EST Temperature - - Respiratory Rate 16 03/16/2024 9:07 AM EST Oxygen Saturation - - Inhaled Oxygen Concentration - - Weight 108 kg (238 lb) 03/16/2024 9:07 AM EST Height 157.5 cm (5' 2 ) 03/16/2024 9:07 AM EST Body Mass Index 43.53 03/16/2024 9:07 AM EST Plan of Treatment Health Maintenance Due Date Last Done Comments Breast Cancer Screening 1965 Hepatitis B Vaccines (1 of 3 - 19+ 3-dose series) 1986 Zoster Vaccines (1 of 2) 2017 Cholesterol Screening (Lipid Panel) 03/31/2022 Depression Screening 03/31/2022 HIV Screening 03/31/2022 Hepatitis C Screening 03/31/2022 Social Influencers of Health Screening 03/31/2022 Pneumococcal Vaccine: 50+ Years (2 of 2 - PCV) 10/15/2022 10/15/2021 COVID-19 Vaccine (3 - 2023-2 5 season) 2023 06/22/2020, 06/01/2020 Influenza Vaccine (#1) 2023 03/13/2020 Hypertension/CHF/CAD Annual BMP Blood Test 03/02/2024 Colorectal Cancer Screening: FIT-DNA (Cologuard) 11/01/2025 11/01/2022, 11/01/2022, 12/08/2018 Cervical Cancer Screening: HPV 07/19/2026 07/19/2021 DTaP,Tdap,and Td Vaccines (2 - Td or Tdap) 08/12/2027 08/11/2017 Pneumococcal Vaccine: Pediatrics (0 to 5 Years) and At-Risk Patients (6 to 64 Years) Aged Out 10/15/2021 No longer eligible b ased on patient's age to complete this topic HIB Vaccines Aged Out No longer eligi ble based on patient's age to complete this topic HPV Vaccines Aged Out No longer eligi ble based on patient's age to complete this topic Hepatitis A Vaccines Aged Out No long er eligible based on patient's age to complete this topic IPV Vaccines Aged Out No longer eligi ble based on patient's age to complete this topic MMR Vaccines Aged Out No longer eligi ble based on patient's age to complete this topic Meningococcal ACWY Vaccine Aged Out N o longer eligible based on patient's age to complete this topic Meningococcal B Vacine Aged Out No lo nger eligible based on patient's age to complete this topic RSV Immunization Patients Under 20 months Aged Out No longer eligible b ased on patient's age to complete this topic Varicella Vaccines Aged Out No longer eligible based on patient's age to complete this topic Procedures Procedure Name Priority Date/Time Associated Diagnosis Comments HPV Routine 07/19/2021 from Last 3 Months or Most Recently Relevant to Health Maintenance Results * Cervical Cancer Screening: HPV (07/19/2021) Cervical Cancer Screening: HPV Abstracted, Negative us Historical Provider MD HEALTH MAINTENANCE Final Result from Last 3 Months or Most Recently Relevant to Health Maintenance Insurance [facility] Care Teams Java Enterprise Architect Relationship Specialty Start Date End Date Matias Sullivan MD [address] [place] [address] [address] [facility] [place] [address] PCP - General Internal Medicine 04/24/12
[2024-06-22 06:46] LABS: MANUAL DIFF FLAG NO
[2024-06-22 07:32] LABS: Basophils Absolute Auto 0.1 X10*3/uL (0.0-0.2); Basophils Percent Auto 0.6 % (0-2); Eosinophils Absolute Auto 0.2 X10*3/uL (0.0-0.4); Hematocrit 39.4 % (37.0-47.0); Hemoglobin 12.3 g/dl (12.0-16.0); Imm Gran Abs Auto 0.03 X10*3/uL (0.00-0.03); Imm Gran Pct Auto 0.4 % (0.0-0.4); Lymphocytes Absolute Auto 2.1 X10*3/uL (1.2-4.9); Lymphocytes Percent Auto 25.3 % (20-40); Mean Corpuscular HGB Conc 31.2 g/dl (31.0-35.0); Mean Corpuscular Hemoglobin 26.6 pg (27.0-33.0); Mean Corpuscular Volume 85.1 fL (80.0-98.0); Mean Platelet Volume 10.3 fL (9.4-12.3); Monocytes Absolute Auto 0.5 X10*3/uL (0.1-1.2); Monocytes Percent Auto 6.5 % (2-11); Neutrophils Absolute Auto 5.2 x10*3/uL (2.0-8.3); Neutrophils Percent Auto 64.2 % (45-73); Platelet Count 296 X10*3/uL (160-400); Red Blood Count 4.63 X10*6/uL (4.20-5.50); Red Cell Distribution Width 15.8 % (11.0-16.0); White Blood Count 8.1 X10*3/uL (4.8-10.8)
[2024-06-22 07:51] LABS: Estimated Average Glucose 131 mg/dL; Hemoglobin A1c % 6.2 % (<6.0); Total Hemoglobin (HGBA1C) 3268.4058 umol/L
[2024-06-22 08:11] LABS: Appearance Urine Clear; Color Urine Yellow; Glucose Urine UA Negative (Negative); Leukocyte Esterase Urine Negative (Negative); Nitrite Urine Negative (Negative); PH 5.5 (5.0-9.0); Specific Gravity - Urine 1.015 (1.005-1.025); UMIC TRIGGER UACC YES; Urine Blood Trace (Negative); Urine Ketones Negative (Negative); Urine Protein Negative (Neg-Trace)
[2024-06-22 08:16] LABS: Bacteria Urine 1+ (None Seen); Hyaline Casts Urine 0-2 /LPF (0-2); RBC Urine 0-2 /HPF (0-2); WBC Urine 0-5 /HPF (0-5)
[2024-06-22 08:36] LABS: Alanine Aminotransferase 35 U/L (0-31); Albumin Level 4.2 g/dL (3.5-5.0); Alkaline Phosphatase 111 U/L (39-117); Anion Gap 14 (12-20); Aspartate Amino Transferase 23 U/L (5-31); Bilirubin Total 0.5 mg/dL (0.0-1.0); Blood Urea Nitrogen 14 mg/dL (9-16); Calcium 9.8 mg/dL (8.4-10.2); Carbon Dioxide 25 mmol/L (22-29); Chloride 107 mmol/L (96-108); Cholesterol 180 mg/dL (<200); Estimated Glomerular Filt Rate > 60; Glucose Random 105 mg/dL (60-115); HDL Cholesterol 47 mg/dL (>40); LDL Cholesterol Calculated 100 mg/dL (<100); Potassium 4.1 mmol/L (3.3-5.1); Sodium 142 mmol/L (135-145); Total Protein 7.9 g/dL (6.5-8.0); Triglycerides 166 mg/dL (<150)
[2024-06-22 08:52] LABS: Free T4 (Free Thyroxine) 1.14 ng/dL (0.71-1.85); Thyroid Stimulating Hormone 1.26 uIU/mL (0.32-4.0)
== END 2024-06-22 06:25 | disposition home or self-care (01) ==
LOC: HO.LAB 06:24
PROVIDERS: PCP Internal Medicine; Visit Provider Internal Medicine
DX: E78.00 Pure hypercholesterolemia, unspecified (principal); E11.65 Type 2 diabetes mellitus with hyperglycemia; R30.0 Dysuria; I48.0 Paroxysmal atrial fibrillation
CPT/HCPCS: 36415; 80053; 80061; 81001; 81003; 83036; 84439; 84443; 85025

== ENCOUNTER 2024-06-24 13:41 | Outpatient (AMB) | payer OTHER, SELFPAY ==
--- NOTE | 2024-06-24 13:50 | MHC.PC.OV ---
Vital Signs 06/24/24 13:51 Height 5 ft 1 in Weight 236 lb 8 oz BMI 44.7 BP 122/66 Blood Pressure Location Lt brachial Position Sitting Pulse 73 Pulse Source Pulse Oximeter Temp 97.5 F Temp Source Temporal Artery Scan Pulse Oximetry (%) 96 Oxygen Delivery Method Room Air Intake Visit Reasons: cough, DM , Cholesterol Intake Note: Patient is here for a Pre-op for Cataract surgery scheduled with Dr Chase ([facility]) on 07/02 and 07/26. Rehab Trainer Required: No Shrinking Machine Operator: Present Accompanied by: Spouse Allergies amlodipine Allergy (Severe, Verified 06/24/24 13:51) Anxiety meperidine [From DEMEROL] Allergy (Intermediate, Verified 06/24/24 13:51) MIGRAINE codeine [CODEINE] Allergy (Unknown, Verified 06/24/24 13:51) UNKNOWN Medication List - Last Reconciled 06/24/24 by Matias Sullivan MD apixaban (Eliquis) 5 mg PO BID 90 days ascorbate calcium (vitamin C) 1,000 mg PO DAILY cholecalciferol (vitamin D3) 25 mcg PO DAILY diazepam 5 mg PO BEDTIME PRN losartan 25 mg PO DAILY metformin 500 mg PO BID metoprolol tartrate 25 mg PO BID nystatin 1 appl topical DAILY 30 days omega 4-oxt-xdx-fish oil 300-1,000 mg (Fish Oil) 1 cap PO DAILY pantoprazole 40 mg PO DAILY@0630 [shower chair no back and arms As directed] simvastatin 10 mg PO BEDTIME 90 days Tobacco use date assessed: 06/24/24 Dental Screening Dental Screen Date: 06/24/24 Did you have a dental visit in the last 12 months?: Yes Did you have a dental problem in the last 6 months where you did not have access to dental care?: No Was dental information given to patient?: Patient has dentist HPI cough, DM , Cholesterol HPI Details CAtaract surgery Dr. Chase Left Eye July 02 and R eye July 16, 2024 History of Present Illness The patient is a 59-year-old female presenting for a follow-up regarding several chronic medical conditions, including morbid obesity, hypercholesterolemia, and type 2 diabetes mellitus. The patient's hypercholesterolemia is being controlled with Simvastatin, and diabetes management involves Metformin with a current A1c of 6.2%. Cardiovascular history includes atrial fibrillation managed with anticoagulation, with the patient expressing concerns regarding bleeding risks due to these medications. Additional endocrine concerns are centered around metabolic control, with recent testing indicating stable renal function and blood sugar regulation. She is actively managing her weight through diet and walking, using a treadmill at home despite experiencing mild lightheadedness post-exercise. With a history of heart block managed by a pacemaker, she is diligently following up with cardiology. The patient continues to adhere to CPAP therapy for obstructive sleep apnea, with corresponding neurology follow-ups. General anxiety disorder management seems stable as per the patient's informal indications during the visit. Overactive bladder Health Maintenance - Continue CPAP therapy for obstructive sleep apnea. - Regular exercise and dietary modifications for weight management. - Blood pressure management with Losartan. - Cholesterol management to maintain LDL below 100 using Simvastatin. - Follow-up cardiology evaluations for pacemaker checks. - Maintain hemoglobin A1c goal below 6.5 with current diabetic regimen. Social History - Engages in daily exercise including walking with a treadmill at home. - Reports improving dietary habits with smaller portion sizes. - Indicates active weight management efforts though expresses concerns about occasional weight fluctuation. - Uses technology (e.g., apps) for tracking exercise activity. Review of Systems - Cardiovascular: Denies chest pain or palpitations. - Neurological: Reports lightheadedness with treadmill use. - Genitourinary: Reports overactive bladder, currently managed. - Endocrine: Current A1c at 6.2%, treatment goal below 6.5%. - Psychological: Self-reports generalized anxiety, managed. - Sleep: Uses CPAP regularly without issues. Physical Exam Results - Labs: Hemoglobin A1c 6.2%; Cholesterol managed, LDL last recorded at 100; Creatinine and electrolytes within normal range. Plan Our plan focuses on maintaining control of type 2 diabetes with Metformin, ensuring cholesterol and blood pressure are within target ranges through existing pharmacotherapy. The patient is advised to sustain current levels of physical activity and to address lightheadedness with post-exercise monitoring. Given the patient's anticoagulation concerns, . Continuous CPAP usage and lifestyle adjustments for weight reduction are encouraged, Patient was informed and verbally consented to the use of an ambient scribe for clinic note documentation during this visit. Discussion Notes During our visit, I addressed the patient?s concerns about anticoagulation therapy risks, emphasizing the importance of communication with specialists, especially concerning perioperative management. We discussed the patient's progress in weight management through increased physical activity and dietary modifications, encouraging continued adherence to CPAP and overall cardiovascular risk reduction efforts. Patient Instructions - Continue taking Metformin as prescribed to manage blood sugar. - Attend follow-up appointment with cardiology for anticoagulation management and pacemaker check. - Maintain usage of CPAP nightly for sleep apnea. - Keep up with physical activity, adjusting as needed to avoid lightheadedness. - Monitor blood pressure regularly and adhere to Losartan medication. - Follow dietary recommendations, emphasizing portion control. - Report any significant changes in bladder symptoms to urogynecology. - Contact the office should any new symptoms arise or existing symptoms worsen. [facility] Medical History Hx of cardiac pacemaker Tinea pedis Colon cancer screening Palpitations Sinus bradycardia COVID-19 virus infection Anemia Impaired glucose tolerance Bradycardia NSVT (nonsustained ventricular tachycardia) Neck pain Vertigo Paroxysmal atrial fibrillation Spinal stenosis Lumbar degenerative disc disease Anxiety and depression Hypertension Obesity Obstructive sleep apnea GERD (gastroesophageal reflux disease) Hypercholesterolemia Surgical History History of loop recorder S/P arteriovenous (AV) fistula repair History of cholecystectomy S/P diskectomy Family History Father Lung cancer Mother Medical history unknown Sister Myocardial infarction Brother Hepatitis C Paternal Grandmother Ovarian cancer Paternal Uncle Brain cancer Sister No problems noted. Sister No problems noted. Brother No problems noted. Brother No problems noted. Brother No problems noted. Daughter No problems noted. Daughter No problems noted. 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 1. Little interest or pleasure in doing things: not at all 2. Feeling down, depressed, or hopeless: not at all 3. Trouble falling or staying asleep, or sleeping too much: not at all 4. Feeling tired or having little energy: not at all 5. Poor appetite or overeating: not at all 6. Feeling bad about yourself - or that you are a failure or have let yourself or your family down: not at all 7. Trouble concentrating on things, such as reading the newspaper or watching television: not at all 8. Moving or speaking so slowly that other people could have noticed. Or the opposite - being so fidgety or restless that you have been moving around a lot more than usual: not at all 9. Thoughts that you would be better off or of hurting yourself in some way: not at all Total score: 0 Depression Screening Interpretation: Negative Depression Screening Done: Yes Source: Developed by Drs. Chepe Leon, Bharati Palacio, Juan Anderson and colleagues, with an educational briana from [employer]. Thrive Questionnaire Date Thrive assessed: 06/24/24 AUDIT C Alcohol Use Questionnaire (AUDIT-C) 1. How often do you have a drink containing alcohol?: Never Total Score: 0 JORGE ALBERTO-7 AMB Questionnaire JORGE ALBERTO-7 Date JORGE ALBERTO - 7 assessed: 06/24/24 Feeling nervous, anxious, or on edge: 0 = Not at all Not being able to stop or control worryin = Not at all Worrying too much about different things: 0 = Not at all Trouble relaxin = Not at all Being so restless that it is hard to sit still: 0 = Not at all Becoming easily annoyed or irritable: 0 = Not at all Feeling afraid as if something awful might happen: 0 = Not at all Total JORGE ALBERTO-7 score (0-4 normal; 5-9 mild; 10-14 moderate; 15-21 severe): 0 Source: Developed by Drs. Chepe Leon, Bharati Palacio, Juan Anderson and colleagues, with an educational briana from [employer]. Physical exam (Primary Care) Vital Signs: Last Vital Signs Temp 97.5 F 06/24/24 13:51 Pulse 73 06/24/24 13:51 BP 122/66 06/24/24 13:51 Pulse Ox 96 06/24/24 13:51 Oxygen Delivery Method Room Air 06/24/24 13:51 BMI result Body Mass Index 44.7 Tobacco/Smoking Status: Tobacco use Status Tobacco use date assessed 06/24/24 06/24/24 13:51 Patient Tobacco Use Status Never used Tobacco 06/24/24 13:51 e-Cigarette/Vaping Use Never Used 06/24/24 13:51 PHQ-9: PHQ-9 Score PHQ-9: Total score 0 06/24/24 14:06 Depression Screening Interpretation: Negative Thrive Assessment: Date of Thrive Assessment Date Thrive assessed 06/24/24 06/24/24 13:51 Const General: alert; No acute distress Eyes Conjunctivae: conjunctivae normal Resp Auscultation: clear to auscultation bilaterally Cardio Rate: regular rate Rhythm: regular rhythm GI Inspection: Yes normal to inspection Extrem General: Yes normal to inspection and No edema Coding Level of Care Code Est Pt Level 4 (31974) Complex EM visit Add On G2211 Diagnoses Type 2 diabetes mellitus with hyperglycemia, without long-term current use of insulin E11.65 Diabetes mellitus ferry terminal supervisor insulin use: without ferry terminal supervisor use Morbid obesity E66.01 Obstructive sleep apnea G47.33 Paroxysmal atrial fibrillation I48.0 Hypercholesterolemia E78.00 Gastroesophageal reflux disease without esophagitis K21.9 Esophagitis presence: without esophagitis Generalized anxiety disorder F41.1 Mobitz (type) II atrioventricular block I44.1 Overactive bladder N32.81 Assessment & Plan Assessment & Plan (1) Type 2 diabetes mellitus with hyperglycemia: [facility] Code(s): E11.65 - Type 2 diabetes mellitus with hyperglycemia Category: Medical Qualifiers: Diabetes mellitus ferry terminal supervisor insulin use: without ferry terminal supervisor use Qualified Code(s): E11.65 - Type 2 diabetes mellitus with hyperglycemia Plan: Decrease the amount of carbohydrate intake, pasta, bread, rice and potatoes are all sugar and that is aside from all the sweet stuff, remember that fruits are good but they are Sweet also. Hemoglobin A1c goal of less than 6.5 patient is on metformin. (2) Morbid obesity: Code(s): E66.01 - Morbid (severe) obesity due to excess calories Category: Medical Plan: Diet and exercise (3) Obstructive sleep apnea: Comment: On CPAP at [id number] Code(s): G47.33 - Obstructive sleep apnea (adult) (pediatric) Category: Medical Plan: Continue with CPAP more than 4 hours a night and benefits from this (4) Paroxysmal atrial fibrillation: Code(s): I48.0 - Paroxysmal atrial fibrillation Category: Medical Plan: Continue with anticoagulation (5) Hypercholesterolemia: Code(s): E78.00 - Pure hypercholesterolemia, unspecified Category: Medical Plan: Avoid fried foods, chicken skin, eggs, butter margarine, pastries and meat. Be it pork or beef they have a lot of cholesterol LDL goal of less than 100 and triglyceride of less than 150 on simvastatin 10 mg once a day (6) GERD (gastroesophageal reflux disease): Code(s): K21.9 - Gastro-esophageal reflux disease without esophagitis Category: Medical Qualifiers: Esophagitis presence: without esophagitis Qualified Code(s): K21.9 - Gastro-esophageal reflux disease without esophagitis Plan: Avoid the foods that causes that usually spicy foods, tomato products, juices, coffee, soda and foods that your sensitive to. After eating do not lie down, allow 3-4 hours before in lie down. And keep the head of bed above 30 degrees to avoid the acid from going up. (7) Generalized anxiety disorder: Code(s): F41.1 - Generalized anxiety disorder Category: Medical Plan: Continue with diazepam as needed (8) Mobitz (type) II atrioventricular block: Comment: Pacemaker Code(s): I44.1 - Atrioventricular block, second degree Category: Medical Plan: Continue to be monitored by Cardiology has a pacemaker (9) Overactive bladder: Code(s): N32.81 - Overactive bladder Category: Medical Plan: Patient was seen by Urology and has been started on solifenacin Plan With the diabetes, patient is in the intermediate risk for any cardiac complications but diabetes is not insulin requiring and hemoglobin A1c is controlled. Being that this is a low risk procedure no further workup needed at this time and may proceed with the contemplated procedure. Discussed with the patient as far as medications , blood pressure medications are important and no need to discontinue the anticoagulation, may take diazepam to help with anxiety and the pantoprazole to help with reflux problem. Thank you very much for letting me participate the care of this patient. Medications: Refilled losartan 25 mg PO DAILY 90 tabs 2RF E11.65 - Type 2 diabetes mellitus with hyperglycemia
[2024-06-24 13:51] VITALS: BP 122/66; PULSE 73; TEMP 36.4; O2SAT 96; BMI 44.7
--- OUTSIDE RECORDS SUMMARY | 2024-06-24 16:26 | XMS_ITS | Clinical Summary ---
Author Organization [facility] [address] [place] [address] [place] [phone] Phone Care Team Providers Care Car Customizer Name Role Phone Matias Sullivan MD Primary Care Provider [phone] Allergies Active Allergy Reactions Criticality Noted Date [...] by mouth. Active OMEGA-3 FATTY ACIDS ORAL [place]-3 Fatty Acids (FISH OIL) 1200 MG Cap [...] Most Recently Relevant to Health Maintenance Insurance [facility] Care Teams Car Customizer Relationship Specialty Start Date End Date Matias Sullivan MD [address] [place] [address] [address] [facility] [place] [address] PCP - General Internal Medicine 04/24/12
== END 2024-06-24 14:28 | disposition home or self-care (01) ==
PROVIDERS: PCP Internal Medicine; Visit Provider Internal Medicine
DX: E11.65 Type 2 diabetes mellitus with hyperglycemia (principal); E66.01 Morbid (severe) obesity due to excess calories; I48.0 Paroxysmal atrial fibrillation; Z68.41 Body mass index [BMI] 40.0-44.9, adult; G47.33 Obstructive sleep apnea (adult) (pediatric); E78.00 Pure hypercholesterolemia, unspecified; K21.9 Gastro-esophageal reflux disease without esophagitis; F41.1 Generalized anxiety disorder; I44.1 Atrioventricular block, second degree; N32.81 Overactive bladder

== ENCOUNTER → 2024-06-24 13:41 | Outpatient (BNVA) | payer OTHER, SELFPAY | PROVIDERS: PCP Internal Medicine; Visit Provider Internal Medicine | DX: E11.65 Type 2 diabetes mellitus with hyperglycemia (principal); E66.01 Morbid (severe) obesity due to excess calories; G47.33 Obstructive sleep apnea (adult) (pediatric); I48.0 Paroxysmal atrial fibrillation; K21.9 Gastro-esophageal reflux disease without esophagitis; F41.1 Generalized anxiety disorder; I44.1 Atrioventricular block, second degree; N32.81 Overactive bladder | CPT/HCPCS: 99212 ==

== ENCOUNTER 2024-06-28 10:19 | Outpatient (AMB) | payer OTHER, SELFPAY ==
[2024-06-28 10:40] VITALS: BP 128/72; PULSE 72; BMI 44.8
--- NOTE | 2024-06-28 10:40 | A.OFFVIS_ITS ---
Vital Signs 06/28/24 10:40 Height 5 ft 1 in Weight 237 lb 3.478 oz BMI 44.8 BP 128/72 Blood Pressure Location Lt brachial Position Sitting Pulse 72 Pulse Source Pulse Oximeter Intake Visit Reasons: 6 mth f/up Silk Trimmer Required: No Accompanied by: Spouse Allergies amlodipine Allergy (Severe, Verified 06/24/24 13:51) Anxiety meperidine [From DEMEROL] Allergy (Intermediate, Verified 06/24/24 13:51) MIGRAINE codeine [CODEINE] Allergy (Unknown, Verified 06/24/24 13:51) UNKNOWN Medication List - Last Reconciled 06/28/24 by Levy Pennington MD apixaban (Eliquis) 5 mg PO BID 90 days ascorbate calcium (vitamin C) 1,000 mg PO DAILY cholecalciferol (vitamin D3) 25 mcg PO DAILY diazepam 5 mg PO BEDTIME PRN losartan 25 mg PO DAILY metformin 500 mg PO BID metoprolol tartrate 25 mg PO BID nystatin 1 appl topical DAILY 30 days omega 6-yjz-wza-fish oil 300-1,000 mg (Fish Oil) 1 cap PO DAILY pantoprazole 40 mg PO DAILY@0630 [shower chair no back and arms As directed] simvastatin 10 mg PO BEDTIME 90 days HPI Comments Details: Tahira returns for follow-up for various issues. To recall, she has a history of transient atrial fibrillation/NSVT many years ago. Due to history of syncope, she had implantable loop recorder which showed a lot of nighttime pauses and she was monitored. She was maintained on a very small dose of beta-blockers. Then there was another hospitalization when it seems that she has had 2-1 heart block; at that point, she was transferred to [facility] and underwent permanent pacemaker. She still has some itching and discomfort at the pacemaker site. Otherwise, some palpitations off and on. No other concerns like angina. Weight is about the same as before. [facility] Medical History Hx of cardiac pacemaker Tinea pedis Colon cancer screening Palpitations Sinus bradycardia COVID-19 virus infection Anemia Impaired glucose tolerance Bradycardia NSVT (nonsustained ventricular tachycardia) Neck pain Vertigo Paroxysmal atrial fibrillation Spinal stenosis Lumbar degenerative disc disease Anxiety and depression Hypertension Obesity Obstructive sleep apnea GERD (gastroesophageal reflux disease) Hypercholesterolemia Surgical History History of loop recorder S/P arteriovenous (AV) fistula repair History of cholecystectomy S/P diskectomy Family History Father Lung cancer Mother Medical history unknown Sister Myocardial infarction Brother Hepatitis C Paternal Grandmother Ovarian cancer Paternal Uncle Brain cancer Sister No problems noted. Sister No problems noted. Brother No problems noted. Brother No problems noted. Brother No problems noted. Daughter No problems noted. Daughter No problems noted. 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 Current occupational exposures/hazards: No Cognitive needs: No Hearing needs: No Vision needs: Yes (Glasses) Review of Systems Const Denies chills, Denies fatigue, Denies fever(s), Denies weight gain and Denies weight loss ENT Denies dizziness Card Denies chest pain, Reports irregular heart rhythm, Denies leg edema, Denies lightheadedness, Denies palpitations, Reports dyspnea on exertion, Denies orthopnea and Denies other Resp Denies cough and Reports dyspnea on exertion GI Denies hematochezia and Denies change in stool character Denies pelvic pain Musc Denies abnormal gait, Denies muscle weakness, Denies numbness, Denies radiating pain into limb and Denies tingling Neuro Denies abnormal gait, Denies dizziness, Denies numbness and Denies tingling Endo Denies fatigue and Denies palpitations Physical Exam Vital Signs: Last Vital Signs Pulse 72 06/28/24 10:40 BP 128/72 06/28/24 10:40 BMI result Body Mass Index 44.8 Const General: comfortable and no acute distress Orientation/consciousness: patient oriented x3 HEENT Other: Unremarkable Head: Yes normal to inspection Neck Neck: Yes normal visual inspection Chest Chest palpation & inspection: normal inspection of the chest Resp Auscultation: clear to auscultation bilaterally Cardio Palpation: normal PMI Heart sounds: S1 normal heart sound present, S2 normal heart sound present, no gallops, no murmurs and no rubs GI Palpation (GI): Soft to palpation Back/Spine/Pelvis Other: unremarkable Skin General skin exam: no rashes or lesions noted Neuro General: patient oriented x3 Extrem General: Yes normal to inspection Psych Mental Status: mental status grossly normal Assessment & Plan Assessment & Plan (1) Paroxysmal atrial fibrillation: Code(s): I48.0 - Paroxysmal atrial fibrillation Category: Medical (2) Sinus pause: Code(s): I45.5 - Other specified heart block Category: Medical (3) LBBB (left bundle branch block): Code(s): I44.7 - Left bundle-branch block, unspecified Category: Medical (4) Mobitz (type) II atrioventricular block: Comment: Pacemaker Code(s): I44.1 - Atrioventricular block, second degree Category: Medical (5) Premature ventricular contraction: Code(s): I49.3 - Ventricular premature depolarization Category: Medical (6) Obstructive sleep apnea: Comment: On CPAP at [id number] Code(s): G47.33 - Obstructive sleep apnea (adult) (pediatric) Category: Medical (7) Morbid obesity: Code(s): E66.01 - Morbid (severe) obesity due to excess calories Category: Medical Plan Essentially, morbid obesity, obstructive sleep apnea, paroxysmal atrial fibrillation with conduction system disease, now status post pacemaker implantation and ILR explantation. Cardiac studies reviewed. Echocardiogram from 2023-LVEF 55-60%. Mild ventricular hypertrophy. Mild left atrial dilatation. Otherwise unremarkable. Myocardial perfusion imaging study from 2022 shows normal perfusion. Pacemaker is monitored remotely and shows normal function. For concerns of palpitations, could be related to PVCs. There has not been any clear atrial fibrillation on pacemaker checks. She can try to take an extra tablet of metoprolol as and when necessary. Other option would be to increase dose of metoprolol to 50 mg b.i.d.. She can try the extra dose 1st and see how that helps. Continue anticoagulation. Otherwise, continue CPAP. We discussed about weight loss many times but more or less the same as before. Again emphasized this today. She understands. We will see her in a year. If any interim concerns, she will contact us. Pacemaker can be monitored remotely. Coding Level of Care Code Est Pt Level 4 (50152) Complex EM visit Add On G2211 Diagnoses Paroxysmal atrial fibrillation I48.0 Sinus pause I45.5 LBBB (left bundle branch block) I44.7 Mobitz (type) II atrioventricular block I44.1 Premature ventricular contraction I49.3 Obstructive sleep apnea G47.33 Morbid obesity E66.01
--- OUTSIDE RECORDS SUMMARY | 2024-06-28 11:55 | XMS_ITS | Clinical Summary ---
Author Organization [facility] [address] [place] [address] [place] [phone] Phone Care Team Providers Care Manufacturing Sales Representative Name Role Phone Matias Sullivan MD Primary Care Provider Allergies Active Allergy Reactions Criticality Noted Date [...] by mouth. Active OMEGA-3 FATTY ACIDS ORAL [place]-3 Fatty Acids (FISH OIL) 1200 MG Cap [...] Most Recently Relevant to Health Maintenance Insurance [facility] Care Teams Manufacturing Sales Representative Relationship Specialty Start Date End Date Matias Sullivan MD [address] [place] [address] [address] [facility] [place] [address] PCP - General Internal Medicine 04/24/12
== END 2024-06-28 11:06 | disposition home or self-care (01) ==
PROVIDERS: PCP Internal Medicine; Visit Provider Internal Medicine
DX: I48.0 Paroxysmal atrial fibrillation (principal); I45.5 Other specified heart block; I44.7 Left bundle-branch block, unspecified; I44.1 Atrioventricular block, second degree; I49.3 Ventricular premature depolarization; G47.33 Obstructive sleep apnea (adult) (pediatric); E66.01 Morbid (severe) obesity due to excess calories
CPT/HCPCS: 99214; G2211

== ENCOUNTER → 2024-06-28 10:19 | Outpatient (BNVA) | payer OTHER, SELFPAY | PROVIDERS: PCP Internal Medicine; Visit Provider Internal Medicine | DX: I48.0 Paroxysmal atrial fibrillation (principal); I45.5 Other specified heart block; I44.7 Left bundle-branch block, unspecified; I44.1 Atrioventricular block, second degree; I49.3 Ventricular premature depolarization; G47.33 Obstructive sleep apnea (adult) (pediatric); E66.01 Morbid (severe) obesity due to excess calories; Z68.41 Body mass index [BMI] 40.0-44.9, adult; Z95.0 Presence of cardiac pacemaker | CPT/HCPCS: 99212 ==

== ENCOUNTER → 2024-08-01 23:59 | Outpatient (BNV) | payer OTHER, SELFPAY ==
--- NOTE | 2024-08-04 18:59 | MHC.OFFVIS ---
Intake Visit Reasons: Remote Device Check- Medtronic Allergies amlodipine Allergy (Severe, Verified 06/24/24 13:51) Anxiety meperidine [From DEMEROL] Allergy (Intermediate, Verified 06/24/24 13:51) MIGRAINE codeine [CODEINE] Allergy (Unknown, Verified 06/24/24 13:51) UNKNOWN [facility] Medical History Hx of cardiac pacemaker Tinea pedis Colon cancer screening Palpitations Sinus bradycardia COVID-19 virus infection Anemia Impaired glucose tolerance Bradycardia NSVT (nonsustained ventricular tachycardia) Neck pain Vertigo Paroxysmal atrial fibrillation Spinal stenosis Lumbar degenerative disc disease Anxiety and depression Hypertension Obesity Obstructive sleep apnea GERD (gastroesophageal reflux disease) Hypercholesterolemia Surgical History History of loop recorder S/P arteriovenous (AV) fistula repair History of cholecystectomy S/P diskectomy Family History Father Lung cancer Mother Medical history unknown Sister Myocardial infarction Brother Hepatitis C Paternal Grandmother Ovarian cancer Paternal Uncle Brain cancer Sister No problems noted. Sister No problems noted. Brother No problems noted. Brother No problems noted. Brother No problems noted. Daughter No problems noted. Daughter No problems noted. 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 Overall normal device function. [id number] Cardiac Device Interrogation, pacemaker Procedure code (CPT) selection complete Assessment & Plan Assessment & Plan (1) Pacemaker: Code(s): Z95.0 - Presence of cardiac pacemaker Category: Medical (2) Paroxysmal atrial fibrillation: Code(s): I48.0 - Paroxysmal atrial fibrillation Category: Medical (3) LBBB (left bundle branch block): Code(s): I44.7 - Left bundle-branch block, unspecified Category: Medical (4) Bradycardia: Code(s): R00.1 - Bradycardia, unspecified Category: Medical Plan x Coding Level of Care Code Procedure Only Diagnoses Pacemaker Z95.0 Paroxysmal atrial fibrillation I48.0 LBBB (left bundle branch block) I44.7 Bradycardia R00.1 CPT Codes Cardiac Device Check - Cardiac Device 12: [id number] Cardiac Device Interrogation, pacemaker ([id number])
== END ==
PROVIDERS: PCP Internal Medicine; Visit Provider Internal Medicine
DX: I48.0 Paroxysmal atrial fibrillation (principal); Z95.0 Presence of cardiac pacemaker; I44.7 Left bundle-branch block, unspecified; R00.1 Bradycardia, unspecified
CPT/HCPCS: 93294

== ENCOUNTER 2024-08-21 09:47 | Emergency (ER) | payer OTHER, SELFPAY ==
--- NOTE | ~2024-08-21 | XR_ITS ---
CLINICAL HISTORY: shortness of breath 2 view chest x-ray. Comparison: None Findings: Normal lung volumes. Lungs are clear. No pneumothorax or pleural effusion. Heart size normal. No passive venous congestion. No midline shift or tracheal deviation. No acute fracture. Dual-chamber pacemaker. Impression: 1. No acute cardiopulmonary disease. This document has been electronically signed by: Troy Arias MD on 08/21/2024 11:48:31
--- NOTE | 2024-08-21 09:48 | ECG_ITS ---
Test Reason : SOB/PALPITATION Blood Pressure : */* mmHG Vent. Rate : 70 BPM Atrial Rate : 70 BPM P-R Int : 206 ms QRS Dur : 152 ms QT Int : 396 ms P-R-T Axes : 55 -57 73 degrees QTcB Int : 427 ms Normal sinus rhythm Left axis deviation Left bundle branch block Abnormal ECG When compared with ECG of 01-Oct-2023 16:13, Rhythm change Referred By: Generic ED Physician Electronically Signed By: NEFTALY HORNE
--- OUTSIDE RECORDS SUMMARY | 2024-08-21 10:00 | XMS_ITS | Clinical Summary ---
Author Organization [facility] [address] [place] [address] [place] [id number] Phone Care Team Providers Care Retail Beauty Specialist Name Role Phone Matias Sullivan MD Primary Care Provider [phone] Allergies Active Allergy Reactions Criticality Noted Date [...] 1,000 mg CR tablet Take by mouth. Activ e cholecalciferol (VITAMIN D-3) 50 mcg (2,000 unit) tablet Take by mouth. Ac tive OMEGA-3 FATTY ACIDS ORAL [place]-3 Fatty Acids (FISH OIL) 1200 MG Cap [...] at night 42.5 g 3 4 Active Active Problems Problem Noted Date Diagnosed Date [...] Encouraged to follow-up with PCP. Atrial fibrillation (CMS/HCC V24, CMS/HCC V28) 0 08/11/2017 Fibroids 07/18/2017 Overview (02/04/2024): Last Assessment [...] Date Resolved Date Right ovarian cyst 07/19/2021 Overview (02/04/2024): Last Assessment & Plan: Follow-up [...] ized headaches; COMMENT: no migraines, Atrial fibrillation (CMS/HCC V24, CMS/HCC V28) 08/11/2017 DX:Atrial fibrillation (HCC) JESSICA (obstructive sleep apnea) 01/01/2019 [...] - 2023-2 5 season) 2023 06/22/2020, 06/01/2020 Hypertension/CHF/CAD Annual BMP Blood Test 03/02/2024 Influenza Vaccine (Season Ended) 2024 03/13/2020 Colorectal Cancer Screening: FIT-DNA (Cologuard) 11/01/2025 11/01/2022, [...] age to complete this topic Meningococcal B Vaccine Aged Out No l onger eligible based on patient's age to complete [...] Most Recently Relevant to Health Maintenance Insurance [facility] [employer] Care Teams Retail Beauty Specialist Relationship Specialty Start Date End Date Matias Sullivan MD [address] [place] [address] [address] [facility] [place] [address] PCP - General Internal Medicine 04/24/12
[2024-08-21 10:03] VITALS: BP 141/63; PULSE 70; RESP 18; TEMP 36.5; O2SAT 96; BMI 47.1
--- NOTE | 2024-08-21 10:19 | ED.GENADULT ---
HPI - General Adult General Chief complaint: Arrhythmia/Palpitations Stated complaint: sob Time Seen by Provider: 08/21/24 10:09 Source: patient Mode of arrival: ambulatory Limitations: no limitations History of Present Illness ED Provider: Juana Leija NP HPI narrative: Patient is a 59-year-old female with past medical history of paroxysmal atrial fibrillation on metoprolol and Eliquis, September of 2023 dual-chamber pacemaker Medtronic placed due to loop recorder revealing symptomatic frequent PVCs/ nonsustained VT/ bradycardia, hx of left bundle-branch block, diabetes, anxiety, NSVT, hypertension, hyperlipidemia who presents emergency department for evaluation. 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 of a ?fuzzy feeling?, lightheadedness, shortness of breath and diaphoresis. She admits that this does occasionally happened, every few weeks or so but lasts only approximately 10-20 seconds. This episode lasted what she felt was closer to 1 minute, she does admit that she began to feel anxious about this but she did some deep breathing and symptoms that ultimately resolved. There was no associated chest pain. Decided to come to emergency department for evaluation as she felt this way proximally 2 years ago which resulted in syncope and her loop recorder placement at that time. She has had a few further episodes since in the emergency department. She does endorse having shortness of breath and palpitations on exertion. Denies orthopnea, PND. Denies trauma, fevers, chills, URI symptoms, sore throat, difficulty swallowing, neck pain, chest pain, cough, nausea, vomiting, abdominal pain, numbness or tingling of the extremities, recent lower extremity pain or swelling. States she has been compliant with all of her medications Related Data Home Medications ?Medication ?Instructions ?Recorded ?Confirmed ascorbate calcium (vitamin C) 500 1,000 mg PO DAILY 03/13/2025 mg tablet cholecalciferol (vitamin D3) 25 25 mcg PO DAILY 03/13/2025 mcg (1,000 unit) capsule omega 1-ohv-vlh-fish oil 300 1 cap PO DAILY 09/30/2306/28/25 mg-1,000 mg capsule,delayed release (Fish Oil) Previous Rx's ?Medication ?Instructions ?Recorded shower chair no back and arms #1 ea 10/10/23 diazepam 5 mg tablet 5 mg PO BEDTIME PRN sleep #10 tabs 12/01/23 nystatin 100,000 unit/gram topical 1 appl topical DAILY 30 days #60 12/01/23 powder grams metformin 500 mg tablet 500 mg PO BID #180 tabs 02/14/24 pantoprazole 40 mg tablet,delayed 40 mg PO DAILY@0630 #90 tabs 02/14/24 release simvastatin 10 mg tablet 10 mg PO BEDTIME 90 days #90 tabs 03/13/24 apixaban 5 mg tablet (Eliquis) 5 mg PO BID 90 days #180 tabs 05/27/24 losartan 25 mg tablet 25 mg PO DAILY #90 tabs 06/24/24 metoprolol tartrate 25 mg tablet 25 mg PO BID #180 tabs 07/28/24 Allergies Allergy/AdvReac Type Severity Reaction Status Date / Time amlodipine Allergy Severe Anxiety Verified 08/21/24 10:06 meperidine [From DEMEROL] Allergy Intermediate MIGRAINE Verified 08/21/24 10:06 codeine [CODEINE] Allergy Unknown UNKNOWN Verified 08/21/24 10:06 Review of Systems Review of Systems: Yes all other systems are reviewed and are negative [facility] Past Medical History Attestation statement: The following information was validated with the patient. Source: old records reviewed Medical History Hx of cardiac pacemaker Tinea pedis Colon cancer screening Palpitations Sinus bradycardia COVID-19 virus infection Anemia Impaired glucose tolerance Bradycardia NSVT (nonsustained ventricular tachycardia) Neck pain Vertigo Paroxysmal atrial fibrillation Spinal stenosis Lumbar degenerative disc disease Anxiety and depression Hypertension Obesity Obstructive sleep apnea GERD (gastroesophageal reflux disease) Hypercholesterolemia Surgical History History of loop recorder S/P arteriovenous (AV) fistula repair History of cholecystectomy S/P diskectomy Family History Family History Father Lung cancer Mother Medical history unknown Sister Myocardial infarction Brother Hepatitis C Paternal Grandmother Ovarian cancer Paternal Uncle Brain cancer Sister No problems noted. Sister No problems noted. Brother No problems noted. Brother No problems noted. Brother No problems noted. Daughter No problems noted. Daughter No problems noted. 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 No acute distress.?Normal affect. Eyes: Pupils equal, round and reactive to light.? ENT: Pharynx normal.?? Neck: Normal inspection.? Neck supple.?? CVS: Heart sounds normal. Normal heart rate and rhythm.? Pulses normal.?? Respiratory: No respiratory distress.? Lung sounds clear to auscultation bilaterally?? Abdomen: Soft and non-tender. Normoactive bowel sounds. Skin: Skin warm and dry.? Normal skin color.? Extremities: No lower extremity edema.? No calf ttp? Neuro: Moves all extremities spontaneously. Sensation intact bilaterally. No focal neuro deficits. Ambulates with normal steady gait. Course Reevaluation(s) Reevaluation #1: Aside from a mild normocytic anemia previously seen no significant laboratory derangements. High sensitive troponin within normal range 40 kg with a normal sinus rhythm no ischemic changes. Viral serologies are negative. BNP is normal. Chest x-ray is negative. Urinalysis is negative. Viral serologies are negative. Received information from [employer] pacemaker interrogation, no abnormal events that would correspond with her symptoms today. At this time she has remained asymptomatic in the emergency department. Feel she is stable for discharge home, outpatient follow-up with PCP/cardiology and strict return precautions. Medical Decision Making Medical Decision Making MDM Narrative: Patient is a 59-year-old female with past medical history of paroxysmal atrial fibrillation on metoprolol and Eliquis, September of 2023 dual-chamber pacemaker Medtronic placed due to loop recorder revealing symptomatic frequent PVCs/ nonsustained VT/ bradycardia, hx of left bundle-branch block, diabetes, anxiety, NSVT, hypertension, hyperlipidemia who presents emergency department for evaluation of episodic lightheadedness, palpitations, shortness of breath as per HPI concerning for paroxysmal atrial fibrillation possible RVR versus NSVT versus NVT given her history. Most recent remote pacemaker interrogation 08/04/2024 overall normal device function. She appears mildly anxious, but is able to calm herself with deep breathing. Arrived in a normal sinus rhythm pulse in the 70s, mildly hypertensive. Afebrile without tachypnea or hypoxia. Currently in no respiratory distress. Has been compliant with Eliquis, denies any recent lower extremity redness pain or swelling, lower suspicion for VTE/PE at this time. No recent URI symptoms to suggest viral illness or pneumonia. Will obtain CBC to evaluate for leukocytosis/ anemia, CMP and lipase to evaluate for abnormal electrolytes /abnormal renal function/ abnormal hepatic/biliary function, EKG and troponin to evaluate for ischemia/ACS. Chest x-ray to evaluate for consolidation/ infiltrate/ mass/ pulmonary congestion and Urinalysis. Differential Diagnosis Differential Diagnoses: The differential diagnosis associated with the presentation includes (See narrative above) Admission/Observation Consideration of admission/observation: Escalation of care including admission/observation considered Consult Healthcare Provider Management of the patient was discussed with: Board Mixer Tender (Cardiology) Lab Data [facility] Lab Attestation statement: I reviewed the patient's lab results. CBC reveals no leukocytosis, has a mild normocytic anemia not meeting transfusion criteria, no thrombocytopenia. No significant electrolyte derangement. No BENY. High sensitive troponin within normal range. BNP within normal range. Urinalysis without evidence of infection or microscopic hematuria. Viral serologies are negative. 08/21/24 10:19 08/21/24 10:19 Labs: Lab Results 08/21/24 08/21/24 08/21/24 Range/Units 10:18 10:19 10:40 WBC 8.6 (4.8-10.8) X10*3/uL RBC 4.38 (4.20-5.50) X10*6/uL Hgb 11.9 L (12.0-16.0) g/dl Hct 36.5 L (37.0-47.0) % MCV 83.3 (80.0-98.0) fL MCH 27.2 (27.0-33.0) pg MCHC 32.6 (31.0-35.0) g/dl RDW 16.0 (11.0-16.0) % Plt Count 266 (160-400) X10*3/uL MPV 9.9 (9.4-12.3) fL Immature Gran % (Auto) 0.8 H (0.0-0.4) % Neut % (Auto) 64.1 (45-73) % Lymph % (Auto) 25.9 (20-40) % [place] % (Auto) 7.1 (2-11) % Eos % (Auto) 1.6 (0-4) % Baso % (Auto) 0.5 (0-2) % Lymph # (Auto) 2.2 (1.2-4.9) X10*3/uL [place] # (Auto) 0.6 (0.1-1.2) X10*3/uL Eos # (Auto) 0.1 (0.0-0.4) X10*3/uL Baso # (Auto) 0.0 (0.0-0.2) X10*3/uL Abs Immat Gran (auto) 0.07 H (0.00-0.03) X10*3/uL Absolute Neuts (auto) 5.5 (2.0-8.3) x10*3/uL Absolute Nucleated RBC 0.000 (0.0-0.012) X10*3/uL Nucleated RBC % (auto) 0.0 (0.0-0.2) /100WBC PT 15.1 H (10.9-12.4) SEC INR 1.3 H (0.9-1.1) APTT 35.6 (26.0-36.8) SEC Sodium 140 (135-145) mmol/L Potassium 4.3 (3.3-5.1) mmol/L Chloride 109 H (96-108) mmol/L Carbon Dioxide 22 (22-29) mmol/L Anion Gap 13 (12-20) BUN 12 (9-16) mg/dL Creatinine 0.77 (0.5-1.4) mg/dL Estim Creat Clear Calc 94.1 Estimated GFR > 60 Random Glucose 100 (60-115) mg/dL Calcium 9.6 (8.4-10.2) mg/dL Magnesium 1.7 (1.6-2.6) mg/dL Total Bilirubin 0.6 (0.0-1.0) mg/dL AST 33 H (5-31) U/L ALT 35 H (0-31) U/L Alkaline Phosphatase 103 (39-117) U/L Troponin I High Sens < 2.7 (<3.5-17.0) ng/L B-Natriuretic Peptide 42 (<100) pg/mL Total Protein 7.3 (6.5-8.0) g/dL Albumin 4.2 (3.5-5.0) g/dL Urine Color Yellow Urine Appearance Clear Urine pH 6.0 (5.0-9.0) Ur Specific [place] <= 1.005 (1.005-1.025) Urine Protein Negative (Neg-Trace) mg/dL Urine Glucose (UA) Negative (Negative) mg/dL Urine Ketones Negative (Negative) mg/dL Urine Blood Negative (Negative) Urine Nitrite Negative (Negative) Ur Leukocyte Esterase Negative (Negative) Influenza Type A (PCR) (Negative) Influenza Type B (PCR) (Negative) RSV RNA Qual (PCR) (Negative) SARS-CoV-2 RNA (RT-PCR) (Negative) 08/21/24 Range/Units 11:04 WBC (4.8-10.8) X10*3/uL RBC (4.20-5.50) X10*6/uL Hgb (12.0-16.0) g/dl Hct (37.0-47.0) % MCV (80.0-98.0) fL MCH (27.0-33.0) pg MCHC (31.0-35.0) g/dl RDW (11.0-16.0) % Plt Count (160-400) X10*3/uL MPV (9.4-12.3) fL Immature Gran % (Auto) (0.0-0.4) % Neut % (Auto) (45-73) % Lymph % (Auto) (20-40) % [place] % (Auto) (2-11) % Eos % (Auto) (0-4) % Baso % (Auto) (0-2) % Lymph # (Auto) (1.2-4.9) X10*3/uL [place] # (Auto) (0.1-1.2) X10*3/uL Eos # (Auto) (0.0-0.4) X10*3/uL Baso # (Auto) (0.0-0.2) X10*3/uL Abs Immat Gran (auto) (0.00-0.03) X10*3/uL Absolute Neuts (auto) (2.0-8.3) x10*3/uL Absolute Nucleated RBC (0.0-0.012) X10*3/uL Nucleated RBC % (auto) (0.0-0.2) /100WBC PT (10.9-12.4) SEC INR (0.9-1.1) APTT (26.0-36.8) SEC Sodium (135-145) mmol/L Potassium (3.3-5.1) mmol/L Chloride (96-108) mmol/L Carbon Dioxide (22-29) mmol/L Anion Gap (12-20) BUN (9-16) mg/dL Creatinine (0.5-1.4) mg/dL Estim Creat Clear Calc Estimated GFR Random Glucose (60-115) mg/dL Calcium (8.4-10.2) mg/dL Magnesium (1.6-2.6) mg/dL Total Bilirubin (0.0-1.0) mg/dL AST (5-31) U/L ALT (0-31) U/L Alkaline Phosphatase (39-117) U/L Troponin I High Sens (<3.5-17.0) ng/L B-Natriuretic Peptide (<100) pg/mL Total Protein (6.5-8.0) g/dL Albumin (3.5-5.0) g/dL Urine Color Urine Appearance Urine pH (5.0-9.0) Ur Specific [place] (1.005-1.025) Urine Protein (Neg-Trace) mg/dL Urine Glucose (UA) (Negative) mg/dL Urine Ketones (Negative) mg/dL Urine Blood (Negative) Urine Nitrite (Negative) Ur Leukocyte Esterase (Negative) Influenza Type A (PCR) NEGATIVE (Negative) Influenza Type B (PCR) NEGATIVE (Negative) RSV RNA Qual (PCR) NEGATIVE (Negative) SARS-CoV-2 RNA (RT-PCR) NEGATIVE (Negative) Independent Interpretation I performed an independent interpretation of an: EKG (Sinus rhythm, LBBB, ventricular rate of 70, QTC 427, no ST elevation) and Plain X-Ray (No consolidation or infiltrate) Radiology Impression Discussion of test interpretation with radiology: I have reviewed the radiologist's reading. Radiologist Impression: 2 view chest x-ray. Comparison: None Findings: Normal lung volumes. Lungs are clear. No pneumothorax or pleural effusion. Heart size normal. No passive venous congestion. No midline shift or tracheal deviation. No acute fracture. Dual-chamber pacemaker. Impression: 1. No acute cardiopulmonary disease. Independent Historian Clinical information obtained from an independent historian. History obtained from or confirmed by: Spouse External Record Review External record reviewed: Outpatient record Chronic Conditions Patient?s care impacted by: Other (See narrative above) Discharge Plan Discharge Clinical Impression: Shortness of breath Patient Disposition: Home, Self-Care Additional Instructions: Testing today was very reassuring. Your pacemaker was interrogated and was without any abnormal findings to be related to your symptoms that you experienced today. It is possible that your anxiety surrounding this situation may have prolonged your symptoms longer than you were typically used to. Blood work shows that you are mildly anemic she has been seen in the past, does not require any blood transfusion. Your electrolytes were normal. Your kidney function was normal. A marker for damage to your heart muscle known as troponin was also checked in the elevated during times of damage to the heart muscle such as during a heart attack which was normal. Your EKG today showed a normal sinus rhythm, there was not evidence of abnormal heart rhythm while you were in the emergency department. Your urine test did not show sign of infection. Your viral tests were normal. Your chest x-ray was normal. Please follow-up with your PCP and candy separator hard. Return with any new or worsening symptoms or concerns. Prescriptions: No Action (DME) shower chair no back and arms See Rx Instructions .Route .MEDSUPPLY Qty: 1 0RF Rx Instructions: As directed diazepam 5 mg tablet 5 mg PO BEDTIME PRN (Reason: sleep) Qty: 10 0RF nystatin 100,000 unit/gram powder 1 appl topical DAILY 30 Days Qty: 60 0RF pantoprazole 40 mg tablet,delayed release (DR/EC) 40 mg PO DAILY@0630 Qty: 90 2RF metformin 500 mg tablet 500 mg PO BID Qty: 180 1RF simvastatin 10 mg tablet 10 mg PO BEDTIME 90 Days Qty: 90 1RF Eliquis 5 mg tablet 5 mg PO BID 90 Days Qty: 180 3RF metoprolol tartrate 25 mg tablet 25 mg PO BID Qty: 180 3RF omega 0-dvn-bro-fish oil [Fish Oil] 300-1,000 mg Capsule,Delayed Release(Dr/Ec) 1 cap PO DAILY cholecalciferol (vitamin D3) 25 mcg (1,000 unit) capsule 25 mcg PO DAILY ascorbate calcium (vitamin C) 500 mg tablet 1,000 mg PO DAILY losartan 25 mg tablet 25 mg PO DAILY Qty: 90 2RF Referrals: Po,Matias Mishra MD [Primary Care Provider] - Print Language: Yoruba
[2024-08-21 10:24] LABS: MANUAL DIFF FLAG NO
[2024-08-21 10:30] LABS: Basophils Percent Auto 0.5 % (0-2); Eosinophils Absolute Auto 0.1 X10*3/uL (0.0-0.4); Eosinophils Percent Auto 1.6 % (0-4); Hematocrit 36.5 % (37.0-47.0); Hemoglobin 11.9 g/dl (12.0-16.0); Imm Gran Abs Auto 0.07 X10*3/uL (0.00-0.03); Imm Gran Pct Auto 0.8 % (0.0-0.4); Lymphocytes Absolute Auto 2.2 X10*3/uL (1.2-4.9); Lymphocytes Percent Auto 25.9 % (20-40); Mean Corpuscular HGB Conc 32.6 g/dl (31.0-35.0); Mean Corpuscular Hemoglobin 27.2 pg (27.0-33.0); Mean Corpuscular Volume 83.3 fL (80.0-98.0); Mean Platelet Volume 9.9 fL (9.4-12.3); Monocytes Absolute Auto 0.6 X10*3/uL (0.1-1.2); Monocytes Percent Auto 7.1 % (2-11); Neutrophils Absolute Auto 5.5 x10*3/uL (2.0-8.3); Neutrophils Percent Auto 64.1 % (45-73); Platelet Count 266 X10*3/uL (160-400); Red Blood Count 4.38 X10*6/uL (4.20-5.50); White Blood Count 8.6 X10*3/uL (4.8-10.8)
[2024-08-21 10:35] LABS: INTERNATIONAL NORM RATIO 1.3 (0.9-1.1); Prothrombin Time 15.1 SEC (10.9-12.4)
[2024-08-21 10:38] LABS: Partial Thromboplastin Time 35.6 SEC (26.0-36.8)
[2024-08-21 10:47] LABS: Appearance Urine Clear; Color Urine Yellow; Glucose Urine UA Negative (Negative); Leukocyte Esterase Urine Negative (Negative); Nitrite Urine Negative (Negative); Specific Gravity - Urine <= 1.005 (1.005-1.025); Urine Blood Negative (Negative); Urine Ketones Negative (Negative); Urine Protein Negative (Neg-Trace)
[2024-08-21 10:48] LABS: Albumin Level 4.2 g/dL (3.5-5.0); Alkaline Phosphatase 103 U/L (39-117); Anion Gap 13 (12-20); Aspartate Amino Transferase 33 U/L (5-31); Bilirubin Total 0.6 mg/dL (0.0-1.0); Blood Urea Nitrogen 12 mg/dL (9-16); Calcium 9.6 mg/dL (8.4-10.2); Carbon Dioxide 22 mmol/L (22-29); Chloride 109 mmol/L (96-108); Creatinine Clr Calc Pharmacy 94.1; Estimated Glomerular Filt Rate > 60; Glucose Random 100 mg/dL (60-115); Magnesium 1.7 mg/dL (1.6-2.6); Potassium 4.3 mmol/L (3.3-5.1); Sodium 140 mmol/L (135-145); Total Protein 7.3 g/dL (6.5-8.0)
[2024-08-21 10:49] LABS: B Type Natriuretic Peptide 42 pg/mL (<100)
[2024-08-21 10:52] LABS: Troponin-I High Sensitivity < 2.7 ng/L (<3.5-17.0)
[2024-08-21 11:04] LABS: Alanine Aminotransferase 35 U/L (0-31)
[2024-08-21 11:52] LABS: Influenza A PCR NEGATIVE (Negative); Influenza B PCR NEGATIVE (Negative); Resp Syncy Virus RNA Qual PCR NEGATIVE (Negative); SARS COV2 PCR INHOUSE NEGATIVE (Negative)
[2024-08-21 12:00] VITALS: BP 139/61; PULSE 64; RESP 16; TEMP 36.6; O2SAT 97
[2024-08-21 13:54] VITALS: BP 139/61; PULSE 64; RESP 16; TEMP 36.6; O2SAT 97
== END 2024-08-21 14:18 | disposition home or self-care (01) ==
PROVIDERS: Nurse Practitioner Family; Emergency Provider Emergency Medicine; PCP Internal Medicine
DX: I49.9 Cardiac arrhythmia, unspecified (principal); R00.2 Palpitations; R06.02 Shortness of breath; D64.9 Anemia, unspecified; Z03.818 Encounter for observation for suspected exposure to other biological agents ruled out; Z79.899 Other long term (current) drug therapy
CPT/HCPCS: 0241U; 36415; 71046; 80053; 81003; 83735; 83880; 84484; 85025; 85610; 85730; 93005; 99283; 99285

== ENCOUNTER → 2024-08-21 09:48 | Outpatient (BNV) | payer OTHER, SELFPAY | PROVIDERS: Emergency Provider Emergency Medicine; PCP Internal Medicine; Visit Provider Internal Medicine | DX: I44.7 Left bundle-branch block, unspecified (principal) | CPT/HCPCS: 93010 ==

== ENCOUNTER → 2024-08-21 10:55 | Outpatient (BNV) | payer OTHER, SELFPAY | PROVIDERS: Emergency Provider Emergency Medicine; PCP Internal Medicine; Visit Provider Radiology Diagnostic Radiology | DX: R06.02 Shortness of breath (principal) | CPT/HCPCS: 71046 ==

== ENCOUNTER 2024-08-24 15:45 | Outpatient (AMB) | payer OTHER, SELFPAY ==
--- NOTE | 2024-08-24 15:58 | A.OFFPC_ITS ---
Vital Signs 08/24/24 15:59 Height 5 ft 1 in Weight 248 lb BMI 46.9 BP 130/70 Blood Pressure Location Lt brachial Position Sitting Pulse 76 Pulse Source Pulse Oximeter Temp 97.7 F Temp Source Temporal Artery Scan Pulse Oximetry (%) 95 Oxygen Delivery Method Room Air Intake Visit Reasons: discuss wegovy for weight loss Intake Note: Patient is here to follow up on Discuss Wegovy for weight loss. Director Of Recruiting Required: No Deputy Chief Magistrate: Not Required per policy Accompanied by: Self / Same As Patient Allergies amlodipine Allergy (Severe, Verified 08/24/24 15:59) Anxiety meperidine [From DEMEROL] Allergy (Intermediate, Verified 08/24/24 15:59) MIGRAINE codeine [CODEINE] Allergy (Unknown, Verified 08/24/24 15:59) UNKNOWN Medication List - Last Reconciled 08/24/24 by Matias Sullivan MD apixaban (Eliquis) 5 mg PO BID 90 days ascorbate calcium (vitamin C) 1,000 mg PO DAILY cholecalciferol (vitamin D3) 25 mcg PO DAILY diazepam 5 mg PO BEDTIME PRN losartan 25 mg PO DAILY metformin 500 mg PO BID metoprolol tartrate 25 mg PO BID nystatin 1 appl topical DAILY 30 days omega [id number]-fish oil 300-1,000 mg (Fish Oil) 1 cap PO DAILY pantoprazole 40 mg PO DAILY@0630 [shower chair no back and arms As directed] simvastatin 10 mg PO BEDTIME 90 days Tobacco use date assessed: 08/24/24 Dental Screening Dental Screen Date: 06/24/24 [facility] Medical History (Updated 08/24/24 @ 16:43 by Matias Sullivan MD) Hx of cardiac pacemaker Tinea pedis Colon cancer screening Palpitations Sinus bradycardia COVID-19 virus infection Anemia Impaired glucose tolerance Bradycardia NSVT (nonsustained ventricular tachycardia) Neck pain Vertigo Paroxysmal atrial fibrillation Spinal stenosis Lumbar degenerative disc disease Anxiety and depression Hypertension Obesity Obstructive sleep apnea GERD (gastroesophageal reflux disease) Hypercholesterolemia Surgical History (Updated 08/24/24 @ 16:07 by ROSIE Oliva) History of cataract surgery History of loop recorder S/P arteriovenous (AV) fistula repair History of cholecystectomy S/P diskectomy Family History Father Lung cancer Mother Medical history unknown Sister Myocardial infarction Brother Hepatitis C Paternal Grandmother Ovarian cancer Paternal Uncle Brain cancer Sister No problems noted. Sister No problems noted. Brother No problems noted. Brother No problems noted. Brother No problems noted. Daughter No problems noted. Daughter No problems noted. 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 1. Little interest or pleasure in doing things: not at all 2. Feeling down, depressed, or hopeless: not at all 3. Trouble falling or staying asleep, or sleeping too much: not at all 4. Feeling tired or having little energy: nearly every day 5. Poor appetite or overeating: not at all 6. Feeling bad about yourself - or that you are a failure or have let yourself or your family down: not at all 7. Trouble concentrating on things, such as reading the newspaper or watching television: not at all 8. Moving or speaking so slowly that other people could have noticed. Or the opposite - being so fidgety or restless that you have been moving around a lot more than usual: not at all 9. Thoughts that you would be better off or of hurting yourself in some way: not at all Total score: 3 Depression Screening Interpretation: Positive Depression Screening Done: Yes Source: Developed by Drs. Chepe Leon, Bharati Palacio, Juan Anderson and colleagues, with an educational briana from [employer]. Thrive Questionnaire Date Thrive assessed: 06/24/24 I am a: Patient What is your living situation today?: I have a steady place to live Within the past 12 months, did the food you bought not last and you didn't have the money to get more?: Never true Within the past 12 months, did you worry whether your food would run out before you got money to buy more?: Never true Do you have trouble paying for medicines?: No Do you have trouble getting transportation to medical appointments?: No Do you have trouble paying your heating and electricity bill?: No Do you have trouble taking care of your child, family member or friend?: No Do you have trouble with day-to-day activities such as bathing, preparing meals, shopping, managing finances, etc.?: No Are you currently unemployed and looking for a job?: No Are you interested in more education?: No Please select the resources that you would like help with: None Currently or been in a relationship where the following occur: No concerns reported THRIVE Score: 0 AUDIT C Alcohol Use Questionnaire (AUDIT-C) 1. How often do you have a drink containing alcohol?: Never Total Score: 0 JORGE ALBERTO-7 AMB Questionnaire JORGE ALBERTO-7 Date JORGE ALBERTO - 7 assessed: 06/24/24 Feeling nervous, anxious, or on edge: 3 = Nearly every day Not being able to stop or control worryin = Not at all Worrying too much about different things: 0 = Not at all Trouble relaxin = Not at all Being so restless that it is hard to sit still: 0 = Not at all Becoming easily annoyed or irritable: 3 = Nearly every day Feeling afraid as if something awful might happen: 0 = Not at all Total JORGE ALBERTO-7 score (0-4 normal; 5-9 mild; 10-14 moderate; 15-21 severe): 6 Source: Developed by Drs. Chepe Leon, Bharati Palacio, Juan Anderson and colleagues, with an educational briana from [employer]. Physical exam (Primary Care) Vital Signs: Last Vital Signs Temp 97.7 F 08/24/24 15:59 Pulse 76 08/24/24 15:59 BP 130/70 08/24/24 15:59 Pulse Ox 95 08/24/24 15:59 Oxygen Delivery Method Room Air 08/24/24 15:59 BMI result Body Mass Index 46.9 Tobacco/Smoking Status: Tobacco use Status Tobacco use date assessed 08/24/24 08/24/24 16:04 Patient Tobacco Use Status Never used Tobacco 08/24/24 16:04 e-Cigarette/Vaping Use Never Used 08/24/24 16:04 PHQ-9: PHQ-9 Score PHQ-9: Total score 3 08/24/24 16:28 Depression Screening Interpretation: Positive Thrive Assessment: Date of Thrive Assessment Date Thrive assessed 06/24/24 08/24/24 16:04 Currently or been in a relationship where the following occur: No concerns reported Const General: alert; No acute distress Eyes Conjunctivae: conjunctivae normal Resp Auscultation: clear to auscultation bilaterally Cardio Rate: regular rate Rhythm: regular rhythm GI Inspection: Yes normal to inspection Extrem General: Yes normal to inspection and No edema Coding Level of Care Code Est Pt Level 4 (72556) Complex EM visit Add On G2211 Diagnoses Mobitz (type) II atrioventricular block I44.1 Obstructive sleep apnea G47.33 Paroxysmal atrial fibrillation I48.0 Hypercholesterolemia E78.00 Type 2 diabetes mellitus with hyperglycemia, without long-term current use of insulin E11.65 Diabetes mellitus penitentiary insulin use: without penitentiary use Generalized anxiety disorder F41.1 Morbid obesity E66.01 Assessment & Plan Assessment & Plan (1) Mobitz (type) II atrioventricular block: Comment: Pacemaker Code(s): I44.1 - Atrioventricular block, second degree Category: Medical Plan: Has a pacemaker and has device checks with Cardiology (2) Obstructive sleep apnea: Comment: On CPAP at 18amK5O Code(s): G47.33 - Obstructive sleep apnea (adult) (pediatric) Category: Medical Plan: Continue with CPAP more than 4 hours a night and benefits from this. (3) Paroxysmal atrial fibrillation: Code(s): I48.0 - Paroxysmal atrial fibrillation Category: Medical Plan: Continue with anticoagulation with Eliquis twice a day year blood work recommended and beta-rosa (4) Hypercholesterolemia: Code(s): E78.00 - Pure hypercholesterolemia, unspecified Category: Medical Plan: Avoid fried foods, chicken skin, eggs, butter margarine, pastries and meat. Be it pork or beef they have a lot of cholesterol on simvastatin 10 mg once a day and advised to get LDL goal of less than 100 and triglyceride of less than 150 (5) Type 2 diabetes mellitus with hyperglycemia: Comment: [place] [facility] Code(s): E11.65 - Type 2 diabetes mellitus with hyperglycemia Category: Medical Qualifiers: Diabetes mellitus penitentiary insulin use: without intermodal dispatcher use Qualified Code(s): E11.65 - Type 2 diabetes mellitus with hyperglycemia Plan: Decrease the amount of carbohydrate intake, pasta, bread, rice and potatoes are all sugar and that is aside from all the sweet stuff, remember that fruits are good but they are Sweet also. Hemoglobin A1c goal of less than 6.5. On metformin 500 mg twice a day (6) Generalized anxiety disorder: Code(s): F41.1 - Generalized anxiety disorder Category: Medical Plan: Continue with diazepam as needed (7) Morbid obesity: Code(s): E66.01 - Morbid (severe) obesity due to excess calories Category: Medical Plan History of Present Illness The patient is a 59-year-old female presenting with follow-up concerns for palpitations, lightheadedness, and shortness of breath. She has a complex cardiac history that includes atrial fibrillation with sinus pauses, managed with metoprolol and Eliquis, and a dual chamber pacemaker implanted in September 2023. The patient recalls a recent episode at work where she nearly fainted, felt palpitations, and took diazepam, suggesting underlying anxiety could be a factor. These episodes are accompanied by lightheadedness and shortness of breath, affecting her daily activities. Positional changes, such as lying down or turning to her side, aggravate these sensations. Menopausal symptoms, including excessive sweating and intolerance to heat, contribute to her discomfort. Despite utilizing CPAP therapy, her sleep remains inadequate. Her subjective sense of increased weight, which is consistent with her history of obesity and menopause, remains a concern. The patient denies other symptoms such as pain or congestion and reports no urinary or bowel issues. Recent evaluations showed mild anemia and normal thyroid, liver, and renal function, though her cholesterol requires management. Health Maintenance - Mammogram is up to date. - Cologuard test completed in October 2022. - Continuous positive airway pressure (CPAP) adherence with more than 4 hours of use per night. - LDL cholesterol goal of less than 100 mg/dL; currently on simvastatin 10 mg daily. - Triglyceride goal of less than 150 mg/dL. - Hemoglobin A1c goal of less than 6.5%; currently 6.2%. Social History - Reports working and experiencing incidents of palpitations while at work. - Adheres to CPAP use protocol. - Expresses concerns about weight gain, associating it with menopause symptoms. - Reports consistent water intake of 64 ounces per day. Review of Systems - Cardiovascular: Reports palpitations, lightheadedness, and shortness of breath when moving. - Neurological: Reports feeling lightheaded and 'weird' sensations. - Respiratory: Denies congestion. - Gastrointestinal: Denies sore throat. - Endocrine: Reports increased sweating and heat intolerance. - Musculoskeletal: Denies full body joint pains. - Genitourinary: Denies urinary frequency or pain. - Hematological: Reports mild anemia. - Psychiatric: Reports symptoms suggestive of anxiety. Physical Exam Results - Labs: Mild anemia with hemoglobin of 11.9 g/dL. Electrolytes within normal limits. Blood glucose 100 mg/dL, hemoglobin A1c 6.2%, LDL cholesterol 100 mg/dL, triglycerides 166 mg/dL. - Tests: Pacemaker check shows atrial fibrillation with sinus pauses. - Diagnostics: Echocardiogram in 2023 showing ejection fraction of 55-60%. Plan 1. 5. Hypercholesterolemia will be addressed with simvastatin, aiming for improved lipid control through dietary modifications also. Diazepam will be used cautiously for anxiety, considering further psychiatric evaluation if needed. Menopausal symptoms and associated discomforts will be observed, with a focus on lifestyle adjustments. Regular follow-ups for cardiac rhythm are planned, with the possibility of additional interventions depending on symptom progression.: Patient was informed and verbally consented to the use of an ambient scribe for clinic note documentation during this visit. Discussion Notes I discussed the patient's symptoms and management strategies, including atrial fibrillation treatment and the necessity of continued anticoagulation with Eliquis. We reviewed the mild anemia findings and agreed to monitor these levels without immediate intervention. Weight management was a palomo discussion point but a balanced risk approach will be considered if utilizing medications like Wegovy, based on insurance approval. Adherence to CPAP therapy's benefits was encouraged for sleep apnea management. Diabetes management continues with metformin, targeting an A1c of less than 6.5. For elevated cholesterol, simvastatin therapy remains, emphasizing dietary adjustments for triglyceride levels. Anxiety and its treatment with diazepam were discussed, highlighting the need to prevent dependency and consider alternative psychological interventions if required. We also discussed potential menopausal symptoms and agreed upon symptom monitoring. I ensured the patient understood the plan moving forward and the importance of follow-up for her cardiac conditions. Patient Instructions - Continue taking Eliquis for atrial fibrillation as prescribed. - Monitor weight and try manageable lifestyle modifications or medications upon insurance approval. - Utilize CPAP for at least 4 hours a night. - Take simvastatin and metformin daily as prescribed. - Use diazepam for anxiety sparingly to avoid dependency. - Return for follow-up appointments for pacemaker checks and further evaluation if symptoms like palpitations persist. - Contact my office if experiencing worsening symptoms or new health issues. - Follow recommended lifestyle changes for reducing cholesterol and managing weight. Orders: Orders B Type Natriuretic Peptide Today E66.01 - Morbid (severe) obesity due to excess calories Complete Blood Count Auto Diff Today E66.01 - Morbid (severe) obesity due to excess calories Ferritin Today E66.01 - Morbid (severe) obesity due to excess calories Free T4 (Free Thyroxine) Today E66.01 - Morbid (severe) obesity due to excess calories Erythrocyte Sedimentation Rate Today E66.01 - Morbid (severe) obesity due to excess calories Magnesium Today E66.01 - Morbid (severe) obesity due to excess calories Comprehensive Met. Panel Today E66.01 - Morbid (severe) obesity due to excess calories Reticulocyte Count Today E66.01 - Morbid (severe) obesity due to excess calories IRON PROFILE Today E66.01 - Morbid (severe) obesity due to excess calories Thyroid Stimulating Hormone Today E66.01 - Morbid (severe) obesity due to excess calories Follicle Stimulating Hormone Today E66.01 - Morbid (severe) obesity due to excess calories Lutenizing Hormone Today E66.01 - Morbid (severe) obesity due to excess calories Cortisol Random Today E66.01 - Morbid (severe) obesity due to excess calories Medications: New tirzepatide (Mounjaro) for 4 weeks 2.5 mg (0.5 mL) subcut QWEEK 2 mL 3RF E66.01 - Morbid (severe) obesity due to excess calories Refilled diazepam 5 mg PO BEDTIME PRN 20 tabs 0RF sleep F41.1 - Generalized anxiety disorder
[2024-08-24 15:59] VITALS: BP 130/70; PULSE 76; TEMP 36.5; O2SAT 95; BMI 46.9
--- OUTSIDE RECORDS SUMMARY | 2024-08-24 18:14 | XMS_ITS | Clinical Summary ---
Author Organization [address] Address [address] [place] [phone] Phone Care Team Providers Care Shipping Associate Name Role Phone Matias Sullivan MD Primary Care Provider [phone] Allergies Active Allergy Reactions Criticality Noted Date [...] mouth. Ac tive OMEGA-3 FATTY ACIDS ORAL [place]-3 Fatty Acids (FISH OIL) 1200 MG Cap [...] Most Recently Relevant to Health Maintenance Insurance [facility] [employer] Care Teams Shipping Associate Relationship Specialty Start Date End Date Matias Sullivan MD [address] [place] [address] [address] [facility] [place] [address] PCP - General Internal Medicine 04/24/12
== END 2024-08-24 16:53 | disposition home or self-care (01) ==
LOC: HO.HMCH 15:46
PROVIDERS: PCP Internal Medicine; Visit Provider Internal Medicine
DX: I48.0 Paroxysmal atrial fibrillation (principal); E11.65 Type 2 diabetes mellitus with hyperglycemia; E66.01 Morbid (severe) obesity due to excess calories; Z68.42 Body mass index [BMI] 45.0-49.9, adult; I44.1 Atrioventricular block, second degree; G47.33 Obstructive sleep apnea (adult) (pediatric); E78.00 Pure hypercholesterolemia, unspecified; F41.1 Generalized anxiety disorder

== ENCOUNTER → 2024-08-24 15:45 | Outpatient (BNVA) | payer OTHER, SELFPAY | PROVIDERS: PCP Internal Medicine; Visit Provider Internal Medicine | DX: E66.01 Morbid (severe) obesity due to excess calories (principal); Z68.42 Body mass index [BMI] 45.0-49.9, adult; I44.1 Atrioventricular block, second degree; G47.33 Obstructive sleep apnea (adult) (pediatric); I48.0 Paroxysmal atrial fibrillation; E78.00 Pure hypercholesterolemia, unspecified; E11.65 Type 2 diabetes mellitus with hyperglycemia; F41.1 Generalized anxiety disorder; Z95.0 Presence of cardiac pacemaker | CPT/HCPCS: 99212 ==

== ENCOUNTER 2024-08-28 07:02 | Outpatient (REF) | payer OTHER, SELFPAY ==
--- OUTSIDE RECORDS SUMMARY | 2024-08-28 07:04 | XMS_ITS | Clinical Summary ---
Author Organization [facility] [address] [place] [address] [place] [phone] Phone Care Team Providers Care Eyeletter Name Role Phone Matias Sullivan MD Primary Care Provider [phone] Allergies Active Allergy Reactions Criticality Noted Date [...] mouth. Ac tive OMEGA-3 FATTY ACIDS ORAL [place]-3 Fatty Acids (FISH OIL) 1200 MG Cap [...] Most Recently Relevant to Health Maintenance Insurance [facility] [employer] PLAN Care Teams Eyeletter Relationship Specialty Start Date End Date Matias Sullivan MD [address] [place] [address] [address] [facility] [place] [address] PCP - General Internal Medicine 04/24/12
[2024-08-28 07:21] LABS: MANUAL DIFF FLAG NO
[2024-08-28 08:03] LABS: Basophils Percent Auto 0.5 % (0-2); Eosinophils Absolute Auto 0.2 X10*3/uL (0.0-0.4); Eosinophils Percent Auto 2.3 % (0-4); Hematocrit 37.3 % (37.0-47.0); Hemoglobin 12.1 g/dl (12.0-16.0); Imm Gran Abs Auto 0.02 X10*3/uL (0.00-0.03); Imm Gran Pct Auto 0.3 % (0.0-0.4); Immature Retic Fraction 18.2 % (3.0-15.9); Lymphocytes Absolute Auto 1.9 X10*3/uL (1.2-4.9); Lymphocytes Percent Auto 29.9 % (20-40); Mean Corpuscular HGB Conc 32.4 g/dl (31.0-35.0); Mean Corpuscular Hemoglobin 27.4 pg (27.0-33.0); Mean Corpuscular Volume 84.6 fL (80.0-98.0); Mean Platelet Volume 9.8 fL (9.4-12.3); Monocytes Absolute Auto 0.5 X10*3/uL (0.1-1.2); Monocytes Percent Auto 8.2 % (2-11); Neutrophils Absolute Auto 3.8 x10*3/uL (2.0-8.3); Neutrophils Percent Auto 58.8 % (45-73); Platelet Count 265 X10*3/uL (160-400); Red Blood Count 4.41 X10*6/uL (4.20-5.50); Red Cell Distribution Width 16.4 % (11.0-16.0); Retic HGB Equivalent 30.2 pg (30.0-35.0); Reticulocyte Percent 1.7 % (0.5-1.8); Reticulocytes Absolute 0.075 X10*6/uL (0.026-0.095); White Blood Count 6.5 X10*3/uL (4.8-10.8)
[2024-08-28 08:08] LABS: Appearance Urine Clear; Color Urine Yellow; Glucose Urine UA Negative (Negative); Leukocyte Esterase Urine Negative (Negative); Nitrite Urine Negative (Negative); PH 5.5 (5.0-9.0); UMIC TRIGGER UACC YES; Urine Blood Trace (Negative); Urine Ketones Negative (Negative); Urine Protein Negative (Neg-Trace)
[2024-08-28 08:14] LABS: Bacteria Urine None Seen (None Seen); Hyaline Casts Urine 0-2 /LPF (0-2); RBC Urine 0-2 /HPF (0-2); WBC Urine 0-5 /HPF (0-5)
[2024-08-28 08:34] LABS: B Type Natriuretic Peptide 13 pg/mL (<100)
[2024-08-28 08:37] LABS: Alanine Aminotransferase 41 U/L (0-31); Albumin Level 4.2 g/dL (3.5-5.0); Alkaline Phosphatase 103 U/L (39-117); Anion Gap 15 (12-20); Aspartate Amino Transferase 26 U/L (5-31); Bilirubin Total 0.5 mg/dL (0.0-1.0); Blood Urea Nitrogen 13 mg/dL (9-16); Calcium 9.4 mg/dL (8.4-10.2); Carbon Dioxide 23 mmol/L (22-29); Chloride 110 mmol/L (96-108); Cholesterol 185 mg/dL (<200); Estimated Glomerular Filt Rate > 60; Glucose Random 120 mg/dL (60-115); HDL Cholesterol 50 mg/dL (>40); Iron 71 mcg/dL (30-160); LDL Cholesterol Calculated 104 mg/dL (<100); Percent Iron Saturation 25 % (15-50); Potassium 4.6 mmol/L (3.3-5.1); Sodium 143 mmol/L (135-145); Total Iron Binding Capacity 289 mcg/dL (228-428); Total Protein 7.3 g/dL (6.5-8.0); Triglycerides 157 mg/dL (<150); Unsaturated Iron Binding 218 ug/dL
[2024-08-28 08:47] LABS: Cortisol Random 10.5 ug/dL
[2024-08-28 08:52] LABS: Erythrocyte Sedimentation Rate 26 MM/HR (0-20)
[2024-08-28 08:56] LABS: Ferritin 70 ng/mL (10-250); Thyroid Stimulating Hormone 0.88 uIU/mL (0.32-4.0)
[2024-08-29 19:19] LABS: Follicle Stimulating Hormone 36.1 mIU/mL
== END 2024-08-28 07:03 | disposition home or self-care (01) ==
LOC: HO.LAB 07:02
PROVIDERS: PCP Internal Medicine; Visit Provider Internal Medicine
DX: E66.01 Morbid (severe) obesity due to excess calories (principal); E78.00 Pure hypercholesterolemia, unspecified; E11.65 Type 2 diabetes mellitus with hyperglycemia
CPT/HCPCS: 36415; 80053; 80061; 81001; 82533; 82728; 83001; 83002; 83540; 83735; 83880; 84439; 84443; 85025; 85045; 85652

== ENCOUNTER 2024-09-10 08:40 | Outpatient (AMB) | payer OTHER, SELFPAY ==
--- OUTSIDE RECORDS SUMMARY | 2024-09-10 08:52 | XMS_ITS | Clinical Summary ---
Author Organization [facility] [address] [place] [address] [place] [phone] Phone Care Team Providers Care Business Intelligence Consultant Name Role Phone Matias Sullivan MD Primary Care Provider [phone] Allergies Active Allergy Reactions Criticality Noted Date [...] mouth. Ac tive OMEGA-3 FATTY ACIDS ORAL [place]-3 Fatty Acids (FISH OIL) 1200 MG Cap [...] Most Recently Relevant to Health Maintenance Insurance [facility] [employer] Care Teams Business Intelligence Consultant Relationship Specialty Start Date End Date Matias Sullivan MD [address] [place] [address] [address] [facility] [place] [address] PCP - General Internal Medicine 04/24/12
[2024-09-10 08:55] VITALS: BP 134/72; PULSE 69; BMI 47.6
--- NOTE | 2024-09-10 08:55 | MHC.OFFVIS ---
Vital Signs 09/10/24 08:55 Height 5 ft 1 in Weight 251 lb 12.286 oz BMI 47.6 BP 134/72 Blood Pressure Location Lt brachial Position Sitting Pulse 69 Pulse Source Monitor Intake Visit Reasons: [facility] follow up/ SOB Form Building Supervisor Required: No Allergies amlodipine Allergy (Severe, Verified 09/10/24 08:57) Anxiety meperidine [From DEMEROL] Allergy (Intermediate, Verified 09/10/24 08:57) MIGRAINE codeine [CODEINE] Allergy (Unknown, Verified 09/10/24 08:57) UNKNOWN Medication List - Last Reconciled 09/10/24 by Patt Vasquez, SYSTEMS DESIGN ENGINEER-C apixaban (Eliquis) 5 mg PO BID 90 days ascorbate calcium (vitamin C) 1,000 mg PO DAILY cholecalciferol (vitamin D3) 25 mcg PO DAILY diazepam 5 mg PO BEDTIME PRN losartan 25 mg PO DAILY metformin 500 mg PO BID metoprolol tartrate 25 mg PO BID nystatin 1 appl topical DAILY 30 days omega 6-rwc-ubm-fish oil 300-1,000 mg (Fish Oil) 1 cap PO DAILY pantoprazole 40 mg PO DAILY@0630 [shower chair no back and arms As directed] simvastatin 10 mg PO BEDTIME 90 days tirzepatide (Mounjaro) 2.5 mg (0.5 mL) subcut QWEEK HPI HPI [facility] follow up/ SOB: Details: Tahira is a 59-year-old female past medical history of morbid obesity, sleep apnea with CPAP use, left bundle branch block, 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 Today she reports that she has been having issues with fatigue in the last 2 months. She did go to the ER recent because she felt lightheaded and thought she may pass out. ER evaluation showed no significant abnormalities. She believes that anxiety may be a contributing factor to her symptom. No concerning shortness of breath, no PND, orthopnea or edema. No chest discomfort at rest or with activity. No significant heart palpitations. Compliant with all medications. No bleeding issues with Eliquis. [facility] Medical History (Updated 09/10/24 @ 12:58 by Patt Vasquez, SYSTEMS DESIGN ENGINEER-C) Hx of cardiac pacemaker Tinea pedis Colon cancer screening Palpitations Sinus bradycardia COVID-19 virus infection Anemia Impaired glucose tolerance Bradycardia NSVT (nonsustained ventricular tachycardia) Neck pain Vertigo Paroxysmal atrial fibrillation Spinal stenosis Lumbar degenerative disc disease Anxiety and depression Hypertension Obesity Obstructive sleep apnea GERD (gastroesophageal reflux disease) Hypercholesterolemia Surgical History History of cataract surgery History of loop recorder S/P arteriovenous (AV) fistula repair History of cholecystectomy S/P diskectomy Family History Father Lung cancer Mother Medical history unknown Sister Myocardial infarction Brother Hepatitis C Paternal Grandmother Ovarian cancer Paternal Uncle Brain cancer Sister No problems noted. Sister No problems noted. Brother No problems noted. Brother No problems noted. Brother No problems noted. Daughter No problems noted. Daughter No problems noted. 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 Current occupational exposures/hazards: No Cognitive needs: No Hearing needs: No Vision needs: Yes (Glasses) Review of Systems ENT Reports dizziness Card Denies chest pain, Denies chest pain at rest, Denies chest pain with activity, Denies rapid heart rate, Denies pedal edema, Denies edema, Denies leg edema, Denies lightheadedness, Denies palpitations, Denies dyspnea, Denies dyspnea on exertion and Denies orthopnea Resp Denies cough, Denies dyspnea and Denies dyspnea on exertion GI Denies hematochezia and Denies change in stool character Musc Denies abnormal gait, Reports limited range of motion, Reports muscle cramps, Denies muscle weakness, Denies numbness, Denies radiating pain into limb, Denies stiffness and Denies tingling Neuro Denies abnormal gait, Reports dizziness, Denies numbness and Denies tingling Endo Denies palpitations Physical Exam Vital Signs: Last Vital Signs Pulse 69 09/10/24 08:55 BP 134/72 09/10/24 08:55 BMI result Body Mass Index 47.6 Office Procedures Cardiac Device Check Cardiac Device Check Details: Medtronic dual-chamber pacemaker interrogation today, battery 13.6 years AAI to DDD mode, low rate 60, atrial threshold 0.875 volts at 0.4 milliseconds, RV threshold 0.75 volts at 0.4 milliseconds, V paced less than 0.1%, a paced 10.9%, AF burden less than 0.1 hour per day patient activity 7 hours per day [id number] Cardiac Device Check, pacemaker dual lead Procedure code (CPT) selection complete EKG Details: Today, read by me, normal sinus rhythm, left axis deviation, left bundle branch block, rate 69, QTC 432 millisecond [id number], Complete Results Reviewed Results Reviewed: Echocardiogram 09/30/2023 shows EF 55-60%, mildly dilated left atrium, mild LVH Nuclear stress test 10/11/2022 shows normal myocardial perfusion imaging Assessment & Plan Assessment & Plan (1) Paroxysmal atrial fibrillation: Code(s): I48.0 - Paroxysmal atrial fibrillation Category: Medical Plan: History of paroxysmal atrial fibrillation, overall low burden. She is on metoprolol for heart rate control. She is on Eliquis for anticoagulation. Pacemaker interrogation today shows no recent alerts. (2) Obstructive sleep apnea: Comment: On CPAP at [id number] Code(s): G47.33 - Obstructive sleep apnea (adult) (pediatric) Category: Medical Plan: History of obstructive sleep apnea, compliant with CPAP. Reports issues with fatigue in the last 2 months however she feels she sleeps good at night. EKG done today showing sinus rhythm, left bundle branch block, unchanged from prior, rate 69. Labs reviewed. No clear cardiac cause for her symptom of fatigue. (3) Mobitz (type) II atrioventricular block: Comment: Pacemaker Code(s): I44.1 - Atrioventricular block, second degree Category: Medical Plan: Medtronic dual-chamber pacemaker in place. Interrogation today shows device is functioning normally. (4) Hx of cardiac pacemaker: Comment: Medtronic Code(s): Z95.0 - Presence of cardiac pacemaker Category: Medical Plan: As above Plan The patient was reassured about normal pacemaker function, and AFib episodes will be monitored. Anxiety management is emphasized, with diazepam, given by PCP, providing symptom relief As needed. No further cardiac interventions are planned based on Current chart review. Signs suggest positional dissiness from possible inner ear issues. No new interventions are required for fatigue; consideration of hormonal or weight gain basis is suggested. I reviewed with the patient that her pacemaker is functioning correctly and her cardiac workup shows no alarming results, which suggests the heart is not causing the fatigue. We discussed that anxiety is potentially affecting her symptoms; diazepam use was effective for acute episodes and will not be taken regularly to avoid dependency. I reassured her that her cardiac findings, including the stress test and echocardiogram, did not show concerns warranting intervention. We discussed the importance of lifestyle modifications, continued activity to address weight and symptomatology related to anxiety or menopause. Follow-up with primary care was encouraged for continued evaluation of fatigue and potential menopausal symptoms. Patient was informed and verbally consented to the use of an ambient scribe for clinic note documentation during this visit. Time spent on chart review, documentation, interview and assessment Patient Instructions: - Continue routine pacemaker checks as scheduled. - Take diazepam for acute anxiety episodes as instructed. - Monitor fatigue and record any changes or additional symptoms. - Maintain regular activity and manage weight. - Follow up with your primary care provider for further evaluation of fatigue. - Seek care if new or worsening heart-related symptoms occur. Coding Level of Care Code Est Pt Level 4 (99031) Complex EM visit Add On G2211 Diagnoses Paroxysmal atrial fibrillation I48.0 Obstructive sleep apnea G47.33 Mobitz (type) II atrioventricular block I44.1 Hx of cardiac pacemaker Z95.0 CPT Codes Cardiac Device Check - Cardiac Device 2: [id number] Cardiac Device Check, pacemaker dual lead ([id number]) EKG - CPT: 45192-[id number], Complete ([id number]) Time Spent (min) 40
== END 2024-09-10 09:34 | disposition home or self-care (01) ==
PROVIDERS: PCP Internal Medicine; Visit Provider Nurse Practitioner Family
DX: I48.0 Paroxysmal atrial fibrillation (principal); G47.33 Obstructive sleep apnea (adult) (pediatric); I44.1 Atrioventricular block, second degree; Z95.0 Presence of cardiac pacemaker
CPT/HCPCS: 93280; 99214; G2211

== ENCOUNTER → 2024-09-10 08:40 | Outpatient (BNVA) | payer OTHER, SELFPAY | PROVIDERS: PCP Internal Medicine; Visit Provider Nurse Practitioner Family | DX: I44.1 Atrioventricular block, second degree (principal); I48.0 Paroxysmal atrial fibrillation; G47.33 Obstructive sleep apnea (adult) (pediatric); E66.01 Morbid (severe) obesity due to excess calories; Z68.42 Body mass index [BMI] 45.0-49.9, adult; Z45.018 Encounter for adjustment and management of other part of cardiac pacemaker; Z99.89 Dependence on other enabling machines and devices | CPT/HCPCS: 93005; 93280; 99212 ==

== ENCOUNTER 2024-09-13 19:05 | Emergency (ER) | payer OTHER, SELFPAY ==
--- NOTE | ~2024-09-13 | XR_ITS ---
CLINICAL HISTORY: pain, injury 3 view right shoulder Comparison: None Findings: No fractures or dislocations. No significant loss of joint space or osteophytes. No erosions. No radiopaque foreign body. IMPRESSION: 1. No acute findings This document has been electronically signed by: Jennifer Sousa MD on 09/13/2024 20:13:41
[2024-09-13 19:23] VITALS: BP 119/83; PULSE 87; RESP 20; TEMP 36.3; O2SAT 98; BMI 46.3
--- NOTE | 2024-09-13 19:23 | ED_ITS ---
HPI - General Adult General Chief complaint: Extremity Problem Stated complaint: R arm pain Time Seen by Provider: 09/13/24 21:23 Source: patient Mode of arrival: ambulatory Limitations: no limitations History of Present Illness ED Provider: Juana Leija NP HPI narrative: patient is a 59-year-old female who presents emergency department for evaluation. She reports yesterday she had gradual onset of pain to the right shoulder / deltoid. She took some Tylenol as well as applying icy hot and was able to rest. 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 However when she returned home from work tonight she felt the pain worsening. Pain increases with movement to the arm. She denies any known precipitating injury. She denies any radiation into the chest or back. Denies numbness tingling or cold sensation. Denies recent swelling to the arm. Denies any redness rashes or lesions. No fevers or chills. Denies nausea vomiting or abdominal pain. Related Data Home Medications ?Medication ?Instructions ?Recorded ?Confirmed ascorbate calcium (vitamin C) 500 1,000 mg PO DAILY 03/13/20 09/10/24 mg tablet cholecalciferol (vitamin D3) 25 25 mcg PO DAILY 03/13/20 09/10/24 mcg (1,000 unit) capsule omega 8-zsx-ywj-fish oil 300 1 cap PO DAILY 09/30/23 09/10/24 mg-1,000 mg capsule,delayed release (Fish Oil) Previous Rx's ?Medication ?Instructions ?Recorded shower chair no back and arms #1 ea 10/10/23 nystatin 100,000 unit/gram topical 1 appl topical DAILY 30 days #60 12/01/23 powder grams metformin 500 mg tablet 500 mg PO BID #180 tabs 02/14/24 pantoprazole 40 mg tablet,delayed 40 mg PO DAILY@0630 #90 tabs 02/14/24 release simvastatin 10 mg tablet 10 mg PO BEDTIME 90 days #90 tabs 03/13/24 apixaban 5 mg tablet (Eliquis) 5 mg PO BID 90 days #180 tabs 05/27/24 losartan 25 mg tablet 25 mg PO DAILY #90 tabs 06/24/24 metoprolol tartrate 25 mg tablet 25 mg PO BID #180 tabs 07/28/24 diazepam 5 mg tablet 5 mg PO BEDTIME PRN sleep #20 tabs 08/24/24 tirzepatide 2.5 mg/0.5 mL 2.5 mg (0.5 mL) subcut QWEEK #2 mL 08/24/24 subcutaneous pen injector (Frankieuncherryro) Allergies Allergy/AdvReac Type Severity Reaction Status Date / Time amlodipine Allergy Severe Anxiety Verified 09/13/24:25 meperidine [From DEMEROL] Allergy Intermediate MIGRAINE Verified 09/13/24 19:25 codeine [CODEINE] Allergy Unknown UNKNOWN Verified 09/13/24 19:25 Review of Systems 2 Review of Systems: Yes all other systems are reviewed and are negative PMFSH Past Medical History Attestation statement: The following information was validated with the patient. Source: old records reviewed Medical History Hx of cardiac pacemaker Tinea pedis Colon cancer screening Palpitations Sinus bradycardia COVID-19 virus infection Anemia Impaired glucose tolerance Bradycardia NSVT (nonsustained ventricular tachycardia) Neck pain Vertigo Paroxysmal atrial fibrillation Spinal stenosis Lumbar degenerative disc disease Anxiety and depression Hypertension Obesity Obstructive sleep apnea GERD (gastroesophageal reflux disease) Hypercholesterolemia Surgical History History of cataract surgery History of loop recorder S/P arteriovenous (AV) fistula repair History of cholecystectomy S/P diskectomy Family History Family History Father Lung cancer Mother Medical history unknown Sister Myocardial infarction Brother Hepatitis C Paternal Grandmother Ovarian cancer Paternal Uncle Brain cancer Sister No problems noted. Sister No problems noted. Brother No problems noted. Brother No problems noted. Brother No problems noted. Daughter No problems noted. Daughter No problems noted. Maternal Grandmother Myocardial infarction Social History Social History Household Members: Significant Other Housing: Apartment Do you presently have visiting nurse or other home services: No Alcohol intake: never Patient Tobacco Use Status: Never used Tobacco Smoked in Last 30 Days: No e-Cigarette/Vaping Use: Never Used Second Hand Smoke Exposure: No Use of substances other than those prescribed or required for medical reasons: No Substance Use Type: Caffiene Advance Directives: Yes Advance Directives on File: Yes Advance Directives Date on File: 10/02/23 service: No Current occupational status: employed 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 No acute distress.?Normal affect. Neck: Normal inspection.? Neck supple.?? Full range of motion. CVS: Heart sounds normal. Normal heart rate and rhythm.? Pulses normal.?? Respiratory: No respiratory distress.? Lung sounds clear to auscultation bilaterally?? Abdomen: Soft and non-tender. Normoactive bowel sounds. Skin: Skin warm and dry.? Normal skin color.? ?? Extremities: No extremity edema.? 2+ radial pulse bilaterally. Right shoulder Localized tenderness over the deltoid muscle no palpable deformities, On evaluation she is able to raise his straight arm forward to approximately 120 degrees though this does induce slight pain. She is able to abduct the arm to 90 degrees negative drop-arm test. She is able to externally rotate the arm as well. Neuro: Moves all extremities spontaneously. Sensation intact bilaterally. CN II- XII intact. No focal neuro deficits. Ambulates with normal steady gait. Course Course Course Narrative: RME performed by Henrietta Frost PA-C. Patient is a 59 year old assigned female at presenting to the emergency department with right arm pain. Patient states she began having right arm pain yesterday and now today it is worse. Detailed physical exam and review of systems are deferred to the development coordinator. EKG, labs, and imaging ordered. Patient placed back in the waiting room pending room availability and results. Medical Decision Making Medical Decision Making MDM Narrative: patient is a 59-year-old female with past medical history of paroxysmal atrial fibrillation on Eliquis, dual-chamber Medtronic pacemaker, history of left bundle-branch block, diabetes, anxiety, NSVT, hypertension, hyperlipidemia who presents emergency department for evaluation of atraumatic right shoulder pain as per HPI. By her account she feels as though she pulled a muscle perhaps while at work. Pain is primarily localized over the deltoid muscle without any palpable deformities. Pertinent physical exam findings as per PE portion of this note in regards to her right shoulder. she has reasonable range of motion to the right shoulder heel pain is worsened with overhead extension as per PE portion. reviewed potential etiologies with patient including muscular strain sprain, rotator cuff injury, calcific tendinitis, bursitis. Appears less consistent with a cervical radiculopathy given no associated neck pain exacerbation on movement. Lower suspicion for referred pain from biliary pathology given lack of abdominal symptoms /gastrointestinal symptoms and has a benign abdominal examination. Denies associated chest pain or shortness of breath, high sensitive troponin below detectable limits, EKG nonischemic, not suggestive of AL as etiology, she is anticoagulated on Eliquis and endorses compliance lower suspicion a pulmonary embolism she has no hypoxia or tachypnea no respiratory distress, denies any recent URI symptoms cough/cold symptoms to suggest pneumonia and again pain does not radiate into the chest and has no shortness of breath. Differential Diagnosis Differential Diagnoses: The differential diagnosis associated with the presentation includes ( See narrative above) Lab Data MDM Lab Attestation statement: I reviewed the patient's lab results. CBC reveals minimal leukocytosis 11,500 which may be inflammatory in nature, no significant anemia or thrombocytopenia. No electrolyte derangement. No BENY. LFTs overall unremarkable. High sensitive troponin within normal range. 09/13/24 20:42 09/13/24 20:42 Labs: Lab Results 09/13/24 Range/Units 20:42 WBC 11.5 H (4.8-10.8) X10*3/uL RBC 4.38 (4.20-5.50) X10*6/uL Hgb 12.0 (12.0-16.0) g/dl Hct 36.1 L (37.0-47.0) % MCV 82.4 (80.0-98.0) fL MCH 27.4 (27.0-33.0) pg MCHC 33.2 (31.0-35.0) g/dl RDW 16.0 (11.0-16.0) % Plt Count 262 (160-400) X10*3/uL MPV 9.9 (9.4-12.3) fL Immature Gran % (Auto) 0.4 (0.0-0.4) % Neut % (Auto) 68.6 (45-73) % Lymph % (Auto) 22.3 (20-40) % [place] % (Auto) 7.3 (2-11) % Eos % (Auto) 1.1 (0-4) % Baso % (Auto) 0.3 (0-2) % Lymph # (Auto) 2.6 (1.2-4.9) X10*3/uL [place] # (Auto) 0.8 (0.1-1.2) X10*3/uL Eos # (Auto) 0.1 (0.0-0.4) X10*3/uL Baso # (Auto) 0.0 (0.0-0.2) X10*3/uL Abs Immat Gran (auto) 0.05 H (0.00-0.03) X10*3/uL Absolute Neuts (auto) 7.9 (2.0-8.3) x10*3/uL Absolute Nucleated RBC 0.000 (0.0-0.012) X10*3/uL Nucleated RBC % (auto) 0.0 (0.0-0.2) /100WBC Sodium 140 (135-145) mmol/L Potassium 4.0 (3.3-5.1) mmol/L Chloride 107 (96-108) mmol/L Carbon Dioxide 24 (22-29) mmol/L Anion Gap 13 (12-20) BUN 16 (9-16) mg/dL Creatinine 0.84 (0.5-1.4) mg/dL Estim Creat Clear Calc 85.3 Estimated GFR > 60 Random Glucose 133 H (60-115) mg/dL Calcium 9.5 (8.4-10.2) mg/dL Total Bilirubin 0.6 (0.0-1.0) mg/dL AST 27 (5-31) U/L ALT 39 H (0-31) U/L Alkaline Phosphatase 115 (39-117) U/L Troponin I High Sens < 2.7 (<3.5-17.0) ng/L Total Protein 7.5 (6.5-8.0) g/dL Albumin 4.5 (3.5-5.0) g/dL Independent Interpretation I performed an independent interpretation of an: EKG ( EKG reveals normal sinus rhythm and a left bundle-branch block as seen on prior with ventricular rate of 83, QTC 455, no ST-elevation.) and Plain X-Ray ( No acute fracture dislocation of the right shoulder) Radiology Impression Discussion of test interpretation with radiology: I have reviewed the radiologist's reading. Radiologist Impression: 3 view right shoulder Comparison: None Findings: No fractures or dislocations. No significant loss of joint space or osteophytes. No erosions. No radiopaque foreign body. IMPRESSION: 1. No acute findings Discharge Plan Discharge Clinical Impression: Acute shoulder pain Patient Disposition: Home, Self-Care Instructions: Shoulder Pain (ED) Additional Instructions: As discussed, blood work today was very reassuring, EKG does not show findings concerning for a heart attack as the cause for your pain. The shoulder x-ray does not show abnormal findings. You may have a strain of the musculature with a in your right/deltoid or sprain of the shoulder /rotator cuff. Please be sure to rest over the next few days, apply ice for 10-15 minutes Apply topical Lidoderm patches that you have available to you at home. You can take Tylenol 500 mg, 2 tablets (1,000mg) every 4-6 hours as needed for pain, but not to exceed 3 doses daily (3,000mg).? Contact your primary care provider to arrange for a follow-up visit. Return to emergency department any new or worsening symptoms or concerns. Prescriptions: No Action (DME) shower chair no back and arms See Rx Instructions .Route .MEDSUPPLY Qty: 1 0RF Rx Instructions: As directed nystatin 100,000 unit/gram powder 1 appl topical DAILY 30 Days Qty: 60 0RF pantoprazole 40 mg tablet,delayed release (DR/EC) 40 mg PO DAILY@0630 Qty: 90 2RF metformin 500 mg tablet 500 mg PO BID Qty: 180 1RF simvastatin 10 mg tablet 10 mg PO BEDTIME 90 Days Qty: 90 1RF Eliquis 5 mg tablet 5 mg PO BID 90 Days Qty: 180 3RF metoprolol tartrate 25 mg tablet 25 mg PO BID Qty: 180 3RF omega 0-zyc-wrf-fish oil [Fish Oil] 300-1,000 mg Capsule,Delayed Release(Dr/Ec) 1 cap PO DAILY cholecalciferol (vitamin D3) 25 mcg (1,000 unit) capsule 25 mcg PO DAILY ascorbate calcium (vitamin C) 500 mg tablet 1,000 mg PO DAILY losartan 25 mg tablet 25 mg PO DAILY Qty: 90 2RF Mounjaro 2.5 mg/0.5 mL pen injector 2.5 mg subcut QWEEK Qty: 2 3RF Rx Instructions: for 4 weeks diazepam 5 mg tablet 5 mg PO BEDTIME PRN (Reason: sleep) Qty: 20 0RF Referrals: Po,Matias Mishra MD [Primary Care Provider] - Interventions: ED Discharge Assessment Last Done: 09/13/24 22:55 Discharge Date/Time: 09/13/24 22:56 Print Language: Rw[place]an
--- NOTE | 2024-09-13 19:24 | ECG_ITS ---
Test Reason : RIGHT ARM PAIN, CARDIAC HX Blood Pressure : */* mmHG Vent. Rate : 83 BPM Atrial Rate : 83 BPM P-R Int : 186 ms QRS Dur : 148 ms QT Int : 388 ms P-R-T Axes : 61 -55 89 degrees QTcB Int : 455 ms Normal sinus rhythm Left axis deviation Left bundle branch block Abnormal ECG When compared with ECG of 21-Aug-2024 09:51, No significant change was found Referred By: Henrietta Frost Electronically Signed By: Colt Luna
[2024-09-13 20:51] LABS: MANUAL DIFF FLAG NO
[2024-09-13 20:53] LABS: Basophils Percent Auto 0.3 % (0-2); Eosinophils Absolute Auto 0.1 X10*3/uL (0.0-0.4); Eosinophils Percent Auto 1.1 % (0-4); Hematocrit 36.1 % (37.0-47.0); Imm Gran Abs Auto 0.05 X10*3/uL (0.00-0.03); Imm Gran Pct Auto 0.4 % (0.0-0.4); Lymphocytes Absolute Auto 2.6 X10*3/uL (1.2-4.9); Lymphocytes Percent Auto 22.3 % (20-40); Mean Corpuscular HGB Conc 33.2 g/dl (31.0-35.0); Mean Corpuscular Hemoglobin 27.4 pg (27.0-33.0); Mean Corpuscular Volume 82.4 fL (80.0-98.0); Mean Platelet Volume 9.9 fL (9.4-12.3); Monocytes Absolute Auto 0.8 X10*3/uL (0.1-1.2); Monocytes Percent Auto 7.3 % (2-11); Neutrophils Absolute Auto 7.9 x10*3/uL (2.0-8.3); Neutrophils Percent Auto 68.6 % (45-73); Platelet Count 262 X10*3/uL (160-400); Red Blood Count 4.38 X10*6/uL (4.20-5.50); White Blood Count 11.5 X10*3/uL (4.8-10.8)
[2024-09-13 21:22] LABS: Alanine Aminotransferase 39 U/L (0-31); Albumin Level 4.5 g/dL (3.5-5.0); Alkaline Phosphatase 115 U/L (39-117); Anion Gap 13 (12-20); Aspartate Amino Transferase 27 U/L (5-31); Bilirubin Total 0.6 mg/dL (0.0-1.0); Blood Urea Nitrogen 16 mg/dL (9-16); Calcium 9.5 mg/dL (8.4-10.2); Carbon Dioxide 24 mmol/L (22-29); Chloride 107 mmol/L (96-108); Creatinine Clr Calc Pharmacy 85.3; Estimated Glomerular Filt Rate > 60; Glucose Random 133 mg/dL (60-115); Sodium 140 mmol/L (135-145); Total Protein 7.5 g/dL (6.5-8.0)
[2024-09-13 21:33] LABS: Troponin-I High Sensitivity < 2.7 ng/L (<3.5-17.0)
[2024-09-13 22:55] VITALS: BP 119/83; PULSE 87; RESP 20; TEMP 36.3; O2SAT 98
--- NOTE | 2024-09-13 22:56 | PC.NURSE ---
Pt refused vital signs on discharge.
== END 2024-09-13 22:56 | disposition home or self-care (01) ==
PROVIDERS: Physician Assistant Medical; Emergency Provider Emergency Medicine; PCP Internal Medicine
DX: M25.511 Pain in right shoulder (principal); I44.7 Left bundle-branch block, unspecified; R94.31 Abnormal electrocardiogram [ECG] [EKG]; Z79.899 Other long term (current) drug therapy
CPT/HCPCS: 36415; 73030; 80053; 84484; 85025; 93005; 99283; 99284

== ENCOUNTER → 2024-09-13 19:24 | Outpatient (BNV) | payer OTHER, SELFPAY | PROVIDERS: Emergency Provider Emergency Medicine; PCP Internal Medicine; Visit Provider Internal Medicine Cardiovascular Disease | DX: I44.7 Left bundle-branch block, unspecified (principal) | CPT/HCPCS: 93010 ==

== ENCOUNTER → 2024-09-13 19:24 | Outpatient (BNV) | payer OTHER, SELFPAY | PROVIDERS: PCP Internal Medicine; Visit Provider Student in an Organized Health Care Education/Training Program | DX: M25.511 Pain in right shoulder (principal) | CPT/HCPCS: 73030 ==

== ENCOUNTER → 2024-10-30 23:59 | Outpatient (BNV) | payer OTHER, SELFPAY ==
--- NOTE | 2024-11-07 12:41 | MHC.OFFVIS ---
Intake Visit Reasons: Remote Device Check- [employer] Allergies amlodipine Allergy (Severe, Verified 09/13/24 19:25) Anxiety meperidine (From DEMEROL) Allergy (Intermediate, Verified 09/13/24 19:25) MIGRAINE codeine (CODEINE) Allergy (Unknown, Verified 09/13/24 19:25) [facility]KNOWN [facility] Medical History Hx of cardiac pacemaker Tinea pedis Colon cancer screening Palpitations Sinus bradycardia COVID-19 virus infection Anemia Impaired glucose tolerance Bradycardia NSVT (nonsustained ventricular tachycardia) Neck pain Vertigo Paroxysmal atrial fibrillation Spinal stenosis Lumbar degenerative disc disease Anxiety and depression Hypertension Obesity Obstructive sleep apnea GERD (gastroesophageal reflux disease) Hypercholesterolemia Surgical History History of cataract surgery History of loop recorder S/P arteriovenous (AV) fistula repair History of cholecystectomy S/P diskectomy Family History Father Lung cancer Mother Medical history unknown Sister Myocardial infarction Brother Hepatitis C Paternal Grandmother Ovarian cancer Paternal Uncle Brain cancer Sister No problems noted. Sister No problems noted. Brother No problems noted. Brother No problems noted. Brother No problems noted. Daughter No problems noted. Daughter No problems noted. 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 Overall normal device function. [id number] Cardiac Device Interrogation, pacemaker Procedure code (CPT) selection complete Assessment & Plan Assessment & Plan (1) Pacemaker: Code(s): Z95.0 - Presence of cardiac pacemaker Category: Medical (2) Mobitz (type) II atrioventricular block: Comment: Pacemaker Code(s): I44.1 - Atrioventricular block, second degree Category: Medical (3) Bradycardia: Code(s): R00.1 - Bradycardia, unspecified Category: Medical (4) Sinus pause: Code(s): I45.5 - Other specified heart block Category: Medical Plan x Coding Level of Care Code Procedure Only Diagnoses Pacemaker Z95.0 Mobitz (type) II atrioventricular block I44.1 Bradycardia R00.1 Sinus pause I45.5 CPT Codes Cardiac Device Check - Cardiac Device 12: [id number] Cardiac Device Interrogation, pacemaker ([id number])
== END ==
PROVIDERS: PCP Internal Medicine; Visit Provider Internal Medicine
DX: I44.1 Atrioventricular block, second degree (principal); Z95.0 Presence of cardiac pacemaker; R00.1 Bradycardia, unspecified; I45.5 Other specified heart block
CPT/HCPCS: 93294

== ENCOUNTER 2024-11-16 10:24 | Outpatient (AMB) | payer OTHER, SELFPAY ==
--- NOTE | 2024-11-16 10:36 | A.OFFVIS_ITS ---
Vital Signs 11/16/24 10:37 Height 5 ft 1 in Weight 247 lb BMI 46.7 Pulse 67 Pulse Source Pulse Oximeter Pulse Oximetry (%) 96 Oxygen Delivery Method Room Air Intake Visit Reasons: f/u appt Intake Note: Patient presents follow up JESSICA. Compliance in chart(90/90days, >=4hrs-100%, average usage-7hrs 48min, pressure-11cm, med leaks- 1.5, AHI-2.7). Looking to see if can get a travel CPAP Accompanied by: Self / Same As Patient Allergies amlodipine Allergy (Severe, Verified 11/16/24 10:42) Anxiety meperidine (From DEMEROL) Allergy (Intermediate, Verified 11/16/24 10:42) MIGRAINE codeine (CODEINE) Allergy (Unknown, Verified 11/16/24 10:42) UNKNOWN HPI Comments Details: 59 y/o female patient with anxiety presents for follow up of JESSICA on CPAP therapy. 09/2023 Pacemaker. Followed by cardiology. 09/2023 CT scan head reviewed with patient normal scan. Labs reviewed with patient. The CPAP compliance and therapy response (08/03/24-11/02/24) reviewed. The usage days 99% and the average usage 7 hrs and 53 min. The AHI was 1/hr. Pressures are 11, has minimal leaks. Pt reports she sleeps well 7 hrs, but feels refreshed in the mornings with cpap use. She walks daily 15 min, 2397-1503 steps. She reached 8000 steps one day. Denies headaches, however feels pressure in her head occasionally. She continues to move her legs to get comfortable at night, has muscle spasms. She takes 650mg po BID of tylenol arthritis daily for pain in the hands and elbows with tingling, warm burning sensation. She was dx with CTS 10 years ago. She started Zepbound for weight loss 3 weeks ago and is doing well. GERD is controlled with meds. She reports that her mask is uncomfortable, however she is trying to find pads for the sides as they are uncomfortable. She reports she sleeps well has aches and soreness due to tossing and turning all night. Mood is stable, anxiety is managed and diet is slowly improving. [facility] Medical History Hx of cardiac pacemaker Tinea pedis Colon cancer screening Palpitations Sinus bradycardia COVID-19 virus infection Anemia Impaired glucose tolerance Bradycardia NSVT (nonsustained ventricular tachycardia) Neck pain Vertigo Paroxysmal atrial fibrillation Spinal stenosis Lumbar degenerative disc disease Anxiety and depression Hypertension Obesity Obstructive sleep apnea GERD (gastroesophageal reflux disease) Hypercholesterolemia Surgical History History of cataract surgery History of loop recorder S/P arteriovenous (AV) fistula repair History of cholecystectomy S/P diskectomy Family History Father Lung cancer Mother Medical history unknown Sister Myocardial infarction Brother Hepatitis C Paternal Grandmother Ovarian cancer Paternal Uncle Brain cancer Sister No problems noted. Sister No problems noted. Brother No problems noted. Brother No problems noted. Brother No problems noted. Daughter No problems noted. Daughter No problems noted. 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 Current occupational exposures/hazards: No Cognitive needs: No Hearing needs: No Vision needs: Yes (Glasses) Review of Systems ENT Reports Normal hearing present Neuro Reports Normal hearing present Physical Exam Vital Signs: Last Vital Signs Pulse 67 11/16/24 10:37 Pulse Ox 96 11/16/24 10:37 Oxygen Delivery Method Room Air 11/16/24 10:37 BMI result Body Mass Index 46.7 Const General: cooperative, comfortable and no acute distress Nutritional Appearance: obese (BMI is 45) centrally obese Orientation/consciousness: patient oriented x3 HEENT Face and sinus: Yes face symmetric Eyes Pupils: Equal, round and reactive pupils present Resp Effort & Inspection: normal respiratory effort and able to speak in complete sentences Neuro General: patient oriented x3 and moves all extremities Cranial nerves: Yes Facial sensation intact/muscles of mastication intact, Yes Equal, round and reactive pupils present, Yes Normal accommodation reflex present, Yes Bilaterally intact EOM present, Yes Nystagmus not present, Yes Normal facial strength present, Yes Midline tongue present, Yes Symmetric palate elevation present, Yes Normal hearing present, Yes Ability to bilaterally rotate head present and Yes Ability to bilaterally elevate shoulders present Cognition (Neuro): normal cognition Gait exam (Neuro): Normal gait present Psych Appearance: grossly normal Mental Status: mental status grossly normal Speech and movement: Normal speech and movement present Affect: normal affect Thought process: Normal thought process present Results Reviewed Results Reviewed: The CPAP compliance and therapy response (08/03/24-11/02/24) reviewed. The usage days 99% and the average usage 7 hrs and 53 min. The AHI was 1/hr. Pressures are 11, has minimal leaks. Assessment & Plan Assessment & Plan (1) Obstructive sleep apnea: Comment: On CPAP at [id number] Code(s): G47.33 - Obstructive sleep apnea (adult) (pediatric) Category: Medical (2) Numbness of left hand: Comment: CTS Code(s): R20.0 - Anesthesia of skin Category: Medical (3) Morbid obesity: Comment: BMI is elevated 47, she started zepbound 3 weeks ago and lost 5lbs Code(s): E66.01 - Morbid (severe) obesity due to excess calories Category: Medical (4) RLS (restless legs syndrome): Code(s): G25.81 - Restless legs syndrome Category: Medical Plan JESSICA - Continue using CPAP as patient experiences good clinical effects. Clean mask, change filters and equipment as needed. RLS start gabapentin 100mg - 200mg po daily at bedtime. BMI is 46 she started zepbound 3 weeks ago, lost 5 lbs and a few inches. Daily brisk walking, exercise as tolerable. F/U in 6 months, you may call or message us on the portal if you have any concerns. Medications: New gabapentin 200 mg (2 x 100 mg) PO BEDTIME 120 caps 0RF Restless legs 2 months MDD 200mg E66.01 - Morbid (severe) obesity due to excess calories, G25.81 - Restless legs syndrome, G47.33 - Obstructive sleep apnea (adult) (pediatric), R20.0 - Anesthesia of skin Patient Instructions: Sleep Hygiene provided: set a scheduled bedtime and wake time to help regulate the circadian rhythm and balance the release of pituitary hormones. Sleep in a dark room, temperatures below 68 degrees, and no devices n bed. Limit caffeinated products 6 hours prior to bed, and limit fluids 2-4 hours prior to bed. Gentle night yoga, diffusing essential oils, and playing soft music can be relaxing. Coding Level of Care Code Est Pt Level 4 (84848) Diagnoses Obstructive sleep apnea G47.33 Numbness of left hand R20.0 Morbid obesity E66.01 RLS (restless legs syndrome) G25.81 Time Spent (min) 20 Comment RLS treat/ JESSICA is well managed
[2024-11-16 10:37] VITALS: PULSE 67; O2SAT 96; BMI 46.7
--- OUTSIDE RECORDS SUMMARY | 2024-11-16 11:33 | XMS_ITS | Clinical Summary ---
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 Ac tive OMEGA-3 FATTY ACIDS ORAL [place]-3 Fatty Acids (FISH OIL) 1200 MG Cap [...] (HCC) JESSICA (obstructive sleep apnea) 01/01/2019 DX :JESISCA (obstructive sleep apnea) Family History Medical History [...] 2) 2017 Cholesterol Screening (Lipid Panel) 03/31/2022 HIV Screening 03/31/2022 Hepatitis C Screening 03/31/2022 Social Influencers of Health Screening 03/31/2022 Pneumococcal Vaccine: 50+ Years (2 of 2 - PCV) 10/15/2022 10/15/2021 COVID-19 Vaccine (3 - 2023-2 5 season) 2023 06/22/2020, 06/01/2020 Hypertension/CHF/CAD Annual BMP Blood Test 03/02/2024 Depression Screening 04/28/2024 Influenza Vaccine (#1) 2024 03/13/2020 Colorectal Cancer Screening: FIT-DNA (Cologuard) 11/01/2025 11/01/2022, 11/01/2022, 12/08/2018 Cervical Cancer Screening: HPV 07/19/2026 07/19/2021 DTaP,Tdap,and Td Vaccines (2 - Td or Tdap) 08/12/2027 08/11/2017 HIB Vaccines Aged Out No longer eligi [...] Procedure Name Priority Date/Time Associated Diagnosis Comments HM HPV Routine 07/19/2021 from Last 3 Months or Most Recently Relevant to Health Maintenance Results * Cervical Cancer Screening: HPV (07/19/2021) Cervical Cancer Screening: HPV Abstracted, Negative Historical Provider MD HEALTH MAINTENANCE Final Result from Last 3 Months or Most Recently Relevant to Health Maintenance Insurance [facility] Care Teams Capacitor Pack Press Operator Relationship Specialty Start Date End Date Matias Sullivan MD [address] [place] [address] Dr [address] [facility] [place] [address] PCP - General Internal Medicine 04/24/12
== END 2024-11-16 11:31 | disposition home or self-care (01) ==
LOC: HO.HSMS 10:25
PROVIDERS: PCP Internal Medicine; Visit Provider Physician Assistant Medical
DX: G47.33 Obstructive sleep apnea (adult) (pediatric) (principal); R20.0 Anesthesia of skin; E66.01 Morbid (severe) obesity due to excess calories; G25.81 Restless legs syndrome
CPT/HCPCS: 99214

== ENCOUNTER → 2024-11-16 10:24 | Outpatient (BNVA) | payer OTHER, SELFPAY | PROVIDERS: PCP Internal Medicine; Visit Provider Physician Assistant Medical | DX: G47.33 Obstructive sleep apnea (adult) (pediatric) (principal); Z99.89 Dependence on other enabling machines and devices; R20.0 Anesthesia of skin; E66.01 Morbid (severe) obesity due to excess calories; G25.81 Restless legs syndrome | CPT/HCPCS: 99212 ==

== ENCOUNTER 2024-12-13 14:41 | Outpatient (AMB) | payer OTHER, SELFPAY ==
[2024-12-13 14:50] VITALS: BP 136/82; PULSE 71; O2SAT 95; BMI 45.3
--- NOTE | 2024-12-13 14:50 | A.OFFPC_ITS ---
Vital Signs 12/13/24 14:50 Height 5 ft 1 in Weight 240 lb BMI 45.3 BP 136/82 Blood Pressure Location Lt brachial Position Sitting Pulse 71 Pulse Source Pulse Oximeter Pulse Oximetry (%) 95 Oxygen Delivery Method Room Air Intake Visit Reasons: JORGE ALBERTO, Dizziness Allergies amlodipine Allergy (Severe, Verified 12/13/24 14:50) Anxiety meperidine (From DEMEROL) Allergy (Intermediate, Verified 12/13/24 14:50) MIGRAINE codeine (CODEINE) Allergy (Unknown, Verified 12/13/24 14:50) UNKNOWN Medication List - Last Reconciled 12/13/24 by Matias Sullivan MD apixaban (Eliquis) 5 mg PO BID 90 days ascorbate calcium (vitamin C) 1,000 mg PO DAILY cholecalciferol (vitamin D3) 25 mcg PO DAILY diazepam 5 mg PO BEDTIME PRN losartan 25 mg PO DAILY metformin 500 mg PO BID metoprolol tartrate 25 mg PO BID nystatin 1 appl topical DAILY 30 days omega 6-ote-jfv-fish oil 300-1,000 mg (Fish Oil) 1 cap PO DAILY pantoprazole 40 mg PO DAILY@0630 [shower chair no back and arms As directed] simvastatin 10 mg PO BEDTIME 90 days tirzepatide (weight loss) 5 mg (0.5 mL) subcut QWEEK Tobacco use date assessed: 08/24/24 Dental Screening Dental Screen Date: 06/24/24 [facility] Medical History Hx of cardiac pacemaker Tinea pedis Colon cancer screening Palpitations Sinus bradycardia COVID-19 virus infection Anemia Impaired glucose tolerance Bradycardia NSVT (nonsustained ventricular tachycardia) Neck pain Vertigo Paroxysmal atrial fibrillation Spinal stenosis Lumbar degenerative disc disease Anxiety and depression Hypertension Obesity Obstructive sleep apnea GERD (gastroesophageal reflux disease) Hypercholesterolemia Surgical History History of cataract surgery History of loop recorder S/P arteriovenous (AV) fistula repair History of cholecystectomy S/P diskectomy Family History Father Lung cancer Mother Medical history unknown Sister Myocardial infarction Brother Hepatitis C Paternal Grandmother Ovarian cancer Paternal Uncle Brain cancer Sister No problems noted. Sister No problems noted. Brother No problems noted. Brother No problems noted. Brother No problems noted. Daughter No problems noted. Daughter No problems noted. 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 1. Little interest or pleasure in doing things: not at all 2. Feeling down, depressed, or hopeless: not at all 3. Trouble falling or staying asleep, or sleeping too much: not at all 4. Feeling tired or having little energy: nearly every day 5. Poor appetite or overeating: not at all 6. Feeling bad about yourself - or that you are a failure or have let yourself or your family down: not at all 7. Trouble concentrating on things, such as reading the newspaper or watching television: not at all 8. Moving or speaking so slowly that other people could have noticed. Or the opposite - being so fidgety or restless that you have been moving around a lot more than usual: not at all 9. Thoughts that you would be better off or of hurting yourself in some way: not at all Total score: 3 Depression Screening Interpretation: Positive Depression Screening Done: Yes Source: Developed by Drs. Cehpe Leon, Bharati Palacio, Juan Anderson and colleagues, with an educational briaan from [employer]. Thrive Questionnaire Date Thrive assessed: 08/24/24 I am a: Patient What is your living situation today?: I have a steady place to live Within the past 12 months, did the food you bought not last and you didn't have the money to get more?: Never true Within the past 12 months, did you worry whether your food would run out before you got money to buy more?: Never true Do you have trouble paying for medicines?: No Do you have trouble getting transportation to medical appointments?: No Do you have trouble paying your heating and electricity bill?: No Do you have trouble taking care of your child, family member or friend?: No Do you have trouble with day-to-day activities such as bathing, preparing meals, shopping, managing finances, etc.?: No Are you currently unemployed and looking for a job?: No Are you interested in more education?: No Please select the resources that you would like help with: None Currently or been in a relationship where the following occur: No concerns reported THRIVE Score: 0 AUDIT C Alcohol Use Questionnaire (AUDIT-C) 1. How often do you have a drink containing alcohol?: Never Total Score: 0 JORGE ALBERTO-7 AMB Questionnaire JORGE ALBERTO-7 Date JORGE ALBERTO - 7 assessed: 06/24/24 Source: Developed by Drs. Chepe Leon, Bharati Palacio, Juan Anderson and colleagues, with an educational briana from [employer]. Physical exam (Primary Care) Vital Signs: Last Vital Signs Pulse 71 12/13/24 14:50 BP 136/82 12/13/24 14:50 Pulse Ox 95 12/13/24 14:50 Oxygen Delivery Method Room Air 12/13/24 14:50 BMI result Body Mass Index 45.3 Tobacco/Smoking Status: Tobacco use Status Tobacco use date assessed 08/24/24 12/13/24 14:51 Patient Tobacco Use Status Never used Tobacco 12/13/24 14:51 Tobacco use type Cigarette 12/13/24 14:51 e-Cigarette/Vaping Use Never Used 12/13/24 14:51 PHQ-9: PHQ-9 Score PHQ-9: Total score 3 12/13/24 15:04 Depression Screening Interpretation: Positive Thrive Assessment: Date of Thrive Assessment Date Thrive assessed 08/24/24 12/13/24 14:51 Currently or been in a relationship where the following occur: No concerns reported Const General: alert; No acute distress Eyes Conjunctivae: conjunctivae normal Resp Auscultation: clear to auscultation bilaterally Cardio Rate: regular rate Rhythm: regular rhythm GI Inspection: Yes normal to inspection Extrem General: Yes normal to inspection and No edema Results AMB Hemoglobin A1c AMB Hemoglobin A1c 5.9 % Last Edit by Cathleen Chatterjee CMA on 12/13/24 15 :04 Results Reviewed Results Reviewed: Laboratory Last Values Hgb A1c (Clinic) 5.9 % (4.0-6.0) 12/13/24 14:51 Coding Level of Care Code Est Pt Level 4 (68419) Complex EM visit Add On G2211 Diagnoses Paroxysmal atrial fibrillation I48.0 Mobitz (type) II atrioventricular block I44.1 Hypercholesterolemia E78.00 Type 2 diabetes mellitus with hyperglycemia, without long-term current use of insulin E11.65 Diabetes mellitus care home insulin use: without care home use Morbid obesity E66.01 Gastroesophageal reflux disease without esophagitis K21.9 Esophagitis presence: without esophagitis Obstructive sleep apnea G47.33 Generalized anxiety disorder F41.1 Assessment & Plan Assessment & Plan (1) Paroxysmal atrial fibrillation: Code(s): I48.0 - Paroxysmal atrial fibrillation Category: Medical Plan: Continue with anticoagulation with Eliquis August 2024 last blood work on metoprolol tartrate 25 mg twice a day (2) Mobitz (type) II atrioventricular block: Comment: Pacemaker Code(s): I44.1 - Atrioventricular block, second degree Category: Medical Plan: Patient continues to have device check for with Cardiology on pacemaker (3) Hypercholesterolemia: Code(s): E78.00 - Pure hypercholesterolemia, unspecified Category: Medical Plan: Avoid fried foods, chicken skin, eggs, butter margarine, pastries and meat. Be it pork or beef they have a lot of cholesterol LDL goal of less than 100 and triglyceride of less than 150 on simvastatin 10 mg once a day (4) Type 2 diabetes mellitus with hyperglycemia: Comment: [facility] Code(s): E11.65 - Type 2 diabetes mellitus with hyperglycemia Category: Medical Qualifiers: Diabetes mellitus care home insulin use: without remote computer terminal operator use Qualified Code(s): E11.65 - Type 2 diabetes mellitus with hyperglycemia Plan: Decrease the amount of carbohydrate intake, pasta, bread, rice and potatoes are all sugar and that is aside from all the sweet stuff, remember that fruits are good but they are Sweet also. On metformin 500 mg twice a day hemoglobin A1c goal of less than 6.5. (5) Morbid obesity: Comment: BMI is elevated 47, she started zepbound 3 weeks ago and lost 5lbs Code(s): E66.01 - Morbid (severe) obesity due to excess calories Category: Medical Plan: Diet and exercise patient was placed on tirzepatide (6) GERD (gastroesophageal reflux disease): Code(s): K21.9 - Gastro-esophageal reflux disease without esophagitis Category: Medical Qualifiers: Esophagitis presence: without esophagitis Qualified Code(s): K21.9 - Gastro-esophageal reflux disease without esophagitis Plan: Avoid the foods that causes that usually spicy foods, tomato products, juices, coffee, soda and foods that your sensitive to. After eating do not lie down, allow 3-4 hours before in lie down. And keep the head of bed above 30 degrees to avoid the acid from going up. (7) Obstructive sleep apnea: Comment: On CPAP at [id number] Code(s): G47.33 - Obstructive sleep apnea (adult) (pediatric) Category: Medical Plan: Continue to use the CPAP more than 4 hours a night and benefits from this. (8) Generalized anxiety disorder: Code(s): F41.1 - Generalized anxiety disorder Category: Medical Plan: Presently on diazepam. Plan History of Present Illness The patient is a 59-year-old female presenting for a follow-up visit. She has a history of obesity, with a recent weight loss of 7 pounds, and is currently managing hypercholesterolemia with a goal of reducing LDL cholesterol to less than 100 mg/dL. Her cholesterol was last tested in August with an LDL of 104 mg/dL, and she is on simvastatin 10 mg once a day. The patient has atrial fibrillation and is on metoprolol tartrate 25 mg twice a day and anticoagulation with Eliquis. She continues to have her pacemaker checked regularly with cardiology. She reports obstructive sleep apnea and uses CPAP for more than 4 hours a night, which she finds beneficial. The patient has generalized anxiety disorder and is presently on diazepam as needed. She has diabetes mellitus, managed with metformin 500 mg twice a day, and a hemoglobin A1c goal of less than 6.5%. Her last A1c was 5.9%. The patient has a history of Mobitz type 2 AV block and has a pacemaker in place. She also reports overactive bladder and shoulder pain, with a previous ER visit for right arm pain diagnosed as shoulder pain. Preventative care measures include an up-to-date mammogram and Cologuard testing completed in October 2022. Health Maintenance - Mammogram is up to date - Cologuard testing completed in October 2022 - Cholesterol management with simvastatin, LDL goal of less than 100 mg/dL - Diabetes management with metformin, A1c goal of less than 6.5% Social History - Reports stress related to family dynamics, particularly with her partner - Dietary habits include protein shakes for breakfast and lunch, and vegetables and chicken for dinner Review of Systems - Cardiovascular: Reports atrial fibrillation, denies chest pain - Respiratory: Reports obstructive sleep apnea, benefits from CPAP use - Neurological: Reports generalized anxiety disorder, denies taking gabapentin - Musculoskeletal: Reports shoulder pain, hip pain, and numbness in feet - Endocrine: Reports diabetes mellitus, last A1c was 5.9% Physical Exam Results - Labs: Last blood work in August showed normal blood count, mild leukocytosis at 11.5, electrolytes and renal function were good, liver numbers mildly elevated, cholesterol LDL was 104 mg/dL - Tests: Mammogram up to date, Cologuard testing completed in October 2022 Plan The patient will continue with her current regimen for hypercholesterolemia, including simvastatin, with a goal to reduce LDL cholesterol to less than 100 mg/dL. Regular monitoring of cholesterol levels is advised. For atrial fibrillation, the patient will remain on metoprolol and anticoagulation with Eliquis, with regular follow-ups for pacemaker checks with cardiology. Management of obstructive sleep apnea will continue with CPAP usage, which the patient finds beneficial. The patient's diabetes management includes metformin and lifestyle modifications, with an A1c goal of less than 6.5%. Her last A1c was 5.9%, indicating good control. The patient is advised to continue her current dietary habits and exercise routine to support weight management and overall health. For generalized anxiety disorder, diazepam is prescribed as needed, and the patient is encouraged to manage stress effectively. Patient was informed and verbally consented to the use of an ambient scribe for clinic note documentation during this visit. Discussion Notes During the visit, I discussed with the patient the importance of continuing her current medication regimen for hypercholesterolemia and diabetes management. We reviewed the need for regular cholesterol monitoring and maintaining her A1c goal. I emphasized the benefits of CPAP usage for her obstructive sleep apnea and the necessity of regular follow-ups for her pacemaker and atrial fibrillation management. We also addressed her generalized anxiety disorder, discussing the use of diazepam as needed and strategies for stress management. Patient Instructions - Continue taking simvastatin as prescribed to manage cholesterol levels. - Monitor cholesterol levels regularly and follow up with the doctor for results. - Continue using CPAP for sleep apnea management. - Maintain current diabetes management plan with metformin and monitor A1c levels. - Follow dietary and exercise recommendations to support weight management. - Use diazepam as needed for anxiety and practice stress management techniques. Orders: Orders AMB Hemoglobin A1c Today Z13.9 - Encounter for screening, unspecified Lipid Panel Today E11.65 - Type 2 diabetes mellitus with hyperglycemia, E78.00 - Pure hypercholesterolemia, unspecified Comprehensive Met. Panel Today E11.65 - Type 2 diabetes mellitus with hy perglycemia Medications: Refilled diazepam 5 mg PO BEDTIME PRN 20 tabs 0RF sleep F41.1 - Generalized anxiety disorder Discontinued gabapentin Discontinued Reason: Patient Refused 200 mg (2 x 100 mg) PO BEDTIME 2 months 120 caps 0RF Restless legs MDD 200mg E66.01 - Morbid (severe) obesity due to excess calories, G25.81 - Restless legs syndrome, G47.33 - Obstructive sleep apnea (adult) (pediatric), R20.0 - Anesthesia of skin
--- OUTSIDE RECORDS SUMMARY | 2024-12-13 15:22 | XMS_ITS | Clinical Summary ---
Author Organization [address] Address [address] [place] [id number] Phone Care Team Providers Care Line O Scribe Operator Name Role Phone Matias Sullivan MD Primary Care Provider [phone] Allergies Active Allergy Reactions Criticality Noted Date [...] mouth. Ac tive OMEGA-3 FATTY ACIDS ORAL [place]-3 Fatty Acids (FISH OIL) 1200 MG [...] Most Recently Relevant to Health Maintenance Insurance [facility] [employer] Care Teams Line O Scribe Operator Relationship Specialty Start Date End Date Matias Sullivan MD [address] [place] [address] [address] [facility] [place] [address] PCP - General Internal Medicine 04/24/12
--- OUTSIDE RECORDS SUMMARY | 2024-12-13 15:22 | XMS_ITS ---
Author Name [facility] Unknown History of Medication Use Medication Directions Dispensed Refills Start Date End Date Stat us estradioL (ESTRACE) 0.01 % (0.1 mg/gram) vaginal cream Insert 0.5 g into the vagina 1 (one) time each day. Please place 0.5g (a pea-sized amount) on your finger and place inside the vagina for 2 weeks at night, and then twice a week at night 03/16/2024 active simvastatin (ZOCOR) 5 mg tablet Take 1 tablet (5 mg total) by mouth at bedtime. 01/31/2023 active metFORMIN (GLUCOPHAGE) 500 mg tablet Take 1 tablet (500 mg total) by mouth 2 (two) times a day. 01/06/2023 active ibuprofen (ADVIL,MOTRIN) 800 mg tablet Take 1 tablet (800 mg total) by mouth every 6 (six) hours if needed for mild pain or moderate pain. 05/09/2020 active ascorbic acid (VITAMIN C) 1,000 mg CR tablet Take by mouth. active diazePAM (VALIUM) 5 mg tablet Take 1 tablet (5 mg total) by mouth every 8 (eight) hours if needed. active Allergies Allergen Reaction Severity Comment Documented Date Source Statu s AMLODIPINE 02/12/2023 [facility] active SULFA (SULFONAMIDE ANTIBIOTICS) 07/15/2012 [facility] active CODEINE [facility] MEPERIDINE HCL [facility] Problems Problem Status Onset Date Problem Type Date of Resoluti on Source Depression active 2024-02-04 ProblemAct [facility] Irregular menses active 2020-03-09 ProblemAct C [facility] Obesity active 2021-07-19 ProblemAct [facility] Low back pain active 2024-02-04 ProblemAct [facility] Postmenopausal bleeding active 2022-08-26 ProblemAct [facility] Urinary frequency active 2022-08-26 ProblemAct [facility] Menorrhagia with regular cycle active 2019-02-11 ProblemAct [facility] Urinary incontinence active 2021-07-19 ProblemAct [facility] Atrial fibrillation active 2017-08-11 ProblemAct [facility] JESSICA (obstructive sleep apnea) active 2019-01-01 ProblemAct [facility] Cyst of left ovary active 2016-07-23 ProblemAct [facility] Fibroids active 2017-07-18 ProblemAct [facility] AN
== END 2024-12-13 15:14 | disposition home or self-care (01) ==
LOC: HO.HMCH 14:42
PROVIDERS: PCP Internal Medicine; Visit Provider Internal Medicine
DX: I48.0 Paroxysmal atrial fibrillation (principal); E11.65 Type 2 diabetes mellitus with hyperglycemia; E66.01 Morbid (severe) obesity due to excess calories; Z68.42 Body mass index [BMI] 45.0-49.9, adult; I44.1 Atrioventricular block, second degree; E78.00 Pure hypercholesterolemia, unspecified; K21.9 Gastro-esophageal reflux disease without esophagitis; G47.33 Obstructive sleep apnea (adult) (pediatric); F41.1 Generalized anxiety disorder

== ENCOUNTER → 2024-12-13 14:41 | Outpatient (BNVA) | payer OTHER, SELFPAY | PROVIDERS: PCP Internal Medicine; Visit Provider Internal Medicine | DX: I48.0 Paroxysmal atrial fibrillation (principal); I44.1 Atrioventricular block, second degree; E78.00 Pure hypercholesterolemia, unspecified; E11.65 Type 2 diabetes mellitus with hyperglycemia; E66.01 Morbid (severe) obesity due to excess calories; K21.9 Gastro-esophageal reflux disease without esophagitis; G47.33 Obstructive sleep apnea (adult) (pediatric); F41.1 Generalized anxiety disorder; Z99.89 Dependence on other enabling machines and devices | CPT/HCPCS: 83036; 99212 ==

== ENCOUNTER 2025-01-10 12:52 | Outpatient (AMB) | payer OTHER, SELFPAY ==
--- NOTE | 2025-01-10 12:54 | MHC.OFFVIS ---
Vital Signs 01/10/25 12:55 Height 5 ft 1 in Weight 238 lb BMI 45.0 BP 130/76 Blood Pressure Location Lt brachial Position Sitting Respiration 16 Pulse 67 Pulse Source Pulse Oximeter Pulse Oximetry (%) 98 Oxygen Delivery Method Room Air Intake Visit Reasons: Low Back Pain Pet Handler Required: No Accompanied by: Spouse Allergies amlodipine Allergy (Severe, Verified 01/10/25 12:57) Anxiety meperidine (From DEMEROL) Allergy (Intermediate, Verified 01/10/25 12:57) MIGRAINE codeine (CODEINE) Allergy (Unknown, Verified 01/10/25 12:57) UNKNOWN Medication List - Last Reconciled 01/10/25 by Henrietta Randall LPN apixaban (Eliquis) 5 mg PO BID 90 days ascorbate calcium (vitamin C) 1,000 mg PO DAILY cholecalciferol (vitamin D3) 25 mcg PO DAILY diazepam 5 mg PO BEDTIME PRN losartan 25 mg PO DAILY metformin 500 mg PO BID metoprolol tartrate 50 mg (2 x 25 mg) PO BID nystatin 1 appl topical DAILY 30 days pantoprazole 40 mg PO DAILY@0630 [shower chair no back and arms As directed] simvastatin 10 mg PO BEDTIME 90 days tirzepatide (weight loss) 7.5 mg (0.5 mL) subcut QWEEK HPI HPI Low Back Pain: Details: History of Present Illness The patient is a 59-year-old female presenting with low back pain. The pain has been persistent for a long time, affecting her back, hips, and feet, especially during walking. She describes the pain as excruciating and notes that it interferes with her sleep, requiring her to use a CPAP machine and sleep on her sides. The patient underwent back surgery in 2003 for a ruptured L5 disc, which was treated with a microdiscectomy. She reports that the disc was shattered, and the surgery was performed at [facility] by Dr. Matthews. Post-surgery, she has not had any fusion, and her lower back, including L3, L4, L5, and S1, remains affected. The patient has a history of receiving injections at [facility] around 2006, which provided limited relief. 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 She has lost approximately 16 pounds and is currently on Zepbound. The patient has a pacemaker placed last year and is on Eliquis for atrial fibrillation. She expresses concern about taking ibuprofen due to potential interactions with her heart medications. Pain Description - Onset: Long-standing pain in back, hips, and feet - Quality: Excruciating pain, worsens with walking - Location: Primarily in the lower back, radiating to hips and feet - Exacerbating factors: Walking, lying on back - Relieving factors: Recliner with heat and massage, orthotics - Interference: Affects sleep, requires CPAP machine, limits walking ability Physical Exam - Musculoskeletal: Forward flexion reproduces low back pain, lumbar extension feels better Pain Management - Affect: Pain impacts sleep and daily activities, causing significant discomfort - Analgesia: Uses Tylenol Arthritis, previously used Motrin, has a spinal stimulator - Adverse Effects: None reported from current medications - Activities of Daily Living: 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 ability to walk 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 - Aberrant Drug Related Behaviors: None reported PFSH Medical History Hx of cardiac pacemaker Tinea pedis Colon cancer screening Palpitations Sinus bradycardia COVID-19 virus infection Anemia Impaired glucose tolerance Bradycardia NSVT (nonsustained ventricular tachycardia) Neck pain Vertigo Paroxysmal atrial fibrillation Spinal stenosis Lumbar degenerative disc disease Anxiety and depression Hypertension Obesity Obstructive sleep apnea GERD (gastroesophageal reflux disease) Hypercholesterolemia Surgical History History of cataract surgery History of loop recorder S/P arteriovenous (AV) fistula repair History of cholecystectomy S/P diskectomy Family History Father Lung cancer Mother Medical history unknown Sister Myocardial infarction Brother Hepatitis C Paternal Grandmother Ovarian cancer Paternal Uncle Brain cancer Sister No problems noted. Sister No problems noted. Brother No problems noted. Brother No problems noted. Brother No problems noted. Daughter No problems noted. Daughter No problems noted. 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 1. Low Back Pain - Plan to obtain a CT scan of the lumbar spine to assess the L5-S1 disc due to pacemaker limitations for MRI. - Consideration of injections for pain management, avoiding cortisone due to potential interference with weight loss. - Discussion of potential alternatives to cortisone injections, balancing with Eliquis use. 2. Degenerative Disc Disease At L5-S1 - CT scan recommended to evaluate the extent of degenerative changes and guide further management. 3. Herniated Disc At L5 - CT scan to assess current status of herniation and any potential surgical needs. 4. Atrial Fibrillation - Continue current management with Eliquis, monitor for any interactions with pain management strategies. 5. Restless Leg Syndrome (Suspected) - Consider further evaluation if symptoms persist or worsen, currently managed with lifestyle modifications. Discussion Notes I discussed with the patient the need for a CT scan of the lumbar spine to evaluate the L5-S1 disc due to her pacemaker, which limits MRI use. We talked about the potential for injections to manage her pain, avoiding cortisone due to its impact on weight loss. I advised her on the importance of balancing her Eliquis use with any pain management strategies. Patient Instructions - Schedule a CT scan of the lumbar spine as advised. - Continue current medications, including Eliquis, and monitor for any side effects. - Consider lifestyle modifications to manage symptoms of restless leg syndrome. - Follow up with the clinic after the CT scan for further evaluation and management. Orders: Orders CT lumbar spine wo IV con 01/10/25 M54.50 - Low back pain, unspecified Coding Level of Care Code New Pt Level 4 (88203) Diagnoses Low back pain M54.50
[2025-01-10 12:55] VITALS: BP 130/76; PULSE 67; RESP 16; O2SAT 98; BMI 45.0
--- OUTSIDE RECORDS SUMMARY | 2025-01-10 17:42 | XMS_ITS | Clinical Summary ---
Author Organization [facility] [address] [place] [address] [place] [phone] Phone Care Team Providers Care Parts Representative Name Role Phone Matias Sullivan MD Primary Care Provider [phone] Allergies Active Allergy Reactions Criticality Noted Date [...] mouth. Ac tive OMEGA-3 FATTY ACIDS ORAL [place]-3 Fatty Acids (FISH OIL) 1200 MG Cap [...] Births 2 2 2 0 0 0 2 2 Date Outcome [...] (2 of 2 - PCV) 10/15/2022 10/15/2021 Hypertension/CHF/CAD Annual BMP Blood Test 03/02/2024 Depression Screening 04/28/2024 COVID-19 Vaccine (3 - 2024-2 6 season) 2024 06/22/2020, 06/01/2020 Influenza Vaccine (#1) 2024 03/13/2020 Colorectal Cancer [...] Most Recently Relevant to Health Maintenance Insurance [facility] [employer] Care Teams Parts Representative Relationship Specialty Start Date End Date Matias Sullivan MD [address] [place] [address] [address] [facility] [place] [address] PCP - General Internal Medicine 04/24/12
== END 2025-01-10 13:41 | disposition home or self-care (01) ==
LOC: HO.PMC 12:53
PROVIDERS: PCP Internal Medicine; Referring Provider Internal Medicine; Visit Provider Internal Medicine
DX: M54.50 Low back pain, unspecified (principal)
CPT/HCPCS: 99204

== ENCOUNTER → 2025-01-10 12:52 | Outpatient (BNVA) | payer OTHER, SELFPAY | PROVIDERS: PCP Internal Medicine; Referring Provider Internal Medicine; Visit Provider Internal Medicine | DX: G25.81 Restless legs syndrome (principal); M51.360 Other intervertebral disc degeneration, lumbar region with discogenic back pain only; M51.26 Other intervertebral disc displacement, lumbar region; I48.0 Paroxysmal atrial fibrillation | CPT/HCPCS: 99202 ==

== ENCOUNTER → 2025-01-20 13:02 | Outpatient (REF) | payer OTHER, SELFPAY ==
--- NOTE | 2025-01-20 13:06 | HM_ITS ---
Conclusion: 1. Patient was monitored for total period of 1 day and 23 hours 2. Baseline was normal sinus rhythm with bundle-branch block with average heart of 67 beats per minute. 3. No significant pauses noted 4. Occasional PACs noted with short runs of SVT, total of 20, longest lasting 19 beats at 179 beats per minute 5. Patient marked the counter 1 time correlating with sinus rhythm MTDD
== END ==
LOC: HO.CARD 13:02
PROVIDERS: PCP Internal Medicine
DX: I48.0 Paroxysmal atrial fibrillation (principal); I47.20 Ventricular tachycardia, unspecified
CPT/HCPCS: 93225

== ENCOUNTER → 2025-01-20 13:06 | Outpatient (BNV) | payer OTHER, SELFPAY | PROVIDERS: PCP Internal Medicine; Visit Provider Internal Medicine Cardiovascular Disease | DX: I49.1 Atrial premature depolarization (principal) | CPT/HCPCS: 93227 ==

== ENCOUNTER → 2025-01-29 23:59 | Outpatient (BNV) | payer OTHER, SELFPAY ==
--- NOTE | 2025-02-09 14:19 | MHC.OFFVIS ---
Intake Visit Reasons: Remote device check- [employer] Allergies amlodipine Allergy (Severe, Verified 01/10/25 12:57) Anxiety meperidine (From DEMEROL) Allergy (Intermediate, Verified 01/10/25 12:57) MIGRAINE codeine (CODEINE) Allergy (Unknown, Verified 01/10/25 12:57) UNKNOWN [facility] Medical History Hx of cardiac pacemaker Tinea pedis Colon cancer screening Palpitations Sinus bradycardia COVID-19 virus infection Anemia Impaired glucose tolerance Bradycardia NSVT (nonsustained ventricular tachycardia) Neck pain Vertigo Paroxysmal atrial fibrillation Spinal stenosis Lumbar degenerative disc disease Anxiety and depression Hypertension Obesity Obstructive sleep apnea GERD (gastroesophageal reflux disease) Hypercholesterolemia Surgical History History of cataract surgery History of loop recorder S/P arteriovenous (AV) fistula repair History of cholecystectomy S/P diskectomy Family History Father Lung cancer Mother Medical history unknown Sister Myocardial infarction Brother Hepatitis C Paternal Grandmother Ovarian cancer Paternal Uncle Brain cancer Sister No problems noted. Sister No problems noted. Brother No problems noted. Brother No problems noted. Brother No problems noted. Daughter No problems noted. Daughter No problems noted. 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 Overall normal device function. [id number] Cardiac Device Interrogation, pacemaker Procedure code (CPT) selection complete Assessment & Plan Assessment & Plan (1) Pacemaker: Code(s): Z95.0 - Presence of cardiac pacemaker Category: Medical (2) Bradycardia: Code(s): R00.1 - Bradycardia, unspecified Category: Medical (3) Mobitz (type) II atrioventricular block: Comment: Pacemaker Code(s): I44.1 - Atrioventricular block, second degree Category: Medical Plan x Coding Level of Care Code Procedure Only Diagnoses Pacemaker Z95.0 Bradycardia R00.1 Mobitz (type) II atrioventricular block I44.1 CPT Codes Cardiac Device Check - Cardiac Device 12: [id number] Cardiac Device Interrogation, pacemaker ([id number])
== END ==
PROVIDERS: PCP Internal Medicine; Visit Provider Internal Medicine
DX: R00.1 Bradycardia, unspecified (principal); Z95.0 Presence of cardiac pacemaker; I44.1 Atrioventricular block, second degree
CPT/HCPCS: 93294

== ENCOUNTER 2025-03-04 07:50 | Outpatient (REF) | payer OTHER, SELFPAY ==
--- NOTE | ~2025-03-04 | XR_ITS ---
EXAMINATION: XR ABDOMEN KUB CLINICAL INDICATION: R31.9 - Hematuria, unspecified COMPARISON: Previous KUB March 2017 and lumbar spine x-rays August 2016 Comparison also made with prior pelvic ultrasound report from 2010. Images not available. TECHNIQUE: AP view of the abdomen. FINDINGS: No calcifications project over the kidneys or expected course of the ureters. There are clustered bilateral small pelvic calcifications that are new from prior exams. This may be SHOULDER SAWYER in origin. Normal bowel gas pattern. No free air. Surgical clips in the right upper quadrant suggestive of previous cholecystectomy. Degenerative changes of the spine and mild scoliosis. There may be linear scarring or subsegmental atelectasis at the left lung base. XR/XR KUB IMPRESSION: No calcifications projecting over the kidneys or expected course of the ureters. New small clustered bilateral pelvic calcifications that may be SHOULDER SAWYER in origin. Consider follow-up pelvic and bladder ultrasound or abdominal and pelvic CT. Electronically signed by: Melissa Vincent MD 03/04/2025 08:32 AM GM
--- OUTSIDE RECORDS SUMMARY | 2025-03-04 07:55 | XMS_ITS | Clinical Summary ---
Author Organization [address] Address [address] [place] [phone] Phone Care Team Providers Care Molecular Spectroscopist Name Role Phone Matias Sullivan MD Primary Care Provider [phone] Allergies Active Allergy Reactions Criticality Noted Date [...] mouth. Ac tive OMEGA-3 FATTY ACIDS ORAL [place]-3 Fatty Acids (FISH OIL) 1200 MG [...] of 3 - 19+ 3-dose series) 1986 RSV Immunization Adult Patients (1 - Risk 50-74 years 1-dose series) 2017 Zoster Vaccines (1 of 2) 2017 Cholesterol [...] Most Recently Relevant to Health Maintenance Insurance [facility] [employer] PLAN Care Teams Molecular Spectroscopist Relationship Specialty Start Date End Date Matias Sullivan MD [address] [place] [address] [address] [facility] [place] [address] PCP - General Internal Medicine 04/24/12
[2025-03-04 09:34] LABS: Alanine Aminotransferase 21 U/L (0-31); Albumin Level 4.8 g/dL (3.5-5.0); Alkaline Phosphatase 127 U/L (39-117); Anion Gap 12 (12-20); Aspartate Amino Transferase 22 U/L (5-31); Blood Urea Nitrogen 17 mg/dL (9-16); Calcium 10.1 mg/dL (8.4-10.2); Carbon Dioxide 25 mmol/L (22-29); Chloride 109 mmol/L (96-108); Cholesterol 195 mg/dL (<200); Estimated Glomerular Filt Rate > 60; HDL Cholesterol 47 mg/dL (>40); Potassium 4.2 mmol/L (3.3-5.1); Sodium 142 mmol/L (135-145); Total Protein 8.0 g/dL (6.5-8.0); Triglycerides 175 mg/dL (<150)
[2025-03-04 12:08] LABS: Appearance Urine Clear; Glucose Urine UA Negative (Negative); PH 6.0 (5.0-9.0); Specific Gravity - Urine 1.020 (1.005-1.025); UMIC TRIGGER UACC YES
[2025-03-04 12:36] LABS: Iron 64 mcg/dL (30-160); Percent Iron Saturation 22 % (15-50); Total Iron Binding Capacity 286 mcg/dL (228-428); Unsaturated Iron Binding 222 ug/dL
[2025-03-04 13:02] LABS: Folate 7.5 ng/mL (> or = 4.0); Vitamin B12 416 pg/mL (200-900)
== END 2025-03-04 07:51 | disposition home or self-care (01) ==
LOC: HO.XRAY 07:50
PROVIDERS: PCP Internal Medicine; Visit Provider Internal Medicine
DX: E11.65 Type 2 diabetes mellitus with hyperglycemia (principal); E78.00 Pure hypercholesterolemia, unspecified; R21 Rash and other nonspecific skin eruption; M54.50 Low back pain, unspecified; R31.9 Hematuria, unspecified; R35.89 Other polyuria; Z13.21 Encounter for screening for nutritional disorder; Z13.29 Encounter for screening for other suspected endocrine disorder
CPT/HCPCS: 36415; 74018; 80053; 80061; 81001; 81003; 82306; 82607; 82746; 83540; 84443; 99212

== ENCOUNTER → 2025-03-04 08:03 | Outpatient (BNV) | payer OTHER, SELFPAY | PROVIDERS: PCP Internal Medicine; Visit Provider Radiology Diagnostic Radiology | DX: R31.9 Hematuria, unspecified (principal) | CPT/HCPCS: 74018 ==

== ENCOUNTER 2025-03-04 10:23 | Outpatient (AMB) | payer OTHER, SELFPAY ==
[2025-03-04 10:27] VITALS: BP 140/82; PULSE 79; TEMP 36.3; O2SAT 96; BMI 43.7
--- NOTE | 2025-03-04 10:27 | A.OFFPC_ITS ---
Vital Signs 3 03/04/25 10:27 Height 5 ft 1 in Weight 231 lb 8 oz BMI 43.7 BP 140/82 H Blood Pressure Location Lt brachial Position Sitting Pulse 79 Pulse Source Pulse Oximeter Temp 97.3 F Temp Source Temporal Artery Scan Pulse Oximetry (%) 96 Oxygen Delivery Method Room Air Intake Visit Reasons: spots on her arms Allergies amlodipine Allergy (Severe, Verified 03/04/25 10:46) Anxiety meperidine (From DEMEROL) Allergy (Intermediate, Verified 03/04/25 10:46) MIGRAINE codeine (CODEINE) Allergy (Unknown, Verified 03/04/25 10:46) UNKNOWN Medication List - Last Reconciled 03/04/25 by Sarah Zavaleta PA-C apixaban (Eliquis) 5 mg PO BID 90 days cholecalciferol (vitamin D3) 25 mcg PO DAILY diazepam 5 mg PO BEDTIME PRN losartan 25 mg PO DAILY metoprolol tartrate 50 mg (2 x 25 mg) PO BID pantoprazole 40 mg PO DAILY@0630 [shower chair no back and arms As directed] simvastatin 10 mg PO BEDTIME 90 days tirzepatide (weight loss) 10 mg (0.5 mL) subcut QWEEK Tobacco use date assessed: 08/24/24 Dental Screening Dental Screen Date: 03/04/25 HPI spots on her arms 2 HPI0 Details 60 year old female with past medical his tory of HLD, afib, GERD, JESSICA, diabetes mellitus last seen 11/2024 coming in for acute problem. Presenting for evaluation of new onset brown discoloration on her hands. The patient noticed the discoloration on her fingertips and hands this morning upon waking and states she tried to wash it off with soap and water without success. She denies any known contact with cleansers, iodine, or hair dye. She also reports lower back pain and has concerns for possible UTI. [facility] Medical History Hx of cardiac pacemaker Tinea pedis Colon cancer screening Palpitations Sinus bradycardia COVID-19 virus infection Anemia Impaired glucose tolerance Bradycardia NSVT (nonsustained ventricular tachycardia) Neck pain Vertigo Paroxysmal atrial fibrillation Spinal stenosis Lumbar degenerative disc disease Anxiety and depression Hypertension Obesity Obstructive sleep apnea GERD (gastroesophageal reflux disease) Hypercholesterolemia Surgical History History of cataract surgery History of loop recorder S/P arteriovenous (AV) fistula repair History of cholecystectomy S/P diskectomy Family History Father Lung cancer Mother Medical history unknown Sister Myocardial infarction Brother Hepatitis C Paternal Grandmother Ovarian cancer Paternal Uncle Brain cancer Sister No problems noted. Sister No problems noted. Brother No problems noted. Brother No problems noted. Brother No problems noted. Daughter No problems noted. Daughter No problems noted. 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 1. Little interest or pleasure in doing things: not at all 2. Feeling down, depressed, or hopeless: not at all 3. Trouble falling or staying asleep, or sleeping too much: not at all 4. Feeling tired or having little energy: nearly every day 5. Poor appetite or overeating: not at all 6. Feeling bad about yourself - or that you are a failure or have let yourself or your family down: not at all 7. Trouble concentrating on things, such as reading the newspaper or watching television: not at all 8. Moving or speaking so slowly that other people could have noticed. Or the opposite - being so fidgety or restless that you have been moving around a lot more than usual: not at all 9. Thoughts that you would be better off or of hurting yourself in some way: not at all Total score: 3 Depression Screening Interpretation: Positive Depression Screening Done: Yes Source: Developed by Drs. Chepe Leon, Bharati Palacio, Juan Anderson and colleagues, with an educational briana from [employer]. Thrive Questionnaire Date Thrive assessed: 08/24/24 I am a: Patient What is your living situation today?: I have a steady place to live Within the past 12 months, did the food you bought not last and you didn't have the money to get more?: Never true Within the past 12 months, did you worry whether your food would run out before you got money to buy more?: Never true Do you have trouble paying for medicines?: No Do you have trouble getting transportation to medical appointments?: No Do you have trouble paying your heating and electricity bill?: No Do you have trouble taking care of your child, family member or friend?: No Do you have trouble with day-to-day activities such as bathing, preparing meals, shopping, managing finances, etc.?: No Are you currently unemployed and looking for a job?: No Are you interested in more education?: No Please select the resources that you would like help with: None Currently or been in a relationship where the following occur: No concerns reported THRIVE Score: 0 AUDIT C Alcohol Use Questionnaire (AUDIT-C) 1. How often do you have a drink containing alcohol?: Never Total Score: 0 JORGE ALBERTO-7 AMB Questionnaire JORGE ALBERTO-7 Date JORGE ALBERTO - 7 assessed: 06/24/24 Feeling nervous, anxious, or on edge: 0 = Not at all Not being able to stop or control worryin = Not at all Worrying too much about different things: 0 = Not at all Trouble relaxin = Not at all Being so restless that it is hard to sit still: 0 = Not at all Becoming easily annoyed or irritable: 0 = Not at all Feeling afraid as if something awful might happen: 0 = Not at all Total JORGE ALBERTO-7 score (0-4 normal; 5-9 mild; 10-14 moderate; 15-21 severe): 0 Source: Developed by Drs. Chepe Leon, Juan Cartwright and colleagues, with an educational briana from [employer]. Review of Systems Const Denies body aches, Denies chills and Denies fever(s) ENT Reports no additional complaints Card Denies chest pain, Denies syncope, Denies lightheadedness and Denies dyspnea Resp Denies dyspnea GI Reports no additional complaints Skin/Breast Reports system reviewed and no additional complaints, except as documented Neuro Denies syncope Physical exam (Primary Care) Vital Signs: Last Vital Signs Temp 97.3 F 03/04/25 10:27 Pulse 79 03/04/25 10:27 BP 140/82 H 03/04/25 10:27 Pulse Ox 96 03/04/25 10:27 Oxygen Delivery Method Room Air 03/04/25 10:27 BMI result Body Mass Index 43.7 Tobacco/Smoking Status: Tobacco use Status Tobacco use date assessed 08/24/24 03/04/25 10:30 Patient Tobacco Use Status Never used Tobacco 03/04/25 10:30 Tobacco use type Cigarette 03/04/25 10:30 e-Cigarette/Vaping Use Never Used 03/04/25 10:30 PHQ-9: PHQ-9 Score PHQ-9: Total score 3 03/04/25 10:44 Depression Screening Interpretation: Positive Thrive Assessment: Date of Thrive Assessment Date Thrive assessed 08/24/24 03/04/25 10:30 Currently or been in a relationship where the following occur: No concerns reported Const General: cooperative, healthy appearing, comfortable and no acute distress Orientation/consciousness: patient oriented x3 HENMT Head: Yes normocephalic Ears: hearing grossly normal bilaterally General nose exam: Normal external nose present Eyes General: appearance normal, both eyes and all related structures Conjunctivae: conjunctivae normal Neck Neck: Yes full ROM and Yes no lymphadenopathy Resp Effort & Inspection: normal respiratory effort Cardio Rate: regular rate Skin Other: Scattered Dark brown skin discoloration spots alongside the left fingers and fingertips as well as the right ring finger General skin exam: no rashes or lesions noted Full body images: 2 1. linear light brown discoloration of the right medial arm Neuro General: patient oriented x3 Gait exam (Neuro): Normal gait present Extrem General: Yes normal to inspection, Yes full ROM and No edema Psych Affect: normal affect Attitude: cooperative Insight: Good insight present (Psych) Judgement: Good judgement present (Psych) Coding Level of Care Code Est Pt Level 3 (65656) Diagnoses Skin rash R21 Low back pain M54.50 Assessment & Plan Assessment & Plan (1) Skin rash: Code(s): R21 - Rash and other nonspecific skin eruption Category: Medical Plan: The patient presents with brown discoloration on her hands, which is suspicious for an external stain given that it is partially removable with an alcohol wipe. To rule out underlying systemic causes, an iron profile and thyroid studies will be ordered at patient request. The patient is advised the discoloration will likely resolve on its own in a few days. She has a scheduled follow-up with Dr. Sullivan on Friday. (2) Low back pain: Code(s): M54.50 - Low back pain, unspecified Category: Medical Plan: The patient reports lower back pain and previously had a CT scan scheduled which was canceled. A urine specimen will be collected to evaluate for urological etiologies. Plan This note was constructed using voice recognition software. While every effort has been made to ensure accuracy and certified prosthetist/orthotist, still areas may have been included sometimes these areas may affect the content or meeting of the given symptoms. Total time spent caring for the patient today was 20 minutes. This includes time spent before the visit reviewing the chart, time spent during the visit, and time spent after the visit and documentation. Patient was informed and verbally consented to the use of an ambient scribe for clinic note documentation during this visit. Orders: Orders 2 TSH reflex Free T4 Today R21 - Rash and other nonspecific skin eruption, Z13.29 - Encounter for screening for other suspected endocrine disorder Vitamin B12 and Folate Today Z13.21 - Encounter for screening for nutritional disorder UA CC w/rflx Micro + Cult Today R35.89 - Other polyuria IRON PROFILE Today R21 - Rash and other nonspecific skin eruption Vitamin D 25-OH Total Today Z13.21 - Encounter for screening for nutritional disorder
== END 2025-03-04 11:01 | disposition home or self-care (01) ==
LOC: HO.HMCH 10:24
PROVIDERS: PCP Internal Medicine
DX: R21 Rash and other nonspecific skin eruption (principal); M54.50 Low back pain, unspecified

== ENCOUNTER 2025-03-07 13:01 | Outpatient (AMB) | payer OTHER, SELFPAY ==
[2025-03-07 13:26] VITALS: BP 148/82; PULSE 78; BMI 43.7
--- NOTE | 2025-03-07 13:26 | MHC.OFFVIS ---
Vital Signs 03/07/25 13:26 Height 5 ft 1 in Weight 231 lb 7.766 oz BMI 43.7 BP 148/82 H Blood Pressure Location Lt brachial Position Sitting Pulse 78 Pulse Source Pulse Oximeter Intake Visit Reasons: 6m follow up w device ck [employer]ocker Required: No Allergies amlodipine Allergy (Severe, Verified 03/07/25 15:16) Anxiety meperidine (From DEMEROL) Allergy (Intermediate, Verified 03/07/25 15:16) MIGRAINE codeine (CODEINE) Allergy (Unknown, Verified 03/07/25 15:16) UNKNOWN Medication List - Last Reconciled 03/07/25 by Patt Vasquez, [employer] apixaban (Eliquis) 5 mg PO BID 90 days cholecalciferol (vitamin D3) 25 mcg PO DAILY diazepam 5 mg PO BEDTIME PRN losartan 25 mg PO DAILY metoprolol tartrate 50 mg (2 x 25 mg) PO BID pantoprazole 40 mg PO DAILY@0630 [shower chair no back and arms As directed] simvastatin 10 mg PO BEDTIME 90 days tirzepatide (weight loss) 12.5 mg (0.5 mL) subcut QWEEK HPI HPI 6m follow up w device ck: Details: Tahira is a 60-year-old female past medical history of morbid obesity, sleep apnea with CPAP use, left bundle branch block, 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 Today she reports that she gets brief heart palpitations that can last a 2nd or more causing a wave of lightheadedness. She says it can occur a few times daily. She recently wore Holter monitor for this reason. She has not had any full presyncope, syncope, falls. No concerning shortness of breath, no PND, orthopnea or edema. No chest discomfort at rest or with activity. Has been losing weight with the help of GLP 1 medication. She states that after the 1st of the year she may not be able to get it due to high cost. Compliant with all medications. No bleeding issues with Eliquis. [facility] Medical History Hx of cardiac pacemaker Tinea pedis Colon cancer screening Palpitations Sinus bradycardia COVID-19 virus infection Anemia Impaired glucose tolerance Bradycardia NSVT (nonsustained ventricular tachycardia) Neck pain Vertigo Paroxysmal atrial fibrillation Spinal stenosis Lumbar degenerative disc disease Anxiety and depression Hypertension Obesity Obstructive sleep apnea GERD (gastroesophageal reflux disease) Hypercholesterolemia Surgical History History of cataract surgery History of loop recorder S/P arteriovenous (AV) fistula repair History of cholecystectomy S/P diskectomy Family History Father Lung cancer Mother Medical history unknown Sister Myocardial infarction Brother Hepatitis C Paternal Grandmother Ovarian cancer Paternal Uncle Brain cancer Sister No problems noted. Sister No problems noted. Brother No problems noted. Brother No problems noted. Brother No problems noted. Daughter No problems noted. Daughter No problems noted. 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 Current occupational exposures/hazards: No Cognitive needs: No Hearing needs: No Vision needs: Yes (Glasses) Review of Systems Const All systems reviewed & are unremarkable except as noted in HPI and below Reports weight loss ENT Denies dizziness Card Details: palpitations Denies chest pain, Denies chest pain at rest, Denies chest pain with activity, Reports rapid heart rate, Denies pedal edema, Denies edema, Denies leg edema, Denies lightheadedness, Denies palpitations, Denies dyspnea, Denies dyspnea on exertion and Denies orthopnea Resp Denies cough, Denies dyspnea and Denies dyspnea on exertion GI Denies hematochezia and Denies change in stool character Musc Denies abnormal gait, Denies limited range of motion, Denies muscle cramps, Denies muscle weakness, Denies numbness, Denies radiating pain into limb, Denies stiffness and Denies tingling Neuro Denies abnormal gait, Denies dizziness, Denies numbness and Denies tingling Endo Denies palpitations Physical Exam Vital Signs: Last Vital Signs Pulse 78 03/07/25 13:26 BP 148/82 H 03/07/25 13:26 BMI result Body Mass Index 43.7 Const General: cooperative, healthy appearing, comfortable and no acute distress Orientation/consciousness: patient oriented x3 Neck Neck: Yes normal visual inspection Resp Effort & Inspection: normal respiratory effort Auscultation: clear to auscultation bilaterally, no rales, no rhonchi and no wheezes Cardio Rate: regular rate Rhythm: regular rhythm Heart sounds: S1 normal heart sound present, S2 normal heart sound present, no gallops, no murmurs and no rubs Neuro General: patient oriented x3 Extrem General: Yes normal to inspection, No no pedal edema and No calf tenderness Psych Appearance: grossly normal Mental Status: mental status grossly normal Speech and movement: Normal speech and movement present Office Procedures Cardiac Device Check Cardiac Device Check Details: Today, read by me, Hoppit dual-chamber pacemaker interrogation today, battery 13.3 years, atrial threshold 0.875 volts at 0.4 milliseconds, RV threshold 0.875 volts at 0.4 milliseconds, AAI to DDD mode, low rate 60, V paced less than 0.1%, a paced 13.7%, 2 episodes of atrial fibrillation, longest 5 hours and 15 seconds with max V rate 188 occurring 12/18/2024, 40 minutes, 01/05/2025 with max V rate 122, no AF since then, very brief NSVT 26212-EC Cardiac Device Check, pacemaker dual lead Procedure code (CPT) selection complete Results AMB Hemoglobin A1c AMB Hemoglobin A1c 5.9 % Last Edit by Cathleen Chatterjee CMA on 03/07/25 15:29 Assessment & Plan Assessment & Plan (1) Paroxysmal atrial fibrillation: Code(s): I48.0 - Paroxysmal atrial fibrillation Category: Medical Plan: History of paroxysmal atrial fibrillation, overall low burden. Device interrogation today shows burden 0.1% since 09/10/2024. She is on metoprolol for heart rate control and Eliquis for anticoagulation. Labs 09/13/2024 showed hemoglobin 12, labs 03/04/2025 showed creatinine 0.79. No med changes made. (2) Mobitz (type) II atrioventricular block: Comment: Pacemaker Code(s): I44.1 - Atrioventricular block, second degree Category: Medical Plan: Prior evidence of Mobitz 2 heart rhythm, symptomatic resulting in placement of Medtronic dual-chamber pacemaker. (3) Hx of cardiac pacemaker: Comment: Medtronic Code(s): Z95.0 - Presence of cardiac pacemaker Category: Medical Plan: Medtronic dual-chamber pacemaker interrogation today shows device is functioning normally. Has remote monitoring in use. Next office interrogation due in 6 months. Battery 13.3 years. (4) Obstructive sleep apnea: Comment: On CPAP at [id number] Code(s): G47.33 - Obstructive sleep apnea (adult) (pediatric) Category: Medical Plan: History of obstructive sleep apnea, compliant with CPAP. Plan Time spent on chart review, documentation, interview and assessment Medications: Changed From metoprolol tartrate 50 mg (2 x 25 mg) PO BID 180 tabs 3RF To metoprolol tartrate take 3 tablets twice daily 75 mg (3 x 25 mg) PO BID 360 tabs 3RF 60 days Coding Level of Care Code Est Pt Level 4 (82703) Complex EM visit Add On G2211 Diagnoses Paroxysmal atrial fibrillation I48.0 Mobitz (type) II atrioventricular block I44.1 Hx of cardiac pacemaker Z95.0 Obstructive sleep apnea G47.33 CPT Codes Cardiac Device Check - Cardiac Device 2: 40814-CQ Cardiac Device Check, pacemaker dual lead ([id number]) Time Spent (min) 32
--- OUTSIDE RECORDS SUMMARY | 2025-03-07 15:10 | XMS_ITS | Clinical Summary ---
Author Organization [facility] [address] [place] [address] [place] [phone] Phone Care Team Providers Care Chute Greaser Name Role Phone Matias Sullivan MD Primary Care Provider [phone] Allergies Active Allergy Reactions Criticality Noted Date [...] mouth. Ac tive OMEGA-3 FATTY ACIDS ORAL Milfay-3 Fatty Acids (FISH OIL) 1200 MG Cap [...] every 8 (eight) hours if needed. Active estradioL (ESTRACE) 0.01 % (0.1 mg/gram) vaginal cream Insert 0.5 g into the vagina 1 (one) time each day. Please place 0.5g (a pea-sized amount) on your finger and place inside the vagina for 2 weeks at night, and then twice a week at night 42.5 g 3 4 Active nystatin (MYCOSTATIN) 100,000 unit/gram powder Apply topically 3 (three) times a day. 15 g 4 03/04/20 25 Active Problems Problem Noted Date Diagnosed [...] Most Recently Relevant to Health Maintenance Insurance [facility] [employer] Care Teams Chute Greaser Relationship Specialty Start Date End Date Matias Sullivan MD [address] [place] [address] [address] [facility] [place] [address] PCP - General Internal Medicine 04/24/12
== END 2025-03-07 14:07 | disposition home or self-care (01) ==
LOC: HO.HCS 13:02
PROVIDERS: PCP Internal Medicine; Visit Provider Nurse Practitioner Family
DX: I48.0 Paroxysmal atrial fibrillation (principal); I44.1 Atrioventricular block, second degree; Z95.0 Presence of cardiac pacemaker; G47.33 Obstructive sleep apnea (adult) (pediatric)
CPT/HCPCS: 93280; 99214

== ENCOUNTER 2025-03-07 14:45 | Outpatient (AMB) | payer OTHER, SELFPAY ==
[2025-03-07 15:16] VITALS: BP 138/72; PULSE 60; O2SAT 97; BMI 43.5
--- NOTE | 2025-03-07 15:16 | A.OFFPC_ITS ---
Vital Signs 03/07/25 15:16 Height 5 ft 1 in Weight 230 lb BMI 43.5 BP 138/72 Blood Pressure Location Lt brachial Position Sitting Pulse 60 Pulse Source Pulse Oximeter Pulse Oximetry (%) 97 Oxygen Delivery Method Room Air Intake Visit Reasons: Annual Exam Allergies amlodipine Allergy (Severe, Verified 03/07/25 15:16) Anxiety meperidine (From DEMEROL) Allergy (Intermediate, Verified 03/07/25 15:16) MIGRAINE codeine (CODEINE) Allergy (Unknown, Verified 03/07/25 15:16) UNKNOWN Medication List - Last Reconciled 03/07/25 by Matias Sullivan MD apixaban (Eliquis) 5 mg PO BID 90 days cholecalciferol (vitamin D3) 25 mcg PO DAILY diazepam 5 mg PO BEDTIME PRN losartan 25 mg PO DAILY metoprolol tartrate 75 mg (3 x 25 mg) PO BID 60 days pantoprazole 40 mg PO DAILY@0630 [shower chair no back and arms As directed] simvastatin 10 mg PO BEDTIME 90 days tirzepatide (weight loss) 12.5 mg (0.5 mL) subcut QWEEK Tobacco use date assessed: 08/24/24 Dental Screening Dental Screen Date: 03/04/25 HPI Annual Exam HPI Details referred to retina doctor 02/25/2025 ff up 1 year [facility] Medical History Hx of cardiac pacemaker Tinea pedis Colon cancer screening Palpitations Sinus bradycardia COVID-19 virus infection Anemia Impaired glucose tolerance Bradycardia NSVT (nonsustained ventricular tachycardia) Neck pain Vertigo Paroxysmal atrial fibrillation Spinal stenosis Lumbar degenerative disc disease Anxiety and depression Hypertension Obesity Obstructive sleep apnea GERD (gastroesophageal reflux disease) Hypercholesterolemia Surgical History History of cataract surgery History of loop recorder S/P arteriovenous (AV) fistula repair History of cholecystectomy S/P diskectomy Family History Father Lung cancer Mother Medical history unknown Sister Myocardial infarction Brother Hepatitis C Paternal Grandmother Ovarian cancer Paternal Uncle Brain cancer Sister No problems noted. Sister No problems noted. Brother No problems noted. Brother No problems noted. Brother No problems noted. Daughter No problems noted. Daughter No problems noted. 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 1. Little interest or pleasure in doing things: not at all 2. Feeling down, depressed, or hopeless: not at all 3. Trouble falling or staying asleep, or sleeping too much: not at all 4. Feeling tired or having little energy: nearly every day 5. Poor appetite or overeating: not at all 6. Feeling bad about yourself - or that you are a failure or have let yourself or your family down: not at all 7. Trouble concentrating on things, such as reading the newspaper or watching television: not at all 8. Moving or speaking so slowly that other people could have noticed. Or the opposite - being so fidgety or restless that you have been moving around a lot more than usual: not at all 9. Thoughts that you would be better off or of hurting yourself in some way: not at all Total score: 3 Depression Screening Interpretation: Positive Depression Screening Done: Yes Source: Developed by Drs. Chepe Leon, Bharati Palacio, Juan Anderson and colleagues, with an educational briana from [employer]. Thrive Questionnaire Date Thrive assessed: 08/24/24 I am a: Patient What is your living situation today?: I have a steady place to live Within the past 12 months, did the food you bought not last and you didn't have the money to get more?: Never true Within the past 12 months, did you worry whether your food would run out before you got money to buy more?: Never true Do you have trouble paying for medicines?: No Do you have trouble getting transportation to medical appointments?: No Do you have trouble paying your heating and electricity bill?: No Do you have trouble taking care of your child, family member or friend?: No Do you have trouble with day-to-day activities such as bathing, preparing meals, shopping, managing finances, etc.?: No Are you currently unemployed and looking for a job?: No Are you interested in more education?: No Please select the resources that you would like help with: None Currently or been in a relationship where the following occur: No concerns reported THRIVE Score: 0 JORGE ALBERTO-7 AMB Questionnaire JORGE ALBERTO-7 Date JORGE ALBERTO - 7 assessed: 06/24/24 Source: Developed by Drs. Chepe Leon, Bharati Palacio, Juan Anderson and colleagues, with an educational briana from [employer]. Review of Systems Const Denies poor appetite and Denies weakness Eyes Denies no additional complaints ENT Reports Normal hearing present, Denies dizziness, Denies nasal congestion, Denies tinnitus and Denies sore throat Card Denies chest pain, Denies syncope, Denies rapid heart rate and Denies dyspnea Resp Denies cough and Denies dyspnea GI Denies change in stool character, Reports constipation, Denies diarrhea, Denies nausea and Denies vomiting Denies urinary frequency, Denies difficulty voiding and Denies dysuria Neuro Reports Normal hearing present, Denies confusion, Denies dizziness, Denies syncope and Denies weakness Psych Denies confusion Physical exam (Primary Care) Vital Signs: Last Vital Signs Pulse 60 03/07/25 15:16 BP 138/72 03/07/25 15:16 Pulse Ox 97 03/07/25 15:16 Oxygen Delivery Method Room Air 03/07/25 15:16 BMI result Body Mass Index 43.5 Tobacco/Smoking Status: Tobacco use Status Tobacco use date assessed 08/24/24 03/07/25 15:16 Patient Tobacco Use Status Never used Tobacco 03/07/25 15:16 Tobacco use type Cigarette 03/07/25 15:16 e-Cigarette/Vaping Use Never Used 03/07/25 15:16 PHQ-9: PHQ-9 Score PHQ-9: Total score 3 03/07/25 16:01 Depression Screening Interpretation: Positive Thrive Assessment: Date of Thrive Assessment Date Thrive assessed 08/24/24 03/07/25 15:16 Currently or been in a relationship where the following occur: No concerns reported Const General: alert and awake; No confusion Orientation/consciousness: No confusion HENMT Head: Yes normocephalic Ears: external ears normal and TM's normal bilaterally Face and sinus: Yes normal facial exam Mouth: moist mucous membranes Throat: Yes tonsils normal Eyes Conjunctivae: conjunctivae normal Pupils: Equal, round and reactive pupils present and Pupil accommodation reflex normal Direct Ophthalmoscopy: normal light reflex Neck Neck: No lymphadenopathy Thyroid: Thyroid normal Chest Chest palpation & inspection: normal inspection of the chest Resp Effort & Inspection: normal respiratory effort and no audible wheezes Auscultation: clear to auscultation bilaterally, no crackles, no wheezes and lung sounds not diminished Cardio Rate: regular rate Rhythm: regular rhythm Peripheral pulses: radial pulses present and dorsalis pedis present GI Palpation (GI): no masses Auscultation: normal bowel sounds and normoactive bowel sounds Rectal Exam - Female: deferred Skin General skin exam: no rashes or lesions noted Rashes: no rashes Neuro General: deep tendon reflexes 2+ bilaterally and No confusion Cranial nerves: Yes Equal, round and reactive pupils present, Yes Midline tongue present, Yes Normal hearing present and Yes Ability to bilaterally elevate shoulders present Cognition (Neuro): normal cognition Gait exam (Neuro): Normal gait present Motor exam (neuro): 5/5 motor strength present throughout Deep tendon reflexes (DTR's): Right brachioradialis reflex intensity grade: 2+, Left brachioradialis reflex intensity grade: 2+, Right patellar reflex intensity grade: 2+ and Left patellar reflex intensity grade: 2+ Extrem General: No edema Office Procedures Flu Questionnaire Does the patient have a severe egg allergy?: No Does the patient have severe life threatening allergies?: No Does the patient have a fever or illness today?: No Has the patient ever had Guillain-[place] Syndrome?: No Has the patient ever had any past reaction to a flu shot?: No Results AMB Hemoglobin A1c AMB Hemoglobin A1c 5.9 % Last Edit by Cathleen Chatterjee CMA on 03/07/25 15 :29 Immunizations Fluarix [id number] (PF) 45 mcg (15 mcg x 3)/0.5 mL IM syringe Performing Provider: Matias Sullivan MD Performing Location: [facility] Documented (not given) by: Cathleen Chatterjee CMA on 03/07/25 16:02 Reason Not Given: Not Given Results Reviewed Results Reviewed: Laboratory Last Values Hgb A1c (Clinic) 5.9 % (4.0-6.0) 03/07/25 15:17 Coding Level of Care Code Est Pt Prev Care 40-64y(29206) Diagnoses Annual physical exam Z00.00 Type 2 diabetes mellitus with hyperglycemia, without long-term current use of insulin E11.65 Diabetes mellitus jail insulin use: without jail use Hypercholesterolemia E78.00 Paroxysmal atrial fibrillation I48.0 Mobitz (type) II atrioventricular block I44.1 Generalized anxiety disorder F41.1 Morbid obesity E66.01 Gastroesophageal reflux disease without esophagitis K21.9 Esophagitis presence: without esophagitis Low back pain M54.50 Assessment & Plan Assessment & Plan (1) Annual physical exam: Code(s): Z00.00 - Encounter for general adult medical examination without abnormal findings Category: Medical Plan: Patient is advised to eat healthy, keep well hydrated, keep active and have adequate sleep. 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 Hemoglobin A1c goal of less than 6.5. Patient is on tirzepatide (3) Hypercholesterolemia: Code(s): E78.00 - Pure hypercholesterolemia, unspecified Category: Medical Plan: Avoid fried foods, chicken skin, eggs, butter margarine, pastries and meat. Be it pork or beef they have a lot of cholesterol patient is taking simvastatin 10 mg at bedtime (4) Paroxysmal atrial fibrillation: Code(s): I48.0 - Paroxysmal atrial fibrillation Category: Medical Plan: Continue with anticoagulation and metoprolol continue to monitor renal function (5) Mobitz (type) II atrioventricular block: Comment: Pacemaker Code(s): I44.1 - Atrioventricular block, second degree Category: Medical Plan: Patient has a pacemaker and being followed up by Cardiology (6) Generalized anxiety disorder: Code(s): F41.1 - Generalized anxiety disorder Category: Medical Plan: Continue with present medication (7) Morbid obesity: Code(s): E66.01 - Morbid (severe) obesity due to excess calories Category: Medical Plan: Continue with diet and exercise (8) GERD (gastroesophageal reflux disease): Code(s): K21.9 - Gastro-esophageal reflux disease without esophagitis Category: Medical Qualifiers: Esophagitis presence: without esophagitis Qualified Code(s): K21.9 - Gastro-esophageal reflux disease without esophagitis Plan: Avoid the foods that causes that usually spicy foods, tomato products, juices, coffee, soda and foods that your sensitive to. After eating do not lie down, allow 3-4 hours before in lie down. And keep the head of bed above 30 degrees to avoid the acid from going up. (9) Low back pain: Code(s): M54.50 - Low back pain, unspecified Category: Medical Plan: Patient is being followed up by pain management and CT scan pending of the lower back Plan History of Present Illness The patient is a 60-year-old obese female presenting for a physical exam and management of multiple chronic conditions. Her medical history is significant for hypercholesterolemia, atrial fibrillation, obstructive sleep apnea managed with CPAP, generalized anxiety disorder, and an overactive bladder. Regarding her cardiac history, she has a Mobitz type II AV block with a pacemaker in place and is followed by cardiology, with her last device check on March 07. A prior Holter monitor also showed short runs of supraventricular tachycardia. She takes metoprolol and Eliquis for her cardiac conditions. The patient has type 2 diabetes mellitus, which is currently controlled with an A1c of 5.9%, down from a prior level of 6.6%. She is on tirzepatide and experiences gastrointestinal side effects, including diarrhea, gas, and belching for a few days after each injection. Her hypercholesterolemia is managed with simvastatin, with a recent LDL of 113 mg/dL. The patient also has chronic low back pain, for which she sees a supervisor painting. She describes the pain as a digging sensation that causes instant leg pain and limits her ability to walk and exercise. She manages her pain with Tylenol Arthritis twice daily, as well as heat and massage. A CT scan of her lower back is pending. Her health maintenance is up to date, including a Cologuard in October 2022 and a mammogram in March 2024. Recent labs showed a normal CBC, electrolytes, and renal function, with normal levels of vitamin B12, vitamin D, folic acid, and thyroid hormones. Health Maintenance The patient agreed to receive her influenza vaccine during the visit. Other screenings and vaccinations, including tetanus, pneumonia, and shingles, are up to date. A follow-up appointment is scheduled for May 12. Social History - Exercise: Patient reports walking about 5,000 steps a day but is limited by her low back pain. Review of Systems - Cardiovascular: Reports daily palpitations. - Gastrointestinal: Reports post-injection diarrhea, borborygmi, eructation with a foul odor, and flatulence after taking tirzepatide, which lasts for a few days. Denies heartburn and constipation. - Genitourinary: Reports normal urination. Notes a past history of bacteriuria. - Musculoskeletal: Reports chronic low back pain, described as a digging sensation, that radiates to the leg and limits activity. Reports a quivering sensation in the back at times. Physical Exam General: Cooperative, healthy appearing, comfortable, no acute distress and well developed Orientation: Patient oriented x3 Limitations: Limitations due to back pain; unable to walk and exercise without pain Head: Normal to inspection Ears: Hearing grossly normal bilaterally Nose: Normal external nose present Face and sinus: Normal facial exam Eyes: Appearance normal, both eyes and all related structures Neck: Normal visual inspection and Yes full ROM Respiratory: Normal respiratory effort and able to speak in complete sentences. Clear to auscultation bilaterally Cardiovascular: Regular rate and rhythm. Normal S1 and S2 GI: Tenderness noted in the abdominal area, particularly where the pacemaker is located Skin: Rash present Neuro: Patient oriented x3 Extremities: Normal to inspection, but pain noted in the back and legs, with tenderness in the area around the pacemaker Results - Labs (from September 13February 2025): - CBC: Normal, no anemia. - CMP: Normal electrolytes and renal function. Blood sugar 99 mg/dL. - Hemoglobin A1c: 5.9%. - Lipid Panel: LDL 113 mg/dL. - LFTs: Within normal limits. - Other: Vitamin B12, vitamin D, folic acid, and thyroid levels are all within normal limits. - Tests and Diagnostics: - Holter Monitor (prior): Showed short runs of SVT. Plan Patient was informed and verbally consented to the use of an ambient scribe for clinic note documentation during this visit. 1. Hypercholesterolemia The patient's LDL cholesterol is 113 mg/dL, which is above the goal of less than 100 mg/dL for individuals with diabetes. She is currently taking simvastatin 10 mg. The plan is to increase the dose of simvastatin; the patient was instructed she can double her current pills until the new prescription is filled. A follow- up cholesterol test is ordered for three months from now. 2. Type 2 Diabetes Mellitus The patient's diabetes is considered controlled with a hemoglobin A1c of 5.9%, below the goal of 6.5%. She will continue her current regimen of tirzepatide. The patient was counseled that gastrointestinal side effects are common with this medication due to slowed gut motility. Continue with diet and exercise recommendations. 3. Low Back Pain The patient has chronic low back pain that limits her activity. She is being followed by a supervisor painting and has a CT scan of the lower back pending. Pain medication options were discussed, including gabapentin and tramadol, but the patient wished to avoid their side effects. It was recommended she try topical Voltaren gel, which she preferred over systemic options. The patient was advised to exercise caution with her chiropractor to avoid further injury. 4. Cardiac Management The patient has a history of atrial fibrillation and a Mobitz II AV block with a pacemaker. She will continue anticoagulation with Eliquis and rate control with metoprolol. She will continue to be monitored by her cardiology team. Continue to monitor renal function. Discussion Notes I discussed with the patient that her diagnosis of type 2 diabetes is permanent, even though her current A1c of 5.9% indicates good control. We reviewed her lab work, noting that her LDL cholesterol of 113 mg/dL is above the recommended goal of <100 mg/dL for patients with diabetes. I explained the plan to increase her simvastatin dose and recheck her cholesterol levels in three months. We extensively discussed management options for her low back pain. After reviewing the risks and benefits of systemic medications like gabapentin and tramadol, she expressed concern about side effects and preferred to try a topical approach first. She agreed to try Voltaren gel. I advised her to be cautious with chiropractic adjustments to avoid further injury. We also reviewed her vaccination status. She agreed to receive the flu shot today. The patient has a follow-up appointment scheduled for May 12, at which time we will review the results of her pending CT scan. Patient Instructions - Take a higher dose of your cholesterol medicine, simvastatin. For now, you can double your current pills. I have sent a new prescription for the higher dose to your pharmacy. - Get a blood test in 3 months to check your cholesterol. - Continue taking your diabetes medication, tirzepatide. The stomach upset (gas, diarrhea, burping) you experience for a few days after the shot is a common side effect because the medicine slows down your digestion. - For your back pain, you can try using [id number] Voltaren gel. - Continue with your other medications as prescribed, including metoprolol and Eliquis. - You will receive your flu shot today in the office. - Please be cautious if you visit the chiropractor. Ask them to be gentle with your back to avoid making the pain worse. - Keep your next appointment, which is scheduled for May 12. We will discuss the results of your CT scan at that visit. Orders: Orders XR lumbar spine 2-3V Today M54.50 - Low back pain, unspecified Lipid Panel 3 Months E11.65 - Type 2 diabetes mellitus with hyperglycemia, E78.00 - Pure hypercholesterolemia, unspecified Comprehensive Met. Panel 3 Months E11.65 - Type 2 diabetes mellitus with hyper glycemia AMB Hemoglobin A1c Today Z13.9 - Encounter for screening, unspecified XR hip BI w PEL1V Today M54.50 - Low back pain, unspecified Hemoglobin A1c 3 Months E11.65 - Type 2 diabetes mellitus with hyperglycemia Influenza [id number] Immunization Today Z23 - Encounter for immunization Medications: Changed From simvastatin 10 mg PO BEDTIME 90 days 90 tabs 1RF E78.00 - Pure hyp ercholesterolemia, unspecified To simvastatin 20 mg PO BEDTIME 90 tabs 1RF 90 days E78.00 - Pure hypercholesterolemia, unspecified
== END 2025-03-07 16:19 | disposition home or self-care (01) ==
LOC: HO.HMCH 14:46
PROVIDERS: PCP Internal Medicine; Visit Provider Internal Medicine
DX: Z00.00 Encounter for general adult medical examination without abnormal findings (principal); E11.65 Type 2 diabetes mellitus with hyperglycemia; E78.00 Pure hypercholesterolemia, unspecified; I48.0 Paroxysmal atrial fibrillation; I44.1 Atrioventricular block, second degree; F41.1 Generalized anxiety disorder; E66.01 Morbid (severe) obesity due to excess calories; K21.9 Gastro-esophageal reflux disease without esophagitis; M54.50 Low back pain, unspecified; Z23 Encounter for immunization; Z13.9 Encounter for screening, unspecified

== ENCOUNTER 2025-03-07 16:07 | Outpatient (REF) | payer OTHER, SELFPAY ==
--- NOTE | ~2025-03-07 | XR_ITS ---
EXAMINATION: XR BILATERAL HIPS WITH AP PELVIS CLINICAL INFORMATION: M54.50 - Low back pain, unspecified COMPARISON: 01/26/2024 TECHNIQUE: AP pelvis and AP and frog-leg views of each hip were obtained. FINDINGS: Pelvis: There is a 2 cm coarse calcific density in the right hemipelvis possibly representing a fibroid versus vascular calcification. Small osteophytes are noted in the lower SI joints. Moderate degenerative change is visible in the lower lumbar spine with disc space narrowing, sclerosis, and osteophytes. Hip joints are symmetrical and congruent with subtle axial joint space narrowing on the left. No osteophytes are present. XR/XR hip BI w PEL1V IMPRESSION: Moderate degenerative change in the lower lumbar spine. Mild osteoarthritis of the SI joints. Mild axial joint space narrowing in the left hip joint. Unremarkable right hip. Electronically signed by: Mckay Mascorro MD 03/07/2025 05:[address] [facility]
--- NOTE | ~2025-03-07 | XR_ITS ---
EXAMINATION: XR LUMBOSACRAL SPINE CLINICAL INFORMATION: M54.50 - Low back pain, unspecified COMPARISON: July 02, 2016 TECHNIQUE: Three views of the lumbosacral spine. FINDINGS: Right upper quadrant clips are consistent with cholecystectomy. There is mild levoscoliosis, increased since prior. T12-L1: Unremarkable L1-L2: There is moderate disc space during, endplate sclerosis, and osteophytes. L2-L3: There is mild disc space narrowing and endplate osteophytes. There is mild facet arthropathy. L3-L4: There is moderate disc space narrowing, endplate sclerosis and osteophytes, and mild facet arthropathy. L4-L5: There is moderate disc space narrowing, endplate osteophytes, and sclerosis. There is mild to moderate facet arthropathy. L5-S1: There is mild disc space narrowing, L5 osteophyte, and mild facet sclerosis. XR/XR lumbar spine 2-3V IMPRESSION: Multilevel degenerative disc disease and mild levoscoliosis has increased since the prior x-ray. Electronically signed by: Mckay Mascorro MD 03/07/2025 06:00 PM [facility]
== END 2025-03-07 16:08 | disposition home or self-care (01) ==
LOC: HO.XRAY 16:07
PROVIDERS: PCP Internal Medicine; Visit Provider Internal Medicine
DX: M54.50 Low back pain, unspecified (principal)
CPT/HCPCS: 72100; 73521; 83036; 90471; 93280; 99212; 99396

== ENCOUNTER → 2025-03-07 16:12 | Outpatient (BNV) | payer OTHER, SELFPAY | PROVIDERS: PCP Internal Medicine; Visit Provider Radiology Diagnostic Radiology | DX: M51.360 Other intervertebral disc degeneration, lumbar region with discogenic back pain only (principal); M16.12 Unilateral primary osteoarthritis, left hip | CPT/HCPCS: 72100; 73521 ==

== ENCOUNTER 2025-04-12 08:01 | Outpatient (REF) | payer OTHER, SELFPAY ==
--- OUTSIDE RECORDS SUMMARY | 2025-04-12 08:08 | XMS_ITS | Clinical Summary ---
Author Organization [facility] [address] [place] [address] [place] [id number] Phone Care Team Providers Care Fire Control Technician Name Role Phone Matias Sullivan MD Primary Care Provider Allergies Active Allergy Reactions Criticality Noted Date Comments Amlodipine 02/12/2023 Codeine 07/15/2012 Meperidine Hcl 07/15/2012 Sulfa (Sulfonamide Antibiotics) 06/27 Medications apixaban (Eliquis) 5 mg tablet Take 1 tablet (5 mg total) by mouth 2 (two) times a day. 01/26/2023 Active metFORMIN (GLUCOPHAGE) 500 mg tablet Take 1 tablet (500 mg total) by mouth 2 (two) times a day. 01/06/2023 Active simvastatin (ZOCOR) 5 mg tablet Take 1 tablet (5 mg total) by mouth at bedtime. 01/31/2023 Active ibuprofen (ADVIL,MOTRIN) 800 mg tablet Take 1 tablet (800 mg total) by mouth every 6 (six) hours if needed for mild pain or moderate pain. 05/09/2020 Active ascorbic acid (VITAMIN C) 1,000 mg CR tablet Take by mouth. Active cholecalciferol (VITAMIN D-3) 50 mcg (2,000 unit) tablet Take by mouth. Active OMEGA-3 FATTY ACIDS ORAL [place]-3 Fatty Acids (FISH OIL) 1200 MG Cap [...] a week at night 42.5 g 3 03/16/2024 Active Active Problems Problem Noted Date Diagnosed [...] Last Done Comments Breast Cancer Screening 1967 Drug Screen 1967 Non-Opioid Controlled Substance Agreement 1967 Hepatitis B Vaccines (1 of 3 [...] Screening: HPV Abstracted, Negative us Historical Provider HEALTH MAINTENANCE Final Result from Last 3 Months or Most Recently Relevant to Health Maintenance Insurance [facility] [employer] Care Teams Fire Control Technician Relationship Specialty Start Date End Date Matias Sullivan MD [address] [place] [address] [address] [facility] [place] [address] PCP - General Internal Medicine 04/24/12
== END 2025-04-12 08:02 | disposition home or self-care (01) ==
LOC: HO.MAMMO 08:01
PROVIDERS: PCP Internal Medicine; Visit Provider Internal Medicine
DX: Z12.31 Encounter for screening mammogram for malignant neoplasm of breast (principal)
CPT/HCPCS: 77063; 77067

== ENCOUNTER → 2025-04-12 08:15 | Outpatient (BNV) | payer OTHER, SELFPAY | PROVIDERS: PCP Internal Medicine; Visit Provider Internal Medicine | DX: Z12.31 Encounter for screening mammogram for malignant neoplasm of breast (principal) | CPT/HCPCS: 77063; 77067 ==